=== PATIENT | male | born 1945 | race Caucasian/White ===

== ENCOUNTER 2017-05-05 17:25 | Inpatient (IN) | payer MEDICARE ==
[2017-05-05] MEDS ORDERED: SODIUM CHLORIDE 0.9% 1,000 ML IV ONE (17:50)
--- NOTE | 2017-05-05 18:29 | ED ---
Altered Mental Status HPI - General Chief Complaint: Altered Mental Status Stated Complaint: confusion Time Seen by Provider: 05/05/17 17:39 Source: patient, family Mode of arrival: ambulatory Limitations: no limitations - History of Present Illness Initial Comments: This is a 71-year-old male brought in by family members for altered mental status and confusion was started sometime during this past evening. Patient is a drinker he drinks 5-6 beers per day no trauma reported no fevers chills sweats he has have Parkinson's disease he has have hypertension. No history of stroke MD Complaint: altered mental status, confusion - Related Data Home Medications Medication Instructions Recorded Confirmed Cholecalciferol [Vitamin D3] 1,000 unit PO DAILY 12/03/14 05/05/17 Simvastatin [Zocor] 40 mg PO HS 12/03/14 05/05/17 Acetaminophen [Tylenol 8 Hour] 650 mg PO BID PRN 05/05/17 05/05/17 Lisinopril [Zestril] 20 mg PO DAILY 05/05/17 05/05/17 Multivitamins, Thera [Multivitamin 1 tab PO DAILY 05/05/17 05/05/17 (formulary)] Allergies Allergy/AdvReac Type Severity Reaction Status Date / Time No Known Allergies Allergy Verified 05/05/17 17:54 Review of Systems ROS Statement: Those systems with pertinent positive or pertinent negative responses have been documented in the HPI. ROS Other: All systems not noted in ROS Statement are negative. Limitations: ROS unobtainable due to patients medical condition Past Medical History Past Medical History: Diabetes Mellitus, Hyperlipidemia, Hypertension History of Any Multi-Drug Resistant Organisms: None Reported Past Surgical History: Orthopedic Surgery Additional Past Surgical History / Comment(s): cataract left eye with implant, lt elbow surgery, colonoscopy Past Anesthesia/Blood Transfusion Reactions: No Reported Reaction Smoking Status: Former smoker Past Alcohol Use History: Occasional Past Drug Use History: None Reported - Past Family History Mother Family Medical History: Cancer Additional Family Medical History / Comment(s): unknown kind Daughter(s) Family Medical History: Cancer Additional Family Medical History / Comment(s): @ age 38- colon and then liver ca & then unsure of other area General Exam - General Exam Comments Initial Comments: This is a well-developed well-nourished awake alert oriented 2 male Limitations: no limitations General appearance: alert, in no apparent distress Head exam: Present: atraumatic, normocephalic, normal inspection Eye exam: Present: normal appearance, PERRL, EOMI. Absent: scleral icterus, conjunctival injection, periorbital swelling ENT exam: Present: normal exam, mucous membranes moist Neck exam: Present: normal inspection. Absent: tenderness, meningismus, lymphadenopathy Respiratory exam: Present: normal lung sounds bilaterally. Absent: respiratory distress, wheezes, rales, rhonchi, stridor Cardiovascular Exam: Present: normal rhythm, tachycardia, normal heart sounds. Absent: systolic murmur, diastolic murmur, rubs, gallop, clicks GI/Abdominal exam: Present: soft, normal bowel sounds. Absent: distended, tenderness, guarding, rebound, rigid Extremities exam: Present: normal inspection, full ROM, normal capillary refill. Absent: tenderness, pedal edema, joint swelling, calf tenderness Back exam: Present: normal inspection Neurological exam: Present: alert, altered, CN II-XII intact Psychiatric exam: Present: normal affect, normal mood Skin exam: Present: warm, dry, intact, normal color. Absent: rash Course Vital Signs 05/05/17 05/05/17 05/05/17 17:30 18:38 19:00 Temperature 98.5 F Pulse Rate 122 H 82 100 Respiratory 18 18 18 Rate Blood Pressure 148/66 157/68 178/79 O2 Sat by Pulse 99 96 100 Oximetry 05/05/17 05/05/17 05/05/17 19:15 19:45 20:03 Temperature Pulse Rate 96 98 98 Respiratory 16 18 18 Rate Blood Pressure 170/78 161/77 157/73 O2 Sat by Pulse 98 100 98 Oximetry 05/05/17 20:15 Temperature Pulse Rate 98 Respiratory 18 Rate Blood Pressure 149/69 O2 Sat by Pulse 98 Oximetry - Reevaluation(s) Reevaluation #1: 05/05/17 19:57 Reevaluation patient reveals no changes. Medical Decision Making - Medical Decision Making I did reevaluate patient several occasions no changes. I did discuss case with the patient's patient will be admitted for evaluation. I did discuss case with Dr. Vega. - Lab Data Result diagrams: 05/05/17 18:45 05/05/17 18:45 Lab Results 05/05/17 05/05/17 05/05/17 Range/Units 18:44 18:45 18:45 WBC (3.8-10.6) k/uL RBC (4.30-5.90) m/uL Hgb (13.0-17.5) gm/dL Hct (39.0-53.0) % MCV (80.0-100.0) fL MCH (25.0-35.0) pg MCHC (31.0-37.0) g/dL RDW (11.5-15.5) % Plt Count (150-450) k/uL Neutrophils % % Lymphocytes % % Monocytes % % Eosinophils % % Basophils % % Neutrophils # (1.3-7.7) k/uL Lymphocytes # (1.0-4.8) k/uL Monocytes # (0-1.0) k/uL Eosinophils # (0-0.7) k/uL Basophils # (0-0.2) k/uL PT (9.0-12.0) sec INR (<1.2) APTT (22.0-30.0) sec Sodium 125 L (137-145) mmol/L Potassium 4.1 (3.5-5.1) mmol/L Chloride 88 L (98-107) mmol/L Carbon Dioxide 23 (22-30) mmol/L Anion Gap 14 mmol/L BUN 18 (9-20) mg/dL Creatinine 0.80 (0.66-1.25) mg/dL Est GFR (MDRD) Af Amer >60 (>60 ml/min/1.73 sqM) Est GFR (MDRD) Non-Af >60 (>60 ml/min/1.73 sqM) Glucose 135 H (74-99) mg/dL POC Glucose (mg/dL) 155 H (75-99) mg/dL POC Glu Head Strength And [employer]ing Coach ID Juan F Austin Calcium 9.5 (8.4-10.2) mg/dL Magnesium 0.8 L* (1.6-2.3) mg/dL Total Bilirubin 0.7 (0.2-1.3) mg/dL AST 62 H (17-59) U/L ALT 44 (21-72) U/L Alkaline Phosphatase 97 (38-126) U/L Ammonia (<30) umol/L Total Creatine Kinase 1568 H (55-170) U/L CK-MB (CK-2) 29.2 H* (0.0-2.4) ng/mL CK-MB (CK-2) Rel Index 1.9 Troponin I 0.014 (0.000-0.034) ng/mL Total Protein 7.6 (6.3-8.2) g/dL Albumin 4.4 (3.5-5.0) g/dL Amylase 42 (30-110) U/L Lipase 47 (23-300) U/L Serum Alcohol <10 mg/dL 05/05/17 05/05/17 05/05/17 Range/Units 18:45 18:45 19:00 WBC 12.8 H (3.8-10.6) k/uL RBC 3.82 L (4.30-5.90) m/uL Hgb 11.9 L (13.0-17.5) gm/dL Hct 32.9 L (39.0-53.0) % MCV 86.1 (80.0-100.0) fL MCH 31.1 (25.0-35.0) pg MCHC 36.2 (31.0-37.0) g/dL RDW 13.0 (11.5-15.5) % Plt Count 431 (150-450) k/uL Neutrophils % 84 % Lymphocytes % 7 % Monocytes % 6 % Eosinophils % 0 % Basophils % 0 % Neutrophils # 10.8 H (1.3-7.7) k/uL Lymphocytes # 0.9 L (1.0-4.8) k/uL Monocytes # 0.8 (0-1.0) k/uL Eosinophils # 0.0 (0-0.7) k/uL Basophils # 0.0 (0-0.2) k/uL PT 10.7 (9.0-12.0) sec INR 1.1 (<1.2) APTT 26.1 (22.0-30.0) sec Sodium (137-145) mmol/L Potassium (3.5-5.1) mmol/L Chloride (98-107) mmol/L Carbon Dioxide (22-30) mmol/L Anion Gap mmol/L BUN (9-20) mg/dL Creatinine (0.66-1.25) mg/dL Est GFR (MDRD) Af Amer (>60 ml/min/1.73 sqM) Est GFR (MDRD) Non-Af (>60 ml/min/1.73 sqM) Glucose (74-99) mg/dL POC Glucose (mg/dL) (75-99) mg/dL POC Glu Head Strength And Conditioning Coach ID Calcium (8.4-10.2) mg/dL Magnesium (1.6-2.3) mg/dL Total Bilirubin (0.2-1.3) mg/dL AST (17-59) U/L ALT (21-72) U/L Alkaline Phosphatase (38-126) U/L Ammonia 19 (<30) umol/L Total Creatine Kinase (55-170) U/L CK-MB (CK-2) (0.0-2.4) ng/mL CK-MB (CK-2) Rel Index Troponin I (0.000-0.034) ng/mL Total Protein (6.3-8.2) g/dL Albumin (3.5-5.0) g/dL Amylase (30-110) U/L Lipase (23-300) U/L Serum Alcohol mg/dL - EKG Data -: EKG Interpreted by Me EKG shows normal: sinus rhythm (Sinus rhythm rate 97 CO interval 1:30 QRS 80 QT since QTC of 362/459 occasional PVCs no acute ST-T wave changes) - Radiology Data Radiology results: report reviewed (I did review the imaging and reports no definite acute findings.), image reviewed Critical Care Time Critical Care Time: Yes Critical Care Time: 33 minutes of critical care time which includes initial presentation with history physical labs x-rays reevaluation patient response to therapy and neurological status admission orders discussed with the family documentation of the above Disposition Clinical Impression: Altered mental status, Delirium due to general medical condition, Rhabdomyolysis, Hypomagnesemia, Alcohol abuse Disposition: ADMITTED IP TO THIS HOSP Condition: Stable Referrals: Alejandro Claudio MD [Primary Care Provider] - 1-2 days
[2017-05-05 18:46] LABS: Glucose,Whole Blood 155 mg/dL (75-99)
[2017-05-05 19:00] LABS: Basophils % (A) 0 %; CH 30.9; CHCM 35.9; Eosinophils % (A) 0 %; HCT 32.9 % (39.0-53.0); HDW 2.32; HGB 11.9 gm/dL (13.0-17.5); Luc # (Auto) 0.33; Luc % (Auto) 3; Lymphocytes # (A) 0.9 k/uL (1.0-4.8); Lymphocytes % (A) 7 %; MCH 31.1 pg (25.0-35.0); MCHC 36.2 g/dL (31.0-37.0); MCV 86.1 fL (80.0-100.0); Mean Platelet Volume 6.2; Monocytes # (A) 0.8 k/uL (0-1.0); Monocytes % (A) 6 %; Neutrophils # (A) 10.8 k/uL (1.3-7.7); Neutrophils % (A) 84 %; RBC 3.82 m/uL (4.30-5.90); WBC 12.8 k/uL (3.8-10.6); WBC (Perox) 13.34
--- NOTE | 2017-05-05 19:15 | CT ---
EXAMINATION TYPE: CT brain wo con DATE OF EXAM: 05/05/2017 COMPARISON: NONE HISTORY: 71-year-old male with confusion, altered mental status. TECHNIQUE: Examination was done in axial plane without intravenous contrast. Coronal and sagittal r econstructions performed. CT DLP: 1035.40 mGycm Automated exposure control for dose reduction was used. FINDINGS: There is no evidence of acute intracranial hemorrhage, acute ischemic changes, mass, mass-effect, or extra-axial fluid collection. There is no effacement of cerebral sulci or basal subarachnoid cister ns. There is no hydrocephalus. There is no midline shift. Chadwick-white matter distinction is preserv ed. Mild generalized supratentorial volume loss. Dystrophic calcifications along the falx cerebri. Athero sclerotic calcifications within the carotid siphons. 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 Extensive calcifications in the anterior right nasal cavity. Moderate to severe mucosal thickening in the right maxillary sinus and moderate in the left maxillary sinus. Mastoid air cells are well pneumatized. Orbits and globes appear intact IMPRESSION: 1. Mild cerebral atrophy. No acute intracranial abnormality seen. 2. Long-standing right maxillary sinus disease. Some hyperdensity within the right maxillary sinus an d apparent calcifications in the right nasal cavity. Correlate to exclude superimposed aspergillus in fection. ENT referral may be of benefit.
[2017-05-05 19:21] LABS: ALT 44 U/L (21-72); AST 62 U/L (17-59); Alcohol <10 mg/dL; Alkaline Phosphatase 97 U/L (38-126); Amylase 42 U/L (30-110); Anion Gap 14 mmol/L; Blood Urea Nitrogen 18 mg/dL (9-20); Calcium 9.5 mg/dL (8.4-10.2); Carbon Dioxide 23 mmol/L (22-30); Chloride 88 mmol/L (98-107); Glucose 135 mg/dL (74-99); Non-African American GFR(MDRD) >60 (>60 ml/min/1.73 sqM); Potassium 4.1 mmol/L (3.5-5.1); Sodium 125 mmol/L (137-145); Total Bilirubin 0.7 mg/dL (0.2-1.3); Total Protein 7.6 g/dL (6.3-8.2)
[2017-05-05 19:26] LABS: Magnesium 0.8 mg/dL (1.6-2.3)
[2017-05-05 19:31] LABS: Troponin I 0.014 ng/mL (0.000-0.034)
[2017-05-05 19:32] LABS: Creatine Kinase MB 29.2 ng/mL (0.0-2.4); INR 1.1 (<1.2); Partial Thromboplastin Time 26.1 sec (22.0-30.0); Prothrombin Time 10.7 sec (9.0-12.0)
--- NOTE | 2017-05-05 19:45 | XR ---
EXAMINATION TYPE: XR chest 2V DATE OF EXAM: 05/05/2017 COMPARISON: None HISTORY: 71-year-old male confusion, unresponsive, altered mental status TECHNIQUE: AP and lateral views FINDINGS: The heart is upper limits of normal in size. This chronic arch calcifications. Diffuse interstitial p rominence is a chronic appearance. A consolidation or pleural effusion. IMPRESSION: Chronic-appearing changes, possible chronic bronchitis/asthma. No focal infiltrate.
[2017-05-05] MEDS: MAGNESIUM SULFATE-D5W PMX 1 GM in DEXTROSE/WATER 1 100ML.BAG IVPB SCH ×2 (20:00→22:07)
[2017-05-05] MEDS ORDERED: NALOXONE 0.4 MG/ML 1 ML VIAL IV PRN (20:26)
[2017-05-05] MEDS ORDERED: ACETAMINOPHEN TAB 325 MG TAB PO PRN (20:28)
[2017-05-05 20:31] LABS: Appearance,Urine Clear (Clear); Bilirubin,Urine Negative (Negative); Glucose,Urine (UA) Negative (Negative); Ketones,Urine Negative (Negative); Leukocyte Esterase,Urine Negative (Negative); Nitrite,Urine Negative (Negative); Particle Count 380; Protein,Urine 1+ (Negative); RBC,Urine <1 /hpf (0-5); Specific Gravity,Urine 1.006 (1.001-1.035); UA Billing (MACRO vs. MICRO) MICRO; Urobilinogen,Urine <2.0 mg/dL (<2.0)
[2017-05-05] MEDS ORDERED: ATORVASTATIN 20 MG TAB PO SCH (21:00)
[2017-05-05 21:54] LABS: Glucose,Whole Blood 135 mg/dL (75-99)
[2017-05-05] MEDS: SODIUM CHLORIDE 0.9% 1,000 ML IV SCH (21:59)
[2017-05-05] MEDS ORDERED: SODIUM CHLORIDE 0.9% 1,000 ML with MVI, ADULT NO.4 WITH VIT K 10 ML, THIAMINE 100 MG, F... IV ONE ×4 (22:00)
[2017-05-05] MEDS: ATORVASTATIN 20 MG TAB PO SCH (22:03)
[2017-05-05] MEDS ORDERED: LORazepam 2 MG/ML SYRINGE IV PRN ×2 (23:58)
[2017-05-06] MEDS: LORazepam 2 MG/ML SYRINGE IV PRN (00:31)
[2017-05-06 01:55] LABS: Glucose,Whole Blood 167 mg/dL (75-99)
[2017-05-06 06:02] LABS: Glucose,Whole Blood 149 mg/dL (75-99)
[2017-05-06] MEDS: CHOLECALCIFEROL 1,000 UNIT TAB PO SCH (08:24)
[2017-05-06] MEDS: MULTIVITAMINS, THERA 1 EACH TAB PO SCH (08:24)
[2017-05-06] MEDS: SODIUM CHLORIDE 0.9% 1,000 ML IV SCH ×4 (08:25→21:22)
[2017-05-06] MEDS ORDERED: LISINOPRIL 20 MG TAB PO SCH (09:00)
[2017-05-06] MEDS ORDERED: POLYETHYLENE GLYCOL 3350 17 GM POWD.PACK PO PRN (11:28)
[2017-05-06] MEDS ORDERED: DOCUSATE 100 MG CAP PO PRN (11:28)
[2017-05-06] MEDS ORDERED: Magnesium Replacement Protocol 1 EACH MISC MISCELLANE PRN (12:08)
[2017-05-06] MEDS: MAGNESIUM SULFATE-D5W PMX 1 GM in DEXTROSE/WATER 1 100ML.BAG IVPB SCH ×3 (12:14→16:57)
[2017-05-06 12:16] LABS: Glucose,Whole Blood 130 mg/dL (75-99)
--- NOTE | 2017-05-06 14:34 | P.HPIM ---
History of Present Illness 71-year-old pleasant gentleman was admitted for altered mental status. Patient today is alert oriented 3. Note there are no signs or symptoms of sepsis at this time. Patient denied any dysuria, denied any cough. Patient's urease essentially within normal limits. Patient didn't have any fever. She does have leukocytosis which is reactive in nature. Patient is found to be hyponatremic and hypomagnesemic. Patient apparently was found on the floor he states he is on the floor for about 10 hours patient was drinking alcohol. Patient was not exactly sure what happened and he believes he may have overdosed on medications unintentionally. But the patient's urine drug screen is negative. Patient last all call drink was about 2 days ago on Sunday. Patient is having minimal withdraws including shaking today. Patient does drink alcohol abuse and liver trying to cut it down. Patient is on all call withdrawal protocol IV fluids and patient is feeling much better. Patient has hypovolemic hyponatremia which is expected to improve with the IV fluids. Patient will be transferred out of selective care. Denied any chest pain does have elevated CK secondary to lying on the floor for long period Of time. Review of Systems REVIEW OF SYSTEMS: CONSTITUTIONAL: No fever, no malaise, no fatigue. HEENT: No recent visual problems or hearing problems. Denied any sore throat. CARDIOVASCULAR: No chest pain, orthopnea, PND, no palpitations, no syncope. PULMONARY: No shortness of breath, no cough, no hemoptysis. GASTROINTESTINAL: No diarrhea, no nausea, no vomiting, no abdominal pain. Normoactive bowel sounds. NEUROLOGICAL: No headaches, no weakness, no numbness. HEMATOLOGICAL: Denies any bleeding or petechiae. GENITOURINARY: Denies any burning micturition, frequency, or urgency. MUSCULOSKELETAL/RHEUMATOLOGICAL: Denies any joint pain, swelling, or any muscle pain. ENDOCRINE: Denies any polyuria or polydipsia. The rest of the 14-point review of systems is negative. Past Medical History Past Medical History: Hyperlipidemia, Hypertension Additional Past Medical History / Comment(s): spouse states has hernia and vomits after eating at times History of Any Multi-Drug Resistant Organisms: None Reported Past Surgical History: Orthopedic Surgery Additional Past Surgical History / Comment(s): cataract left eye with implant, lt elbow surgery, colonoscopy Past Anesthesia/Blood Transfusion Reactions: No Reported Reaction Smoking Status: Former smoker Past Alcohol Use History: Occasional Past Drug Use History: None Reported - Past Family History Mother Family Medical History: Cancer Additional Family Medical History / Comment(s): lung cancer Daughter(s) Family Medical History: Cancer Additional Family Medical History / Comment(s): @ age 38- colon and then liver ca & then unsure of other area Medications and Allergies Home Medications Medication Instructions Recorded Confirmed Type Cholecalciferol [Vitamin D3] 1,000 unit PO DAILY 12/03/14 05/05/17 History Simvastatin [Zocor] 40 mg PO HS 12/03/14 05/05/17 History Acetaminophen [Tylenol 8 Hour] 650 mg PO BID PRN 05/05/17 05/05/17 History Lisinopril [Zestril] 20 mg PO DAILY 05/05/17 05/05/17 History Multivitamins, Thera [Multivitamin 1 tab PO DAILY 05/05/17 05/05/17 History (formulary)] Allergies Allergy/AdvReac Type Severity Reaction Status Date / Time No Known Allergies Allergy Verified 05/05/17 17:54 Physical Exam Vitals: Vital Signs Temp Pulse Pulse Resp BP BP Pulse Ox 05/06/17 12:00 81 16 120/58 100 05/06/17 08:00 97.6 F 107 H 16 122/71 98 05/06/17 04:00 96.9 F L 92 18 167/81 98 05/06/17 00:00 97.0 F L 96 18 174/90 100 05/05/17 21:40 97.3 F L 96 18 150/66 97 05/05/17 21:25 97.3 F L 96 18 150/66 97 05/05/17 20:42 98.7 F 05/05/17 20:15 98 18 149/69 98 05/05/17 20:03 98 18 157/73 98 05/05/17 19:45 98 18 161/77 100 05/05/17 19:15 96 16 170/78 98 05/05/17 19:00 100 18 178/79 100 05/05/17 18:38 82 18 157/68 96 05/05/17 17:30 98.5 F 122 H 18 148/66 99 Intake and Output 05/05/17 05/06/17 05/06/17 22:59 06:59 14:59 Output Total 50 750 Balance -50 -750 Output: Urine 50 750 Straight 50 Other: # Voids 2 Weight 74 kg 74.2 kg PHYSICAL EXAMINATION: GENERAL: The patient is alert and oriented x3, not in any acute distress. Well developed, well nourished. Patient does have tremor. HEENT: Pupils are round and equally reacting to light. EOMI. No scleral icterus. No conjunctival pallor. Normocephalic, atraumatic. No pharyngeal erythema. No thyromegaly. CARDIOVASCULAR: S1 and S2 present. No murmurs, rubs, or gallops. PULMONARY: Chest is clear to auscultation, no wheezing or crackles. ABDOMEN: Soft, nontender, nondistended, normoactive bowel sounds. No palpable organomegaly. MUSCULOSKELETAL: No joint swelling or deformity. EXTREMITIES: No cyanosis, clubbing, or pedal edema. NEUROLOGICAL: Gross neurological examination did not reveal any focal deficits. SKIN: No rashes. Results CBC & Chem 7: 05/05/17 18:45 05/05/17 18:45 Labs: Abnormal Lab Results - Last 24 Hours (Table) 05/05/17 05/05/17 05/05/17 Range/Units 18:44 18:45 18:45 WBC (3.8-10.6) k/uL RBC (4.30-5.90) m/uL Hgb (13.0-17.5) gm/dL Hct (39.0-53.0) % Neutrophils # (1.3-7.7) k/uL Lymphocytes # (1.0-4.8) k/uL Sodium 125 L (137-145) mmol/L Chloride 88 L (98-107) mmol/L Glucose 135 H (74-99) mg/dL POC Glucose (mg/dL) 155 H (75-99) mg/dL Magnesium 0.8 L* (1.6-2.3) mg/dL AST 62 H (17-59) U/L Total Creatine Kinase 1568 H (55-170) U/L CK-MB (CK-2) 29.2 H* (0.0-2.4) ng/mL Urine Protein (Negative) 05/05/17 05/05/17 05/05/17 Range/Units 18:45 20:13 21:42 WBC 12.8 H (3.8-10.6) k/uL RBC 3.82 L (4.30-5.90) m/uL Hgb 11.9 L (13.0-17.5) gm/dL Hct 32.9 L (39.0-53.0) % Neutrophils # 10.8 H (1.3-7.7) k/uL Lymphocytes # 0.9 L (1.0-4.8) k/uL Sodium (137-145) mmol/L Chloride (98-107) mmol/L Glucose (74-99) mg/dL POC Glucose (mg/dL) 135 H (75-99) mg/dL Magnesium (1.6-2.3) mg/dL AST (17-59) U/L Total Creatine Kinase (55-170) U/L CK-MB (CK-2) (0.0-2.4) ng/mL Urine Protein 1+ H (Negative) 05/06/17 05/06/17 05/06/17 Range/Units 01:54 06:01 06:09 WBC (3.8-10.6) k/uL RBC (4.30-5.90) m/uL Hgb (13.0-17.5) gm/dL Hct (39.0-53.0) % Neutrophils # (1.3-7.7) k/uL Lymphocytes # (1.0-4.8) k/uL Sodium (137-145) mmol/L Chloride (98-107) mmol/L Glucose (74-99) mg/dL POC Glucose (mg/dL) 167 H 149 H (75-99) mg/dL Magnesium 1.4 L (1.6-2.3) mg/dL AST (17-59) U/L Total Creatine Kinase (55-170) U/L CK-MB (CK-2) (0.0-2.4) ng/mL Urine Protein (Negative) 05/06/17 Range/Units 11:48 WBC (3.8-10.6) k/uL RBC (4.30-5.90) m/uL Hgb (13.0-17.5) gm/dL Hct (39.0-53.0) % Neutrophils # (1.3-7.7) k/uL Lymphocytes # (1.0-4.8) k/uL Sodium (137-145) mmol/L Chloride (98-107) mmol/L Glucose (74-99) mg/dL POC Glucose (mg/dL) 130 H (75-99) mg/dL Magnesium (1.6-2.3) mg/dL AST (17-59) U/L Total Creatine Kinase (55-170) U/L CK-MB (CK-2) (0.0-2.4) ng/mL Urine Protein (Negative) Thrombosis Risk Factor Assmnt - Choose All That Apply Each Risk Factor Represents 2 Points: Age 61-74 years Thrombosis Risk Factor Assessment Total Risk Factor Score: 2 Thrombosis Risk Factor Assessment Level: Low Risk Assessment and Plan Plan: #1 altered mental status: Secondary to possible toxic and encephalopathy. Hyponatremia may have contributed to that but I believe it's mostly because of all call overuse on Sunday. His alcohol level is less than 10 today as it was couple days ago patient will be on IV fluids I believe patient has hypervolemic hyponatremia expected to improve with IV fluids. #2 alcohol abuse history: Counseling was provided and patient is on CIWA withdrawal protocol. #3 hyponatremia: Hypovolemic hyponatremia. #4 hyperlipidemia #5 hypertension #6 leukocytosis: Reactive in nature no signs or symptoms of infection at this time.
[2017-05-06 17:04] LABS: Glucose,Whole Blood 131 mg/dL (75-99)
[2017-05-06] MEDS: THIAMINE 100 MG TAB PO SCH (17:56)
[2017-05-06 20:43] LABS: Glucose,Whole Blood 169 mg/dL (75-99)
[2017-05-06] MEDS: METOPROLOL TARTRATE 25 MG TAB PO SCH (21:24)
[2017-05-06] MEDS: FAMOTIDINE 20 MG TAB PO SCH (21:24)
[2017-05-06] MEDS: ATORVASTATIN 20 MG TAB PO SCH (21:25)
[2017-05-07 06:58] LABS: Glucose,Whole Blood 134 mg/dL (75-99)
[2017-05-07 07:01] LABS: CH 31.7; HCT 27.1 % (39.0-53.0); HDW 2.17; MCV 90.9 fL (80.0-100.0); Mean Platelet Volume 7.2; RBC 2.98 m/uL (4.30-5.90); RDW 13.5 % (11.5-15.5); WBC 12.9 k/uL (3.8-10.6)
[2017-05-07] MEDS: SODIUM CHLORIDE 0.9% 1,000 ML IV SCH (07:02)
[2017-05-07 07:04] LABS: HGB 8.9 gm/dL (13.0-17.5)
[2017-05-07 07:13] LABS: ALT 40 U/L (21-72); AST 54 U/L (17-59); Alkaline Phosphatase 71 U/L (38-126); Anion Gap 9 mmol/L; Blood Urea Nitrogen 14 mg/dL (9-20); Calcium 8.2 mg/dL (8.4-10.2); Carbon Dioxide 25 mmol/L (22-30); Chloride 88 mmol/L (98-107); Glucose 118 mg/dL (74-99); Magnesium 1.1 mg/dL (1.6-2.3); Non-African American GFR(MDRD) >60 (>60 ml/min/1.73 sqM); Potassium 3.3 mmol/L (3.5-5.1); Sodium 122 mmol/L (137-145); Total Bilirubin 0.9 mg/dL (0.2-1.3); Total Protein 5.9 g/dL (6.3-8.2)
--- NOTE | 2017-05-07 08:10 | P.PN ---
Subjective Principal diagnosis: Altered mental status. This is a 71-year-old white male essentially admitted for altered mental status. He does have a lab finding of anemia. He suspect this is dilutional. We'll decrease his IV fluid rate today and recheck his appropriate CBC. We'll go ahead and consult surgery just in case. He is already on GI prophylaxis. Unfortunately, after trying to get history from the patient he states he takes an hour from 6-12 pack of beer daily. He denies any type of liquor usage otherwise. He states he drinks wine intermittently. He states he would like to see try to decrease to 5-6 beers daily. Otherwise, he has an underlying history of Parkinson's disease. Objective - Vital Signs Vital signs: Vital Signs Temp 97.9 F 05/07/17 07:29 Pulse 94 05/07/17 07:29 Resp 16 05/07/17 07:29 BP 157/71 05/07/17 07:29 Pulse Ox 97 05/07/17 07:29 Intake & Output 05/06/17 05/07/17 05/07/17 18:59 06:59 18:59 Intake Total 240 1200 Balance 240 1200 Intake: Intake, IV Titration 1200 Amount Sodium Chloride 0.9% 1, 1200 000 ml @ 125 mls/hr IV . Q8H MELVI Rx#:[id number] Oral 240 Other: # Voids 2 - Constitutional General appearance: Present: average body habitus - EENT Eyes: Absent: abnormal pupil - Respiratory Respiratory: bilateral: CTA - Cardiovascular Rhythm: regular Heart sounds: normal: S1, S2 - Gastrointestinal General gastrointestinal: Absent: tenderness - Neurologic Neurologic Comment(s): Tremor is noted. - Psychiatric Psychiatric: Present: A&O x's 3, appropriate affect - Labs CBC & Chem 7: 05/07/17 06:39 05/07/17 06:39 Labs: Abnormal Lab Results - Last 24 Hours (Table) 05/06/17 05/06/17 05/06/17 Range/Units 11:48 16:52 20:42 WBC (3.8-10.6) k/uL RBC (4.30-5.90) m/uL Hgb (13.0-17.5) gm/dL Hct (39.0-53.0) % Sodium (137-145) mmol/L Potassium (3.5-5.1) mmol/L Chloride (98-107) mmol/L Glucose (74-99) mg/dL POC Glucose (mg/dL) 130 H 131 H 169 H (75-99) mg/dL Calcium (8.4-10.2) mg/dL Magnesium (1.6-2.3) mg/dL Total Protein (6.3-8.2) g/dL Albumin (3.5-5.0) g/dL 05/07/17 05/07/17 05/07/17 Range/Units 06:39 06:39 06:55 WBC 12.9 H (3.8-10.6) k/uL RBC 2.98 L (4.30-5.90) m/uL Hgb 8.9 L D (13.0-17.5) gm/dL Hct 27.1 L (39.0-53.0) % Sodium 122 L (137-145) mmol/L Potassium 3.3 L (3.5-5.1) mmol/L Chloride 88 L (98-107) mmol/L Glucose 118 H (74-99) mg/dL POC Glucose (mg/dL) 134 H (75-99) mg/dL Calcium 8.2 L (8.4-10.2) mg/dL Magnesium 1.1 L (1.6-2.3) mg/dL Total Protein 5.9 L (6.3-8.2) g/dL Albumin 3.2 L (3.5-5.0) g/dL Assessment and Plan (1) Alcohol abuse Status: Acute (2) Altered mental status Status: Acute (3) Delirium due to general medical condition Status: Acute (4) Hypomagnesemia Status: Acute Plan: We'll going consult surgery as stated above. Check CBC and CMP in a.m. Watch for alcohol withdrawal. Decrease IV fluid rate and anticipate discharge in next 24-48 hours if his blood count is stabilizing. Question need for endoscopy in the future. Time with Patient: Less than 30
[2017-05-07] MEDS ORDERED: SODIUM CHLORIDE 0.9% 1,000 ML IV SCH (08:15)
[2017-05-07] MEDS: FAMOTIDINE 20 MG TAB PO SCH ×2 (09:45→21:33)
[2017-05-07] MEDS: METOPROLOL TARTRATE 25 MG TAB PO SCH ×2 (09:45→21:33)
[2017-05-07] MEDS: CHOLECALCIFEROL 1,000 UNIT TAB PO SCH (09:45)
[2017-05-07] MEDS: MULTIVITAMINS, THERA 1 EACH TAB PO SCH (09:45)
[2017-05-07 11:44] LABS: Glucose,Whole Blood 148 mg/dL (75-99)
[2017-05-07] MEDS: THIAMINE 100 MG TAB PO SCH ×2 (12:19→16:55)
[2017-05-07] MEDS: MAGNESIUM SULFATE-D5W PMX 1 GM in DEXTROSE/WATER 1 100ML.BAG IVPB SCH ×3 (12:43→16:55)
[2017-05-07] MEDS ORDERED: Potassium Replacement Protocol 1 EACH MISC MISCELLANE PRN (13:14)
[2017-05-07] MEDS: POTASSIUM CHLORIDE ER 20 MEQ TAB.ER PO SCH ×2 (14:10→16:55)
[2017-05-07 16:44] LABS: Glucose,Whole Blood 168 mg/dL (75-99)
--- NOTE | 2017-05-07 18:06 | P.GSCN ---
History of Present Illness Consult date: 05/07/17 Reason for Consult: anemia History of present illness: this a 71-year-old male referred from Dr. Claudio. Patient was met the hospital for treatment of anemia. Patient is a poor historian. Is unclear whether seen any rectal bleeding. The patient's hemoglobin is approximate 8.4. Review of Systems - Constitutional Reports as per HPI Past Medical History Past Medical History: Hyperlipidemia, Hypertension Additional Past Medical History / Comment(s): spouse states has hernia and vomits after eating at times History of Any Multi-Drug Resistant Organisms: None Reported Past Surgical History: Orthopedic Surgery Additional Past Surgical History / Comment(s): cataract left eye with implant, lt elbow surgery, colonoscopy Past Anesthesia/Blood Transfusion Reactions: No Reported Reaction Smoking Status: Former smoker Past Alcohol Use History: Occasional Past Drug Use History: None Reported - Past Family History Mother Family Medical History: Cancer Additional Family Medical History / Comment(s): lung cancer Daughter(s) Family Medical History: Cancer Additional Family Medical History / Comment(s): @ age 38- colon and then liver ca & then unsure of other area Medications and Allergies Home Medications Medication Instructions Recorded Confirmed Type Cholecalciferol [Vitamin D3] 1,000 unit PO DAILY 12/03/14 05/05/17 History Simvastatin [Zocor] 40 mg PO HS 12/03/14 05/05/17 History Acetaminophen [Tylenol 8 Hour] 650 mg PO BID PRN 05/05/17 05/05/17 History Lisinopril [Zestril] 20 mg PO DAILY 05/05/17 05/05/17 History Multivitamins, Thera [Multivitamin 1 tab PO DAILY 05/05/17 05/05/17 History (formulary)] Allergies Allergy/AdvReac Type Severity Reaction Status Date / Time No Known Allergies Allergy Verified 05/05/17 17:54 Surgical - Exam Vital Signs Temp Pulse Resp BP Pulse Ox 98.5 F 122 H 18 148/66 99 05/05/17 17:30 05/05/17 17:30 05/05/17 17:30 05/05/17 17:30 05/05/17 17:30 - General well developed, no distress - Eyes PERRL - ENT normal pinna - Neck no masses - Respiratory normal expansion - Cardiovascular Rhythm: regular - Abdomen Abdomen: soft, non tender Results - Labs 05/07/17 06:39 05/07/17 06:39 Abnormal Lab Results - Last 24 Hours (Table) 05/06/17 05/07/17 05/07/17 Range/Units 20:42 06:39 06:39 WBC 12.9 H (3.8-10.6) k/uL RBC 2.98 L (4.30-5.90) m/uL Hgb 8.9 L D (13.0-17.5) gm/dL Hct 27.1 L (39.0-53.0) % Sodium 122 L (137-145) mmol/L Potassium 3.3 L (3.5-5.1) mmol/L Chloride 88 L (98-107) mmol/L Glucose 118 H (74-99) mg/dL POC Glucose (mg/dL) 169 H (75-99) mg/dL Calcium 8.2 L (8.4-10.2) mg/dL Magnesium 1.1 L (1.6-2.3) mg/dL Total Protein 5.9 L (6.3-8.2) g/dL Albumin 3.2 L (3.5-5.0) g/dL 05/07/17 05/07/17 05/07/17 Range/Units 06:55 11:39 16:38 WBC (3.8-10.6) k/uL RBC (4.30-5.90) m/uL Hgb (13.0-17.5) gm/dL Hct (39.0-53.0) % Sodium (137-145) mmol/L Potassium (3.5-5.1) mmol/L Chloride (98-107) mmol/L Glucose (74-99) mg/dL POC Glucose (mg/dL) 134 H 148 H 168 H (75-99) mg/dL Calcium (8.4-10.2) mg/dL Magnesium (1.6-2.3) mg/dL Total Protein (6.3-8.2) g/dL Albumin (3.5-5.0) g/dL Diabetes panel 05/07/17 Range/Units 06:39 Sodium 122 L (137-145) mmol/L Potassium 3.3 L (3.5-5.1) mmol/L Chloride 88 L (98-107) mmol/L Carbon Dioxide 25 (22-30) mmol/L BUN 14 (9-20) mg/dL Creatinine 0.67 (0.66-1.25) mg/dL Glucose 118 H (74-99) mg/dL Calcium 8.2 L (8.4-10.2) mg/dL AST 54 (17-59) U/L ALT 40 (21-72) U/L Alkaline Phosphatase 71 (38-126) U/L Total Protein 5.9 L (6.3-8.2) g/dL Albumin 3.2 L (3.5-5.0) g/dL Thyroid panel 05/07/17 Range/Units 06:39 TSH 1.530 (0.465-4.680) mIU/L Calcium panel 05/07/17 Range/Units 06:39 Calcium 8.2 L (8.4-10.2) mg/dL Albumin 3.2 L (3.5-5.0) g/dL Pituitary panel 05/07/17 Range/Units 06:39 Sodium 122 L (137-145) mmol/L Potassium 3.3 L (3.5-5.1) mmol/L Chloride 88 L (98-107) mmol/L Carbon Dioxide 25 (22-30) mmol/L BUN 14 (9-20) mg/dL Creatinine 0.67 (0.66-1.25) mg/dL Glucose 118 H (74-99) mg/dL Calcium 8.2 L (8.4-10.2) mg/dL TSH 1.530 (0.465-4.680) mIU/L Adrenal panel 05/07/17 Range/Units 06:39 Sodium 122 L (137-145) mmol/L Potassium 3.3 L (3.5-5.1) mmol/L Chloride 88 L (98-107) mmol/L Carbon Dioxide 25 (22-30) mmol/L BUN 14 (9-20) mg/dL Creatinine 0.67 (0.66-1.25) mg/dL Glucose 118 H (74-99) mg/dL Calcium 8.2 L (8.4-10.2) mg/dL Total Bilirubin 0.9 (0.2-1.3) mg/dL AST 54 (17-59) U/L ALT 40 (21-72) U/L Alkaline Phosphatase 71 (38-126) U/L Total Protein 5.9 L (6.3-8.2) g/dL Albumin 3.2 L (3.5-5.0) g/dL Assessment and Plan Plan: anemia. Patient should undergo upper and lower endoscopy when stable.
[2017-05-07 19:07] LABS: Magnesium 1.7 mg/dL (1.6-2.3); Potassium 3.2 mmol/L (3.5-5.1)
[2017-05-07 20:10] LABS: Glucose,Whole Blood 170 mg/dL (75-99)
[2017-05-07] MEDS: POTASSIUM CHLORIDE 10 MEQ, LIDOCAINE 2% INJ 10 MG in SODIUM CHLORIDE 0.9% 100 ML IVPB SCH ×2 (21:32→22:49)
[2017-05-07] MEDS: ATORVASTATIN 20 MG TAB PO SCH (21:33)
[2017-05-08] MEDS: POTASSIUM CHLORIDE 10 MEQ, LIDOCAINE 2% INJ 10 MG in SODIUM CHLORIDE 0.9% 100 ML IVPB SCH ×2 (02:54→03:48)
[2017-05-08 07:43] LABS: Glucose,Whole Blood 153 mg/dL (75-99)
[2017-05-08] MEDS: MULTIVITAMINS, THERA 1 EACH TAB PO SCH (08:30)
[2017-05-08 08:40] LABS: CH 31.5; CHCM 34.9; HCT 29.8 % (39.0-53.0); HDW 2.18; HGB 9.9 gm/dL (13.0-17.5); MCH 30.1 pg (25.0-35.0); MCHC 33.3 g/dL (31.0-37.0); MCV 90.5 fL (80.0-100.0); Mean Platelet Volume 6.9; RBC 3.29 m/uL (4.30-5.90); RDW 13.4 % (11.5-15.5)
[2017-05-08] MEDS: METOPROLOL TARTRATE 25 MG TAB PO SCH ×2 (08:44→20:36)
[2017-05-08] MEDS: FAMOTIDINE 20 MG TAB PO SCH ×2 (08:45→20:36)
[2017-05-08] MEDS: CHOLECALCIFEROL 1,000 UNIT TAB PO SCH (08:45)
[2017-05-08 08:57] LABS: ALT 45 U/L (21-72); AST 45 U/L (17-59); Alkaline Phosphatase 77 U/L (38-126); Anion Gap 12 mmol/L; Blood Urea Nitrogen 11 mg/dL (9-20); Carbon Dioxide 24 mmol/L (22-30); Chloride 84 mmol/L (98-107); Glucose 138 mg/dL (74-99); Non-African American GFR(MDRD) >60 (>60 ml/min/1.73 sqM); Potassium 3.8 mmol/L (3.5-5.1); Total Bilirubin 1.2 mg/dL (0.2-1.3); Total Protein 6.7 g/dL (6.3-8.2)
[2017-05-08 09:15] LABS: Sodium 120 mmol/L (137-145)
[2017-05-08] MEDS ORDERED: SODIUM CHLORIDE 0.9% 1,000 ML IV SCH (10:30)
[2017-05-08 11:41] LABS: Glucose,Whole Blood 158 mg/dL (75-99)
[2017-05-08] MEDS: THIAMINE 100 MG TAB PO SCH ×2 (11:42→16:01)
--- NOTE | 2017-05-08 13:07 | P.NPCON ---
History of Present Illness - Reason for Consult hyponatremia - History of Present Illness Reason for consultation: Hyponatremia History of present illness: Patient is a 71-year-old male seen in renal consultation for hyponatremia. Sodium level was 125 on admission and has been progressively dropping and is down to 120 this morning. Patient is currently not on any diuretics and not maintained on any IV fluids. Denies drinking excess amount of fluids. I don't see any medications that was-induced SIADH. Admits to good urine output. No hematuria or dysuria. Hemodynamically he is stable. Patient had initially presented to the hospital with altered mental status and anemia. Hemoglobin has been relatively stable and was 9.9 this morning. He denies any active bleeding. No melena or hematochezia. No hematemesis. He was started on IV fluids with normal saline running at 75 mL an hour this morning. Vital signs are stable. General: The patient appeared well nourished and normally developed. HEENT: Head exam is unremarkable. Neck is without jugular venous distension. LUNGS: Lungs are clear to auscultation and percussion. Breath sounds decreased. HEART: Rate and Rhythm are regular. First and second heart sounds normal. No murmurs, rubs or gallops. ABDOMEN: Abdominal exam reveals normal bowel sounds. Non-tender and non- distended. No evidence of peritonitis. EXTREMITITES: No clubbing, cyanosis, or edema. Past Medical History Past Medical History: Hyperlipidemia, Hypertension Additional Past Medical History / Comment(s): spouse states has hernia and vomits after eating at times History of Any Multi-Drug Resistant Organisms: None Reported Past Surgical History: Orthopedic Surgery Additional Past Surgical History / Comment(s): cataract left eye with implant, lt elbow surgery, colonoscopy Past Anesthesia/Blood Transfusion Reactions: No Reported Reaction Smoking Status: Former smoker Past Alcohol Use History: Occasional Past Drug Use History: None Reported - Past Family History Mother Family Medical History: Cancer Additional Family Medical History / Comment(s): lung cancer Daughter(s) Family Medical History: Cancer Additional Family Medical History / Comment(s): @ age 38- colon and then liver ca & then unsure of other area Medications and Allergies Home Medications Medication Instructions Recorded Confirmed Type Cholecalciferol [Vitamin D3] 1,000 unit PO DAILY 12/03/14 05/05/17 History Simvastatin [Zocor] 40 mg PO HS 12/03/14 05/05/17 History Acetaminophen [Tylenol 8 Hour] 650 mg PO BID PRN 05/05/17 05/05/17 History Lisinopril [Zestril] 20 mg PO DAILY 05/05/17 05/05/17 History Multivitamins, Thera [Multivitamin 1 tab PO DAILY 05/05/17 05/05/17 History (formulary)] Allergies Allergy/AdvReac Type Severity Reaction Status Date / Time No Known Allergies Allergy Verified 05/05/17 17:54 Physical Exam Vitals: Vital Signs Temp Pulse Resp BP Pulse Ox 05/08/17 08:00 89 16 05/08/17 07:38 98.0 F 89 16 140/68 99 05/08/17 02:40 99.1 F 88 16 139/65 97 05/07/17 20:00 98.5 F 99 18 164/77 05/07/17 15:24 96 05/07/17 14:27 98.1 F 89 16 146/69 96 Intake and Output 05/07/17 05/08/17 05/08/17 22:59 06:59 14:59 Intake Total 560 320 Balance 560 320 Intake: Intake, IV Titration 560 Amount Potassium Chloride 10 meq 400 Lidocaine 2% Inj 10 mg In Sodium Chloride 0.9% 100 ml @ 100 mls/hr IVPB Q1HR [facility] Rx#:[id number] Sodium Chloride 0.9% 1, 160 000 ml @ 20 mls/hr IV . Q24H [facility] Rx#:[id number] Oral 320 Results - Lab Results Most recent lab results Calcium 9.0 mg/dL (8.4-10.2) 05/08/17 08:02 Magnesium 1.0 mg/dL (1.6-2.3) L* 05/08/17 08:02 05/08/17 08:02 05/08/17 08:02 Assessment and Plan Plan: Assessment: #1. Hyponatremia. Patient appears euvolemic and nature. Urine sodium 67 and urine osmolality is 466 also suggestive of SIADH. I don't see any medications that he's on which will induce SIADH. There may be a component of tea and toast diet although he's been eating fairly well. He does have history of alcohol abuse. #2. Anemia. Rule out iron deficiency. #3. Hypomagnesemia, due to depressed appetite. Again, he's not on diuretics and also not on a PPI. Plan: Continue with normal saline to be run at 75 mL an hour. I will put him on a 1.2 L fluid restriction. Add ensure with meals. Repeat sodium level at 5 PM today. Check post void residual. Thank you for the consultation. I will continue to follow the patient with you during his hospital stay.
[2017-05-08 14:07] LABS: % Iron Saturation 6.4 % (20-50)
--- NOTE | 2017-05-08 14:07 | P.PN ---
Subjective 71-year-old gentleman being seen and examined currently sitting up in a chair talking on the phone patient appears in no acute distress. Did note the patient 's sodium was down to 120 this morning. There has been a nephrology consultation requested. Patient's initial presentation to the emergency room to be evaluated for mental status changes with anemia. Patient denies any hematemesis no blood in stool no signs of any active bleeding hemoglobin this morning 9.9. The hemoglobin the day before 8.9. The admitting hemoglobin was 11.9 Objective - Vital Signs Vital signs: Vital Signs Temp 98.0 F 05/08/17 07:38 Pulse 89 05/08/17 12:00 Resp 16 05/08/17 12:00 BP 140/68 05/08/17 07:38 Pulse Ox 99 05/08/17 07:38 Intake & Output 05/07/17 05/08/17 05/08/17 18:59 06:59 18:59 Intake Total 560 320 Output Total 750 Balance 560 -430 Weight 74.2 kg Intake: Intake, IV Titration 560 Amount Potassium Chloride 10 meq 400 Lidocaine 2% Inj 10 mg In Sodium Chloride 0.9% 100 ml @ 100 mls/hr IVPB Q1HR [facility] Rx#:[id number] Sodium Chloride 0.9% 1, 160 000 ml @ 20 mls/hr IV . Q24H [facility] Rx#:[id number] Oral 320 Output: Urine 750 Other: # Voids 1 1 - Exam Physical exam 71-year-old male pleasant cooperative oriented 3 Lungs essentially clear adequate air movement on room air heart S1-S2 audible regular denying chest pain Abdomen soft nontender no document stool no hematemesis no reports of nausea vomiting Extremities no edema - Labs CBC & Chem 7: 05/08/17 08:02 05/08/17 08:02 Labs: Abnormal Lab Results - Last 24 Hours (Table) 05/07/17 05/07/17 05/07/17 Range/Units 16:38 18:34 20:06 WBC (3.8-10.6) k/uL RBC (4.30-5.90) m/uL Hgb (13.0-17.5) gm/dL Hct (39.0-53.0) % Sodium (137-145) mmol/L Potassium 3.2 L (3.5-5.1) mmol/L Chloride (98-107) mmol/L Glucose (74-99) mg/dL POC Glucose (mg/dL) 168 H 170 H (75-99) mg/dL Osmolality (280-301) mosm/kg Magnesium (1.6-2.3) mg/dL 05/08/17 05/08/17 05/08/17 Range/Units 07:29 08:02 08:02 WBC 14.0 H (3.8-10.6) k/uL RBC 3.29 L (4.30-5.90) m/uL Hgb 9.9 L (13.0-17.5) gm/dL Hct 29.8 L (39.0-53.0) % Sodium 120 L* (137-145) mmol/L Potassium (3.5-5.1) mmol/L Chloride 84 L (98-107) mmol/L Glucose 138 H (74-99) mg/dL POC Glucose (mg/dL) 153 H (75-99) mg/dL Osmolality (280-301) mosm/kg Magnesium 1.0 L* (1.6-2.3) mg/dL 05/08/17 05/08/17 Range/Units 08:02 11:17 WBC (3.8-10.6) k/uL RBC (4.30-5.90) m/uL Hgb (13.0-17.5) gm/dL Hct (39.0-53.0) % Sodium (137-145) mmol/L Potassium (3.5-5.1) mmol/L Chloride (98-107) mmol/L Glucose (74-99) mg/dL POC Glucose (mg/dL) 158 H (75-99) mg/dL Osmolality 248 L* (280-301) mosm/kg Magnesium (1.6-2.3) mg/dL Assessment and Plan Plan: Impression Present on admission acute mental status changes suspect due to toxic encephalopathy Present on admission hyponatremia History of alcoholism Hyperlipidemia Hypertension Leukocytosis suspect reactive Present on admission anemia with no evidence of acute bleed Present on admission severe hypo-anemia potassium 3.3, hyponatremia Plan Continue to monitor closely for evidence of any acute bleed Patient will need to undergo an upper and lower endoscopic when medically stable Continue with recommendations by nephrology Monitor electrolytes closely Further surgical recommendations pending will follow the clinical course closely The above impression and plan of care have been discussed and directed by signing physician. Heide Kline nurse practitioner acting as scribe for signing physician.
[2017-05-08] MEDS: MAGNESIUM SULFATE-D5W PMX 1 GM in DEXTROSE/WATER 1 100ML.BAG IVPB SCH ×4 (15:06→18:23)
[2017-05-08 16:47] LABS: Glucose,Whole Blood 179 mg/dL (75-99)
[2017-05-08] MEDS: SODIUM CHLORIDE TAB 1 GM TAB PO SCH ×2 (20:35→23:19)
[2017-05-08] MEDS: ATORVASTATIN 20 MG TAB PO SCH (20:36)
[2017-05-08] MEDS: DEMECLOCYCLINE 150 MG TAB PO SCH (20:36)
[2017-05-08 21:16] VITALS: RESP 16
[2017-05-09 07:26] LABS: Glucose,Whole Blood 149 mg/dL (75-99)
[2017-05-09 07:53] LABS: Anion Gap 8 mmol/L; Blood Urea Nitrogen 13 mg/dL (9-20); Calcium 8.6 mg/dL (8.4-10.2); Carbon Dioxide 27 mmol/L (22-30); Chloride 87 mmol/L (98-107); Glucose 127 mg/dL (74-99); Non-African American GFR(MDRD) >60 (>60 ml/min/1.73 sqM); Potassium 3.6 mmol/L (3.5-5.1); Sodium 122 mmol/L (137-145)
[2017-05-09] MEDS: DEMECLOCYCLINE 150 MG TAB PO SCH ×2 (08:26→21:35)
[2017-05-09] MEDS: CHOLECALCIFEROL 1,000 UNIT TAB PO SCH (08:26)
[2017-05-09] MEDS: METOPROLOL TARTRATE 25 MG TAB PO SCH ×2 (08:26→21:35)
[2017-05-09] MEDS: FUROSEMIDE 20 MG TAB PO SCH ×2 (08:26→14:56)
[2017-05-09] MEDS: FAMOTIDINE 20 MG TAB PO SCH ×2 (08:26→21:36)
[2017-05-09] MEDS: MULTIVITAMINS, THERA 1 EACH TAB PO SCH (08:27)
[2017-05-09] MEDS: SODIUM CHLORIDE TAB 1 GM TAB PO SCH ×3 (08:27→21:37)
[2017-05-09] MEDS ORDERED: Magnesium Replacement Protocol 1 EACH MISC MISCELLANE PRN (08:38)
[2017-05-09] MEDS ORDERED: Potassium Replacement Protocol 1 EACH MISC MISCELLANE PRN (08:41)
[2017-05-09] MEDS: MAGNESIUM SULFATE-D5W PMX 1 GM in DEXTROSE/WATER 1 100ML.BAG IVPB SCH ×3 (10:06→14:55)
[2017-05-09] MEDS: POTASSIUM CHLORIDE ER 20 MEQ TAB.ER PO SCH ×2 (10:08→10:09)
[2017-05-09 11:31] VITALS: BMI 25.0
[2017-05-09 11:38] LABS: Glucose,Whole Blood 222 mg/dL (75-99)
--- NOTE | 2017-05-09 12:04 | P.PN ---
Subjective Patient is seen in follow-up for hyponatremia. Patient's sodium level was 120 yesterday he was started on IV fluids. Repeat sodium last night was down to 118. Fluids were subsequently discontinued and he was started on sodium chloride tablets as well as low-dose Lasix. His sodium level this morning is up to 122. Creatinine is 0.65. Patient's currently sitting up in chair. Denies chest pain or shortness of breath. No vomiting or diarrhea. Oral intake is good. Vital signs are stable. General: The patient appeared well nourished and normally developed. HEENT: Head exam is unremarkable. Neck is without jugular venous distension. LUNGS: Lungs are clear to auscultation and percussion. Breath sounds decreased. HEART: Rate and Rhythm are regular. First and second heart sounds normal. No murmurs, rubs or gallops. ABDOMEN: Abdominal exam reveals normal bowel sounds. Non-tender and non- distended. No evidence of peritonitis. EXTREMITITES: No clubbing, cyanosis, or edema. Objective - Vital Signs Vital signs: Vital Signs Temp 97.8 F 05/09/17 08:00 Pulse 88 05/09/17 08:00 Resp 16 05/09/17 08:00 BP 154/73 05/09/17 08:00 Pulse Ox 99 05/09/17 08:00 Intake & Output 05/08/17 05/09/17 05/09/17 18:59 06:59 18:59 Intake Total 800 680 120 Output Total 1500 Balance -700 680 120 Weight 74.2 kg 74.5 kg 74.5 kg Intake: Oral 800 680 120 Output: Urine 1500 Other: Voiding Method Toilet # Voids 3 3 1 - Labs CBC & Chem 7: 05/08/17 08:02 05/09/17 07:11 Labs: Abnormal Lab Results - Last 24 Hours (Table) 05/08/17 05/08/17 05/08/17 Range/Units 08:02 08:02 16:46 Sodium (137-145) mmol/L Chloride (98-107) mmol/L Creatinine (0.66-1.25) mg/dL Glucose (74-99) mg/dL POC Glucose (mg/dL) 179 H (75-99) mg/dL Osmolality 248 L* (280-301) mosm/kg Magnesium (1.6-2.3) mg/dL Iron 21 L (49-181) ug/dL % Saturation 6.4 L (20-50) % 05/08/17 05/08/17 05/09/17 Range/Units 17:17 20:54 07:11 Sodium 118 L* 122 L (137-145) mmol/L Chloride 87 L (98-107) mmol/L Creatinine 0.65 L (0.66-1.25) mg/dL Glucose 127 H (74-99) mg/dL POC Glucose (mg/dL) (75-99) mg/dL Osmolality (280-301) mosm/kg Magnesium 1.5 L 1.0 L* (1.6-2.3) mg/dL Iron (49-181) ug/dL % Saturation (20-50) % 05/09/17 05/09/17 Range/Units 07:22 11:34 Sodium (137-145) mmol/L Chloride (98-107) mmol/L Creatinine (0.66-1.25) mg/dL Glucose (74-99) mg/dL POC Glucose (mg/dL) 149 H 222 H (75-99) mg/dL Osmolality (280-301) mosm/kg Magnesium (1.6-2.3) mg/dL Iron (49-181) ug/dL % Saturation (20-50) % Assessment and Plan Plan: Assessment: #1. Hyponatremia. Patient appears euvolemic in nature. Urine sodium 67 and urine osmolality is 466 also suggestive of SIADH. I don't see any medications that he's on which will induce SIADH. There may be a component of tea and toast diet although he's been eating fairly well. He does have history of alcohol abuse. Cortisol and TSH levels noted to be normal. Will need to follow -up with his PCP to make sure his health screenings are up-to-date. #2. Anemia. Severe iron deficiency noted. #3. Hypomagnesemia. He was started on Lasix yesterday but his magnesium has been running low since admission. Likely related to underlying history of alcoholism. There may be an underlying genetic disorder however patient is not able to provide a reliable family history of any hypocalcemia or hypomagnesemia. mag Plan: Maintain 1.2 L fluid restriction. Maintain demeclocycline 150 minute grams twice daily. Continue with salt tabs 1 g 3 times daily. Maintain 1.2 L fluid restriction. Continue ensure with meals. Repeat sodium level at 5 PM today. Check post void residual. Replace magnesium. 4 g today. Needs to be infused slowly for better absorption. Start oral Mag-Ox.
[2017-05-09] MEDS: THIAMINE 100 MG TAB PO SCH ×2 (12:14→18:14)
--- NOTE | 2017-05-09 14:02 | P.PN ---
Subjective 71-year-old gentleman being seen on rounds currently sitting up in a chair talking on the telephone. Patient has had no nausea no vomiting no stool today. Did discuss with the patient the potential for need of a upper and lower endoscopic patient states I think I had those studies studies done several years ago need to talk to Dr. Claudio" currently sodium was up to 122. There is no hemoglobin drawn this morning. There is no nausea no vomiting no frequent stooling. Patient's denying any dizziness or lightheadedness. Objective - Vital Signs Vital signs: Vital Signs Temp 97.8 F 05/09/17 08:00 Pulse 88 05/09/17 08:00 Resp 16 05/09/17 08:00 BP 154/73 05/09/17 08:00 Pulse Ox 99 05/09/17 08:00 Intake & Output 05/08/17 05/09/17 05/09/17 18:59 06:59 18:59 Intake Total 800 680 240 Output Total 1500 456 Balance -700 680 -216 Weight 74.2 kg 74.5 kg 74.5 kg Intake: Oral 800 680 240 Output: Urine 1500 Post Void Residual 456 Other: Voiding Method Toilet # Voids 3 3 1 - Exam Physical exam 71-year-old male pleasant cooperative oriented 3 sitting up in a chair talking on the telephone Lungs essentially clear adequate air movement on room air no shortness of breath heart S1-S2 audible regular denying chest pain Abdomen soft nontenderl no hematemesis no reports of nausea vomiting tolerating a diet nursing documents no stool Extremities no edema - Labs CBC & Chem 7: 05/08/17 08:02 05/09/17 07:11 Labs: Abnormal Lab Results - Last 24 Hours (Table) 05/08/17 05/08/17 05/08/17 Range/Units 08:02 16:46 17:17 Sodium 118 L* (137-145) mmol/L Chloride (98-107) mmol/L Creatinine (0.66-1.25) mg/dL Glucose (74-99) mg/dL POC Glucose (mg/dL) 179 H (75-99) mg/dL Magnesium (1.6-2.3) mg/dL Iron 21 L (49-181) ug/dL % Saturation 6.4 L (20-50) % 05/08/17 05/09/17 05/09/17 Range/Units 20:54 07:11 07:22 Sodium 122 L (137-145) mmol/L Chloride 87 L (98-107) mmol/L Creatinine 0.65 L (0.66-1.25) mg/dL Glucose 127 H (74-99) mg/dL POC Glucose (mg/dL) 149 H (75-99) mg/dL Magnesium 1.5 L 1.0 L* (1.6-2.3) mg/dL Iron (49-181) ug/dL % Saturation (20-50) % 05/09/17 Range/Units 11:34 Sodium (137-145) mmol/L Chloride (98-107) mmol/L Creatinine (0.66-1.25) mg/dL Glucose (74-99) mg/dL POC Glucose (mg/dL) 222 H (75-99) mg/dL Magnesium (1.6-2.3) mg/dL Iron (49-181) ug/dL % Saturation (20-50) % Assessment and Plan Plan: Impression Present on admission acute mental status changes suspect due to toxic encephalopathy Present on admission hyponatremia History of alcoholism Hyperlipidemia Hypertension Leukocytosis suspect reactive Present on admission anemia with no evidence of acute bleed Present on admission severe hypo-anemia potassium 3.3, hyponatremia Plan Continue to monitor closely for evidence of any acute bleed Patient will need to undergo an upper and lower endoscopic when medically stable Continue with recommendations by nephrology Monitor electrolytes closely Further surgical recommendations pending will follow the clinical course closely The above impression and plan of care have been discussed and directed by signing physician. Heide Kline nurse practitioner acting as scribe for signing physician.
[2017-05-09] MEDS: MAGNESIUM OXIDE 400 MG TAB PO SCH ×2 (14:55→21:36)
[2017-05-09 17:09] LABS: Glucose,Whole Blood 152 mg/dL (75-99)
[2017-05-09] MEDS ORDERED: TOLVAPTAN 15 MG 1/2 TABLET PO STA (20:49)
[2017-05-09 21:35] LABS: Glucose,Whole Blood 173 mg/dL (75-99)
[2017-05-09] MEDS: ATORVASTATIN 20 MG TAB PO SCH (21:36)
[2017-05-09] MEDS: LORazepam 2 MG/ML SYRINGE IV PRN (22:20)
[2017-05-10 06:43] LABS: Glucose,Whole Blood 146 mg/dL (75-99)
[2017-05-10 07:02] LABS: Aty Lym Flag Slight; CH 31.6; CHCM 35.2; HCT 27.5 % (39.0-53.0); HDW 2.22; HGB 9.1 gm/dL (13.0-17.5); MCH 29.9 pg (25.0-35.0); MCHC 33.1 g/dL (31.0-37.0); MCV 90.2 fL (80.0-100.0); Mean Platelet Volume 7.4; RBC 3.05 m/uL (4.30-5.90); RDW 13.3 % (11.5-15.5); WBC 10.2 k/uL (3.8-10.6); WBC (Perox) 10.87
[2017-05-10 07:21] LABS: Anion Gap 11 mmol/L; Blood Urea Nitrogen 15 mg/dL (9-20); Calcium 9.2 mg/dL (8.4-10.2); Carbon Dioxide 29 mmol/L (22-30); Chloride 88 mmol/L (98-107); Glucose 133 mg/dL (74-99); Non-African American GFR(MDRD) >60 (>60 ml/min/1.73 sqM); Potassium 3.6 mmol/L (3.5-5.1); Sodium 128 mmol/L (137-145)
[2017-05-10 08:06] LABS: Add Differential Manual Differential
[2017-05-10 08:10] LABS: Nucleated Red Blood Cells 0 /100 WBC (0-0); Total Cells Counted 100
--- NOTE | 2017-05-10 08:52 | P.DS ---
Providers Date of admission: 05/05/17 20:26 Attending physician: Alejandro Claudio Consults: 05/07/17 08:07 Consult Physician Routine Consulting Provider: Sai Doan Consult Reason/Comments: anemia Do you want consulting provider notified?: Yes 05/08/17 10:25 Consult Physician Urgent Consulting Provider: Nuris Williamson Consult Reason/Comments: Decrease Sodium Level Do you want consulting provider notified?: Yes Primary care physician: Alejandro Claudio - Discharge Diagnosis(es) (1) Alcohol abuse Current Visit: Yes Status: Acute (2) Altered mental status Current Visit: Yes Status: Acute (3) Delirium due to general medical condition Current Visit: Yes Status: Acute (4) Hypomagnesemia Current Visit: Yes Status: Acute Hospital Course: This discharge summary and a 71-year-old white male essentially admitted for altered mental status. He is found to have metabolic encephalopathy related to most likely always him. Unfortunately, he developed significant hyponatremia. SIADH was diagnosed. He has also developed hypomagnesemia. We will go ahead and supplement this. Will follow-up within 3 days. The patient is discharged stable condition Patient Condition at Discharge: Stable Plan - Discharge Summary New Discharge Prescriptions: New Demeclocycline [Declomycin] 150 mg PO BID #60 tab Magnesium Oxide [Mag-Ox] 400 mg PO BID #60 tab Continue Cholecalciferol [Vitamin D3] 1,000 unit PO DAILY Simvastatin [Zocor] 40 mg PO HS Multivitamins, Thera [Multivitamin (formulary)] 1 tab PO DAILY Acetaminophen [Tylenol 8 Hour] 650 mg PO BID PRN PRN Reason: Pain Lisinopril [Zestril] 20 mg PO DAILY Discharge Medication List Cholecalciferol [Vitamin D3] 1,000 unit PO DAILY 12/03/14 [History] Simvastatin [Zocor] 40 mg PO HS 12/03/14 [History] Acetaminophen [Tylenol 8 Hour] 650 mg PO BID PRN 05/05/17 [History] Lisinopril [Zestril] 20 mg PO DAILY 05/05/17 [History] Multivitamins, Thera [Multivitamin (formulary)] 1 tab PO DAILY 05/05/17 [History ] Demeclocycline [Declomycin] 150 mg PO BID #60 tab 05/10/17 [Rx] Magnesium Oxide [Mag-Ox] 400 mg PO BID #60 tab 05/10/17 [Rx] Follow up Appointment(s)/Referral(s): Alejandro Claudio MD [Primary Care Provider] - 3 Days
[2017-05-10] MEDS ORDERED: SODIUM FERRIC GLUCONAT-SUCROSE 125 MG in SODIUM CHLORIDE 0.9% 100 ML IVPB SCH (09:00)
[2017-05-10] MEDS: DEMECLOCYCLINE 150 MG TAB PO SCH (09:07)
[2017-05-10] MEDS: CHOLECALCIFEROL 1,000 UNIT TAB PO SCH (09:07)
[2017-05-10] MEDS: FUROSEMIDE 20 MG TAB PO SCH ×2 (09:07→15:20)
[2017-05-10] MEDS: SODIUM CHLORIDE TAB 1 GM TAB PO SCH ×2 (09:07→15:20)
[2017-05-10] MEDS: FAMOTIDINE 20 MG TAB PO SCH (09:07)
[2017-05-10] MEDS: MULTIVITAMINS, THERA 1 EACH TAB PO SCH (09:07)
[2017-05-10] MEDS: METOPROLOL TARTRATE 25 MG TAB PO SCH (09:07)
[2017-05-10] MEDS: MAGNESIUM OXIDE 400 MG TAB PO SCH (09:07)
[2017-05-10 11:29] LABS: Glucose,Whole Blood 256 mg/dL (75-99)
--- NOTE | 2017-05-10 11:56 | P.PN ---
Subjective Patient is seen in follow-up for hyponatremia. Patient's sodium level was 120 this admission he was started on IV fluids. Repeat sodium was down to 118. Fluids were subsequently discontinued and he was started on sodium chloride tablets as well as low-dose Lasix. His sodium level then did improve to 122 but was subsequently again down to 120. He did receive 1 dose OF 15 mg last night. Sodium level is up to 128 this morning. Patient's currently sitting up in chair. Denies chest pain or shortness of breath. No vomiting or diarrhea. Oral intake is good. GFR at baseline. Vital signs are stable. General: The patient appeared well nourished and normally developed. HEENT: Head exam is unremarkable. Neck is without jugular venous distension. LUNGS: Lungs are clear to auscultation and percussion. Breath sounds decreased. HEART: Rate and Rhythm are regular. First and second heart sounds normal. No murmurs, rubs or gallops. ABDOMEN: Abdominal exam reveals normal bowel sounds. Non-tender and non- distended. No evidence of peritonitis. EXTREMITITES: No clubbing, cyanosis, or edema. Objective - Vital Signs Vital signs: Vital Signs Temp 98.0 F 05/10/17 08:00 Pulse 97 05/10/17 08:00 Resp 16 05/10/17 08:00 BP 145/65 05/10/17 08:00 Pulse Ox 98 05/10/17 08:00 Intake & Output 05/09/17 05/10/17 05/10/17 18:59 06:59 18:59 Intake Total 1180 60 120 Output Total 506 2500 1000 Balance 674 -2440 -880 Weight 74.5 kg 74.5 kg Intake: IV 20 Sodium Chloride 0.9% 1, 20 000 ml @ 75 mls/hr IV . [id number] [facility] Rx#:[id number] Oral 1160 120 Other 60 Output: Urine 50 2500 1000 Straight 50 Uretheral (Kendall) 1000 Post Void Residual 456 Other: Voiding Method Toilet Indwelling Catheter # Voids 1 - Labs CBC & Chem 7: 05/10/17 06:43 05/10/17 06:43 Labs: Abnormal Lab Results - Last 24 Hours (Table) 05/09/17 05/09/17 05/09/17 Range/Units 17:07 19:02 20:59 RBC (4.30-5.90) m/uL Hgb (13.0-17.5) gm/dL Hct (39.0-53.0) % Neutrophils # (Manual) (1.3-7.7) k/uL Lymphocytes # (Manual) (1.0-4.8) k/uL Sodium 120 L* (137-145) mmol/L Chloride (98-107) mmol/L Glucose (74-99) mg/dL POC Glucose (mg/dL) 152 H 173 H (75-99) mg/dL Magnesium (1.6-2.3) mg/dL 05/10/17 05/10/17 05/10/17 Range/Units 06:40 06:43 06:43 RBC 3.05 L (4.30-5.90) m/uL Hgb 9.1 L (13.0-17.5) gm/dL Hct 27.5 L (39.0-53.0) % Neutrophils # (Manual) 8.47 H (1.3-7.7) k/uL Lymphocytes # (Manual) 0.92 L (1.0-4.8) k/uL Sodium 128 L (137-145) mmol/L Chloride 88 L (98-107) mmol/L Glucose 133 H (74-99) mg/dL POC Glucose (mg/dL) 146 H (75-99) mg/dL Magnesium 1.0 L* (1.6-2.3) mg/dL 05/10/17 Range/Units 11:23 RBC (4.30-5.90) m/uL Hgb (13.0-17.5) gm/dL Hct (39.0-53.0) % Neutrophils # (Manual) (1.3-7.7) k/uL Lymphocytes # (Manual) (1.0-4.8) k/uL Sodium (137-145) mmol/L Chloride (98-107) mmol/L Glucose (74-99) mg/dL POC Glucose (mg/dL) 256 H (75-99) mg/dL Magnesium (1.6-2.3) mg/dL Assessment and Plan Plan: Assessment: #1. Hyponatremia. Patient appears euvolemic in nature. Urine sodium 67 and urine osmolality is 466 also suggestive of SIADH. I don't see any medications that he's on which will induce SIADH. There may be a component of tea and toast diet although he's been eating fairly well. He does have history of alcohol abuse. Cortisol and TSH levels noted to be normal. Will need to follow -up with his PCP to make sure his health screenings are up-to-date. #2. Anemia. Severe iron deficiency noted. #3. Hypomagnesemia. He was started on Lasix this admission but his magnesium has been running low prior to that. Likely related to underlying history of alcoholism. There may be an underlying genetic disorder however patient is not able to provide a reliable family history of any hypocalcemia or hypomagnesemia. Plan: Maintain 1.2 L fluid restriction. Maintain demeclocycline 150 minute grams twice daily. Continue with salt tabs 1 g 3 times daily. Maintain 1.2 L fluid restriction. Continue ensure with meals. Replace magnesium. 4 g today. Needs to be infused slowly for better absorption. Continue oral Mag-Ox. Potential discharge today. He will follow-up with his PCP in 3 days for repeat blood work. He will also need to follow-up in our office in the next 2 weeks.
[2017-05-10] MEDS: THIAMINE 100 MG TAB PO SCH ×2 (12:00→15:20)
[2017-05-10] MEDS: MAGNESIUM SULFATE-D5W PMX 1 GM in DEXTROSE/WATER 1 100ML.BAG IVPB SCH ×4 (12:00→15:20)
[2017-05-10 15:08] VITALS: BP 167/77; PULSE 81; TEMP 98.1
== END 2017-05-10 16:30 | disposition home or self-care (01) | DRG 643 ==
LOC: EC 17:25 → 6SEL 20:26 → 3SUR 05-06 18:32
PROVIDERS: ADMIT Family Medicine; ATTEND Family Medicine
DX: E22.2 Syndrome of inappropriate secretion of antidiuretic hormone (principal); G93.41 Metabolic encephalopathy; F05 Delirium due to known physiological condition; G20 Parkinson's disease; D64.9 Anemia, unspecified; E83.42 Hypomagnesemia; E61.1 Iron deficiency; D72.829 Elevated white blood cell count, unspecified; E78.5 Hyperlipidemia, unspecified; F10.10 Alcohol abuse, uncomplicated; I10 Essential (primary) hypertension; Z79.899 Other long term (current) drug therapy; Z80.0 Family history of malignant neoplasm of digestive organs; Z80.1 Family history of malignant neoplasm of trachea, bronchus and lung; Z87.891 Personal history of nicotine dependence
CPT/HCPCS: 36415; 70450; 71020; 80048; 80053; 80306; 80320; 81001; 82140; 82150; 82533; 82550; 82553; 82728; 83540; 83550; 83690; 83735; 83930; 83935; 84132; 84295; 84300; 84443; 84484; 85025; 85027; 85610; 85730; 93005; 94760

== ENCOUNTER 2017-05-12 23:50 | Inpatient (IN) | payer MEDICARE ==
[2017-05-13] MEDS ORDERED: SODIUM CHLORIDE 0.9% 500 ML IV STA (00:05)
[2017-05-13 00:28] LABS: Basophils # (A) 0.1 k/uL (0-0.2); Basophils % (A) 1 %; CH 31.4; CHCM 34.7; Eosinophils # (A) 0.1 k/uL (0-0.7); Eosinophils % (A) 1 %; HCT 28.1 % (39.0-53.0); HDW 2.24; HGB 9.6 gm/dL (13.0-17.5); Luc # (Auto) 0.47; Luc % (Auto) 3; Lymphocytes # (A) 1.4 k/uL (1.0-4.8); Lymphocytes % (A) 10 %; MCH 30.8 pg (25.0-35.0); MCV 90.6 fL (80.0-100.0); Mean Platelet Volume 7.4; Monocytes % (A) 6 %; Neutrophils # (A) 12.1 k/uL (1.3-7.7); Neutrophils % (A) 80 %; RBC 3.11 m/uL (4.30-5.90); RDW 13.1 % (11.5-15.5); WBC 15.2 k/uL (3.8-10.6); WBC (Perox) 14.87
[2017-05-13 00:37] LABS: INR 1.1 (<1.2); Partial Thromboplastin Time 26.2 sec (22.0-30.0); Prothrombin Time 11.3 sec (9.0-12.0)
[2017-05-13 00:56] LABS: Ammonia <9 umol/L (<30)
[2017-05-13 01:01] LABS: Creatine Kinase 31 U/L (55-170)
[2017-05-13 01:14] LABS: Creatine Kinase MB 1.4 ng/mL (0.0-2.4); Troponin I <0.012 ng/mL (0.000-0.034)
--- NOTE | 2017-05-13 01:18 | CT ---
EXAM: CT Head Without Intravenous Contrast CLINICAL HISTORY: Reason: Neuro Deficits TECHNIQUE: Axial computed tomography images of the head/brain without intravenous contrast. CTDI is mGy and DLP is mGy-cm. This CT exam was performed using one or more of the following dose reduction techniques: automated exposure control, adjustment of the mA and/or kV according to patient size, and/or use of iterative reconstruction technique. COMPARISON: 05/05/17 FINDINGS: Brain: Unremarkable. No hemorrhage. No significant white matter disease. No edema. Ventricles: Unremarkable. No ventriculomegaly. Bones/joints: Unremarkable. No acute fracture. Soft tissues: Unremarkable. Sinuses: Dense calcified material noted in the right nasal passage. Bilateral maxillary sinus mucosal thickening. Mastoid air cells: Unremarkable as visualized. No mastoid effusion. IMPRESSION: 1. No acute intracranial process. 2. Dense calcified material in the right nasal passage. Correlate clinically.
--- NOTE | 2017-05-13 01:22 | XR ---
EXAM: XR Chest, 2 Views CLINICAL HISTORY: Reason: altered mental status TECHNIQUE: Frontal and lateral views of the chest. COMPARISON: 05/05/17 FINDINGS: Lungs: Unremarkable. No consolidation. Pleural space: Unremarkable. No pneumothorax. Heart: Unremarkable. No cardiomegaly. Mediastinum: Unremarkable. Bones/joints: Unremarkable. IMPRESSION: Normal chest x-rays.
[2017-05-13 01:39] LABS: ALT 46 U/L (21-72); AST 24 U/L (17-59); Alcohol <10 mg/dL; Alkaline Phosphatase 94 U/L (38-126); Anion Gap 16 mmol/L; Blood Urea Nitrogen 27 mg/dL (9-20); Calcium 10.2 mg/dL (8.4-10.2); Carbon Dioxide 28 mmol/L (22-30); Chloride 84 mmol/L (98-107); Glucose 192 mg/dL (74-99); Magnesium 1.1 mg/dL (1.6-2.3); Non-African American GFR(MDRD) >60 (>60 ml/min/1.73 sqM); Potassium 3.5 mmol/L (3.5-5.1); Sodium 128 mmol/L (137-145); Total Bilirubin 0.8 mg/dL (0.2-1.3); Total Protein 6.9 g/dL (6.3-8.2)
[2017-05-13] MEDS ORDERED: POTASSIUM CHLORIDE ER 20 MEQ TAB.ER PO STA (01:46)
[2017-05-13 01:56] LABS: Appearance,Urine Clear (Clear); Bilirubin,Urine Negative (Negative); Glucose,Urine (UA) Negative (Negative); Ketones,Urine Negative (Negative); Leukocyte Esterase,Urine Negative (Negative); Nitrite,Urine Negative (Negative); PH, Urine 6.5 (5.0-8.0); Particle Count 1263; Protein,Urine 1+ (Negative); RBC,Urine <1 /hpf (0-5); Specific Gravity,Urine 1.007 (1.001-1.035); UA Billing (MACRO vs. MICRO) MICRO; Urobilinogen,Urine <2.0 mg/dL (<2.0); WBC,Urine <1 /hpf (0-5)
[2017-05-13] MEDS ORDERED: SODIUM CHLORIDE 0.9% 1,000 ML IV SCH (02:00)
[2017-05-13] MEDS ORDERED: NALOXONE 0.4 MG/ML 1 ML VIAL IV PRN (02:12)
--- NOTE | 2017-05-13 02:30 | ED ---
General Adult HPI - General Chief complaint: Altered Mental Status Stated complaint: Altered Mental Status Time Seen by Provider: 05/13/17 00:05 Source: patient, family, RN notes reviewed, old records reviewed Mode of arrival: wheelchair Limitations: altered mental status - History of Present Illness Initial comments: 71-year-old male presents for evaluation of confusion and altered mental status. Patient was recently admitted to the hospital with similar symptoms. Is found to be hyponatremic and hypomagnesemic. Patient does have a history of daily drinking. Approximately 6 beers daily. Last drink was over one week ago. Patient had an episode of confusion last night where he was requesting that all the doors be the lock. He was repeating the sore and over again. According the patient's this morning he was in his normal state of health. He was not confused. They were able to go to the grocery store in the bank. Minute approximate 6 PM this evening. He became confused again. Repetitively taking out his hearing aids, stating that other people can hear him. He'll place his hearing is back in and take them out he did this over over. Patient is unable to contribute to the history. History is obtained from the patient's and son are at bedside. He is alert and oriented 3 with questioning but his thought processes are not clear. - Related Data Home Medications Medication Instructions Recorded Confirmed Cholecalciferol [Vitamin D3] 1,000 unit PO DAILY 12/03/14 05/13/17 Simvastatin [Zocor] 40 mg PO HS 12/03/14 05/13/17 Acetaminophen [Tylenol 8 Hour] 650 mg PO BID PRN 05/05/17 05/13/17 Lisinopril [Zestril] 20 mg PO DAILY 05/05/17 05/13/17 Multivitamins, Thera [Multivitamin 1 tab PO DAILY 05/05/17 05/13/17 (formulary)] Previous Rx's Medication Instructions Recorded Demeclocycline [Declomycin] 150 mg PO BID #60 tab 05/10/17 Magnesium Oxide [Mag-Ox] 400 mg PO BID #60 tab 05/10/17 Allergies Allergy/AdvReac Type Severity Reaction Status Date / Time No Known Allergies Allergy Verified 05/13/17 00:07 Review of Systems ROS Statement: Those systems with pertinent positive or pertinent negative responses have been documented in the HPI. ROS Other: All systems not noted in ROS Statement are negative. Past Medical History Past Medical History: Hyperlipidemia, Hypertension Additional Past Medical History / Comment(s): spouse states has hernia and vomits after eating at times History of Any Multi-Drug Resistant Organisms: None Reported Past Surgical History: Orthopedic Surgery Additional Past Surgical History / Comment(s): cataract left eye with implant, lt elbow surgery, colonoscopy Past Anesthesia/Blood Transfusion Reactions: No Reported Reaction Past Psychological History: No Psychological Hx Reported Smoking Status: Former smoker Past Alcohol Use History: Occasional Past Drug Use History: None Reported - Past Family History Mother Family Medical History: Cancer Additional Family Medical History / Comment(s): lung cancer Daughter(s) Family Medical History: Cancer Additional Family Medical History / Comment(s): @ age 38- colon and then liver ca & then unsure of other area General Exam Limitations: altered mental status General appearance: alert, anxious Head exam: Present: atraumatic, normocephalic Eye exam: Present: normal appearance, PERRL. Absent: scleral icterus ENT exam: Present: normal exam, mucous membranes dry Neck exam: Present: normal inspection, full ROM. Absent: meningismus Respiratory exam: Present: normal lung sounds bilaterally. Absent: respiratory distress Cardiovascular Exam: Present: normal rhythm, tachycardia GI/Abdominal exam: Present: soft. Absent: distended, tenderness Extremities exam: Present: normal inspection, normal capillary refill. Absent: pedal edema Neurological exam: Present: alert, oriented X3, CN II-XII intact, other ( Patient is alert and oriented. repetitive speech. There is no focal neurological deficit). Absent: motor sensory deficit Psychiatric exam: Present: anxious Skin exam: Present: warm, dry. Absent: cyanosis, diaphoretic Course Vital Signs 05/13/17 05/13/17 00:01 01:07 Temperature 100 F H Pulse Rate 120 H 109 H Respiratory 20 20 Rate Blood Pressure 197/85 153/70 O2 Sat by Pulse 97 Oximetry Medical Decision Making - Medical Decision Making 71-year-old male presenting with acute confusion. Patient's symptoms have come and gone over the past 24 hours. He was admitted to the hospital approximately one week ago with similar symptoms. Found to be hyponatremic and hypomagnesemic. History obtained from the patient's son, , and the medical record. Patient is alert and oriented but not able to provide concise thought processes. There is no focal neurological deficit. Patient does appear somewhat dehydrated on examination. No asterixis. No ataxia. Patient does have history of alcoholism. Last drink according to his was greater than 1 week ago. Laboratory studies patient's is found to have an elevated white blood cell count of 15.2, no source of infection is identified, no pneumonia, no urinary tract infection, no signs of meningitis. hemoglobin is stable. Sodium is 128 which is stable from discharge. Magnesium low at 1.1. This is replaced with 2 g of IV magnesium. Potassium is also replaced, and patient is placed on 75, pulse of normal saline an hour for hyponatremia. Patient is admitted with neurology on consult Diagnosis: Encephalopathy, possibly metabolic versus alcoholic, hypomagnesemia, hyponatremia EKG shows sinus tachycardia with frequent PVCs, ventricular rate of 111, NM interval 134, QRS 86, QTC 459 no signs of ischemia. - Lab Data Result diagrams: 05/13/17 00:14 05/13/17 00:14 Lab Results 05/13/17 05/13/17 05/13/17 Range/Units 00:14 00:14 00:14 WBC 15.2 H (3.8-10.6) k/uL RBC 3.11 L (4.30-5.90) m/uL Hgb 9.6 L (13.0-17.5) gm/dL Hct 28.1 L (39.0-53.0) % MCV 90.6 (80.0-100.0) fL MCH 30.8 (25.0-35.0) pg MCHC 34.0 (31.0-37.0) g/dL RDW 13.1 (11.5-15.5) % Plt Count 507 H (150-450) k/uL Neutrophils % 80 % Lymphocytes % 10 % Monocytes % 6 % Eosinophils % 1 % Basophils % 1 % Neutrophils # 12.1 H (1.3-7.7) k/uL Lymphocytes # 1.4 (1.0-4.8) k/uL Monocytes # 1.0 (0-1.0) k/uL Eosinophils # 0.1 (0-0.7) k/uL Basophils # 0.1 (0-0.2) k/uL PT (9.0-12.0) sec INR (<1.2) APTT (22.0-30.0) sec Sodium 128 L (137-145) mmol/L Potassium 3.5 (3.5-5.1) mmol/L Chloride 84 L (98-107) mmol/L Carbon Dioxide 28 (22-30) mmol/L Anion Gap 16 mmol/L BUN 27 H (9-20) mg/dL Creatinine 0.90 (0.66-1.25) mg/dL Est GFR (MDRD) Af Amer >60 (>60 ml/min/1.73 sqM) Est GFR (MDRD) Non-Af >60 (>60 ml/min/1.73 sqM) Glucose 192 H (74-99) mg/dL Plasma Lactic Acid Alberto (0.7-2.0) mmol/L Calcium 10.2 (8.4-10.2) mg/dL Magnesium 1.1 L (1.6-2.3) mg/dL Total Bilirubin 0.8 (0.2-1.3) mg/dL AST 24 (17-59) U/L ALT 46 (21-72) U/L Alkaline Phosphatase 94 (38-126) U/L Ammonia (<30) umol/L Total Creatine Kinase 31 L (55-170) U/L CK-MB (CK-2) 1.4 (0.0-2.4) ng/mL CK-MB (CK-2) Rel Index 4.5 Troponin I <0.012 (0.000-0.034) ng/mL Total Protein 6.9 (6.3-8.2) g/dL Albumin 3.9 (3.5-5.0) g/dL TSH 2.220 (0.465-4.680) mIU/L Urine Color Urine Appearance (Clear) Urine pH (5.0-8.0) Ur Specific [place] (1.001-1.035) Urine Protein (Negative) Urine Glucose (UA) (Negative) Urine Ketones (Negative) Urine Blood (Negative) Urine Nitrite (Negative) Urine Bilirubin (Negative) Urine Urobilinogen (<2.0) mg/dL Ur Leukocyte Esterase (Negative) Urine RBC (0-5) /hpf Urine WBC (0-5) /hpf Urine Opiates Screen (NotDetected) Ur Oxycodone Screen (NotDetected) Urine Methadone Screen (NotDetected) Ur Propoxyphene Screen (NotDetected) Ur Barbiturates Screen (NotDetected) U Tricyclic Antidepress (NotDetected) Ur Phencyclidine Scrn (NotDetected) Ur Amphetamines Screen (NotDetected) U Methamphetamines Scrn (NotDetected) U Benzodiazepines Scrn (NotDetected) Urine Cocaine Screen (NotDetected) U Marijuana (THC) Screen (NotDetected) Serum Alcohol <10 mg/dL 05/13/17 05/13/17 05/13/17 Range/Units 00:14 00:14 01:48 WBC (3.8-10.6) k/uL RBC (4.30-5.90) m/uL Hgb (13.0-17.5) gm/dL Hct (39.0-53.0) % MCV (80.0-100.0) fL MCH (25.0-35.0) pg MCHC (31.0-37.0) g/dL RDW (11.5-15.5) % Plt Count (150-450) k/uL Neutrophils % % Lymphocytes % % Monocytes % % Eosinophils % % Basophils % % Neutrophils # (1.3-7.7) k/uL Lymphocytes # (1.0-4.8) k/uL Monocytes # (0-1.0) k/uL Eosinophils # (0-0.7) k/uL Basophils # (0-0.2) k/uL PT 11.3 (9.0-12.0) sec INR 1.1 (<1.2) APTT 26.2 (22.0-30.0) sec Sodium (137-145) mmol/L Potassium (3.5-5.1) mmol/L Chloride (98-107) mmol/L Carbon Dioxide (22-30) mmol/L Anion Gap mmol/L BUN (9-20) mg/dL Creatinine (0.66-1.25) mg/dL Est GFR (MDRD) Af Amer (>60 ml/min/1.73 sqM) Est GFR (MDRD) Non-Af (>60 ml/min/1.73 sqM) Glucose (74-99) mg/dL Plasma Lactic Acid Alberto 1.5 (0.7-2.0) mmol/L Calcium (8.4-10.2) mg/dL Magnesium (1.6-2.3) mg/dL Total Bilirubin (0.2-1.3) mg/dL AST (17-59) U/L ALT (21-72) U/L Alkaline Phosphatase (38-126) U/L Ammonia <9 (<30) umol/L Total Creatine Kinase (55-170) U/L CK-MB (CK-2) (0.0-2.4) ng/mL CK-MB (CK-2) Rel Index Troponin I (0.000-0.034) ng/mL Total Protein (6.3-8.2) g/dL Albumin (3.5-5.0) g/dL TSH (0.465-4.680) mIU/L Urine Color Light Yellow Urine Appearance Clear (Clear) Urine pH 6.5 (5.0-8.0) Ur Specific [place] 1.007 (1.001-1.035) Urine Protein 1+ H (Negative) Urine Glucose (UA) Negative (Negative) Urine Ketones Negative (Negative) Urine Blood Negative (Negative) Urine Nitrite Negative (Negative) Urine Bilirubin Negative (Negative) Urine Urobilinogen <2.0 (<2.0) mg/dL Ur Leukocyte Esterase Negative (Negative) Urine RBC <1 (0-5) /hpf Urine WBC <1 (0-5) /hpf Urine Opiates Screen Not Detected (NotDetected) Ur Oxycodone Screen Not Detected (NotDetected) Urine Methadone Screen Not Detected (NotDetected) Ur Propoxyphene Screen Not Detected (NotDetected) Ur Barbiturates Screen Not Detected (NotDetected) U Tricyclic Antidepress Not Detected (NotDetected) Ur Phencyclidine Scrn Not Detected (NotDetected) Ur Amphetamines Screen Not Detected (NotDetected) U Methamphetamines Scrn Not Detected (NotDetected) U Benzodiazepines Scrn Not Detected (NotDetected) Urine Cocaine Screen Not Detected (NotDetected) U Marijuana (THC) Screen Not Detected (NotDetected) Serum Alcohol mg/dL Critical Care Time Critical Care Time: Yes Total Critical Care Time: 35 Disposition Clinical Impression: Hypomagnesemia, Encephalopathy, Hyponatremia Disposition: ADMITTED IP TO THIS [facility] Condition: Stable Referrals: Alejandro Claudio MD [Primary Care Provider] - 1-2 days Decision to Admit Reason: Admit from EC Decision Date: 05/13/17 Decision Time: 02:31
[2017-05-13] MEDS: POTASSIUM CHLORIDE 10 MEQ, LIDOCAINE 2% INJ 10 MG in SODIUM CHLORIDE 0.9% 100 ML IVPB SCH ×4 (02:43→07:44)
[2017-05-13 03:49] VITALS: BMI 28.1
[2017-05-13] MEDS ORDERED: HALOPERIDOL LACTATE 5 MG/ML 1 ML VIAL IM PRN (05:20)
[2017-05-13] MEDS: MAGNESIUM SULFATE-D5W PMX 1 GM in DEXTROSE/WATER 1 100ML.BAG IVPB SCH ×2 (05:39→09:02)
[2017-05-13] MEDS: LORazepam 2 MG/ML SYRINGE IV PRN (07:19)
[2017-05-13 12:52] LABS: Magnesium 1.5 mg/dL (1.6-2.3); Potassium 3.6 mmol/L (3.5-5.1)
[2017-05-13] MEDS: DEMECLOCYCLINE 150 MG TAB PO SCH ×2 (15:12→20:32)
[2017-05-13] MEDS ORDERED: ZIPRASIDONE 20 MG VIAL IM PRN (16:41)
--- NOTE | 2017-05-13 16:59 | P.HPIM ---
History of Present Illness H&P Date: 05/13/17 Chief Complaint: Change in mental status. This is a 71-year-old gentleman who was recently admitted to the hospital with hyponatremia. Patient was noted to have a T and toast diet hyponatremia. Patient was at that time started on demeclocycline was discharged home with stable sodium. Patient was back in to the hospital with change in mental status. Patient apparently was doing relatively evening however according to the suddenly started getting really angry his could not handle him and hence brought into the hospital Or night of receive multiple pages over patient being extremely agitated 4. soft restraints were initially initiated I did discuss starting IV help at all and Ativan when necessary It's unclear if patient was having more symptoms of withdrawal versus delirium. Patient's denied any use of alcohol in the recent times for the patient Patient was also noted to have a sodium of 127 A computed tomography scan of the head was negative for any acute abnormalities Patient at the time of my evaluation is sedated. Review of Systems ROS unobtainable: due to mental status Past Medical History Past Medical History: Hyperlipidemia, Hypertension Additional Past Medical History / Comment(s): spouse states has hernia and vomits after eating at times History of Any Multi-Drug Resistant Organisms: None Reported Past Surgical History: Orthopedic Surgery Additional Past Surgical History / Comment(s): cataract left eye with implant, lt elbow surgery, colonoscopy Past Anesthesia/Blood Transfusion Reactions: No Reported Reaction Past Psychological History: No Psychological Hx Reported Smoking Status: Former smoker Past Alcohol Use History: Occasional Additional Past Alcohol Use History / Comment(s): pt use to smoke about 1/2 ppd started 1961- quit 1984, 1/2 case beer weekly Past Drug Use History: None Reported - Past Family History Mother Family Medical History: Cancer Additional Family Medical History / Comment(s): lung cancer Daughter(s) Family Medical History: Cancer Additional Family Medical History / Comment(s): @ age 38- colon and then liver ca & then unsure of other area Medications and Allergies Home Medications Medication Instructions Recorded Confirmed Type Cholecalciferol [Vitamin D3] 1,000 unit PO DAILY 12/03/14 05/13/17 History Simvastatin [Zocor] 40 mg PO HS 12/03/14 05/13/17 History Acetaminophen [Tylenol 8 Hour] 650 mg PO BID PRN 05/05/17 05/13/17 History Lisinopril [Zestril] 20 mg PO DAILY 05/05/17 05/13/17 History Multivitamins, Thera [Multivitamin 1 tab PO DAILY 05/05/17 05/13/17 History (formulary)] Allergies Allergy/AdvReac Type Severity Reaction Status Date / Time No Known Allergies Allergy Verified 05/13/17 08:12 Physical Exam Vitals: Vital Signs Temp Pulse Pulse Resp BP BP Pulse Ox 05/13/17 14:42 98.2 F 86 20 127/58 98 05/13/17 07:00 98.5 F 100 20 137/57 100 05/13/17 03:00 98.8 F 65 18 132/62 98 05/13/17 02:00 98.9 F 78 18 154/88 98 05/13/17 01:07 109 H 20 153/70 97 05/13/17 00:01 100 F H 120 H 20 197/85 Intake and Output 05/13/17 05/13/17 05/13/17 06:59 14:59 22:59 Intake Total 0 Output Total 350 Balance -350 0 Intake: Oral 0 Output: Urine 350 Uretheral (Kendall) 350 Other: Voiding Method Toilet # Voids 1 1 Weight 83.915 kg Gen. appearance sedated Lungs diminished breath sounds no rhonchi or wheezing crackles Heart S1-S2 heard no murmurs Abdomen is soft nontender no organomegaly Lower x-ray is no edema noted Neuro is deferred due to clinical status. Results CBC & Chem 7: 05/13/17 00:14 05/13/17 12:31 Labs: Abnormal Lab Results - Last 24 Hours (Table) 05/13/17 05/13/17 05/13/17 Range/Units 00:14 00:14 00:14 WBC 15.2 H (3.8-10.6) k/uL RBC 3.11 L (4.30-5.90) m/uL Hgb 9.6 L (13.0-17.5) gm/dL Hct 28.1 L (39.0-53.0) % Plt Count 507 H (150-450) k/uL Neutrophils # 12.1 H (1.3-7.7) k/uL Sodium 128 L (137-145) mmol/L Chloride 84 L (98-107) mmol/L BUN 27 H (9-20) mg/dL Glucose 192 H (74-99) mg/dL Magnesium 1.1 L (1.6-2.3) mg/dL Total Creatine Kinase 31 L (55-170) U/L Urine Protein (Negative) 05/13/17 05/13/17 Range/Units 01:48 12:31 WBC (3.8-10.6) k/uL RBC (4.30-5.90) m/uL Hgb (13.0-17.5) gm/dL Hct (39.0-53.0) % Plt Count (150-450) k/uL Neutrophils # (1.3-7.7) k/uL Sodium (137-145) mmol/L Chloride (98-107) mmol/L BUN (9-20) mg/dL Glucose (74-99) mg/dL Magnesium 1.5 L (1.6-2.3) mg/dL Total Creatine Kinase (55-170) U/L Urine Protein 1+ H (Negative) Thrombosis Risk Factor Assmnt - Choose All That Apply Each Factor Represents 1 point: Obesity (BMI >25) Each Risk Factor Represents 2 Points: Age 61-74 years Thrombosis Risk Factor Assessment Total Risk Factor Score: 3 Thrombosis Risk Factor Assessment Level: Moderate Risk Assessment and Plan Plan: #1 acute toxic encephalopathy #2 he euvolemic hyponatremia #3 history of alcohol overuse #4 history of tobacco use Plan Continue ongoing care will have psychiatry evaluate the patient We'll start the patient on Geodon 20mg IM at bedtime continue Ativan when necessary
[2017-05-13] MEDS: ZIPRASIDONE 20 MG VIAL IM SCH (20:32)
[2017-05-14 07:59] LABS: ALT 36 U/L (21-72); AST 24 U/L (17-59); Alkaline Phosphatase 72 U/L (38-126); Anion Gap 9 mmol/L; Blood Urea Nitrogen 14 mg/dL (9-20); Calcium 9.1 mg/dL (8.4-10.2); Carbon Dioxide 29 mmol/L (22-30); Chloride 88 mmol/L (98-107); Glucose 133 mg/dL (74-99); Non-African American GFR(MDRD) >60 (>60 ml/min/1.73 sqM); Potassium 3.4 mmol/L (3.5-5.1); Sodium 126 mmol/L (137-145); Total Bilirubin 0.6 mg/dL (0.2-1.3)
[2017-05-14] MEDS: DEMECLOCYCLINE 150 MG TAB PO SCH ×2 (08:08→21:24)
[2017-05-14 08:16] LABS: Magnesium 0.9 mg/dL (1.6-2.3)
[2017-05-14] MEDS ORDERED: Magnesium Replacement Protocol 1 EACH MISC MISCELLANE PRN (08:37)
--- NOTE | 2017-05-14 08:41 | P.PN ---
Subjective Principal diagnosis: Continuing care. This is a 71-year-old white male essentially readmitted after having disorientation and temper issues. The patient is a chronic alcoholic and has struggled with hyponatremia. The patient had nephrology diagnose SIADH with appropriate assistance. We will keep him on fluid restrictions about 2 L today. He has no idea why he was readmitted to the hospital. He does have significant hyponatremia. No sniffing chest pain or shortness of breath is now noted. He seems to be tolerating diet Objective - Vital Signs Vital signs: Vital Signs Temp 98.4 F 05/14/17 07:00 Pulse 86 05/14/17 07:00 Resp 18 05/14/17 07:00 BP 147/74 05/14/17 07:00 Pulse Ox 95 05/14/17 07:00 Intake & Output 05/13/17 05/14/17 05/14/17 18:59 06:59 18:59 Intake Total 600 1100 Output Total 1318 Balance 600 -218 Intake: Oral 600 1100 Output: Urine 475 Uretheral (Kendall) 475 Post Void Residual 843 Other: Voiding Method Toilet # Voids 1 0 - Constitutional General appearance: Present: obese - EENT Eyes: Absent: abnormal pupil - Respiratory Respiratory: bilateral: CTA - Cardiovascular Rhythm: regular Heart sounds: normal: S1, S2 - Gastrointestinal General gastrointestinal: Present: soft. Absent: splenomegaly - Neurologic Neurologic: Present: CNII-XII intact - Labs CBC & Chem 7: 05/13/17 00:14 05/14/17 07:33 Labs: Abnormal Lab Results - Last 24 Hours (Table) 05/13/17 05/14/17 Range/Units 12:31 07:33 Sodium 126 L (137-145) mmol/L Potassium 3.4 L (3.5-5.1) mmol/L Chloride 88 L (98-107) mmol/L Glucose 133 H (74-99) mg/dL Magnesium 1.5 L 0.9 L* (1.6-2.3) mg/dL Total Protein 6.0 L (6.3-8.2) g/dL Albumin 3.1 L (3.5-5.0) g/dL Microbiology - Last 24 Hours (Table) 05/13/17 00:14 Blood Culture - Preliminary Blood No Growth after 24 hours Assessment and Plan (1) Encephalopathy Status: Acute (2) Hypomagnesemia Status: Acute (3) Alcohol abuse Status: Acute (4) Delirium due to general medical condition Status: Acute Plan: We'll continue current regimen of treatment. Question need for Librium. New. Check CMP in a.m. Follow magnesium protocol. Discharge planning. The has notified the staff that he is becoming more difficult to take care of at home. Consider ECF for rehab. I suspect this is behavior is related to the fact that he was not able to ingest alcohol Time with Patient: Less than 30
[2017-05-14 08:49] LABS: Basophils # (A) 0.1 k/uL (0-0.2); Basophils % (A) 1 %; CH 30.6; CHCM 34.2; Eosinophils # (A) 0.3 k/uL (0-0.7); Eosinophils % (A) 2 %; HCT 26.8 % (39.0-53.0); HDW 2.27; Luc # (Auto) 0.38; Luc % (Auto) 3; Lymphocytes # (A) 1.6 k/uL (1.0-4.8); Lymphocytes % (A) 12 %; MCHC 33.5 g/dL (31.0-37.0); MCV 89.6 fL (80.0-100.0); Mean Platelet Volume 6.7; Monocytes # (A) 1.1 k/uL (0-1.0); Monocytes % (A) 8 %; Neutrophils # (A) 9.7 k/uL (1.3-7.7); Neutrophils % (A) 74 %; RBC 2.99 m/uL (4.30-5.90); RDW 12.7 % (11.5-15.5); WBC 13.1 k/uL (3.8-10.6)
[2017-05-14] MEDS: LISINOPRIL 20 MG TAB PO SCH (09:18)
[2017-05-14] MEDS: CHOLECALCIFEROL 1,000 UNIT TAB PO SCH (09:18)
[2017-05-14] MEDS: MAGNESIUM OXIDE 400 MG TAB PO SCH ×2 (09:18→21:24)
[2017-05-14] MEDS ORDERED: Potassium Replacement Protocol 1 EACH MISC MISCELLANE PRN (09:51)
[2017-05-14] MEDS: MAGNESIUM SULFATE-D5W PMX 1 GM in DEXTROSE/WATER 1 100ML.BAG IVPB SCH ×5 (10:23→14:37)
[2017-05-14] MEDS: POTASSIUM CHLORIDE ER 20 MEQ TAB.ER PO SCH ×2 (10:25→11:06)
[2017-05-14] MEDS: MULTIVITAMINS, THERA 1 EACH TAB PO SCH (11:06)
[2017-05-14] MEDS: ZIPRASIDONE 20 MG VIAL IM SCH (21:24)
[2017-05-14] MEDS: ATORVASTATIN 20 MG TAB PO SCH (21:24)
[2017-05-15] MEDS: LISINOPRIL 20 MG TAB PO SCH (07:27)
[2017-05-15] MEDS: MAGNESIUM OXIDE 400 MG TAB PO SCH ×2 (07:27→20:09)
[2017-05-15] MEDS: DEMECLOCYCLINE 150 MG TAB PO SCH ×2 (07:27→20:09)
[2017-05-15] MEDS: CHOLECALCIFEROL 1,000 UNIT TAB PO SCH (07:28)
[2017-05-15 07:58] LABS: ALT 41 U/L (21-72); AST 22 U/L (17-59); Alkaline Phosphatase 72 U/L (38-126); Anion Gap 9 mmol/L; Blood Urea Nitrogen 17 mg/dL (9-20); Carbon Dioxide 28 mmol/L (22-30); Chloride 89 mmol/L (98-107); Glucose 138 mg/dL (74-99); Magnesium 1.2 mg/dL (1.6-2.3); Non-African American GFR(MDRD) >60 (>60 ml/min/1.73 sqM); Potassium 4.1 mmol/L (3.5-5.1); Sodium 126 mmol/L (137-145); Total Bilirubin 0.5 mg/dL (0.2-1.3); Total Protein 5.9 g/dL (6.3-8.2)
--- NOTE | 2017-05-15 08:51 | P.PN ---
Objective - Vital Signs Vital signs: Vital Signs Temp 97.9 F 05/15/17 07:00 Pulse 88 05/15/17 07:00 Resp 18 05/15/17 07:00 BP 131/60 05/15/17 07:00 Pulse Ox 96 05/15/17 07:00 Intake & Output 05/14/17 05/15/17 05/15/17 18:59 06:59 18:59 Intake Total 236 1200 Output Total 400 1600 Balance -164 -400 Intake: Oral 236 1200 Output: Urine 400 1600 Other: Voiding Method Toilet Urinal # Voids 1 - Constitutional General appearance: Present: average body habitus - EENT Eyes: Absent: abnormal pupil - Respiratory Respiratory: bilateral: CTA - Cardiovascular Rhythm: regular Heart sounds: normal: S1, S2 - Gastrointestinal General gastrointestinal: Present: soft. Absent: tenderness - Integumentary Integumentary: Absent: rash - Neurologic Neurologic: Absent: focal deficits - Labs CBC & Chem 7: 05/14/17 07:33 05/15/17 07:28 Labs: Abnormal Lab Results - Last 24 Hours (Table) 05/14/17 05/15/17 Range/Units 07:33 07:28 WBC 13.1 H (3.8-10.6) k/uL RBC 2.99 L (4.30-5.90) m/uL Hgb 9.0 L (13.0-17.5) gm/dL Hct 26.8 L (39.0-53.0) % Plt Count 499 H (150-450) k/uL Neutrophils # 9.7 H (1.3-7.7) k/uL Monocytes # 1.1 H (0-1.0) k/uL Sodium 126 L (137-145) mmol/L Chloride 89 L (98-107) mmol/L Glucose 138 H (74-99) mg/dL Magnesium 1.2 L (1.6-2.3) mg/dL Total Protein 5.9 L (6.3-8.2) g/dL Albumin 3.1 L (3.5-5.0) g/dL Microbiology - Last 24 Hours (Table) 05/13/17 00:14 Blood Culture - Preliminary Blood No Growth after 48 hours Assessment and Plan (1) Encephalopathy Status: Acute (2) Hypomagnesemia Status: Acute (3) Alcohol abuse Status: Acute (4) Delirium due to general medical condition Status: Acute
[2017-05-15] MEDS: SODIUM CHLORIDE TAB 1 GM TAB PO SCH ×2 (10:33→20:10)
[2017-05-15] MEDS: MULTIVITAMINS, THERA 1 EACH TAB PO SCH (11:57)
[2017-05-15] MEDS: MAGNESIUM SULFATE-D5W PMX 1 GM in DEXTROSE/WATER 1 100ML.BAG IVPB SCH ×3 (11:57→14:12)
[2017-05-15] MEDS: ATORVASTATIN 20 MG TAB PO SCH (20:09)
[2017-05-15] MEDS: ZIPRASIDONE 20 MG VIAL IM SCH (20:10)
[2017-05-16] MEDS: MULTIVITAMINS, THERA 1 EACH TAB PO SCH (08:11)
[2017-05-16] MEDS: DEMECLOCYCLINE 150 MG TAB PO SCH ×2 (08:11→21:40)
[2017-05-16] MEDS: SODIUM CHLORIDE TAB 1 GM TAB PO SCH ×3 (08:11→21:41)
[2017-05-16] MEDS: LISINOPRIL 20 MG TAB PO SCH (08:12)
[2017-05-16] MEDS: MAGNESIUM OXIDE 400 MG TAB PO SCH ×3 (08:12→17:05)
[2017-05-16] MEDS: CHOLECALCIFEROL 1,000 UNIT TAB PO SCH (08:12)
[2017-05-16] MEDS ORDERED: DEMECLOCYCLINE 150 MG TAB PO ONE (09:00)
[2017-05-16 10:33] LABS: Basophils # (A) 0.1 k/uL (0-0.2); Basophils % (A) 1 %; CH 30.1; CHCM 33.9; Eosinophils # (A) 0.1 k/uL (0-0.7); Eosinophils % (A) 1 %; HCT 27.8 % (39.0-53.0); HGB 9.7 gm/dL (13.0-17.5); Luc # (Auto) 0.31; Luc % (Auto) 2; Lymphocytes # (A) 1.4 k/uL (1.0-4.8); Lymphocytes % (A) 9 %; MCH 30.9 pg (25.0-35.0); MCHC 34.8 g/dL (31.0-37.0); MCV 88.8 fL (80.0-100.0); Mean Platelet Volume 7.7; Monocytes # (A) 1.2 k/uL (0-1.0); Monocytes % (A) 8 %; Neutrophils # (A) 11.3 k/uL (1.3-7.7); Neutrophils % (A) 79 %; RBC 3.13 m/uL (4.30-5.90); RDW 12.7 % (11.5-15.5); WBC 14.3 k/uL (3.8-10.6); WBC (Perox) 14.18
--- NOTE | 2017-05-16 10:59 | P.NPCON ---
History of Present Illness - Reason for Consult hyponatremia - History of Present Illness Reason for consultation: Hyponatremia History of present illness: Patient is a 71-year-old male seen in renal consultation for hyponatremia. Patient was recently admitted with confusion and his sodium level was down to 118. With medical management his sodium level gradually improved and was 128 upon discharge. Patient was home and then subsequently became confused again. His brought him back to the hospital for further care. His sodium level was stable at 128. He was maintained on IV fluids and sodium level dropped to 126 and is again 126 this morning. His oral intake has been fair. No vomiting or diarrhea. I don't see any thiazide diuretics and his home medications. Last admission his TSH and cortisol levels were normal as well. He has been voiding. No hematuria or dysuria. GFR is at baseline. Hemodynamically he is stable with no evidence of intravascular volume depletion. No evidence of fluid overload on chest x-ray. CT of the brain revealed no acute abnormalities. Patient currently appears somewhat confused and is not a very reliable historian. He is requesting to drink more water. Vital signs are stable. General: The patient appeared well nourished and normally developed. HEENT: Head exam is unremarkable. Neck is without jugular venous distension. LUNGS: Lungs are clear to auscultation and percussion. Breath sounds decreased. HEART: Rate and Rhythm are regular. First and second heart sounds normal. No murmurs, rubs or gallops. ABDOMEN: Abdominal exam reveals normal bowel sounds. Non-tender and non- distended. No evidence of peritonitis. EXTREMITITES: No clubbing, cyanosis, or edema. Past Medical History Past Medical History: Hyperlipidemia, Hypertension Additional Past Medical History / Comment(s): spouse states has hernia and vomits after eating at times History of Any Multi-Drug Resistant Organisms: None Reported Past Surgical History: Orthopedic Surgery Additional Past Surgical History / Comment(s): cataract left eye with implant, lt elbow surgery, colonoscopy Past Anesthesia/Blood Transfusion Reactions: No Reported Reaction Past Psychological History: No Psychological Hx Reported Smoking Status: Former smoker Past Alcohol Use History: Occasional Additional Past Alcohol Use History / Comment(s): pt use to smoke about 1/2 ppd started 1961- quit 1984, 1/2 case beer weekly Past Drug Use History: None Reported - Past Family History Mother Family Medical History: Cancer Additional Family Medical History / Comment(s): lung cancer Daughter(s) Family Medical History: Cancer Additional Family Medical History / Comment(s): @ age 38- colon and then liver ca & then unsure of other area Medications and Allergies Home Medications Medication Instructions Recorded Confirmed Type Cholecalciferol [Vitamin D3] 1,000 unit PO DAILY 12/03/14 05/13/17 History Simvastatin [Zocor] 40 mg PO HS 12/03/14 05/13/17 History Acetaminophen [Tylenol 8 Hour] 650 mg PO BID PRN 05/05/17 05/13/17 History Lisinopril [Zestril] 20 mg PO DAILY 05/05/17 05/13/17 History Multivitamins, Thera [Multivitamin 1 tab PO DAILY 05/05/17 05/13/17 History (formulary)] Allergies Allergy/AdvReac Type Severity Reaction Status Date / Time No Known Allergies Allergy Verified 05/13/17 08:12 Physical Exam Vitals: Vital Signs Temp Pulse Resp BP Pulse Ox 05/16/17 07:00 99.6 F 99 18 114/54 98 05/16/17 00:00 103 H 05/15/17 23:00 97.2 F L 103 H 16 133/51 100 05/15/17 14:57 96.6 F L 85 16 131/63 98 Intake and Output 05/15/17 05/16/17 05/16/17 22:59 06:59 14:59 Intake Total 100 Balance 100 Intake: Intake, IV Titration 100 Amount Magnesium Sulfate-D5w Pmx 100 1 gm In Dextrose/Water 1 100ml.bag @ 100 mls/hr IVPB Q1H [facility] Rx#: [id number] Other: Voiding Method Bedside Commode Bedside Commode # Voids 1 Results - Lab Results Most recent lab results Calcium 9.0 mg/dL (8.4-10.2) 05/15/17 07:28 Magnesium 1.2 mg/dL (1.6-2.3) L 05/15/17 07:28 05/16/17 07:57 05/15/17 07:28 Assessment and Plan Plan: Assessment: #1. Euvolemic hyponatremia. There may be a component of tea and toast diet as well as underlying SIADH. I don't see any medications that he is currently on which can induce SIADH. Recent TSH and cortisol levels were normal. However cannot rule out underlying malignancy. #2. Hypomagnesemia secondary to malnutrition and chronic alcohol abuse. Magnesium level I.2 today. #3. Chronic alcohol abuse. #4. Encephalopathy. Patient is quite confused. Questionable alcohol withdrawal. Last drank about a week ago. #5. Anemia. Rule out iron deficiency. Plan: 1.5 L fluid restriction. Continue salt tabs 1 g 3 times daily. Add Lasix 20 mg twice daily. Recheck urine sodium and urine osmolality. Replace magnesium. Check iron studies. Repeat electrolytes in the morning. Thank you for the consultation. I will continue to follow the patient with you during his hospital stay.
[2017-05-16 11:01] LABS: ALT 45 U/L (21-72); AST 25 U/L (17-59); Alkaline Phosphatase 92 U/L (38-126); Anion Gap 13 mmol/L; Blood Urea Nitrogen 21 mg/dL (9-20); Calcium 9.8 mg/dL (8.4-10.2); Carbon Dioxide 24 mmol/L (22-30); Chloride 89 mmol/L (98-107); Glucose 172 mg/dL (74-99); Magnesium 1.3 mg/dL (1.6-2.3); Non-African American GFR(MDRD) >60 (>60 ml/min/1.73 sqM); Potassium 4.6 mmol/L (3.5-5.1); Sodium 126 mmol/L (137-145); Total Bilirubin 0.5 mg/dL (0.2-1.3); Total Protein 6.7 g/dL (6.3-8.2)
[2017-05-16] MEDS: FUROSEMIDE 20 MG TAB PO SCH (17:05)
[2017-05-16] MEDS: LORazepam 2 MG/ML SYRINGE IV PRN (19:47)
[2017-05-16] MEDS: ATORVASTATIN 20 MG TAB PO SCH (21:39)
[2017-05-16] MEDS: ZIPRASIDONE 20 MG CAP PO SCH (21:41)
[2017-05-17] MEDS ORDERED: Magnesium Replacement Protocol 1 EACH MISC MISCELLANE PRN (08:40)
--- NOTE | 2017-05-17 08:44 | P.PN ---
Subjective Principal diagnosis: Continuing care. Objective - Vital Signs Vital signs: Vital Signs Temp 96.8 F L 05/17/17 07:00 Pulse 107 H 05/17/17 07:00 Resp 20 05/17/17 07:00 BP 108/51 05/17/17 07:00 Pulse Ox 95 05/17/17 07:00 Intake & Output 05/16/17 05/17/17 05/17/17 18:59 06:59 18:59 Intake Total 300 Output Total 650 Balance -350 Intake: Oral 300 Output: Urine 650 Straight 650 Other: Voiding Method Bedside Commode Bedside Commode # Voids 1 - Constitutional General appearance: Present: average body habitus - EENT Eyes: Absent: abnormal pupil - Respiratory Respiratory: bilateral: CTA - Cardiovascular Rhythm: regular Heart sounds: normal: S1, S2 - Gastrointestinal General gastrointestinal: Present: soft. Absent: tenderness - Musculoskeletal Musculoskeletal: Present: generalized weakness - Labs CBC & Chem 7: 05/16/17 07:57 05/16/17 07:57 Labs: Abnormal Lab Results - Last 24 Hours (Table) 05/16/17 05/16/17 05/16/17 Range/Units 07:57 07:57 07:57 WBC 14.3 H (3.8-10.6) k/uL RBC 3.13 L (4.30-5.90) m/uL Hgb 9.7 L (13.0-17.5) gm/dL Hct 27.8 L (39.0-53.0) % Plt Count 645 H (150-450) k/uL Neutrophils # 11.3 H (1.3-7.7) k/uL Monocytes # 1.2 H (0-1.0) k/uL Sodium 126 L (137-145) mmol/L Chloride 89 L (98-107) mmol/L BUN 21 H (9-20) mg/dL Glucose 172 H (74-99) mg/dL Osmolality 267 L (280-301) mosm/kg Magnesium 1.3 L (1.6-2.3) mg/dL Iron 15 L (49-181) ug/dL % Saturation 5.0 L (20-50) % Microbiology - Last 24 Hours (Table) 05/13/17 00:14 Blood Culture - Preliminary Blood No Growth after 96 hours Assessment and Plan (1) Encephalopathy Status: Acute (2) Hypomagnesemia Status: Acute (3) Alcohol abuse Status: Acute (4) Delirium due to general medical condition Status: Acute Plan: Hopefully we can correct his sodium in the next 24-48 hrs to a nominal level. Check CMP in a.m. Place on magnesium protocol. The patient is agreeable to ECF because of his generalized weakness. Encephalopathy secondary to ethanol usage and metabolic dysfunction. Time with Patient: Less than 30
[2017-05-17 08:56] LABS: ALT 36 U/L (21-72); AST 21 U/L (17-59); Alkaline Phosphatase 82 U/L (38-126); Anion Gap 13 mmol/L; Blood Urea Nitrogen 23 mg/dL (9-20); Calcium 9.4 mg/dL (8.4-10.2); Carbon Dioxide 25 mmol/L (22-30); Chloride 90 mmol/L (98-107); Glucose 151 mg/dL (74-99); Non-African American GFR(MDRD) >60 (>60 ml/min/1.73 sqM); Sodium 128 mmol/L (137-145); Total Bilirubin 0.7 mg/dL (0.2-1.3); Total Protein 6.5 g/dL (6.3-8.2)
[2017-05-17] MEDS: MAGNESIUM SULFATE-D5W PMX 1 GM in DEXTROSE/WATER 1 100ML.BAG IVPB SCH ×3 (09:27→12:55)
[2017-05-17] MEDS: FUROSEMIDE 20 MG TAB PO SCH ×2 (09:27→16:39)
[2017-05-17] MEDS: LISINOPRIL 20 MG TAB PO SCH (09:28)
[2017-05-17] MEDS: DEMECLOCYCLINE 150 MG TAB PO SCH ×2 (09:28→20:06)
[2017-05-17] MEDS: SODIUM CHLORIDE TAB 1 GM TAB PO SCH ×3 (09:28→22:02)
[2017-05-17] MEDS: ZIPRASIDONE 20 MG CAP PO SCH ×2 (09:28→20:06)
[2017-05-17] MEDS: CHOLECALCIFEROL 1,000 UNIT TAB PO SCH (09:30)
--- NOTE | 2017-05-17 10:18 | P.PN ---
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 Sodium level is improved to 128 today. He is currently sitting up in a chair. Oral intake is fair. No vomiting or diarrhea. Admits to good urine output. Vital signs are stable. General: The patient appeared well nourished and normally developed. HEENT: Head exam is unremarkable. Neck is without jugular venous distension. LUNGS: Lungs are clear to auscultation and percussion. Breath sounds decreased. HEART: Rate and Rhythm are regular. First and second heart sounds normal. No murmurs, rubs or gallops. ABDOMEN: Abdominal exam reveals normal bowel sounds. Non-tender and non- distended. No evidence of peritonitis. EXTREMITITES: No clubbing, cyanosis, or edema. Objective - Vital Signs Vital signs: Vital Signs Temp 96.8 F L 05/17/17 07:00 Pulse 107 H 05/17/17 07:00 Resp 20 05/17/17 07:00 BP 108/51 05/17/17 07:00 Pulse Ox 95 05/17/17 07:00 Intake & Output 05/16/17 05/17/17 05/17/17 18:59 06:59 18:59 Intake Total 300 Output Total 650 Balance -350 Intake: Oral 300 Output: Urine 650 Straight 650 Other: Voiding Method Bedside Commode Bedside Commode # Voids 1 - Labs CBC & Chem 7: 05/16/17 07:57 05/17/17 08:02 Labs: Abnormal Lab Results - Last 24 Hours (Table) 05/16/17 05/16/17 05/16/17 Range/Units 07:57 07:57 07:57 WBC 14.3 H (3.8-10.6) k/uL RBC 3.13 L (4.30-5.90) m/uL Hgb 9.7 L (13.0-17.5) gm/dL Hct 27.8 L (39.0-53.0) % Plt Count 645 H (150-450) k/uL Neutrophils # 11.3 H (1.3-7.7) k/uL Monocytes # 1.2 H (0-1.0) k/uL Sodium 126 L (137-145) mmol/L Chloride 89 L (98-107) mmol/L BUN 21 H (9-20) mg/dL Glucose 172 H (74-99) mg/dL Osmolality 267 L (280-301) mosm/kg Magnesium 1.3 L (1.6-2.3) mg/dL Iron 15 L (49-181) ug/dL % Saturation 5.0 L (20-50) % Albumin (3.5-5.0) g/dL 05/17/17 Range/Units 08:02 WBC (3.8-10.6) k/uL RBC (4.30-5.90) m/uL Hgb (13.0-17.5) gm/dL Hct (39.0-53.0) % Plt Count (150-450) k/uL Neutrophils # (1.3-7.7) k/uL Monocytes # (0-1.0) k/uL Sodium 128 L (137-145) mmol/L Chloride 90 L (98-107) mmol/L BUN 23 H (9-20) mg/dL Glucose 151 H (74-99) mg/dL Osmolality (280-301) mosm/kg Magnesium 1.0 L* (1.6-2.3) mg/dL Iron (49-181) ug/dL % Saturation (20-50) % Albumin 3.4 L (3.5-5.0) g/dL Microbiology - Last 24 Hours (Table) 05/13/17 00:14 Blood Culture - Preliminary Blood No Growth after 96 hours Assessment and Plan Plan: Assessment: #1. Euvolemic hyponatremia. There may be a component of tea and toast diet as well as underlying SIADH. I don't see any medications that he is currently on which can induce SIADH. Recent TSH and cortisol levels were normal. However cannot rule out underlying malignancy. #2. Hypomagnesemia secondary to malnutrition and chronic alcohol abuse. Magnesium level 1.0 today. #3. Chronic alcohol abuse. #4. Encephalopathy. Patient is quite confused. Questionable alcohol withdrawal. Last drank about a week ago. #5. Anemia. Severe iron deficiency noted. Plan: 1.5 L fluid restriction. Continue salt tabs 1 g 3 times daily. Continue Lasix 20 mg twice daily. Replace magnesium - 3 g IV today. Increase oral magnesium to 3 times daily. Ferrlicit 125 mg IV daily for 3 days. First dose today. Repeat electrolytes in the morning. If sodium level drops again, will give him a dose of Samsca.
[2017-05-17] MEDS: MAGNESIUM OXIDE 400 MG TAB PO SCH ×3 (11:15→20:05)
[2017-05-17] MEDS: MULTIVITAMINS, THERA 1 EACH TAB PO SCH (11:17)
[2017-05-17] MEDS: SODIUM FERRIC GLUCONAT-SUCROSE 125 MG in SODIUM CHLORIDE 0.9% 100 ML IVPB SCH (14:10)
[2017-05-17] MEDS: ATORVASTATIN 20 MG TAB PO SCH (20:05)
--- NOTE | 2017-05-18 08:28 | P.DS ---
Providers Date of admission: 05/13/17 02:15 Attending physician: Reese Vega Consults: 05/16/17 08:59 Consult Physician Routine Consulting Provider: Tree Adames Consult Reason/Comments: continued hyponatremia Do you want consulting provider notified?: Yes Primary care physician: Alejandro Claudio - Discharge Diagnosis(es) (1) Encephalopathy Current Visit: Yes Status: Acute (2) Hypomagnesemia Current Visit: Yes Status: Acute (3) Alcohol abuse Current Visit: No Status: Acute (4) Delirium due to general medical condition Current Visit: No Status: Acute Hospital Course: This is a discharge summary on a 8-year-old white male essentially admitted readmitted for altered mental status. He has an underlying history of SIADH and history of ethanol usage. He had somewhat of a long course related to delirium elements. No overt withdrawal was stated. However, he was started on Geodon and it quite well. He is now been educated significant weight on his 2 L fluid restriction. He will be sent home on some minocycline with sodium and magnesium. He's had consistent hypomagnesemia here. He is on appropriate protocol and if cleared by nephrology, we'll try to discharge him to ECF today. I had a long discussion with his who has difficulty taking care of him when he becomes somewhat mentally unstable. Patient Condition at Discharge: Stable Plan - Discharge Summary New Discharge Prescriptions: New Demeclocycline [Declomycin] 300 mg PO BID tab Furosemide [Lasix] 20 mg PO BID@0900,1600 tab Magnesium Oxide [Mag-Ox] 400 mg PO TID BETWEEN MEALS tab Sodium Chloride Tab 1 gm PO TID tab Ziprasidone [Geodon] 20 mg PO BID cap Continue Cholecalciferol [Vitamin D3] 1,000 unit PO DAILY Simvastatin [Zocor] 40 mg PO HS Multivitamins, Thera [Multivitamin (formulary)] 1 tab PO DAILY Acetaminophen [Tylenol 8 Hour] 650 mg PO BID PRN PRN Reason: Pain Lisinopril [Zestril] 20 mg PO DAILY Demeclocycline [Declomycin] 150 mg PO BID #60 tab Discontinued Magnesium Oxide [Mag-Ox] 400 mg PO BID #60 tab Discharge Medication List Cholecalciferol [Vitamin D3] 1,000 unit PO DAILY 12/03/14 [History] Simvastatin [Zocor] 40 mg PO HS 12/03/14 [History] Acetaminophen [Tylenol 8 Hour] 650 mg PO BID PRN 05/05/17 [History] Lisinopril [Zestril] 20 mg PO DAILY 05/05/17 [History] Multivitamins, Thera [Multivitamin (formulary)] 1 tab PO DAILY 05/05/17 [History ] Demeclocycline [Declomycin] 150 mg PO BID #60 tab 05/10/17 [Rx] Demeclocycline [Declomycin] 300 mg PO BID tab 05/18/17 [Rx] Furosemide [Lasix] 20 mg PO BID@0900,1600 tab 05/18/17 [Rx] Magnesium Oxide [Mag-Ox] 400 mg PO TID BETWEEN MEALS tab 05/18/17 [Rx] Sodium Chloride Tab 1 gm PO TID tab 05/18/17 [Rx] Ziprasidone [Geodon] 20 mg PO BID cap 05/18/17 [Rx] Follow up Appointment(s)/Referral(s): Alejandro Claudio MD [Primary Care Provider] - 10 Days Discharge Disposition: TRANSFER TO SNF/ECF
[2017-05-18 09:23] LABS: Anion Gap 14 mmol/L; Blood Urea Nitrogen 28 mg/dL (9-20); Calcium 9.7 mg/dL (8.4-10.2); Carbon Dioxide 26 mmol/L (22-30); Chloride 90 mmol/L (98-107); Glucose 151 mg/dL (74-99); Magnesium 1.2 mg/dL (1.6-2.3); Non-African American GFR(MDRD) >60 (>60 ml/min/1.73 sqM); Potassium 4.3 mmol/L (3.5-5.1); Sodium 130 mmol/L (137-145)
--- NOTE | 2017-05-18 09:47 | P.PN ---
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 Sodium level is improved to 130 today. He is currently sitting up in a chair. Oral intake is fair. No vomiting or diarrhea. Admits to good urine output. Hemodynamically stable. No active complaints at this time. Vital signs are stable. General: The patient appeared well nourished and normally developed. HEENT: Head exam is unremarkable. Neck is without jugular venous distension. LUNGS: Lungs are clear to auscultation and percussion. Breath sounds decreased. HEART: Rate and Rhythm are regular. First and second heart sounds normal. No murmurs, rubs or gallops. ABDOMEN: Abdominal exam reveals normal bowel sounds. Non-tender and non- distended. No evidence of peritonitis. EXTREMITITES: No clubbing, cyanosis, or edema. Objective - Vital Signs Vital signs: Vital Signs Temp 99.1 F 05/18/17 07:00 Pulse 106 H 05/18/17 07:00 Resp 18 05/18/17 07:00 BP 117/51 05/18/17 07:00 Pulse Ox 97 05/18/17 07:00 Intake & Output 05/17/17 05/18/17 05/18/17 18:59 06:59 18:59 Intake Total 236 Balance 236 Weight 83.915 kg Intake: Oral 236 Other: Voiding Method Toilet Bedside Commode # Voids 1 2 # Bowel Movements 1 - Labs CBC & Chem 7: 05/16/17 07:57 05/18/17 08:10 Labs: Abnormal Lab Results - Last 24 Hours (Table) 05/18/17 Range/Units 08:10 Sodium 130 L (137-145) mmol/L Chloride 90 L (98-107) mmol/L BUN 28 H (9-20) mg/dL Glucose 151 H (74-99) mg/dL Magnesium 1.2 L (1.6-2.3) mg/dL Microbiology - Last 24 Hours (Table) 05/13/17 00:14 Blood Culture - Preliminary Blood No Growth after 120 hours Assessment and Plan Plan: Assessment: #1. Euvolemic hyponatremia. There may be a component of tea and toast diet as well as underlying SIADH. I don't see any medications that he is currently on which can induce SIADH. Recent TSH and cortisol levels were normal. However cannot rule out underlying malignancy. #2. Hypomagnesemia secondary to malnutrition and chronic alcohol abuse. Magnesium level 1.2 today. #3. Chronic alcohol abuse. #4. Encephalopathy. Patient is quite confused. Questionable alcohol withdrawal. Last drank about a week ago. #5. Anemia. Severe iron deficiency noted. Plan: Maintain 1.5 L fluid restriction. Continue salt tabs 1 g 3 times daily. Continue Lasix 20 mg twice daily. Replace magnesium - 4 g IV today - to be infused slowly for better absorption. Maintain oral magnesium 3 times daily. Ferrlicit 125 mg IV daily for 3 days. Second dose today. Repeat electrolytes in the morning. Patient to follow-up with PCP as an outpatient for maintenance screenings.
[2017-05-18] MEDS: SODIUM FERRIC GLUCONAT-SUCROSE 125 MG in SODIUM CHLORIDE 0.9% 100 ML IVPB SCH (10:00)
[2017-05-18] MEDS: LISINOPRIL 20 MG TAB PO SCH (10:05)
[2017-05-18] MEDS: FUROSEMIDE 20 MG TAB PO SCH ×2 (10:05→17:45)
[2017-05-18] MEDS: DEMECLOCYCLINE 150 MG TAB PO SCH ×2 (10:05→20:18)
[2017-05-18] MEDS: ZIPRASIDONE 20 MG CAP PO SCH ×2 (10:05→20:19)
[2017-05-18] MEDS: CHOLECALCIFEROL 1,000 UNIT TAB PO SCH (10:05)
[2017-05-18] MEDS: SODIUM CHLORIDE TAB 1 GM TAB PO SCH ×3 (10:05→21:28)
[2017-05-18] MEDS: MAGNESIUM OXIDE 400 MG TAB PO SCH ×3 (10:07→17:47)
[2017-05-18] MEDS: MULTIVITAMINS, THERA 1 EACH TAB PO SCH (11:32)
[2017-05-18] MEDS: MAGNESIUM SULFATE-D5W PMX 1 GM in DEXTROSE/WATER 1 100ML.BAG IVPB SCH ×4 (11:32→21:28)
[2017-05-18] MEDS: ATORVASTATIN 20 MG TAB PO SCH (20:18)
[2017-05-19 08:41] VITALS: BP 164/72; PULSE 103; RESP 17; TEMP 97.4
[2017-05-19] MEDS: MAGNESIUM OXIDE 400 MG TAB PO SCH ×2 (08:42→08:56)
[2017-05-19] MEDS: FUROSEMIDE 20 MG TAB PO SCH ×2 (08:42→08:53)
[2017-05-19] MEDS: ZIPRASIDONE 20 MG CAP PO SCH ×2 (08:42→08:56)
[2017-05-19] MEDS: LISINOPRIL 20 MG TAB PO SCH ×2 (08:42→08:54)
[2017-05-19] MEDS: DEMECLOCYCLINE 150 MG TAB PO SCH ×2 (08:42→08:53)
[2017-05-19] MEDS: CHOLECALCIFEROL 1,000 UNIT TAB PO SCH ×2 (08:43→08:53)
[2017-05-19] MEDS: SODIUM CHLORIDE TAB 1 GM TAB PO SCH ×2 (08:43→08:54)
[2017-05-19] MEDS: SODIUM FERRIC GLUCONAT-SUCROSE 125 MG in SODIUM CHLORIDE 0.9% 100 ML IVPB SCH (09:31)
[2017-05-19] MEDS: MULTIVITAMINS, THERA 1 EACH TAB PO SCH (12:28)
--- NOTE | 2017-05-19 13:15 | PN ---
The patient is seen for follow-up for Hyponatremia. He is currently maintained on a small dose of Lasix and sodium chloride tabs along with demeclocycline. His sodium has improved to 130. On examination, the patient is comfortable. Blood pressure is 164/72. Heart rate 103 per minute. He is afebrile. Examination of the heart S1, S2. Examination of the lungs bilateral breath sounds are heard. Abdomen is soft. Nontender. Examination of the lower extremities shows no edema. Labs shows sodium up to 130. ASSESSMENT: 1. Hyponatremia secondary to SIADH and perhaps a component of ( ) continue to encourage to increase protein intake. The patient is maintained on sodium chloride tabs which we will continue along with fluid restriction. He is also on demeclocycline which for now we can continue however, this may be discontinued as an outpatient. 2. Hypomagnesemia, maintained on supplementation. MTDD
--- NOTE | 2017-05-19 18:30 | P.DS ---
Providers Date of admission: 05/13/17 02:15 Expected date of discharge: 05/19/17 Attending physician: Reese Vega Consults: 05/16/17 08:59 Consult Physician Routine Consulting Provider: Tree Adames Consult Reason/Comments: continued hyponatremia Do you want consulting provider notified?: Yes Primary care physician: Alejandro Claudio Hospital Course: Final Diagnoses: (1) Encephalopathy Current Visit: Yes Status: Acute (2) Hypomagnesemia Current Visit: Yes Status: Acute (3) Alcohol abuse Current Visit: No Status: Acute (4) Delirium due to general medical condition Current Visit: No Status: Acute Hospital course: This is a 71-year-old gentleman admitted for altered mental status, underlying history of SIADH, EtOH use in a patient with history of delirium. No overt DTs. Initiated on Geodon, tolerated well. Consistent hypomagnesemia, replaced per protocol . Significant clinical improvement. Evaluated and cleared cleared by nephrology. Patient is being discharged to subacute rehab in a stable condition with guarded prognosis. The impression and plan of care has been dictated as directed as a scribe. : I performed a H&P examination of this patient and discussed the same with the dictator. I agree with the dictator's note. Any additional findings/opinions/ etc. will be noted. Patient Condition at Discharge: Stable Patient Condition at Discharge: Stable Plan - Discharge Summary New Discharge Prescriptions: New Demeclocycline [Declomycin] 300 mg PO BID tab Furosemide [Lasix] 20 mg PO BID@0900,1600 tab Magnesium Oxide [Mag-Ox] 400 mg PO TID BETWEEN MEALS tab Sodium Chloride Tab 1 gm PO TID tab Ziprasidone [Geodon] 20 mg PO BID cap Continue Cholecalciferol [Vitamin D3] 1,000 unit PO DAILY Simvastatin [Zocor] 40 mg PO HS Multivitamins, Thera [Multivitamin (formulary)] 1 tab PO DAILY Acetaminophen [Tylenol 8 Hour] 650 mg PO BID PRN PRN Reason: Pain Lisinopril [Zestril] 20 mg PO DAILY Demeclocycline [Declomycin] 150 mg PO BID #60 tab Discontinued Magnesium Oxide [Mag-Ox] 400 mg PO BID #60 tab Discharge Medication List Cholecalciferol [Vitamin D3] 1,000 unit PO DAILY 12/03/14 [History] Simvastatin [Zocor] 40 mg PO HS 12/03/14 [History] Acetaminophen [Tylenol 8 Hour] 650 mg PO BID PRN 05/05/17 [History] Lisinopril [Zestril] 20 mg PO DAILY 05/05/17 [History] Multivitamins, Thera [Multivitamin (formulary)] 1 tab PO DAILY 05/05/17 [History ] Demeclocycline [Declomycin] 150 mg PO BID #60 tab 05/10/17 [Rx] Demeclocycline [Declomycin] 300 mg PO BID tab 05/18/17 [Rx] Furosemide [Lasix] 20 mg PO BID@0900,1600 tab 05/18/17 [Rx] Magnesium Oxide [Mag-Ox] 400 mg PO TID BETWEEN MEALS tab 05/18/17 [Rx] Sodium Chloride Tab 1 gm PO TID tab 05/18/17 [Rx] Ziprasidone [Geodon] 20 mg PO BID cap 05/18/17 [Rx] Follow up Appointment(s)/Referral(s): Alejandro Claudio MD [Primary Care Provider] - 10 Days Patient Instructions/Handouts: Encephalopathy (DC) Activity/Diet/Wound Care/Special Instructions: Maintain 1.5 liter fluid restriction. Discharge Disposition: TRANSFER TO SNF/ECF
== END 2017-05-19 13:11 | DRG 643 ==
LOC: EC 23:50 → 4MS4W 05-13 02:15
PROVIDERS: ADMIT Hospitalist; ATTEND Hospitalist
DX: E22.2 Syndrome of inappropriate secretion of antidiuretic hormone (principal); G92 Toxic encephalopathy; E46 Unspecified protein-calorie malnutrition; F05 Delirium due to known physiological condition; D50.9 Iron deficiency anemia, unspecified; F10.10 Alcohol abuse, uncomplicated; I10 Essential (primary) hypertension; E83.42 Hypomagnesemia; E86.0 Dehydration; E78.5 Hyperlipidemia, unspecified; D72.829 Elevated white blood cell count, unspecified; I49.3 Ventricular premature depolarization; Z79.899 Other long term (current) drug therapy; Z80.0 Family history of malignant neoplasm of digestive organs; Z80.1 Family history of malignant neoplasm of trachea, bronchus and lung; Z87.891 Personal history of nicotine dependence
CPT/HCPCS: 36415; 70450; 71020; 80048; 80053; 80306; 80320; 81001; 82140; 82550; 82553; 82728; 83540; 83550; 83605; 83735; 83930; 83935; 84132; 84300; 84443; 84484; 85025; 85610; 85730; 87040; 93005; 96361; 96365; 99291

== ENCOUNTER 2017-05-22 21:53 | Inpatient (IN) | payer MEDICARE ==
[2017-05-22] MEDS ORDERED: SODIUM CHLORIDE 0.9% 1,000 ML IV STA (22:15)
[2017-05-22] MEDS ORDERED: SODIUM CHLORIDE 0.9% 500 ML IV STA (22:15)
[2017-05-22] MEDS ORDERED: LORazepam 2 MG/ML SYRINGE IV STA (22:16)
--- NOTE | 2017-05-22 22:21 | ED ---
General Adult HPI - General Chief complaint: Psychiatric Symptoms Stated complaint: mental health Time Seen by Provider: 05/22/17 22:09 Source: EMS, old records reviewed Mode of arrival: EMS Limitations: altered mental status - History of Present Illness Initial comments: This 71-year-old white male presents via EMS from [facility] facility for mental status changes. He was just in the hospital earlier this month for delirium, encephalopathy, and SIADH. Upon entering the room, he is continuously talking to himself. He will not answer any of my questions to any good degree. History is limited due to his current medical condition. There are no family members currently present. He apparently does have a history of alcohol abuse but has not been drinking alcohol recently due to being in the long term. Old records relate that he was just discharged from the hospital 3 days ago with similar. He also was in the week before for similar. He has a long history of alcohol abuse but has not been drinking in the long term. No other identifiable complaints or modifying factors but once again history is very limited. - Related Data Home Medications Medication Instructions Recorded Confirmed Cholecalciferol [Vitamin D3] 1,000 unit PO DAILY 12/03/14 05/22/17 Simvastatin [Zocor] 40 mg PO HS 12/03/14 05/22/17 Lisinopril [Zestril] 20 mg PO DAILY 05/05/17 05/22/17 Multivitamins, Thera [Multivitamin 1 tab PO DAILY 05/05/17 05/22/17 (formulary)] Acetaminophen Tab [Tylenol Tab] 650 mg PO BID PRN 05/22/17 05/22/17 Ativan 0.5 mg IM Q3H PRN 05/22/17 05/22/17 Diazepam [Valium] 2 mg PO BID 05/22/17 05/22/17 Furosemide [Lasix] 20 mg PO BID 05/22/17 05/22/17 LORazepam [Ativan] 0.5 mg PO Q3H PRN 05/22/17 05/22/17 Magnesium Oxide [Mag-Ox] 400 mg PO TID 05/22/17 05/22/17 Previous Rx's Medication Instructions Recorded Sodium Chloride Tab 1 gm PO TID tab 05/18/17 Ziprasidone [Geodon] 20 mg PO BID cap 05/18/17 Allergies Allergy/AdvReac Type Severity Reaction Status Date / Time No Known Allergies Allergy Verified 05/22/17 22:03 Review of Systems ROS Statement: Those systems with pertinent positive or pertinent negative responses have been documented in the HPI. ROS Other: All systems not noted in ROS Statement are negative. Past Medical History Past Medical History: Hyperlipidemia, Hypertension Additional Past Medical History / Comment(s): spouse states has hernia and vomits after eating at times History of Any Multi-Drug Resistant Organisms: None Reported Past Surgical History: Orthopedic Surgery Additional Past Surgical History / Comment(s): cataract left eye with implant, lt elbow surgery, colonoscopy Past Anesthesia/Blood Transfusion Reactions: No Reported Reaction Past Psychological History: No Psychological Hx Reported Smoking Status: Former smoker Past Alcohol Use History: Occasional Past Drug Use History: None Reported - Past Family History Mother Family Medical History: Cancer Additional Family Medical History / Comment(s): lung cancer Daughter(s) Family Medical History: Cancer Additional Family Medical History / Comment(s): @ age 38- colon and then liver ca & then unsure of other area General Exam - General Exam Comments Initial Comments: GENERAL: The patient is well nourished and well hydrated. VITAL SIGNS: Heart rate, blood pressure, respiratory rate reviewed as recorded in nurse's notes. EYES: Pupils are round and reactive. Extraocular movements are intact. No conjunctival / lid redness or swelling. ENT: No external evidence of injury, swelling, or ecchymosis. Airway is patent. Throat is clear. NECK: Nontender. No swelling or evidence of injury. No subcutaneous emphysema. Trachea is midline. No thyroid mass. HEART: Regular rate and rhythm. Good peripheral pulses. LUNGS/CHEST: Breath sounds clear and equal bilaterally. No rales, rhonchi, or wheezes. No ecchymosis, subcutaneous emphysema, or tenderness. ABDOMEN: Abdomen soft without tenderness. No palpable masses or organomegaly. No peritoneal signs. No abdominal wall swelling or ecchymosis. EXTREMITIES: No extremity tenderness. Normal muscle tone and function. No thoracolumbar tenderness. NEUROLOGIC: Sensation is grossly intact. Cranial nerve exam reveals face is symmetrical, tongue is midline, speech is clear. SKIN: No abrasions or ecchymosis is noted. No induration or masses noted. PSYCHIATRIC: Alert but not oriented. He appears quite delirious. Limitations: altered mental status Course Vital Signs 05/22/17 05/22/17 21:58 22:56 Temperature 98.2 F Pulse Rate 101 H 94 Respiratory 20 20 Rate Blood Pressure 153/81 145/65 O2 Sat by Pulse 100 99 Oximetry Medical Decision Making - Medical Decision Making The patient was seen and examined. All diagnostics were reviewed. The patient had a IV established and was hydrated and received some Ativan intravenously. He is doing well on recheck and is sleeping. He has an EKG done which shows a normal sinus rhythm at a rate of 94. There is no acute ST-T wave changes identified. The MI interval is 126, the QRS duration is 92, and the QTc interval is 475. The patient had a computed tomography scan of his brain which does not show any acute process. The laboratory does show significant hypomagnesemia which is been chronic for him. It also shows a hyponatremia and a hypochloremia. He has some mild anemia and elevation of his platelets. Old records are reviewed in detail. 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 Is not known as to whether or not his been compliant with this. The case is discussed with Dr. Claudio and he is agreeable to admission with neurology to consult. - Lab Data Result diagrams: 05/22/17 22:20 05/22/17 22:20 Lab Results 05/22/17 05/22/17 05/22/17 Range/Units 22:20 22:20 22:20 WBC 10.0 (3.8-10.6) k/uL RBC 3.27 L (4.30-5.90) m/uL Hgb 9.7 L (13.0-17.5) gm/dL Hct 28.3 L (39.0-53.0) % MCV 86.6 (80.0-100.0) fL MCH 29.8 (25.0-35.0) pg MCHC 34.5 (31.0-37.0) g/dL RDW 12.8 (11.5-15.5) % Plt Count 701 H (150-450) k/uL Neutrophils % 65 % Lymphocytes % 22 % Monocytes % 8 % Eosinophils % 2 % Basophils % 1 % Neutrophils # 6.5 (1.3-7.7) k/uL Lymphocytes # 2.2 (1.0-4.8) k/uL Monocytes # 0.8 (0-1.0) k/uL Eosinophils # 0.2 (0-0.7) k/uL Basophils # 0.1 (0-0.2) k/uL PT 12.1 H (9.0-12.0) sec INR 1.2 H (<1.2) APTT 26.1 (22.0-30.0) sec Sodium 130 L (137-145) mmol/L Potassium 4.0 (3.5-5.1) mmol/L Chloride 91 L (98-107) mmol/L Carbon Dioxide 27 (22-30) mmol/L Anion Gap 12 mmol/L BUN 34 H (9-20) mg/dL Creatinine 1.00 (0.66-1.25) mg/dL Est GFR (MDRD) Af Amer >60 (>60 ml/min/1.73 sqM) Est GFR (MDRD) Non-Af >60 (>60 ml/min/1.73 sqM) Glucose 133 H (74-99) mg/dL Calcium 10.3 H (8.4-10.2) mg/dL Phosphorus 3.6 (2.5-4.5) mg/dL Magnesium 1.0 L* (1.6-2.3) mg/dL Total Bilirubin 0.5 (0.2-1.3) mg/dL AST 26 (17-59) U/L ALT 39 (21-72) U/L Alkaline Phosphatase 84 (38-126) U/L Ammonia (<30) umol/L Total Protein 7.0 (6.3-8.2) g/dL Albumin 3.7 (3.5-5.0) g/dL Urine Color Urine Appearance (Clear) Urine pH (5.0-8.0) Ur Specific [place] (1.001-1.035) Urine Protein (Negative) Urine Glucose (UA) (Negative) Urine Ketones (Negative) Urine Blood (Negative) Urine Nitrite (Negative) Urine Bilirubin (Negative) Urine Urobilinogen (<2.0) mg/dL Ur Leukocyte Esterase (Negative) Urine RBC (0-5) /hpf Urine WBC (0-5) /hpf Urine Bacteria (None) /hpf Cellular Casts (0) /lpf Hyaline Casts (0-2) /lpf 05/22/17 05/22/17 Range/Units 22:20 22:30 WBC (3.8-10.6) k/uL RBC (4.30-5.90) m/uL Hgb (13.0-17.5) gm/dL Hct (39.0-53.0) % MCV (80.0-100.0) fL MCH (25.0-35.0) pg MCHC (31.0-37.0) g/dL RDW (11.5-15.5) % Plt Count (150-450) k/uL Neutrophils % % Lymphocytes % % Monocytes % % Eosinophils % % Basophils % % Neutrophils # (1.3-7.7) k/uL Lymphocytes # (1.0-4.8) k/uL Monocytes # (0-1.0) k/uL Eosinophils # (0-0.7) k/uL Basophils # (0-0.2) k/uL PT (9.0-12.0) sec INR (<1.2) APTT (22.0-30.0) sec Sodium (137-145) mmol/L Potassium (3.5-5.1) mmol/L Chloride (98-107) mmol/L Carbon Dioxide (22-30) mmol/L Anion Gap mmol/L BUN (9-20) mg/dL Creatinine (0.66-1.25) mg/dL Est GFR (MDRD) Af Amer (>60 ml/min/1.73 sqM) Est GFR (MDRD) Non-Af (>60 ml/min/1.73 sqM) Glucose (74-99) mg/dL Calcium (8.4-10.2) mg/dL Phosphorus (2.5-4.5) mg/dL Magnesium (1.6-2.3) mg/dL Total Bilirubin (0.2-1.3) mg/dL AST (17-59) U/L ALT (21-72) U/L Alkaline Phosphatase (38-126) U/L Ammonia <9 (<30) umol/L Total Protein (6.3-8.2) g/dL Albumin (3.5-5.0) g/dL Urine Color Yellow Urine Appearance Clear (Clear) Urine pH 6.5 (5.0-8.0) Ur Specific [place] 1.013 (1.001-1.035) Urine Protein 1+ H (Negative) Urine Glucose (UA) Negative (Negative) Urine Ketones Negative (Negative) Urine Blood Negative (Negative) Urine Nitrite Negative (Negative) Urine Bilirubin Negative (Negative) Urine Urobilinogen <2.0 (<2.0) mg/dL Ur Leukocyte Esterase Negative (Negative) Urine RBC 1 (0-5) /hpf Urine WBC 2 (0-5) /hpf Urine Bacteria Rare H (None) /hpf Cellular Casts 1 (0) /lpf Hyaline Casts 1 (0-2) /lpf Disposition Clinical Impression: Encephalopathy, Delirium, Anemia, Hyponatremia, Hypochloremia, SIADH (syndrome of inappropriate ADH production), Thrombocytosis Disposition: ADMITTED IP TO THIS HOSP Condition: Fair Referrals: Rhea Guy MD [Primary Care Provider] - 1-2 days Time of Disposition: 00:06 Decision Date: 05/23/17 Decision Time: 00:06
[2017-05-22 22:58] LABS: Appearance,Urine Clear (Clear); Bacteria,Urine Rare /hpf; Bilirubin,Urine Negative (Negative); Glucose,Urine (UA) Negative (Negative); Ketones,Urine Negative (Negative); Leukocyte Esterase,Urine Negative (Negative); Nitrite,Urine Negative (Negative); PH, Urine 6.5 (5.0-8.0); Particle Count 2911; Protein,Urine 1+ (Negative); RBC,Urine 1 /hpf (0-5); Specific Gravity,Urine 1.013 (1.001-1.035); UA Billing (MACRO vs. MICRO) MICRO; Urobilinogen,Urine <2.0 mg/dL (<2.0); WBC,Urine 2 /hpf (0-5)
[2017-05-22 23:07] LABS: Basophils # (A) 0.1 k/uL (0-0.2); Basophils % (A) 1 %; CH 30.5; CHCM 35.3; Eosinophils # (A) 0.2 k/uL (0-0.7); Eosinophils % (A) 2 %; HCT 28.3 % (39.0-53.0); HDW 2.69; HGB 9.7 gm/dL (13.0-17.5); Luc # (Auto) 0.38; Luc % (Auto) 4; Lymphocytes # (A) 2.2 k/uL (1.0-4.8); Lymphocytes % (A) 22 %; MCH 29.8 pg (25.0-35.0); MCHC 34.5 g/dL (31.0-37.0); MCV 86.6 fL (80.0-100.0); Mean Platelet Volume 6.4; Monocytes # (A) 0.8 k/uL (0-1.0); Monocytes % (A) 8 %; Neutrophils # (A) 6.5 k/uL (1.3-7.7); Neutrophils % (A) 65 %; RBC 3.27 m/uL (4.30-5.90); RDW 12.8 % (11.5-15.5); WBC (Perox) 10.38
[2017-05-22 23:09] LABS: INR 1.2 (<1.2); Partial Thromboplastin Time 26.1 sec (22.0-30.0); Prothrombin Time 12.1 sec (9.0-12.0)
[2017-05-22 23:10] LABS: ALT 39 U/L (21-72); AST 26 U/L (17-59); Alkaline Phosphatase 84 U/L (38-126); Anion Gap 12 mmol/L; Blood Urea Nitrogen 34 mg/dL (9-20); Calcium 10.3 mg/dL (8.4-10.2); Carbon Dioxide 27 mmol/L (22-30); Chloride 91 mmol/L (98-107); Glucose 133 mg/dL (74-99); Non-African American GFR(MDRD) >60 (>60 ml/min/1.73 sqM); Phosphorous 3.6 mg/dL (2.5-4.5); Sodium 130 mmol/L (137-145); Total Bilirubin 0.5 mg/dL (0.2-1.3)
--- NOTE | 2017-05-22 23:38 | CT ---
EXAM: CT Head Without Intravenous Contrast CLINICAL HISTORY: Reason: confusion TECHNIQUE: Axial computed tomography images of the head/brain without intravenous contrast. DLP is 1161 mGy-cm. This CT exam was performed using one or more of the following dose reduction techniques: automated exposure control, adjustment of the mA and/or kV according to patient size, and/or use of iterative reconstruction technique. Coronal and sagittal reformatted images were created and reviewed. COMPARISON: CT 05/13/17 and 05/05/17 FINDINGS: Brain: Mild chronic small vessel ischemic change. No hemorrhage. No mass effect or edema. No evolving territorial infarction. Ventricles: Unremarkable. No ventriculomegaly. Bones/joints: Unremarkable. No acute fracture. Soft tissues: Unremarkable. Sinuses: Moderate mucosal thickening of the right maxillary sinus. Mild mucosal thickening of the left maxillary sinus. Mastoid air cells: Unremarkable as visualized. No mastoid effusion. Nasopharynx: Prominent calcification seen within the right nasal cavity which may represent calcified polyps. IMPRESSION: Prominent calcification seen within the right nasal cavity which may represent calcified polyps. No acute intracranial abnormality.
[2017-05-23] MEDS ORDERED: NALOXONE 0.4 MG/ML 1 ML VIAL IV PRN (00:07)
[2017-05-23] MEDS ORDERED: ONDANSETRON 4 MG/2 ML VIAL IVP PRN (00:07)
[2017-05-23] MEDS ORDERED: ACETAMINOPHEN TAB 325 MG TAB PO PRN (00:07)
[2017-05-23] MEDS ORDERED: LORazepam 2 MG/ML SYRINGE IV PRN (00:07)
[2017-05-23] MEDS: MAGNESIUM SULFATE-D5W PMX 1 GM in DEXTROSE/WATER 1 100ML.BAG IVPB SCH ×5 (00:12→11:45)
[2017-05-23 07:35] LABS: Anion Gap 10 mmol/L; Blood Urea Nitrogen 27 mg/dL (9-20); Calcium 9.6 mg/dL (8.4-10.2); Carbon Dioxide 28 mmol/L (22-30); Chloride 95 mmol/L (98-107); Glucose 108 mg/dL (74-99); Magnesium 1.4 mg/dL (1.6-2.3); Non-African American GFR(MDRD) >60 (>60 ml/min/1.73 sqM); Potassium 3.9 mmol/L (3.5-5.1); Sodium 133 mmol/L (137-145)
[2017-05-23 08:10] LABS: Basophils # (A) 0.1 k/uL (0-0.2); Basophils % (A) 1 %; CH 31.1; CHCM 34.1; Eosinophils # (A) 0.2 k/uL (0-0.7); Eosinophils % (A) 3 %; HCT 28.2 % (39.0-53.0); HDW 2.49; HGB 9.5 gm/dL (13.0-17.5); Luc # (Auto) 0.31; Luc % (Auto) 4; Lymphocytes # (A) 1.8 k/uL (1.0-4.8); Lymphocytes % (A) 23 %; MCH 30.7 pg (25.0-35.0); MCHC 33.6 g/dL (31.0-37.0); MCV 91.4 fL (80.0-100.0); Monocytes # (A) 0.8 k/uL (0-1.0); Monocytes % (A) 10 %; Neutrophils # (A) 4.5 k/uL (1.3-7.7); Neutrophils % (A) 59 %; RBC 3.08 m/uL (4.30-5.90); RDW 13.2 % (11.5-15.5); WBC 7.7 k/uL (3.8-10.6); WBC (Perox) 7.55
--- NOTE | 2017-05-23 08:27 | P.HPIM ---
History of Present Illness H&P Date: 05/23/17 Chief Complaint: Altered mental status This is a history of physical on a readmission a 71-year-old white male essentially with history of SIADH and hypomagnesemia. Altered mental status is noted at the [facility]. I suspect metabolic/morning his encephalopathy. We will go ahead and supplement vitamin B and magnesium which has been low consistently. The patient is disoriented and thinks today is Sunday. He has been stable at [facility] for 2 days. No other voiding difficulties are stated. Significant weakness is noted and his is having difficulty handling him at home. Review of Systems Constitutional: Denies chills, Denies fever Eyes: denies blurred vision, denies pain Ears, nose, mouth and throat: Denies headache, Denies sore throat Cardiovascular: Denies chest pain, Denies shortness of breath Respiratory: Denies cough Musculoskeletal: Denies myalgias Integumentary: Denies pruritus, Denies rash Psychiatric: Reports disorientation Past Medical History Past Medical History: Hyperlipidemia, Hypertension Additional Past Medical History / Comment(s): spouse states has hernia and vomits after eating at times History of Any Multi-Drug Resistant Organisms: None Reported Past Surgical History: Orthopedic Surgery Additional Past Surgical History / Comment(s): cataract left eye with implant, lt elbow surgery, colonoscopy Past Anesthesia/Blood Transfusion Reactions: No Reported Reaction Past Psychological History: No Psychological Hx Reported Smoking Status: Former smoker Past Alcohol Use History: Occasional Past Drug Use History: None Reported - Past Family History Mother Family Medical History: Cancer Additional Family Medical History / Comment(s): lung cancer Daughter(s) Family Medical History: Cancer Additional Family Medical History / Comment(s): @ age 38- colon and then liver ca & then unsure of other area Medications and Allergies Home Medications Medication Instructions Recorded Confirmed Type Cholecalciferol [Vitamin D3] 1,000 unit PO DAILY 12/03/14 05/22/17 History Simvastatin [Zocor] 40 mg PO HS 12/03/14 05/22/17 History Lisinopril [Zestril] 20 mg PO DAILY 05/05/17 05/22/17 History Multivitamins, Thera [Multivitamin 1 tab PO DAILY 05/05/17 05/22/17 History (formulary)] Acetaminophen Tab [Tylenol Tab] 650 mg PO BID PRN 05/22/17 05/22/17 History Ativan 0.5 mg IM Q3H PRN 05/22/17 05/22/17 History Diazepam [Valium] 2 mg PO BID 05/22/17 05/22/17 History Furosemide [Lasix] 20 mg PO BID 05/22/17 05/22/17 History LORazepam [Ativan] 0.5 mg PO Q3H PRN 05/22/17 05/22/17 History Magnesium Oxide [Mag-Ox] 400 mg PO TID 05/22/17 05/22/17 History Allergies Allergy/AdvReac Type Severity Reaction Status Date / Time No Known Allergies Allergy Verified 05/22/17 22:03 Physical Exam Vitals: Vital Signs Temp Pulse Pulse Resp BP BP Pulse Ox 05/23/17 01:22 97.3 F L 95 16 142/66 91 L 05/23/17 01:02 97 F L 05/23/17 00:44 99 16 143/80 100 05/22/17 22:56 94 20 145/65 99 05/22/17 21:58 98.2 F 101 H 20 153/81 100 Intake and Output 05/22/17 05/23/17 05/23/17 22:59 06:59 14:59 Intake Total 700 Balance 700 Intake: Intake, IV Titration 700 Amount Magnesium Sulfate-D5w Pmx 100 1 gm In Dextrose/Water 1 100ml.bag @ 100 mls/hr IVPB Q1H MELVI Rx#: [id number] Sodium Chloride 0.9% 1, 600 000 ml @ 100 mls/hr IV . Q10H STA Rx#:[id number] Other: # Voids 1 Weight 79.379 kg - Constitutional General appearance: no acute distress - EENT Eyes: EOMI - Neck Neck: no lymphadenopathy - Respiratory Respiratory: bilateral: CTA - Cardiovascular Rhythm: regular Heart sounds: normal: S1, S2 - Gastrointestinal General gastrointestinal: soft, no tenderness - Musculoskeletal Musculoskeletal: generalized weakness - Psychiatric Psychiatric: no A&O x's 3, no intact judgment & insight Results CBC & Chem 7: 05/23/17 06:49 05/23/17 06:46 Labs: Abnormal Lab Results - Last 24 Hours (Table) 05/22/17 05/22/17 05/22/17 Range/Units 22:20 22:20 22:20 RBC 3.27 L (4.30-5.90) m/uL Hgb 9.7 L (13.0-17.5) gm/dL Hct 28.3 L (39.0-53.0) % Plt Count 701 H (150-450) k/uL PT 12.1 H (9.0-12.0) sec INR 1.2 H (<1.2) Sodium 130 L (137-145) mmol/L Chloride 91 L (98-107) mmol/L BUN 34 H (9-20) mg/dL Glucose 133 H (74-99) mg/dL Calcium 10.3 H (8.4-10.2) mg/dL Magnesium 1.0 L* (1.6-2.3) mg/dL Urine Protein (Negative) Urine Bacteria (None) /hpf 05/22/17 05/23/17 05/23/17 Range/Units 22:30 06:46 06:49 RBC 3.08 L (4.30-5.90) m/uL Hgb 9.5 L (13.0-17.5) gm/dL Hct 28.2 L (39.0-53.0) % Plt Count 595 H (150-450) k/uL PT (9.0-12.0) sec INR (<1.2) Sodium 133 L (137-145) mmol/L Chloride 95 L (98-107) mmol/L BUN 27 H (9-20) mg/dL Glucose 108 H (74-99) mg/dL Calcium (8.4-10.2) mg/dL Magnesium 1.4 L (1.6-2.3) mg/dL Urine Protein 1+ H (Negative) Urine Bacteria Rare H (None) /hpf Assessment and Plan (1) Delirium Status: Acute (2) Encephalopathy Status: Acute (3) SIADH (syndrome of inappropriate ADH production) Status: Acute (4) Hypomagnesemia Status: Acute Plan: Magnesium replacement. Check CMP and magnesium in a.m. per Neurology consultation. However, I do suspect chronic encephalopathy given his overall severe alcoholism. Continue rehab element. See orders otherwise. Time with Patient: Less than 30
[2017-05-23] MEDS: ENOXAPARIN 40 MG/0.4 ML SYRINGE SQ SCH (09:10)
[2017-05-23 09:56] VITALS: BMI 26.6
[2017-05-23] MEDS: PANTOPRAZOLE 40 MG/10 ML VIAL IV SCH (10:30)
[2017-05-23] MEDS: THIAMINE 100 MG/ML 2 ML VIAL IVP SCH (10:30)
[2017-05-23] MEDS: ZIPRASIDONE 20 MG CAP PO SCH ×2 (10:32→20:14)
[2017-05-23] MEDS: CHOLECALCIFEROL 1,000 UNIT TAB PO SCH (10:32)
[2017-05-23] MEDS: FUROSEMIDE 20 MG TAB PO SCH ×2 (10:32→20:14)
[2017-05-23] MEDS: LISINOPRIL 20 MG TAB PO SCH (10:32)
[2017-05-23] MEDS: MAGNESIUM OXIDE 400 MG TAB PO SCH ×3 (10:32→20:14)
[2017-05-23] MEDS: DIAZEPAM 2 MG TAB PO SCH ×2 (10:32→20:14)
[2017-05-23] MEDS: MULTIVITAMINS, THERA 1 EACH TAB PO SCH (10:32)
[2017-05-23] MEDS: SODIUM CHLORIDE TAB 1 GM TAB PO SCH ×3 (10:32→20:14)
[2017-05-23] MEDS: SODIUM CHLORIDE 0.9% 1,000 ML IV SCH (10:42)
[2017-05-23] MEDS ORDERED: ATORVASTATIN 20 MG TAB PO SCH (21:00)
[2017-05-24 07:32] LABS: ALT 32 U/L (21-72); AST 19 U/L (17-59); Alkaline Phosphatase 73 U/L (38-126); Anion Gap 9 mmol/L; Blood Urea Nitrogen 18 mg/dL (9-20); Calcium 9.4 mg/dL (8.4-10.2); Carbon Dioxide 30 mmol/L (22-30); Chloride 94 mmol/L (98-107); Glucose 114 mg/dL (74-99); Magnesium 1.1 mg/dL (1.6-2.3); Non-African American GFR(MDRD) >60 (>60 ml/min/1.73 sqM); Potassium 3.4 mmol/L (3.5-5.1); Sodium 133 mmol/L (137-145); Total Bilirubin 0.3 mg/dL (0.2-1.3); Total Protein 6.2 g/dL (6.3-8.2)
--- NOTE | 2017-05-24 08:21 | P.DS ---
Providers Date of admission: 05/23/17 00:07 Attending physician: Alejandro Claudio Consults: 05/23/17 00:08 Consult Physician Routine Consulting Provider: Lynn James Consult Reason/Comments: delirium Do you want consulting provider notified?: Yes Primary care physician: Rhea Guy - Discharge Diagnosis(es) (1) Delirium Current Visit: Yes Status: Acute (2) Encephalopathy Current Visit: Yes Status: Acute (3) SIADH (syndrome of inappropriate ADH production) Current Visit: Yes Status: Acute (4) Hypomagnesemia Current Visit: No Status: Acute Hospital Course: This is a discharge summary on a 71-year-old white male essentially admitted for altered mental status. 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 The patient has SIADH but his sodium has been fairly well controlled. He is struggled with hypomagnesemia. We have given about 7 g magnesium prior to discharge and will increase him to 1600 mg daily. The patient will be discharged in stable condition once cleared by neurology. He will follow-up with me [facility] Patient Condition at Discharge: Fair Plan - Discharge Summary New Discharge Prescriptions: New Magnesium Oxide [Mag-Ox] 800 mg PO BID #120 tablet Magnesium Oxide [Mag-Ox] 400 mg PO TID tab Continue Cholecalciferol [Vitamin D3] 1,000 unit PO DAILY Simvastatin [Zocor] 40 mg PO HS Multivitamins, Thera [Multivitamin (formulary)] 1 tab PO DAILY Lisinopril [Zestril] 20 mg PO DAILY Sodium Chloride Tab 1 gm PO TID tab Ziprasidone [Geodon] 20 mg PO BID cap LORazepam [Ativan] 0.5 mg PO Q3H PRN PRN Reason: Agitation Diazepam [Valium] 2 mg PO BID Furosemide [Lasix] 20 mg PO BID Acetaminophen Tab [Tylenol] 650 mg PO BID PRN PRN Reason: Pain Ativan 0.5 mg IM Q3H PRN PRN Reason: Agitation Discharge Medication List Cholecalciferol [Vitamin D3] 1,000 unit PO DAILY 12/03/14 [History] Simvastatin [Zocor] 40 mg PO HS 12/03/14 [History] Lisinopril [Zestril] 20 mg PO DAILY 05/05/17 [History] Multivitamins, Thera [Multivitamin (formulary)] 1 tab PO DAILY 05/05/17 [History ] Sodium Chloride Tab 1 gm PO TID tab 05/18/17 [Rx] Ziprasidone [Geodon] 20 mg PO BID cap 05/18/17 [Rx] Acetaminophen Tab [Tylenol] 650 mg PO BID PRN 05/22/17 [History] Ativan 0.5 mg IM Q3H PRN 05/22/17 [History] Diazepam [Valium] 2 mg PO BID 05/22/17 [History] Furosemide [Lasix] 20 mg PO BID 05/22/17 [History] LORazepam [Ativan] 0.5 mg PO Q3H PRN 05/22/17 [History] Magnesium Oxide [Mag-Ox] 400 mg PO TID tab 05/24/17 [Rx] Magnesium Oxide [Mag-Ox] 800 mg PO BID #120 tablet 05/24/17 [Rx] Follow up Appointment(s)/Referral(s): Rhea Guy MD [Primary Care Provider] - 1-2 days Discharge Disposition: TRANSFER TO SNF/ECF
[2017-05-24] MEDS: SODIUM CHLORIDE TAB 1 GM TAB PO SCH ×2 (08:59→16:15)
[2017-05-24] MEDS: THIAMINE 100 MG/ML 2 ML VIAL IVP SCH (09:03)
[2017-05-24] MEDS: MULTIVITAMINS, THERA 1 EACH TAB PO SCH (09:03)
[2017-05-24] MEDS: ZIPRASIDONE 20 MG CAP PO SCH (09:03)
[2017-05-24] MEDS: MAGNESIUM OXIDE 400 MG TAB PO SCH ×2 (09:03→16:15)
[2017-05-24] MEDS: PANTOPRAZOLE 40 MG/10 ML VIAL IV SCH (09:03)
[2017-05-24] MEDS: LISINOPRIL 20 MG TAB PO SCH (09:03)
[2017-05-24] MEDS: DIAZEPAM 2 MG TAB PO SCH (09:03)
[2017-05-24] MEDS: FUROSEMIDE 20 MG TAB PO SCH (09:03)
[2017-05-24] MEDS: ENOXAPARIN 40 MG/0.4 ML SYRINGE SQ SCH (09:03)
[2017-05-24] MEDS: CHOLECALCIFEROL 1,000 UNIT TAB PO SCH (09:03)
[2017-05-24] MEDS: MAGNESIUM SULFATE-D5W PMX 1 GM in DEXTROSE/WATER 1 100ML.BAG IVPB SCH ×4 (09:03→12:21)
[2017-05-24] MEDS: SODIUM CHLORIDE 0.9% 1,000 ML IV SCH (09:30)
[2017-05-24] MEDS ORDERED: guaiFENesin SYRUP 100MG/5ML 200 MG/10 ML CUP PO PRN (11:24)
[2017-05-24 14:18] VITALS: BP 112/59; PULSE 71; RESP 16; TEMP 98.6
--- NOTE | 2017-05-24 20:40 | P.PN ---
Subjective Principal diagnosis: altered mental status, hypomagnesemia, SIADH Patient is a 71-year-old white male with a history of SIADH and hypomagnesemia. Patient was also noted to have altered mental status at admission. Patient does have a history of decreased vitamin B and hypomagnesemia on a consistent basis. On presentation originally, patient was disoriented. primary care provider has engaged in vitamin B supplementation, electrolyte replacement since admission. Currently, EEG is ordered. CT of the brain noted no acute process. Patient denies any ongoing current neurological symptoms. Patient states he has returned to baseline. On contact, the patient is supine in bed, resting comfortably, alert and oriented 3 and in no acute distress. Objective - Vital Signs Vital signs: Vital Signs Temp 98.6 F 05/24/17 14:17 Pulse 71 05/24/17 14:17 Resp 16 05/24/17 14:17 BP 112/59 05/24/17 14:17 Pulse Ox 99 05/24/17 14:17 Intake & Output 05/24/17 05/24/17 05/25/17 06:59 18:59 06:59 Intake Total 1800 720 Output Total 650 Balance 1150 720 Intake: Intake, IV Titration 50 Amount Sodium Chloride 0.9% 1, 50 000 ml @ 20 mls/hr IV . Q24H MELVI Rx#:[id number] Oral 1750 720 Output: Urine 650 Other: Voiding Method Toilet Toilet # Voids 2 - Exam Constitutional: AOx3, cooperative HEENT: NC/AT, no facial asymmetry is seen. Throat: Supple, no masses Respiratory: No increased work of breathing Cardiac: Regular rate and Rhythm GI: non tender, non distended Musculoskeletal: Blow Torch Burner strengths are equal bilaterally upper and lower extremities, generalized weakness in all 4 extremities. Neurological: CN II-XII in tact, patient was AOx3, speech and language are normal, no unilateralizing weakness, no seizure activity note on physical exam. Sensation was normal. Integementary: no rash, no erythema Psychiatric: mood and affect appropriate - Labs CBC & Chem 7: 05/23/17 06:49 05/24/17 06:44 Labs: Abnormal Lab Results - Last 24 Hours (Table) 05/24/17 Range/Units 06:44 Sodium 133 L (137-145) mmol/L Potassium 3.4 L (3.5-5.1) mmol/L Chloride 94 L (98-107) mmol/L Glucose 114 H (74-99) mg/dL Magnesium 1.1 L (1.6-2.3) mg/dL Total Protein 6.2 L (6.3-8.2) g/dL Albumin 3.2 L (3.5-5.0) g/dL Assessment and Plan (1) Altered mental status Status: Acute (2) Encephalopathy Status: Acute (3) Hypomagnesemia Status: Acute (4) SIADH (syndrome of inappropriate ADH production) Status: Acute Plan: After reviewing the patient's imaging and testing, physical exam findings and discussion with the patient, it does appear that the patient has returned to baseline. Patient's symptoms appear to be primarily related to his SIADH status. A CT of the brain noted no acute process. EEG has been ordered and taken. At this time if the patient's EEG is the only remaining testing prior to discharge, once the EEG is taken, results can be discussed at the follow-up office visit. Status: Neurology will clear the patient for discharge. If the patient's EEG is taken, he can be discharged and results discussed at the follow-up visit. Advised the patient to contact our office within 10-14 days for a follow-up visit. Feel free to contact our office with any questions. I discussed the patient's pertinent medical information with Dr. James. He agrees with the plan of care as implemented.
[2017-05-24] MEDS ORDERED: DOCUSATE 100 MG CAP PO SCH (21:00)
--- NOTE | 2017-05-24 22:45 | CONS ---
CONSULTATION Date of Consultation: DATE OF CONSULTATION: 05/23/2017. CHIEF COMPLAINT: Altered mental status. HISTORY OF PRESENT ILLNESS: Mr. Obregon is a pleasant 71-year-old male who is being evaluated today, 05/23/2017, by the neurology service per the request of Dr. Claudio for altered mental status. The patient was brought into [facility] Emergency Room with increased confusion. The patient was recently admitted to the hospital and was diagnosed with SIADH. He also has history of alcohol abuse, but he has not consumed any alcohol because he is in the group home at this time. On this admission, a CT scan of the brain was done which showed no acute intracranial abnormalities. His comprehensive metabolic profile showed hyponatremia at 130, elevated BUN at 34 and hypercalcemia at 10.3. His magnesium was very low at 1.0. His CBC showed anemia with a hemoglobin of 9.5 and hematocrit 28% and thrombocytosis at 701,000. His urinalysis was normal and his ammonia level was normal. The patient was admitted with fluid restrictions. At the time of my evaluation, he appears to be back to his baseline. He is scheduled to have repeat blood work in the morning. PAST MEDICAL HISTORY: SIADH, hypertension, dyslipidemia, orthopedic surgeries, cataract surgery, colonoscopy. SOCIAL HISTORY: The patient is a former smoker. He denies any drug use. He does have history of alcohol use, but he has not consumed any alcohol recently. FAMILY HISTORY: Positive for cancer. HOME MEDICATIONS: Reviewed in the chart. ALLERGIES: No known drug allergies. REVIEW OF SYSTEM: As mentioned above and otherwise negative. PHYSICAL EXAM: Vital signs show a temperature of 98.3, pulse 95, respirations 12, blood pressure 135/73. GENERAL APPEARANCE: The patient is a well-developed, elderly male, who appears to be in no acute distress. HEENT: Normocephalic, atraumatic, no facial asymmetry is seen. NECK: Supple with no masses felt. CARDIOVASCULAR: Regular rate and rhythm. ABDOMEN: Nontender, nondistended. Extremities showed no edema or clubbing. NEUROLOGICAL: The patient is alert, aware and oriented x3. Speech and language are normal. Strength is full in all 4 extremities. Sensory was normal to light touch in all 4 extremities. No facial asymmetry is seen. No seizure-like activity is noticed. IMPRESSION: 1. Hyponatremia. 2. Acute metabolic encephalopathy. 3. Hypercalcemia. 4. Hypomagnesemia. 5. Anemia. RECOMMENDATION: The patient's altered mental status appears to be improved right now. This is likely related to his SIADH. Continue fluid restrictions. An EEG has been ordered. I did review his CT scan of the brain, which showed no acute intracranial abnormalities. I will continue to follow with you. Further recommendations to follow. BOLA / ALICE: [id number] /
--- NOTE | 2017-05-25 07:57 | EEG ---
ELECTROENCEPHALOGRAM REPORT Date of Service: 05/24/2017 REASON FOR TESTING: Altered mental status. DESCRIPTION OF THE PROCEDURE: This EEG was performed using a 21 channel digital electroencephalograph, following international 10-20 system. DESCRIPTION OF THE RECORDING: From the beginning of the tracing, and with the patient's eyes closed, the background rhythm was mostly consisting of 8 Hz. Frequency in the posterior occipital leads. No obvious asymmetry is seen. Occasional movement artifacts and muscle artifacts are seen. Photic stimulation was performed with a minimal driving response seen. No pathological waves were elicited. Hyperventilation was not performed. The patient remains awake throughout the tracing. No epileptiform discharges were seen. His EKG lead showed a regular rate and rhythm. INTERPRETATION: This awake EEG can be considered within normal limits. There is no asymmetry seen. No epileptiform discharges were noticed. The absence of epileptiform discharges does not rule out the diagnosis of epilepsy, therefore clinical correlation is recommended. MMASHLYN / ALICE: [id number] /
== END 2017-05-24 17:20 | disposition home or self-care (01) | DRG 643 ==
LOC: EC 21:53 → 3SUR 05-23 00:07
PROVIDERS: ADMIT Family Medicine; ATTEND Family Medicine
DX: E22.2 Syndrome of inappropriate secretion of antidiuretic hormone (principal); G93.41 Metabolic encephalopathy; E83.42 Hypomagnesemia; E83.52 Hypercalcemia; D64.9 Anemia, unspecified; E78.5 Hyperlipidemia, unspecified; F10.20 Alcohol dependence, uncomplicated; I10 Essential (primary) hypertension; Z79.899 Other long term (current) drug therapy; Z80.0 Family history of malignant neoplasm of digestive organs; Z80.1 Family history of malignant neoplasm of trachea, bronchus and lung; Z87.891 Personal history of nicotine dependence
CPT/HCPCS: 36415; 70450; 80048; 80053; 81001; 82140; 83735; 84100; 85025; 85610; 85730; 93005; 95816; 96361; 96365; 96375; 99285

== ENCOUNTER 2017-05-25 23:11 | Inpatient (IN) | payer MEDICARE ==
[2017-05-25 23:58] VITALS: BMI 28.1
[2017-05-26] MEDS ORDERED: ACETAMINOPHEN TAB 325 MG TAB PO PRN (00:55)
[2017-05-26] MEDS ORDERED: NALOXONE 0.4 MG/ML 1 ML VIAL IV PRN (00:55)
[2017-05-26] MEDS: HEPARIN SODIUM,PORCINE 5,000 UNIT/ML 1 ML VIAL SQ SCH ×3 (01:44→20:45)
[2017-05-26] MEDS: SODIUM CHLORIDE 0.45% 1,000 ML IV SCH (01:44)
[2017-05-26] MEDS: LORazepam 0.5 MG TAB PO PRN (01:44)
[2017-05-26 01:46] LABS: Basophils # (A) 0.1 k/uL (0-0.2); Basophils % (A) 1 %; CH 31.4; CHCM 35.5; Eosinophils # (A) 0.1 k/uL (0-0.7); Eosinophils % (A) 0 %; HCT 28.3 % (39.0-53.0); HDW 2.64; HGB 9.6 gm/dL (13.0-17.5); INR 1.2 (<1.2); Luc # (Auto) 0.28; Luc % (Auto) 2; Lymphocytes # (A) 1.4 k/uL (1.0-4.8); Lymphocytes % (A) 9 %; MCH 30.1 pg (25.0-35.0); MCV 88.6 fL (80.0-100.0); Monocytes # (A) 0.9 k/uL (0-1.0); Monocytes % (A) 6 %; Neutrophils % (A) 83 %; Prothrombin Time 12.1 sec (9.0-12.0); RBC 3.19 m/uL (4.30-5.90); RDW 13.5 % (11.5-15.5); WBC 15.7 k/uL (3.8-10.6); WBC (Perox) 16.21
[2017-05-26 01:54] LABS: C Reactive Protein 48.8 mg/L (<10.0); Calcium 10.1 mg/dL (8.4-10.2); Magnesium 1.4 mg/dL (1.6-2.3); Phosphorous 4.9 mg/dL (2.5-4.5); Potassium 3.6 mmol/L (3.5-5.1); Total Bilirubin 0.7 mg/dL (0.2-1.3); Total Protein 7.3 g/dL (6.3-8.2)
[2017-05-26 02:38] LABS: Erythrocyte Sedimentation Rate 110 mm/hr (0-15)
[2017-05-26] MEDS: IOHEXOL 350 MG/ML 25 ML BOTTLE (ORAL USE) PO PRN ×2 (07:44→09:03)
[2017-05-26] MEDS: LISINOPRIL 20 MG TAB PO SCH (07:46)
[2017-05-26] MEDS: MAGNESIUM OXIDE 400 MG TAB PO SCH ×2 (07:46→20:45)
[2017-05-26] MEDS: CHOLECALCIFEROL 1,000 UNIT TAB PO SCH (07:46)
[2017-05-26] MEDS: MULTIVITAMINS, THERA 1 EACH TAB PO SCH (07:47)
[2017-05-26] MEDS: PANTOPRAZOLE 40 MG TABLET PO SCH (07:47)
[2017-05-26] MEDS: DIAZEPAM 2 MG TAB PO SCH ×2 (07:53→20:01)
[2017-05-26] MEDS: SODIUM CHLORIDE TAB 1 GM TAB PO SCH ×3 (09:04→20:45)
[2017-05-26] MEDS: THIAMINE 100 MG TAB PO SCH (09:05)
[2017-05-26] MEDS: ZIPRASIDONE 20 MG CAP PO SCH ×2 (09:05→20:45)
[2017-05-26] MEDS: FUROSEMIDE 20 MG TAB PO SCH ×2 (09:05→20:45)
[2017-05-26] MEDS: FOLIC ACID 1 MG TAB PO SCH (09:05)
--- NOTE | 2017-05-26 12:11 | HP ---
HISTORY AND PHYSICAL DATE OF SERVICE: 05/25/17 CHIEF COMPLAINT: Change in mental status. HISTORY OF PRESENT ILLNESS: This 71-year-old gentleman with a past medical history of multiple medical problems including hypertension, hyperlipidemia and DJD who had been sick since May 04. The patient multiple hospital admissions basically with change in mental status and confusion and delirium. The patient was found to have multiple abnormalities including possible SIADH, hypermagnesemia and delirium encephalopathy. The patient was also sent to [facility] also. The patient was a previously stable with hypertension on cholesterol medications but apparently patient doing alcohol at least 5 drinks per day for quite some time according to the family. The patient also had a recent diagnosis of Parkinson also. CT scan was negative. Otherwise the patient did not have an MRI done. The sodium was 133, the patient also had an elevated platelet count of 565. Dr. Galvan saw the patient today and the patient was directed to [facility] as direct admission today for further evaluation and treatment. The patient apparently was locking himself inside the bathroom last night and today also. The patient is unable to provide a coherent history. The patient is jittery and with fleeting thoughts and ideas but cooperative with the exam. Most of the history taken from my discussion with the family at the bedside and reviewed of the chart at this time. PAST MEDICAL HISTORY: Hypertension, hyperlipidemia and possible dementia. MEDICATIONS: Prior to admission include home medications are: 1. Geodon 20 mg p.o. b.i.d. 2. Sodium 1 g p.o. t.i.d. 3. Zocor 40 mg a day. 4. Multivitamins one p.o. daily. 5. Magnesium oxide 400 mg daily. 6. Zestril 20 mg p.o. daily. 7. Ativan 0.5 mg q.3h p.r.n. 8. Lasix 20 mg p.o. b.i.d. 9. Valium 2 mg p.o. b.i.d. 10.Vitamin D3 1000 daily. 11.Ativan 0.5 mg p.o. q3. p.r.n. 12.Tylenol 650 b.i.d. p.r.n. ALLERGIES: None. FAMILY HISTORY: History of cancers in the family. Lung cancer. SOCIAL HISTORY: History of previous smoking history. History of alcohol intake. REVIEW OF SYSTEMS: HEENT: No diminished vision. No diminished hearing. Cardio system: No angina or palpitations. Respiratory: As mentioned earlier. GI: No nausea or vomiting. : No dysuria or retention. Nervous system: As mentioned earlier. Allergy/Immunology: No asthma or hayfever. MUSCULOSKELETAL: As mentioned earlier. Hematology/Oncology: No history of anemia. Endocrine: No history of diabetes or hypothyroidism. Constitutional: As mentioned earlier. Dermatology: Negative. Rheumatology: Negative. Psychiatry: As mentioned earlier. PHYSICAL EXAMINATION: The patient is alert and oriented times three. Pulse is 101. Blood pressure 139/61, respiratory rate 16, temperature 97.4, pulse ox 98% on room air. HEENT: Conjunctivae normal. Oral mucosa moist. Neck is no jugular venous distention. No carotid bruit. No lymph node enlargement. CARDIOLOGY: S1, S2 muffled. No S3, no S4. Respiratory: Breath sounds diminished in the bases. No rhonchi and no crackles. ABDOMEN: Soft, nontender, no mass palpable. LEGS: No edema. No swelling. Central nervous system: Higher functions as mentioned earlier. Cranial nerves 2 thru 12 grossly intact. No nystagmus. No diplopia. Otherwise mild diffuse weakness present. Mild diffuse tremors also present. Tone is increased with suggestive of early Parkinson's. Otherwise lymphatics: No lymph nodes palpable in the neck, axillae or groin. Joints: No active deforming arthropathy. Skin: No ulcer, rash or bleeding. LABORATORY DATA: Lab studies exam shows labs not available at this time. ASSESSMENT: 1. Change in mental status for evaluation with possibly dementia with behavioral abnormalities. 2. Hyponatremia with possible Syndrome of inappropriate antidiuretic hormone. 3. Rule out malignancy. 4. Hypertension. 5. Hyperlipidemia. 6. History of ETOH. 7. History of degenerative joint disease. 8. History of nicotine dependence. 9. Rule out right maxillary sinusitis. RECOMMENDATIONS AND DISCUSSION: This 71-year-old gentleman who presented with multiple complex medical issues, we will monitor patient closely. Continue the current management. Continue symptomatic treatment. As mentioned earlier, the patient had multiple brain CTs the last of which was on 05/22/2017 which I reviewed, which showed prominent calcification in the right nasal cavity which may present calcified polyps. Otherwise mild chronic small vessel ischemic changes. There is no mass effects. Chest x-ray has been done on [place] 20 showed which is normal. Recommend MRI of the brain and also recommend a CT scan of the chest, abdomen and pelvis. Otherwise ESR and CRP will be ordered and awake EEG was done on 05/24/2017 which is considered within normal limits. We will of course follow the patient closely with you neurology as well. The prognosis is guarded because of multiple complex medical issues. Further recommendations to follow. Copy of this report to Dr. Galvan who is the primary physician. MMODL / IJN: [id number] /
[2017-05-26 16:26] LABS: Appearance,Urine Clear (Clear); Bilirubin,Urine Negative (Negative); Glucose,Urine (UA) Negative (Negative); Ketones,Urine Negative (Negative); Leukocyte Esterase,Urine Negative (Negative); Nitrite,Urine Negative (Negative); Protein,Urine Trace (Negative); UA Billing (MACRO vs. MICRO) CHEM; Urobilinogen,Urine <2.0 mg/dL (<2.0)
[2017-05-26] MEDS: ATORVASTATIN 20 MG TAB PO SCH (20:01)
--- NOTE | 2017-05-26 20:47 | CT ---
EXAMINATION TYPE: CT ChestAbdPelvis wo con DATE OF EXAM: 05/26/2017 COMPARISON: Chest x-ray May 13, 2017. HISTORY: possible lung CA. Altered mental status. Weight loss and weakness. CT DLP: 388.3 mGycm. Automated Exposure Control for Dose Reduction was Utilized. TECHNIQUE: CT scan of the thorax, abdomen and pelvis is performed with oral but without IV contrast. FINDINGS: LUNGS: Dependent atelectatic change in bilateral lower lobes is present. There is some groundglass op acity suggesting mild edema. No suspicious consolidation is present There is no pleural effusion or pneumothorax seen. The tracheobronchial tree is patent. MEDIASTINUM: There are no greater than 1 cm hilar or mediastinal lymph nodes. No pericardial effusi on is seen. Heart size is mildly enlarged. Coronary artery calcifications are seen which is noted ma rker for coronary artery disease. OTHER: Bilateral gynecomastia is noted. LIVER/GB: No significant abnormality is appreciated. PANCREAS: No significant abnormality is seen. SPLEEN: No significant abnormality is seen. ADRENALS: No significant abnormality is seen. KIDNEYS: No significant abnormality is seen. BOWEL: Oral contrast reaches level of the rectum. There is no suspicious small or large bowel dilatat ion. Cecum is slightly wondering in the mid abdomen just right of midline maximum image 88. There are multifocal areas of mild wall thickening in the left colon and sigmoid colon. Findings could be prod uct of nondistention, a multifocal colitis is not excluded. GENITAL ORGANS: There is heterogeneous enlarged prostate gland with central zone calcifications felt to reflect underlying BPH. Clinical correlation advised. LYMPH NODES: No greater than 1cm abdominal or pelvic lymph nodes are appreciated. OSSEOUS STRUCTURES: There is disc space narrowing and vacuum disc phenomenon at L4-L5 level. There is transitional-type L6 vertebra. There is multilevel facet arthropathy in lower lumbar spine. OTHER: There is moderate to severe calcified plaque of the aorta extending into branch vessels. IMPRESSION: 1. No worrisome mass or adenopathy is seen to suggest malignancy. 2. Cannot exclude mild perhaps multifocal colitis. Clinical correlation advised. 3. Cannot exclude mild CHF exacerbation as there is mild cardiomegaly with suggestion of mild alveola r edema. Clinical correlation advised.
[2017-05-27] MEDS: SODIUM CHLORIDE 0.45% 1,000 ML IV SCH (04:57)
[2017-05-27 08:02] LABS: Basophils # (A) 0.1 k/uL (0-0.2); Basophils % (A) 1 %; CH 29.9; CHCM 34.3; Eosinophils # (A) 0.2 k/uL (0-0.7); Eosinophils % (A) 3 %; HCT 28.7 % (39.0-53.0); HDW 2.69; HGB 9.9 gm/dL (13.0-17.5); Luc # (Auto) 0.28; Luc % (Auto) 4; Lymphocytes # (A) 1.6 k/uL (1.0-4.8); Lymphocytes % (A) 22 %; MCH 30.1 pg (25.0-35.0); MCHC 34.4 g/dL (31.0-37.0); MCV 87.4 fL (80.0-100.0); Mean Platelet Volume 7.5; Monocytes # (A) 0.7 k/uL (0-1.0); Monocytes % (A) 10 %; Neutrophils # (A) 4.6 k/uL (1.3-7.7); Neutrophils % (A) 62 %; RBC 3.28 m/uL (4.30-5.90); WBC 7.5 k/uL (3.8-10.6); WBC (Perox) 7.39
[2017-05-27 08:37] LABS: Anion Gap 12 mmol/L; Blood Urea Nitrogen 22 mg/dL (9-20); Calcium 9.7 mg/dL (8.4-10.2); Carbon Dioxide 29 mmol/L (22-30); Chloride 92 mmol/L (98-107); Glucose 131 mg/dL (74-99); Non-African American GFR(MDRD) >60 (>60 ml/min/1.73 sqM); Potassium 3.5 mmol/L (3.5-5.1); Sodium 133 mmol/L (137-145)
[2017-05-27] MEDS: SODIUM CHLORIDE TAB 1 GM TAB PO SCH ×3 (09:16→22:13)
[2017-05-27] MEDS: FUROSEMIDE 20 MG TAB PO SCH ×2 (09:18→22:12)
[2017-05-27] MEDS: LISINOPRIL 20 MG TAB PO SCH (09:18)
[2017-05-27] MEDS: MAGNESIUM OXIDE 400 MG TAB PO SCH ×2 (09:18→22:13)
[2017-05-27] MEDS: MULTIVITAMINS, THERA 1 EACH TAB PO SCH (09:18)
[2017-05-27] MEDS: ZIPRASIDONE 20 MG CAP PO SCH ×2 (09:18→22:13)
[2017-05-27] MEDS: FOLIC ACID 1 MG TAB PO SCH (09:19)
[2017-05-27] MEDS: THIAMINE 100 MG TAB PO SCH (09:19)
[2017-05-27] MEDS: HEPARIN SODIUM,PORCINE 5,000 UNIT/ML 1 ML VIAL SQ SCH ×2 (09:19→22:13)
[2017-05-27] MEDS: PANTOPRAZOLE 40 MG TABLET PO SCH (09:19)
[2017-05-27] MEDS: CHOLECALCIFEROL 1,000 UNIT TAB PO SCH (09:19)
[2017-05-27] MEDS: DIAZEPAM 2 MG TAB PO SCH ×2 (09:25→22:13)
[2017-05-27 09:43] LABS: Magnesium 0.9 mg/dL (1.6-2.3)
[2017-05-27] MEDS: LORazepam 0.5 MG TAB PO PRN (10:27)
[2017-05-27] MEDS: MAGNESIUM SULFATE-D5W PMX 1 GM in DEXTROSE/WATER 1 100ML.BAG IVPB SCH ×3 (10:56→14:54)
--- NOTE | 2017-05-27 12:18 | PN ---
PROGRESS NOTE DATE OF SERVICE: 05/26/2017 This 71-year-old gentleman being followed was being admitted for change in mental status as a direct admit at this time. The patient had a recent onset of dementia and behavioral abnormalities also. The patient had chest, abdominal and pelvis CAT scan to rule out the possibility of any primary malignancy. The CT scan showed no worrisome mass, multifocal colitis was suspected. Otherwise WBC is 15.7, hemoglobin 9.6, sodium is 131 and creatinine is 1.60. PAST MEDICAL HISTORY: Reviewed. REVIEW OF SYSTEM: CARDIOVASCULAR: No angina. RESPIRATORY: As mentioned earlier. GI: As mentioned. : No dysuria. NERVOUS SYSTEM: No numbness or weakness. MEDICATIONS: 1. Tylenol 650 q.6 p.r.n. 2. Lipitor 20 mg. 3. Vitamin D. 4. Valium. 5. Folic acid 1 mg. 6. Lasix. 7. Heparin. 8. Zestril. 9. Magnesium oxide. 10.Protonix. 11.Vitamin B1. 12.Geodon. PHYSICAL EXAM: Patient is alert, oriented x3. Pulse 102, blood pressure 130/70, respiration 18, temperature 98.2, pulse ox 94% on room air. HEENT: Conjunctivae normal. NECK: No jugular venous distention. CARDIOVASCULAR: S1, S2. RESPIRATORY: Breath sounds diminished at the bases. A few scattered rhonchi. No crackles. ABDOMEN: Soft, nontender. No mass palpable. EXTREMITIES: No edema, no swelling. NERVOUS SYSTEM: No focal deficits. LABS: Reviewed. ASSESSMENT: 1. Change in mental status, possibly dementia with behavioral abnormalities. 2. Hyponatremia with possibly SIADH. 3. Increased WBC, rule out colitis. 4. Hyponatremia. 5. increased creatinine with acute renal failure, possibly prerenal. 6. Hypomagnesemia. 7. Hypertension. 8. Hyperlipidemia. 9. History EtOH. 10.History of degenerative joint disease. 11.History of nicotine dependence. 12.Rule out right maxillary sinusitis. RECOMMENDATION AND DISCUSSION: I recommended to continue current medication, continue symptomatic treatment. Otherwise I would also recommend await further reports and also recommend neurology evaluation as well. MRI of the brain is pending at this time. Further recommendation to follow. MMODL / IJN: [id number] /
--- NOTE | 2017-05-27 14:54 | CONS ---
CONSULTATION DATE OF SERVICE: 05/27/17. REQUESTING PHYSICIAN: Dr. Vega. REASON FOR CONSULTATION: Possible colitis. HISTORY OF PRESENT ILLNESS: The patient is a 71-year-old, pleasant white male, who was admitted to the hospital with change in mental status. Confusion on and off for the last several months duration. Apparently the patient was diagnosed with SIADH during one of his previous hospitalizations. No family available at the bedside and hence most of the history was obtained from the patient's chart and nursing staff. He has history of alcohol use and there is some questionable diagnosis of disease recently. He has been having some significant episodes of agitation and confusion at home. Hence, family brought him to the emergency room. He did have CT of the abdomen and pelvis done in the ER that showed multifocal colitis and hence we are consulted. On further questioning, the patient denies any abdominal pain. He reports no nausea, vomiting. Denies any rectal bleeding or melena. In fact, he had a normal solid bowel movement after the nursing staff this morning. PAST MEDICAL HISTORY: Significant for hypertension, hyperlipidemia, questionable SIADH, degenerative joint disease, alcohol use. MEDICATIONS: At home: 1. Geodon. 2. Sodium 1 gm 3 times a day. 3. Zocor 40 mg daily. 4. Multivitamins. 5. Magnesium. 6. Zestril. 7. Ativan. 8. Lasix. 9. Valium. 10.Multivitamin. 11.Ativan. 12.Tylenol. ALLERGIES: None. FAMILY HISTORY: The father had lung cancer. SOCIAL HISTORY: The patient denies smoking or alcohol use. FAMILY HISTORY: Unremarkable. REVIEW OF SYSTEMS: Cardiopulmonary: No chest pain, shortness of breath and no cough. Genitourinary: He denies any dysuria or hematuria. Musculoskeletal unremarkable. Skin unremarkable. Endocrine unremarkable. Psychiatric unremarkable other than some confusion episodes. Neurological: Unremarkable. ENT/vision: Unremarkable. Constitutional: No recent weight loss. No fevers, chills or night sweats. PHYSICAL EXAMINATION: He appeared comfortable, resting well. Blood pressure 126/60. Pulse rate 109, temperature 98.2. HEENT examination unremarkable. Conjunctivae pink. Sclerae anicteric. Oral cavity no lesions. Neck no jugular venous distention or lymph node enlargement. Chest clear to auscultation. Heart regular rate and rhythm. ABDOMEN: Soft. Bowel sounds are positive. No organomegaly. EXTREMITIES: No pedal edema. Skin: No rashes. Neurologic: He is awake, alert, oriented to name and place. LABS AT THE TIME OF ADMISSION: WBC 7.5, hemoglobin 9.9, platelets are normal. Basic metabolic panel within normal limits. Magnesium 0.9. CT of the abdomen and pelvis done in the emergency room showed some questionable thickening of the colon and the possibility of multifocal colitis cannot be excluded. ASSESSMENT: The patient presents with altered mental status, confusion and agitation on and off for the last several months for which he is undergoing neurological workup. He had a CT of the abdomen in the emergency room, which showed some thickening of the sigmoid colon and descending colon suspicious for colitis but clinically patient does not have any symptoms. He has no diarrhea, abdominal pain, rectal bleeding. His oral intake has been normal. RECOMMENDATIONS: Since patient is asymptomatic, we will not proceed with any workup at the present time. Continue current management. Will follow him closely. Thank you for this consultation. BOLA / BRYSONN: [id number] /
[2017-05-27] MEDS: ATORVASTATIN 20 MG TAB PO SCH (22:12)
--- NOTE | 2017-05-27 23:31 | P.CNNES ---
History of Present Illness Consult date: 05/27/17 Requesting physician: Reese Vega Reason for Consult: altered mental status Chief complaint: altered mental status History of Present Illness: Patient is 71-year-old male being consulted by neurology for altered mental status. Patient has a complex medical history involving hypertension, hyperlipidemia and DJD that he has been sick with since April 2017. Patient's had multiple hospital admissions during that timeframe with changes in mental status, confusion and delirium. Patient was found to have multiple abnormalities including possible SIADH, hypermagnesemia and delirium encephalopathy as well as hyponatremia. Patient was a previously stable patient with hypertension, hyperlipidemia medication regimen but began consuming alcohol for at least 5 days prior to admission. Patient has a recent diagnosis of Parkinson's disease. CT scan was negative. Patient did not have an MRI done. Sodium was noted at 132, patient had elevated platelet count. Patient was displaying erratic behavior prior to admission including locking himself in the bathroom, jitteriness fleeting thoughts. Most of the history was obtained from the chart as patient was unable to provide significant history information. At contact, the patient was semi-Fowlers in bed, restrained, alert and oriented 3 but rambling, with racing thoughts and difficulty staying on topic. Patient is in no acute distress. Sitting at the bedside. I discussed the patient's pertinent medical information with Dr. James. He agrees with the plan of care as implemented. Review of Systems systems not noted in HPI or negative. Past Medical History Past Medical History: Hyperlipidemia, Hypertension Additional Past Medical History / Comment(s): spouse states has hernia and vomits after eating at times History of Any Multi-Drug Resistant Organisms: None Reported Past Surgical History: Orthopedic Surgery Additional Past Surgical History / Comment(s): cataract left eye with implant, lt elbow surgery, colonoscopy Past Anesthesia/Blood Transfusion Reactions: No Reported Reaction Past Psychological History: No Psychological Hx Reported Smoking Status: Former smoker Past Alcohol Use History: Occasional Additional Past Alcohol Use History / Comment(s): pt use to smoke about 1/2 ppd started 1961- quit 1984, 1/2 case beer weekly Past Drug Use History: None Reported - Past Family History Mother Family Medical History: Cancer Additional Family Medical History / Comment(s): lung cancer Daughter(s) Family Medical History: Cancer Additional Family Medical History / Comment(s): @ age 38- colon and then liver ca & then unsure of other area Medications and Allergies Home Medications Medication Instructions Recorded Confirmed Type Cholecalciferol [Vitamin D3] 1,000 unit PO DAILY 12/03/14 05/25/17 History Simvastatin [Zocor] 40 mg PO HS 12/03/14 05/25/17 History Lisinopril [Zestril] 20 mg PO DAILY 05/05/17 05/25/17 History Multivitamins, Thera [Multivitamin 1 tab PO DAILY 05/05/17 05/25/17 History (formulary)] Sodium Chloride Tab 1 gm PO TID tab 05/18/17 05/25/17 Rx Ziprasidone [Geodon] 20 mg PO BID cap 05/18/17 05/25/17 Rx Acetaminophen Tab [Tylenol] 650 mg PO BID PRN 05/22/17 05/25/17 History Ativan 0.5 mg IM Q3H PRN 05/22/17 05/25/17 History Diazepam [Valium] 2 mg PO BID 05/22/17 05/25/17 History Furosemide [Lasix] 20 mg PO BID 05/22/17 05/25/17 History LORazepam [Ativan] 0.5 mg PO Q3H PRN 05/22/17 05/25/17 History Magnesium Oxide [Mag-Ox] 400 mg PO TID tab 05/24/17 05/25/17 Rx Magnesium Oxide [Mag-Ox] 800 mg PO BID #120 tablet 05/24/17 05/25/17 Rx Allergies Allergy/AdvReac Type Severity Reaction Status Date / Time No Known Allergies Allergy Verified 05/25/17 23:36 Physical Examination - Vital Signs Vital Signs: Vital Signs Temp Pulse Resp BP Pulse Ox 05/27/17 20:47 97.7 F 91 16 138/68 96 05/27/17 07:00 98.2 F 109 H 18 126/60 98 05/27/17 00:55 94 L Intake and Output 05/27/17 05/27/17 05/28/17 14:59 22:59 06:59 Intake Total 400 Balance 400 Intake: IV 300 Magnesium Sulfate-D5w Pmx 300 1 gm In Dextrose/Water 1 100ml.bag @ 100 mls/hr IVPB Q1H [facility] Rx#: [id number] Intake, IV Titration 100 Amount Magnesium Sulfate-D5w Pmx 100 1 gm In Dextrose/Water 1 100ml.bag @ 100 mls/hr IVPB Q1H [facility] Rx#: [id number] Other: Voiding Method Toilet Toilet # Voids 1 1 Constitutional: AOx3, intermittentlycooperative HEENT: NC/AT, no facial asymmetry is seen. Throat: Supple, no masses Respiratory: No increased work of breathing Cardiac: Regular rate and Rhythm GI: non tender, non distended Musculoskeletal: Underwriting Clerk strengths are equal bilaterally 5/5, Lower extremity strengths are equal bilaterally at 5/5. Neurological: CN II-XII in tact, patient was AOx3, speech and language are fast , rambling, no unilateralizing weakness, no seizure activity note on physical exam. Sensation was normal. Integementary: no rash, no erythema Psychiatric: anxious Results - Laboratory Findings CBC and BMP: 05/27/17 07:02 05/27/17 07:02 Abnormal Lab Findings: Abnormal Labs 05/26/17 05/26/17 05/26/17 01:17 01:17 01:17 WBC 15.7 H RBC 3.19 L Hgb 9.6 L Hct 28.3 L Plt Count 565 H Neutrophils # 13.0 H ESR 110 H PT 12.1 H INR 1.2 H Sodium 131 L Chloride 89 L BUN 28 H Creatinine 1.60 H Glucose 139 H Phosphorus 4.9 H Magnesium 1.4 L C-Reactive Protein 48.8 H Urine Protein 05/26/17 05/27/17 05/27/17 16:05 07:02 07:02 WBC RBC 3.28 L Hgb 9.9 L Hct 28.7 L Plt Count 518 H Neutrophils # ESR PT INR Sodium 133 L Chloride 92 L BUN 22 H Creatinine Glucose 131 H Phosphorus Magnesium 0.9 L* C-Reactive Protein Urine Protein Trace H Assessment and Plan (1) Altered mental status Status: Acute (2) Hyponatremia Status: Acute (3) Encephalopathy Status: Acute (4) Hypomagnesemia Status: Acute Plan: Patient current status is most likely due electrolyte imbalances including sodium, magnesium as well as intermittently elevated white blood cell count. patient had a CT of the brain during last hospitalization in late April. Status: Neurology will clear this patient from a neurological standpoint. I discussed the patient's pertinent medical information with Dr. James. He agrees with the plan of care as implemented.
[2017-05-28] MEDS: SODIUM CHLORIDE 0.45% 1,000 ML IV SCH (06:26)
[2017-05-28] MEDS: MULTIVITAMINS, THERA 1 EACH TAB PO SCH (08:24)
[2017-05-28] MEDS: ZIPRASIDONE 20 MG CAP PO SCH ×2 (08:24→20:53)
[2017-05-28] MEDS: SODIUM CHLORIDE TAB 1 GM TAB PO SCH (08:24)
[2017-05-28] MEDS: PANTOPRAZOLE 40 MG TABLET PO SCH (08:24)
[2017-05-28] MEDS: FUROSEMIDE 20 MG TAB PO SCH (08:24)
[2017-05-28] MEDS: HEPARIN SODIUM,PORCINE 5,000 UNIT/ML 1 ML VIAL SQ SCH ×2 (08:25→20:53)
[2017-05-28] MEDS: MAGNESIUM OXIDE 400 MG TAB PO SCH ×2 (08:25→20:53)
[2017-05-28] MEDS: CHOLECALCIFEROL 1,000 UNIT TAB PO SCH (08:25)
[2017-05-28] MEDS: THIAMINE 100 MG TAB PO SCH (08:25)
[2017-05-28] MEDS: FOLIC ACID 1 MG TAB PO SCH (08:25)
[2017-05-28] MEDS: LISINOPRIL 20 MG TAB PO SCH (08:25)
[2017-05-28] MEDS: DIAZEPAM 2 MG TAB PO SCH (08:31)
[2017-05-28 09:35] LABS: Basophils # (A) 0.1 k/uL (0-0.2); Basophils % (A) 1 %; CHCM 34.2; Eosinophils # (A) 0.2 k/uL (0-0.7); Eosinophils % (A) 2 %; HDW 2.68; Luc # (Auto) 0.23; Luc % (Auto) 3; Lymphocytes # (A) 1.7 k/uL (1.0-4.8); Lymphocytes % (A) 20 %; MCH 30.3 pg (25.0-35.0); MCHC 34.4 g/dL (31.0-37.0); MCV 88.1 fL (80.0-100.0); Mean Platelet Volume 6.8; Monocytes # (A) 0.7 k/uL (0-1.0); Monocytes % (A) 8 %; Neutrophils % (A) 67 %; RBC 3.29 m/uL (4.30-5.90); RDW 12.9 % (11.5-15.5); WBC 8.9 k/uL (3.8-10.6); WBC (Perox) 8.62
[2017-05-28 09:37] LABS: Anion Gap 11 mmol/L; Blood Urea Nitrogen 20 mg/dL (9-20); Calcium 10.1 mg/dL (8.4-10.2); Carbon Dioxide 27 mmol/L (22-30); Chloride 90 mmol/L (98-107); Glucose 172 mg/dL (74-99); Magnesium 1.2 mg/dL (1.6-2.3); Non-African American GFR(MDRD) >60 (>60 ml/min/1.73 sqM); Potassium 3.4 mmol/L (3.5-5.1); Sodium 128 mmol/L (137-145)
--- NOTE | 2017-05-28 10:07 | PN ---
PROGRESS NOTE DATE OF SERVICE: 05/27/2017 This 71-year-old gentleman admitted with change in mental status and dementia with behavioral abnormalities also is profoundly confused and belligerent and today the patient also had multiple abnormalities in the CT scan of the abdomen and pelvis. No evidence of definite malignancy. Dr. Augustin has seen the patient; showed thickening of the sigmoid and descending colon. Suspected colitis but because the patient is in that regard, Dr. Augustin is is not planning any active workup at this time. We will continue to monitor. PAST MEDICAL HISTORY: Reviewed. REVIEW OF SYSTEMS: Review of systems could not be taken. The patient is confused. MEDICATIONS: 1. Tylenol 650 q.6 p.r.n. 2. Lipitor 10 mg daily. 3. Vitamin D 2000 units daily. 4. Valium 2 mg p.o. b.i.d. 5. Folic acid 1 mg. 6. Lasix 20 mg p.o. b.i.d. 7. Heparin. 8. Zestril 20 mg daily. 9. Ativan. 10.Magnesium oxide. 11.Protonix. 12.Other p.r.n. medications. PHYSICAL EXAM: Patient is alert, oriented x1. Pulse 109, blood pressure 120/68, respiration 18 , temp is 98.2, pulse of 98% on room air. HEENT: Conjunctivae normal. Oral mucosa moist. NECK: No jugular venous distention. No carotid bruit. No lymph node enlargement. CARDIOVASCULAR: S1, S2. No S3, no S4. RESPIRATORY: Breath sounds diminished at the bases. A few rhonchi. No crackles. ABDOMEN: Soft, nontender. NO mass palpable. LEGS: No edema. NERVOUS SYSTEM: Higher function as mentioned. Moves all four limbs. No focal motor deficits. LYMPHATICS: No lymphadenopathy in the neck, axillae, or groin. SKIN: No rash, ulcer or bleeding. LAB STUDIES: WBC 7, hemoglobin 9.9, sodium 133, and magnesium is 0.9. ASSESSMENT: 1. Change in mental status, possible demential with behavioral abnormalities. 2. Possible acute delirium. 3. 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 4. Increased WBC. 5. Thickening of the sigmoid colon, possibly colitis. 6. Hyponatremia. 7. Increased creatinine with acute renal failure, possibly prerenal. 8. Hypomagnesemia. 9. Hypertension. 10.Hyperlipidemia. 11.History EtOH. 12.History of degenerative joint disease. 13.History of nicotine dependence. 14.Rule out right maxillary sinusitis. RECOMMENDATION AND DISCUSSION: I Recommend to continue current medications, continue symptomatic treatment. Repeat labs. Continue replacing magnesium. Will check the other lytes. Otherwise psychiatric consultation for abnormal change in mental status and possibly early psychosis. Prognosis guarded because of multiple complex medical issues. Further recommendations to follow. MMODL / IJN: [id number] / [facility]
--- NOTE | 2017-05-28 11:41 | P.NPCON ---
History of Present Illness - Reason for Consult Consult date: 05/28/17 hyponatremia, hypernatremia - Chief Complaint Hyponatremia and confusion - History of Present Illness This is a 71-year-old male known to us with hyponatremia recent admission. It was deemed to be from euvolemic hyponatremia possibly from alcoholism and he and toast syndrome. Workup during his last admission was somewhat atypical. Urinalysis but was 435 with a urine sodium of 57 dated 05/16/2017. Further TSH was 2.2 and cortisol was 9, both are within normal range. He was discharged on 05/24/2017 with a sodium of 133, he was on Lasix and salt tablets. Subsequently he was readmitted on 05/26/2017, with history of altered mental status, sodium of 131 which has further deteriorated to 128. He has a complicated history of multiple admissions supposedly recently since April 2017 with confusion, some background of possible alcohol use, hypomagnesemia, possible Parkinson's disease. Recently diagnosed. Additionally a computed tomography scan is reporting mild possible multifocal colitis although he has no history of diarrhea. He has had a colonoscopy in November [address] Sanon. His past history significant for diabetes of unknown vintage, hypertension hyperlipidemia. He has smoked half pack a cigarettes per day and quit 85, some history of alcohol intake not very well quantified. Patient's completely delirious right now and is continuously speaking and repeats questions. He is unable to give any history. . Past Medical History Past Medical History: Hyperlipidemia, Hypertension Additional Past Medical History / Comment(s): spouse states has hernia and vomits after eating at times History of Any Multi-Drug Resistant Organisms: None Reported Past Surgical History: Orthopedic Surgery Additional Past Surgical History / Comment(s): cataract left eye with implant, lt elbow surgery, colonoscopy Past Anesthesia/Blood Transfusion Reactions: No Reported Reaction Past Psychological History: No Psychological Hx Reported Smoking Status: Former smoker Past Alcohol Use History: Occasional Additional Past Alcohol Use History / Comment(s): pt use to smoke about 1/2 ppd started 1961- quit 1984, 1/2 case beer weekly Past Drug Use History: None Reported - Past Family History Mother Family Medical History: Cancer Additional Family Medical History / Comment(s): lung cancer Daughter(s) Family Medical History: Cancer Additional Family Medical History / Comment(s): @ age 38- colon and then liver ca & then unsure of other area Medications and Allergies Home Medications Medication Instructions Recorded Confirmed Type Cholecalciferol [Vitamin D3] 1,000 unit PO DAILY 12/03/14 05/25/17 History Simvastatin [Zocor] 40 mg PO HS 12/03/14 05/25/17 History Lisinopril [Zestril] 20 mg PO DAILY 05/05/17 05/25/17 History Multivitamins, Thera [Multivitamin 1 tab PO DAILY 05/05/17 05/25/17 History (formulary)] Sodium Chloride Tab 1 gm PO TID tab 05/18/17 05/25/17 Rx Ziprasidone [Geodon] 20 mg PO BID cap 05/18/17 05/25/17 Rx Acetaminophen Tab [Tylenol] 650 mg PO BID PRN 05/22/17 05/25/17 History Ativan 0.5 mg IM Q3H PRN 05/22/17 05/25/17 History Diazepam [Valium] 2 mg PO BID 05/22/17 05/25/17 History Furosemide [Lasix] 20 mg PO BID 05/22/17 05/25/17 History LORazepam [Ativan] 0.5 mg PO Q3H PRN 05/22/17 05/25/17 History Magnesium Oxide [Mag-Ox] 400 mg PO TID tab 05/24/17 05/25/17 Rx Magnesium Oxide [Mag-Ox] 800 mg PO BID #120 tablet 05/24/17 05/25/17 Rx Allergies Allergy/AdvReac Type Severity Reaction Status Date / Time No Known Allergies Allergy Verified 05/25/17 23:36 Physical Exam Vitals: Vital Signs Temp Pulse Resp BP Pulse Ox 05/28/17 07:00 97.6 F 100 16 138/63 98 05/28/17 00:00 96 05/27/17 20:47 97.7 F 91 16 138/68 96 Intake and Output 05/27/17 05/28/17 05/28/17 22:59 06:59 14:59 Intake Total 70 Balance 70 Intake: Intake, IV Titration 70 Amount Sodium Chloride 0.45% 1, 70 000 ml @ 20 mls/hr IV . Q24H [facility] Rx#:[id number] Other: Voiding Method Toilet Diaper Diaper # Voids 1 2 On examination is delirious constantly is speaking and is unable to give any intelligent answers. HEENT exam exam no JVP lymphadenopathy thyromegaly no carotid bruit neck is supple no thyroid noted. Pupils are equal and reactive. Lungs are clear to auscultation percussion Heart sounds are unremarkable for any murmur rub gallop Is soft nontender no masses felt Exam was no edema No rashes no petechiae. Neurologically awake alert disoriented and delirious . No focal motor deficit, he moves all his extremities Results - Lab Results Most recent lab results Calcium 10.1 mg/dL (8.4-10.2) 05/28/17 09:04 Phosphorus 4.9 mg/dL (2.5-4.5) H 05/26/17 01:17 Magnesium 1.2 mg/dL (1.6-2.3) L 05/28/17 09:04 05/28/17 09:04 05/28/17 09:04 Assessment and Plan Plan: Impression. 1. Hyponatremia, likely SIADH, which is based on previous workup with urine of 2435 sodium of 57 with normal cortisol and TSH. We need to exclude hypovolemia with orthostatic changes. Some small amount of decrease in sodium is related to the slightly high blood sugar, concurrent blood sugar was 172 therefore at the most sodium can be corrected by less than 1 to make up for the high blood sugar. He is currently on salt tablets and Lasix therefore any workup up of urine studies is going to be invalid. 2. Hypomagnesemia was again not clear possibly could be from urinary loss if he was consuming alcohol. 3. Delirium, this is unrelated to hyponatremia as sodium is only 128 and has been at around 1:30 for the last several days. 4. History of alcohol intake rule out alcohol rhythm. 5. Possible colitis based on computed tomography scan findings. 6. History of diabetes using exclusion of hypovolemia. The response to IV fluids may be an indication. 7. Mild hypokalemia potassium is 3.4 etiology is likely the salt tablet that causes potassium loss in the urine Recommendation. 1. Check orthostatic changes. 2. Check uric acid. 3. Check urine potassium, magnesium creatinine sodium to ascertain the cause of magnesium loss. 4. Monitor electrolytes every 12 hours for the next 24 hours. 5. Discontinue Lasix and salt tablets and will restudy him in 24-48 hours, under controlled circumstances. Thank you for this consultation
[2017-05-28 12:46] LABS: Potassium,Urine Random 39.5 mmol/L
[2017-05-28] MEDS: MAGNESIUM SULFATE-D5W PMX 1 GM in DEXTROSE/WATER 1 100ML.BAG IVPB SCH ×6 (13:11→21:10)
[2017-05-28] MEDS: POTASSIUM CHLORIDE 20 MEQ, LIDOCAINE 2% INJ 20 MG in SODIUM CHLORIDE 0.9% 100 ML IVPB SCH ×2 (13:16→15:46)
--- NOTE | 2017-05-28 14:18 | ECHOF ---
Referral Reason:stroke?? MEASUREMENTS -------- HEIGHT: 172.7 cm WEIGHT: 83.9 kg BP: 130/59 RVIDd: 2.3 cm (< 3.3) IVSd: 1.1 cm (0.6 - 1.1) LVIDd: 4.6 cm (3.9 - 5.3) LVPWd: 1.1 cm (0.6 - 1.1) EDV(Teich): 96 ml IVSs: 1.7 cm LVIDs: 3.1 cm LVPWs: 2.0 cm %IVS Thck: 56 % ESV(Teich): 38 ml EF(Teich): 61 % %FS: 32 % SV(Teich): 58 ml LA Diam: 3.8 cm (2.7 - 3.8) LALs A4C: 4.5 cm LAAs A4C: 17.2 cm LAESV A-L A4C: 56 ml LAESV MOD A4C: 48 ml LALs A2C: 3.6 cm LAAs A2C: 10.9 cm LAESV A-L A2C: 28 ml LAESV MOD A2C: 27 ml LAESV(A-L): 44 ml LAESV Index (A-L): 22.13 ml/m Ao Diam: 3.3 cm (2.0 - 3.7) AV Cusp: 1.7 cm (1.5 - 2.6) MV EXCURSION: 12.495 mm (> 18.000) MV EF SLOPE: 32 mm/s (70 - 150) EPSS: 1.8 cm MV E Jarrod: 0.83 m/s MV DecT: 223 ms MV Dec Sierra: 3.7 m/s MV A Jarrod: 1.08 m/s MV E/A Ratio: 0.77 MV PHT: 65 ms E/E': 13.78 E': 0.06 m/s FINDINGS -------- Sinus rhythm with extra systolic beats. This was a technically adequate study. The left ventricular size is normal. There is borderline concentric left ventricular hypertrophy. Overall left ventricular systolic function is normal with, an EF between 55 - 60 %. The right ventricle is normal in size. Normal LA size by volume 22+/-6 ml/m2. The right atrium is normal in size. There is mild aortic valve sclerosis. Mild mitral annular calcification present. The tricuspid valve appears structurally normal. There is no pulmonic regurgitation present. The aortic root size is normal. Normal inferior vena cava with normal inspiratory collapse consistent with estimated right atrial pressure of 5 mmHg. There is no pericardial effusion. CONCLUSIONS -------- 1. Sinus rhythm with extra systolic beats. 2. Mild mitral annular calcification present. 3. The tricuspid valve appears structurally normal. 4. There is no pulmonic regurgitation present. 5. The aortic root size is normal. 6. Normal inferior vena cava with normal inspiratory collapse consistent with estimated right atrial pressure of 5 mmHg. 7. There is no pericardial effusion. 8. This was a technically adequate study. 9. The left ventricular size is normal. 10. There is borderline concentric left ventricular hypertrophy. 11. Overall left ventricular systolic function is normal with, an EF between 55 - 60 %. 12. The right ventricle is normal in size. 13. Normal LA size by volume 22+/-6 ml/m2. 14. The right atrium is normal in size. 15. There is mild aortic valve sclerosis. [employer] PROFESSOR: Jess Beltran RDCS
[2017-05-28] MEDS: risperiDONE 0.25 MG TAB PO SCH (20:53)
[2017-05-28] MEDS: ATORVASTATIN 20 MG TAB PO SCH (20:53)
[2017-05-29] MEDS: SODIUM CHLORIDE 0.45% 1,000 ML IV SCH (03:46)
[2017-05-29] MEDS ORDERED: LORazepam 2 MG/ML SYRINGE IV ONE (06:00)
--- NOTE | 2017-05-29 07:56 | PN ---
PROGRESS NOTE DATE OF SERVICE: 05/28/2017 This us a 71-year-old gentleman who was admitted with change in mental status and possible dementia and behavioral abnormalities. Also had delirium. The patient had abnormal behavior. Patient also had thickening of her colon. Neurology has also seen the patient. Nephrology has seen the patient, reports of SIADH, The hemoglobin is 10, sodium is 128 today. Magnesium is 0.91 and is being replaced, the random sodium level was 104. PAST MEDICAL HISTORY: Reviewed. REVIEW OF SYSTEMS: Could not be taken, the patient is confused. CURRENT MEDICATIONS ARE REVIEWED/INCLUDE: 1. Tylenol 650 q.6 p.r.n. 2. Lipitor 20 mg q.h.s.. 3. Vitamin D3 one thousand daily. 4. Valium 2 mg b.i.d. 5. Folic acid 1 mg p.o. daily. 6. Heparin subcutaneous b.i.d. 7. Zestril 20 mg daily. 8. Ativan 1.5 q.3 p.r.n. 9. Magnesium oxide. 10.Multivitamin. 11.Protonix. 12.Risperdal. 13.Geodon. PHYSICAL EXAM: The patient is conscious but confused. The pulse is 95, blood pressure 130/60, respirations 16, temperature 97.7, pulse ox 98% on room air. HEENT: Conjunctivae normal. NECK: No jugular venous distension. CARDIOVASCULAR SYSTEM: S1, S2, muffled. RESPIRATORY SYSTEM: Breath sounds diminished at the bases. A few scattered rhonchi, no crackles. Abdomen is soft, nontender, no mass palpable. No hepatosplenomegaly. LEGS: No edema, no swelling. NERVOUS SYSTEM: Higher functions as mentioned, moves all 4 limbs, no focal deficits. LYMPHATICS: No lymph node enlargement in the neck, axillae or groin. SKIN: No ulcer, rash, bleeding. LABS: WBC 8.9, hemoglobin is 10, sodium 120, potassium 3.4, and total albumin is 1.2. ASSESSMENT: 1. Change in mental status with possible dementia with behavioral abnormalities. 2. Possible acute delirium. 3. 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 4. Increased WBC and some thickening of the sigmoid colon, possibly colitis, rule out malignancy. 5. Hyponatremia. 6. Increased creatinine with acute renal failure, possibly prerenal and acute tubular necrosis. 7. Hypomagnesemia. 8. Hypertension, essential. 9. Hyperlipidemia. 10.History Ethyl alcohol. 11.History of degenerative joint disease. 12.History of nicotine dependence. 13.Rule out right maxillary sinusitis. RECOMMENDATION: In this 71-year-old gentleman who presented with multiple complex medical issues, will monitor the patient closely. Continue with the current medications and continue with the symptomatic treatment. Patient continues to be confused and at times belligerent. While I would recommend to continue the p.r.n. Ativan, add Risperdal. Psychiatric consultation. Patient also had multiple electrolyte abnormalities, and consult Nephrology, the possibility of SIADH is strongly considered. Will continue to monitor. Otherwise, discussed with the supervisor filling and packing who does not think that the electrode abnormalities are necessarily causing the change in mental status which could be primarily a neurologic issue. Otherwise, will follow the patient closely with Neurology. MRI is pending including the evaluation of the sinuses. Also I discussed with Dr. Augustin regarding the possibility of any lesions in the colon, possibly looking for any colonic malignancy but Dr. Augustin indicated to me that the patient is not cooperative at this time as per depression is concerned. However, will continue to monitor. Overall prognosis is guarded as mentioned earlier. See orders for further details. Further recommendations to to follow. MMODL / IJN: [id number] /
[2017-05-29 08:00] LABS: Basophils # (A) 0.1 k/uL (0-0.2); Basophils % (A) 1 %; CH 30.1; CHCM 34.4; Eosinophils # (A) 0.2 k/uL (0-0.7); Eosinophils % (A) 2 %; HCT 28.3 % (39.0-53.0); HDW 2.65; HGB 9.6 gm/dL (13.0-17.5); Luc # (Auto) 0.33; Luc % (Auto) 4; Lymphocytes # (A) 1.9 k/uL (1.0-4.8); Lymphocytes % (A) 24 %; MCH 29.9 pg (25.0-35.0); MCHC 34.1 g/dL (31.0-37.0); MCV 87.6 fL (80.0-100.0); Mean Platelet Volume 6.6; Monocytes # (A) 0.6 k/uL (0-1.0); Monocytes % (A) 7 %; Neutrophils # (A) 5.1 k/uL (1.3-7.7); Neutrophils % (A) 63 %; RBC 3.23 m/uL (4.30-5.90); WBC 8.1 k/uL (3.8-10.6); WBC (Perox) 8.31
[2017-05-29 08:24] LABS: Anion Gap 8 mmol/L; Blood Urea Nitrogen 15 mg/dL (9-20); Calcium 9.5 mg/dL (8.4-10.2); Carbon Dioxide 30 mmol/L (22-30); Chloride 92 mmol/L (98-107); Glucose 119 mg/dL (74-99); Magnesium 1.6 mg/dL (1.6-2.3); Non-African American GFR(MDRD) >60 (>60 ml/min/1.73 sqM); Potassium 3.5 mmol/L (3.5-5.1); Sodium 130 mmol/L (137-145)
[2017-05-29] MEDS: HEPARIN SODIUM,PORCINE 5,000 UNIT/ML 1 ML VIAL SQ SCH ×2 (09:16→19:54)
[2017-05-29] MEDS: CHOLECALCIFEROL 1,000 UNIT TAB PO SCH (09:16)
[2017-05-29] MEDS: PANTOPRAZOLE 40 MG TABLET PO SCH (09:16)
[2017-05-29] MEDS: LISINOPRIL 20 MG TAB PO SCH (09:17)
[2017-05-29] MEDS: MAGNESIUM OXIDE 400 MG TAB PO SCH ×2 (09:18→19:54)
[2017-05-29] MEDS: MULTIVITAMINS, THERA 1 EACH TAB PO SCH (09:18)
[2017-05-29] MEDS: FOLIC ACID 1 MG TAB PO SCH (09:19)
[2017-05-29] MEDS: THIAMINE 100 MG TAB PO SCH (09:19)
--- NOTE | 2017-05-29 09:22 | P.PN ---
Subjective Principal diagnosis: Multifocal colitis per CT More awake this morning. Hard of hearing. No reports of nausea vomiting diarrhea or abdominal pain. No episodes of GI bleeding hematemesis and adhesive melena. Passing nonbloody bowel movements. Objective - Vital Signs Vital signs: Vital Signs Temp 97.4 F L 05/29/17 07:35 Pulse 100 05/29/17 08:44 Resp 16 05/29/17 08:44 BP 126/60 05/29/17 07:35 Pulse Ox 98 05/29/17 07:35 Intake & Output 05/28/17 05/29/17 05/29/17 18:59 06:59 18:59 Intake Total 360 530 Output Total 800 Balance 360 -270 Intake: Intake, IV Titration 360 530 Amount Magnesium Sulfate-D5w Pmx 100 300 1 gm In Dextrose/Water 1 100ml.bag @ 100 mls/hr IVPB Q1H [facility] Rx#: [id number] Potassium Chloride 20 meq 100 Lidocaine 2% Inj 20 mg In Sodium Chloride 0.9% 100 ml @ 55.5 mls/hr IVPB Q2HR [facility] Rx#:[id number] Sodium Chloride 0.45% 1, 160 230 000 ml @ 20 mls/hr IV . Q24H [facility] Rx#:[id number] Output: Urine 800 Straight 800 Other: Voiding Method Diaper Diaper Toilet Diaper - Exam General appearance: The patient is alert, oriented, in no acute distress. Hard of hearing. HET: Head is normocephalic and atraumatic. Pupils are equal and reactive. Oropharynx is clear without lesions. Neck: Supple without lymphadenopathy. Trachea midline. Heart: S1 S2. Regular rate and rhythm. Lungs: No crackles or wheezes are heard. Abdomen: Soft, nontender, nondistended with bowel sounds. No peritoneal signs. No palpable organomegaly or masses. Extremities: Normal skin color and turgor. No cyanosis, rash, ulceration, clubbing, or edema. Radial and pedal pulses are 2/4 bilaterally. Neurological: No focal deficits. Strength and sensation are grossly intact. - Labs CBC & Chem 7: 05/29/17 07:23 05/29/17 07:23 Labs: Abnormal Lab Results - Last 24 Hours (Table) 05/28/17 05/28/17 05/28/17 Range/Units 09:04 09:04 12:10 RBC 3.29 L (4.30-5.90) m/uL Hgb 10.0 L (13.0-17.5) gm/dL Hct 29.0 L (39.0-53.0) % Plt Count 464 H (150-450) k/uL Sodium 128 L (137-145) mmol/L Potassium 3.4 L (3.5-5.1) mmol/L Chloride 90 L (98-107) mmol/L Glucose 172 H (74-99) mg/dL Magnesium 1.2 L (1.6-2.3) mg/dL Ur Random Sodium 104 H (30-90) mmol/L 05/29/17 05/29/17 Range/Units 07:23 07:23 RBC 3.23 L (4.30-5.90) m/uL Hgb 9.6 L (13.0-17.5) gm/dL Hct 28.3 L (39.0-53.0) % Plt Count (150-450) k/uL Sodium 130 L (137-145) mmol/L Potassium (3.5-5.1) mmol/L Chloride 92 L (98-107) mmol/L Glucose 119 H (74-99) mg/dL Magnesium (1.6-2.3) mg/dL Ur Random Sodium (30-90) mmol/L Microbiology - Last 24 Hours (Table) 05/26/17 12:02 Blood Culture - Preliminary Blood No Growth after 48 hours 05/26/17 16:05 Urine Culture - Final Urine,Voided Assessment and Plan Plan: Impression: 1. Altered mental status confusion and agitation for several months undergoing neurologic work up. 2. Colitis per CT thickening of the sigmoid colon without nausea vomiting diarrhea hematemesis hematochezia melena S. No history of EGD colonoscopy. 3. Normocytic anemia; iron indices requested pending. Recommendations: 1. EGD colonoscopy for evaluation of CT findings and anemia if patient and spouse agree this can be pursued inpatient as early as Sunday/ of this week. Continue supportive measures. Assessment and plan of care discussed with Dr. Augustin
[2017-05-29] MEDS ORDERED: Magnesium Replacement Protocol 1 EACH MISC MISCELLANE PRN (10:17)
[2017-05-29] MEDS ORDERED: Potassium Replacement Protocol 1 EACH MISC MISCELLANE PRN (10:17)
[2017-05-29] MEDS: ZIPRASIDONE 20 MG CAP PO SCH ×2 (10:35→19:55)
[2017-05-29] MEDS ORDERED: POTASSIUM CHLORIDE ER 20 MEQ TAB.ER PO STA (16:03)
--- NOTE | 2017-05-29 17:53 | PN ---
PROGRESS NOTE DATE OF SERVICE: 05/29/2017 This is a progress note. INTERIM HISTORY: This 71-year-old gentleman who was admitted with change in mental status, also had possible dementia with delirium also. The patient evaluated by and possible malignancy also. MRI pending. No chest pain. No palpitations. No fever. The patient is confused. EXAM: Pulse 100, blood pressure 126/60, respirations 16, temperature 97.4, pulse ox 98 % on room air. HEENT: Conjunctivae normal. NECK: No jugular venous distention. CARDIOVASCULAR: S1, S2 muffled. RESPIRATORY: Breath sounds diminished in the bases. No rhonchi. No crackles. ABDOMEN: Soft, nontender. Legs are no edema. No swelling. Central nervous system: No focal deficits. LABS: WBC 8.1, hemoglobin 9.6, sodium 130. ASSESSMENT: 1. Change in mental status with possible dementia with behavioral abnormalities. Possible acute delirium. 2. Hyponatremia with possible Syndrome of inappropriate antidiuretic hormone. 3. Increased WBC with some thickening of the sigmoid colon, possibly colitis, rule out malignancy. 4. Hyponatremia. 5. Increased creatinine with acute renal failure possibly prerenal acute tubular necrosis. 6. Hypomagnesemia. 7. Hypertension, essential. 8. Hyperlipidemia. 9. History of ETOH. 10.History of degenerative joint disease. 11.History of nicotine dependence. 12.Rule out right macular sinusitis. RECOMMENDATIONS AND DISCUSSION: 1. Continue current medications. 2. Continue to monitor. 3. Symptomatic 20 treatment. 4. Otherwise at this time await MRI scan. 5. Continue the rest of the medications. 6. Gastroenterology evaluation. Guarded prognosis because of multiple complex medical issues. Further recommendations to follow. MMODL / IJN: [id number] / MTDD
--- NOTE | 2017-05-29 19:18 | MR ---
EXAMINATION TYPE: MR brain wo/w con DATE OF EXAM: 05/29/2017 COMPARISON: CT brain 05/22/2017 HISTORY: Pt. confused with dementia TECHNIQUE: Multiplanar, multisequence images of the brain and brainstem is performed without and with IV contras t, utilizing 8.5 mL intravenous Gadavist . FINDINGS: Diffusion weighted images demonstrate no evidence of a recent infarct or other diffusion ab normality. There is no extra-axial fluid collection. Periventricular confluent and scattered hyperin tensities are present on inversion recovery and T2-weighted sequences. The ventricular system and ci sternal spaces are normal in size and appearance. The brain volume is age appropriate. Midline structures demonstrate normal morphology. The craniocervical junction appears within normal limits. Post contrast images demonstrate no abnormal enhancement. The dural venous sinuses appear pa tent. The visualized sinuses are remarkable for inflammatory change in the right maxillary sinus grea ter than left, some mild inflammatory change present within the mastoid air cells on the right and th e globes are intact. IMPRESSION: Findings suggest chronic small vessel ischemia, age related atrophy, sinus disease
[2017-05-29] MEDS: ATORVASTATIN 20 MG TAB PO SCH (19:53)
[2017-05-29] MEDS: risperiDONE 0.25 MG TAB PO SCH (19:55)
--- NOTE | 2017-05-29 22:13 | PN ---
PROGRESS NOTE Patient is seen for followup for hyponatremia. His sodium level has currently improved to 130 from 128. Patient is off of sodium chloride tablets and his urine osmolality was elevated at 405. He is not maintained on any IV fluids. He is currently lying in bed. He is comfortable. He is not in any acute distress. PHYSICAL EXAMINATION: Blood pressure is 105/61, heart rate 95 per minute. He is afebrile. EXAMINATION OF THE HEART: S1, S2. EXAMINATION OF LUNGS: Bilateral breath sounds are heard. ABDOMEN: Soft, non-tender. Examination of lower extremities shows no significant edema. [employer] exam is grossly intact. Patient is moving all 4 extremities. LAB: Sodium 130, potassium 3.5, hemoglobin 9.6 g/dL. ASSESSMENT: 1. Hyponatremia, currently euvolemic, most likely secondary to SIADH, currently not on IV fluids or sodium chloride tablets. Sodium has improved. Patient will need to be maintained on fluid restriction. 2. Hypomagnesemia related to ETOH abuse. 3. Delirium; seems to have improved. 4. Hypokalemia, slightly better. PLAN: Continue magnesium supplementation. I will give him one dose of potassium chloride and repeat labs in a.m. MMODL / IJN: [id number] /
[2017-05-30] MEDS: SODIUM CHLORIDE 0.45% 1,000 ML IV SCH (06:57)
[2017-05-30] MEDS: CHOLECALCIFEROL 1,000 UNIT TAB PO SCH (07:59)
[2017-05-30] MEDS: HEPARIN SODIUM,PORCINE 5,000 UNIT/ML 1 ML VIAL SQ SCH ×2 (07:59→23:17)
[2017-05-30] MEDS: MAGNESIUM OXIDE 400 MG TAB PO SCH ×2 (07:59→23:21)
[2017-05-30] MEDS: ZIPRASIDONE 20 MG CAP PO SCH ×2 (07:59→23:21)
[2017-05-30] MEDS: PANTOPRAZOLE 40 MG TABLET PO SCH (07:59)
[2017-05-30] MEDS: MULTIVITAMINS, THERA 1 EACH TAB PO SCH (07:59)
[2017-05-30] MEDS: LISINOPRIL 20 MG TAB PO SCH (07:59)
[2017-05-30 08:15] LABS: Anion Gap 11 mmol/L; Blood Urea Nitrogen 15 mg/dL (9-20); Calcium 9.7 mg/dL (8.4-10.2); Carbon Dioxide 25 mmol/L (22-30); Chloride 93 mmol/L (98-107); Glucose 125 mg/dL (74-99); Non-African American GFR(MDRD) >60 (>60 ml/min/1.73 sqM); Sodium 129 mmol/L (137-145)
[2017-05-30 08:31] LABS: Aty Lym Flag Slight; CH 29.9; CHCM 33.6; HCT 29.3 % (39.0-53.0); HDW 2.67; HGB 10.1 gm/dL (13.0-17.5); MCH 30.8 pg (25.0-35.0); MCHC 34.4 g/dL (31.0-37.0); MCV 89.5 fL (80.0-100.0); Mean Platelet Volume 6.7; RBC 3.27 m/uL (4.30-5.90); RDW 13.2 % (11.5-15.5); WBC (Perox) 8.14
[2017-05-30] MEDS ORDERED: Magnesium Replacement Protocol 1 EACH MISC MISCELLANE PRN (08:36)
[2017-05-30] MEDS: MAGNESIUM SULFATE-D5W PMX 1 GM in DEXTROSE/WATER 1 100ML.BAG IVPB SCH ×3 (10:38→13:27)
[2017-05-30] MEDS: SODIUM CHLORIDE TAB 1 GM TAB PO SCH (10:38)
--- NOTE | 2017-05-30 11:05 | P.PN ---
Subjective Principal diagnosis: Multifocal colitis per CT Confused this morning difficulty keeping track on conversation; speaking in tangents disorganized. Hard of hearing. No reports of nausea vomiting diarrhea or abdominal pain. No episodes of GI bleeding hematemesis melena. Hemoglobin 10.1. Objective - Vital Signs Vital signs: Vital Signs Temp 97.3 F L 05/30/17 07:00 Pulse 94 05/30/17 07:21 Resp 16 05/30/17 07:21 BP 130/60 05/30/17 07:00 Pulse Ox 99 05/30/17 07:00 Intake & Output 05/29/17 05/30/17 05/30/17 18:59 06:59 18:59 Intake Total 504 Balance 504 Weight 83.915 kg Intake: Oral 504 Other: Voiding Method Toilet Toilet Toilet Diaper Diaper Urinal # Voids 1 1 - Exam General appearance: The patient is alert, in no acute distress. Hard of hearing. Conversation disorganized. HET: Head is normocephalic and atraumatic. Pupils are equal and reactive. Oropharynx is clear without lesions. Neck: Supple without lymphadenopathy. Trachea midline. Heart: S1 S2. Regular rate and rhythm. Lungs: No crackles or wheezes are heard. Abdomen: Soft, nontender, nondistended with bowel sounds. No peritoneal signs. No palpable organomegaly or masses. Extremities: Normal skin color and turgor. No cyanosis, rash, ulceration, clubbing, or edema. Radial and pedal pulses are 2/4 bilaterally. Neurological: No focal deficits. Strength and sensation are grossly intact. - Labs CBC & Chem 7: 05/30/17 07:14 05/30/17 07:14 Labs: Abnormal Lab Results - Last 24 Hours (Table) 05/30/17 05/30/17 Range/Units 07:14 07:14 RBC 3.27 L (4.30-5.90) m/uL Hgb 10.1 L (13.0-17.5) gm/dL Hct 29.3 L (39.0-53.0) % Sodium 129 L (137-145) mmol/L Chloride 93 L (98-107) mmol/L Glucose 125 H (74-99) mg/dL Magnesium 1.0 L* (1.6-2.3) mg/dL Microbiology - Last 24 Hours (Table) 05/26/17 12:02 Blood Culture - Preliminary Blood No Growth after 72 hours Assessment and Plan Plan: Impression: 1. Altered mental status confusion and agitation for several months undergoing neurologic work up. 2. Colitis per CT thickening of the sigmoid colon without nausea vomiting diarrhea hematemesis hematochezia melena. No history of EGD colonoscopy. 3. Normocytic anemia; iron indices requested pending. Recommendations: 1. EGD colonoscopy for evaluation of CT findings and anemia if patient and spouse agree. Presently patient refuses endoscopy; will discuss with spouse. Continue supportive measures. Assessment and plan of care discussed with Dr. Augustin
[2017-05-30 11:28] LABS: Add Differential Manual Differential
[2017-05-30 11:30] LABS: Nucleated Red Blood Cells 0 /100 WBC (0-0); Total Cells Counted 100
[2017-05-30 11:31] LABS: Manual Review Performed
[2017-05-30] MEDS: THIAMINE 100 MG TAB PO SCH (12:08)
[2017-05-30] MEDS: FOLIC ACID 1 MG TAB PO SCH (12:09)
[2017-05-30 13:11] LABS: % Iron Saturation 25.8 % (20-50)
[2017-05-30] MEDS: PEG 3350-NA SULF,BICARB,CL/KCL 4,000 ML BOTTLE PO STA ×2 (17:11→18:42)
[2017-05-30] MEDS ORDERED: PEG 3350-NA SULF,BICARB,CL/KCL 4,000 ML BOTTLE PO ONE (18:43)
--- NOTE | 2017-05-30 18:54 | PN ---
PROGRESS NOTE DATE OF SERVICE: 05/30/2017 This 71-year-old gentleman who was admitted with change in mental status and possible dementia with behavioral abnormalities is being closely monitored. The patient refused EGD and colonoscopy. The patient was also confused, with episodes of delirium. Brain MRI was done which showed features of sinusitis and chronic small vessel ischemia; no other acute changes. PHYSICAL EXAMINATION: The patient is alert oriented x2. Pulse 87, blood pressure 120/60, respiration 16, temperature 97.6, pulse ox 98% on room air. HEENT: Conjunctivae normal. NECK: No jugular venous distention. CARDIOVASCULAR SYSTEM: S1, S2 muffled. RESPIRATION: Breath sounds diminished at the bases. No rhonchi. No crackles. ABDOMEN: Soft, non-tender. LEGS: No edema. No swelling. NERVOUS SYSTEM: No focal deficit. LABS: Sodium 129. Magnesium is 1. ASSESSMENT: 1. Change in mental status with possible dementia with behavioral abnormalities with possible acute delirium. 2. 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 3. Increased white count with some thickening of the sigmoid colon, possibly colitis. Rule out malignancy. Patient is refusing EGD and colonoscopy. 4. Hyponatremia. 5. Increased creatinine with acute renal failure, possibly acute tubular necrosis. 6. Hypomagnesemia. 7. Hypertension, essential. 8. Hyperlipidemia. 9. History of ethanol. 10.History of degenerative joint disease. 11.History of nicotine dependence. 12.Sinusitis. RECOMMENDATIONS AND DISCUSSION: I recommend continued current medical management, continued symptomatic treatment. Otherwise, replace magnesium; start p.o. magnesium. Continue with p.o. supplements and p.o. vitamins. Continue to monitor. Repeat labs. Prognosis guarded because of multiple complex medical issues. Further recommendations to follow. MMODL / IJN: [id number] /
[2017-05-30] MEDS: LORazepam 0.5 MG TAB PO PRN (20:17)
[2017-05-30] MEDS ORDERED: LORazepam 2 MG/ML SYRINGE IV STA (20:40)
[2017-05-30] MEDS ORDERED: HALOPERIDOL LACTATE 5 MG/ML 1 ML VIAL IM PRN (20:52)
--- NOTE | 2017-05-30 21:05 | PN ---
PROGRESS NOTE DATE OF SERVICE: 05/30/2017 Patient is seen for followup for hyponatremia. His sodium level has been staying at about 130 from yesterday. This morning it was down to 129. Patient is not on any IV fluids. He is off of Lasix and sodium chloride tablets, which he had initially been taking. He is sitting up in bed. He continues to be hypomagnesemic and is currently on replacement. PHYSICAL EXAMINATION: On examination, blood pressure is 120/60, heart rate 87 per minute. Patient is afebrile. Currently patient is euvolemic on exam. He is moving all 4 extremities. When he starts talking, patient seems to go off track. LABS: Review of labs shows sodium of 129, potassium 4.0, chloride 93, BUN 15, serum creatinine 0.95. ASSESSMENT: 1. Hyponatremia which is euvolemic; possibly SIADH. Currently not on any IV fluids. Patient is maintained on fluid restriction, which we will continue. I will also add sodium chloride tablets. 2. Hypomagnesemia associated with history of EtOH abuse, currently being replaced. 3. Mental status changes, delirium. Slightly better than on admission; however, patient still goes off track during his conversation. 4. Mild hypokalemia, status post replacement. 5. Anemia. No active bleeding noted at this time. Iron saturation was at 25%. PLAN: Replace magnesium. Start sodium chloride tabs. Repeat labs in a.m. MMNEHEMIASL / BRYSONN: [id number] /
[2017-05-30] MEDS: risperiDONE 0.25 MG TAB PO SCH (23:17)
[2017-05-30] MEDS: ATORVASTATIN 20 MG TAB PO SCH (23:21)
[2017-05-31 08:46] LABS: Basophils # (A) 0.1 k/uL (0-0.2); Basophils % (A) 1 %; CH 31.3; CHCM 35.1; Eosinophils # (A) 0.3 k/uL (0-0.7); Eosinophils % (A) 3 %; HCT 30.6 % (39.0-53.0); HDW 2.55; HGB 10.3 gm/dL (13.0-17.5); Luc # (Auto) 0.22; Luc % (Auto) 3; Lymphocytes # (A) 2.4 k/uL (1.0-4.8); Lymphocytes % (A) 30 %; MCHC 33.5 g/dL (31.0-37.0); MCV 89.5 fL (80.0-100.0); Mean Platelet Volume 7.6; Monocytes # (A) 0.5 k/uL (0-1.0); Monocytes % (A) 6 %; Neutrophils # (A) 4.5 k/uL (1.3-7.7); Neutrophils % (A) 57 %; RBC 3.42 m/uL (4.30-5.90); RDW 13.9 % (11.5-15.5); WBC 7.9 k/uL (3.8-10.6); WBC (Perox) 8.02
[2017-05-31 08:54] LABS: Anion Gap 11 mmol/L; Blood Urea Nitrogen 19 mg/dL (9-20); Calcium 10.1 mg/dL (8.4-10.2); Carbon Dioxide 28 mmol/L (22-30); Chloride 92 mmol/L (98-107); Glucose 122 mg/dL (74-99); Magnesium 1.4 mg/dL (1.6-2.3); Non-African American GFR(MDRD) 52 (>60 ml/min/1.73 sqM); Potassium 4.2 mmol/L (3.5-5.1); Sodium 131 mmol/L (137-145)
[2017-05-31] MEDS: LORazepam 0.5 MG TAB PO PRN (09:18)
--- NOTE | 2017-05-31 10:15 | P.PN ---
Subjective Patient is seen in follow-up for hyponatremia. Sodium level is gradually improving and is up to 131 this morning. Patient's currently resting in bed. Although he is alert and oriented, he is constantly talking and not making much sense. Oral intake has been fair. No vomiting or diarrhea. His creatinine today is also up to 1.35. He was started on an MADHAV inhibitor this admission. Vital signs are stable. General: The patient appeared well nourished and normally developed. HEENT: Head exam is unremarkable. Neck is without jugular venous distension. LUNGS: Lungs are clear to auscultation and percussion. Breath sounds decreased. HEART: Rate and Rhythm are regular. First and second heart sounds normal. No murmurs, rubs or gallops. ABDOMEN: Abdominal exam reveals normal bowel sounds. Non-tender and non- distended. No evidence of peritonitis. EXTREMITITES: No clubbing, cyanosis, or edema. Objective - Vital Signs Vital signs: Vital Signs Temp 97.6 F 05/30/17 23:00 Pulse 86 05/31/17 07:40 Resp 14 05/31/17 07:40 BP 120/56 05/31/17 07:40 Pulse Ox 96 05/30/17 23:00 Intake & Output 05/30/17 05/31/17 05/31/17 18:59 06:59 18:59 Intake Total 1080 100 Balance 1080 100 Intake: Oral 1080 100 Other: Voiding Method Toilet Toilet Urinal Urinal # Voids 3 1 - Labs CBC & Chem 7: 05/31/17 07:27 05/31/17 07:27 Labs: Abnormal Lab Results - Last 24 Hours (Table) 05/30/17 05/31/17 05/31/17 Range/Units 07:14 07:27 07:27 RBC 3.42 L (4.30-5.90) m/uL Hgb 10.3 L (13.0-17.5) gm/dL Hct 30.6 L (39.0-53.0) % Sodium 131 L (137-145) mmol/L Chloride 92 L (98-107) mmol/L Creatinine 1.35 H (0.66-1.25) mg/dL Glucose 122 H (74-99) mg/dL Magnesium 1.4 L (1.6-2.3) mg/dL Ferritin 557.9 H (22.0-322.0) ng/mL Microbiology - Last 24 Hours (Table) 05/26/17 12:02 Blood Culture - Preliminary Blood No Growth after 96 hours Assessment and Plan Plan: Assessment: #1. 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 Sodium level up to 131 this morning. #2. Hypomagnesemia secondary to chronic alcohol abuse. #3. Altered mental status. Patient continues to talk constantly and not making much sense. Possible delirium versus dementia. #4. Anemia with thickness of the sigmoid: Noted on CAT scan. Patient refused to take GoLYTELY and therefore will not be able to undergo endoscopy today. #5. Acute kidney injury likely related to initiation of MADHAV inhibitor. Patient has been hemodynamically stable. Plan: Maintain fluid restriction. Continue salt tabs 1 g daily. Discontinue lisinopril. Start amlodipine 5 mg daily. To hold the systolic blood pressure less than 120. Replace magnesium. 3 g IV today. Repeat electrolytes in the morning.
[2017-05-31] MEDS: CHOLECALCIFEROL 1,000 UNIT TAB PO SCH (10:18)
[2017-05-31] MEDS: HEPARIN SODIUM,PORCINE 5,000 UNIT/ML 1 ML VIAL SQ SCH ×2 (10:18→22:46)
[2017-05-31] MEDS: PANTOPRAZOLE 40 MG TABLET PO SCH (10:18)
[2017-05-31] MEDS: MAGNESIUM OXIDE 400 MG TAB PO SCH ×2 (10:19→22:46)
[2017-05-31] MEDS: LISINOPRIL 20 MG TAB PO SCH (10:19)
[2017-05-31] MEDS: MULTIVITAMINS, THERA 1 EACH TAB PO SCH (10:20)
[2017-05-31] MEDS: SODIUM CHLORIDE TAB 1 GM TAB PO SCH (10:20)
[2017-05-31] MEDS: ZIPRASIDONE 20 MG CAP PO SCH ×2 (10:20→22:49)
--- NOTE | 2017-05-31 11:58 | P.PN ---
Subjective Principal diagnosis: Multifocal colitis per CT Attempt last night to bowel prep patient for EGD colonoscopy evaluation for anemia. Patient refused prep. Patient's confused with bedside sitter. Nurse reports no evidence of overt bleeding such as hematemesis hematochezia or melena. hemoglobin 10.3. BUN 19. Creatinine 1.3. Sodium 131. ferritin 557. Iron 71. TIBC 275. Iron percentage 25.8. Objective - Vital Signs Vital signs: Vital Signs Temp 97.6 F 05/30/17 23:00 Pulse 86 05/31/17 07:40 Resp 14 05/31/17 07:40 BP 120/56 05/31/17 07:40 Pulse Ox 96 05/30/17 23:00 Intake & Output 05/30/17 05/31/17 05/31/17 18:59 06:59 18:59 Intake Total 1080 100 Balance 1080 100 Intake: Oral 1080 100 Other: Voiding Method Toilet Toilet Urinal Urinal # Voids 3 1 2 - Exam General appearance: The patient is alert, in no acute distress. Hard of hearing. Conversation disorganized. HET: Head is normocephalic and atraumatic. Pupils are equal and reactive. Oropharynx is clear without lesions. Neck: Supple without lymphadenopathy. Trachea midline. Heart: S1 S2. Regular rate and rhythm. Lungs: No crackles or wheezes are heard. Abdomen: Soft, nontender, nondistended with bowel sounds. No peritoneal signs. No palpable organomegaly or masses. Extremities: Normal skin color and turgor. No cyanosis, rash, ulceration, clubbing, or edema. Radial and pedal pulses are 2/4 bilaterally. Neurological: No focal deficits. Strength and sensation are grossly intact. - Labs CBC & Chem 7: 05/31/17 07:27 05/31/17 07:27 Labs: Abnormal Lab Results - Last 24 Hours (Table) 05/30/17 05/31/17 05/31/17 Range/Units 07:14 07:27 07:27 RBC 3.42 L (4.30-5.90) m/uL Hgb 10.3 L (13.0-17.5) gm/dL Hct 30.6 L (39.0-53.0) % Sodium 131 L (137-145) mmol/L Chloride 92 L (98-107) mmol/L Creatinine 1.35 H (0.66-1.25) mg/dL Glucose 122 H (74-99) mg/dL Magnesium 1.4 L (1.6-2.3) mg/dL Ferritin 557.9 H (22.0-322.0) ng/mL Microbiology - Last 24 Hours (Table) 05/26/17 12:02 Blood Culture - Preliminary Blood No Growth after 96 hours Assessment and Plan Plan: Impression: 1. Altered mental status confusion and agitation for several months undergoing neurologic work up. 2. Colitis per CT thickening of the sigmoid colon without nausea vomiting diarrhea hematemesis hematochezia melena. No history of EGD colonoscopy. 3. Normocytic anemia; iron indices reviewed no evidence of iron deficiency anemia Recommendations: 1. Patient confused unable to cooperate with EGD colonoscopy evaluation. Will reconsider once mental status improves. No evidence of active bleeding since admission. Will be available for questions and or concerns. Assessment and plan of care discussed with Dr. Augustin
[2017-05-31] MEDS: MAGNESIUM SULFATE-D5W PMX 1 GM in DEXTROSE/WATER 1 100ML.BAG IVPB SCH ×3 (12:04→15:38)
[2017-05-31] MEDS: FOLIC ACID 1 MG TAB PO SCH (13:32)
[2017-05-31] MEDS: THIAMINE 100 MG TAB PO SCH (13:32)
--- NOTE | 2017-05-31 20:28 | PN ---
PROGRESS NOTE DATE OF SERVICE: 05/31/2017 This 71-year-old gentleman who was admitted with change in mental status also had dementia with behavioral abnormalities. Patient refused endoscopies today. MRA did not show any acute abnormality. The patient possibly had SIADH also. No chest pain, palpitations. EXAM: Alert and oriented x2. Pulse 86, blood pressure 122/56, respirations 14, temperature 97.6, pulse ox 96% room air. HEENT: Conjunctivae normal. NECK: No jugular venous distention. CARDIOVASCULAR: S1, S2 muffled. RESPIRATORY: Breath sounds diminished in the bases. A few scattered rhonchi and crackles. ABDOMEN: Soft, nontender. LEGS: No edema. NERVOUS SYSTEM: No focal deficits. LABS: Magnesium 1.4. Hemoglobin 10.3. Sodium is 134. ASSESSMENT: 1. Change in mental status, possible dementia with behavioral abnormalities with possible acute delirium. 2. Hyponatremia with possible syndrome of inappropriate diuretic hormone secretion. 3. Increased WBC. 4. Some thickening of the sigmoid colon, possibly colitis, rule out malignancy. Patient refused esophagogastroduodenoscopy, colonoscopy. 5. Increased creatinine with acute renal failure. Possible acute tubular necrosis. 6. Hypomagnesemia. 7. Hypertension, essential. 8. Hyperlipidemia. 9. History of EtOH. 10.History of degenerative joint disease. 11.History of nicotine dependence. 12.Sinusitis. RECOMMENDATIONS AND DISCUSSION: Recommend to continue current medications. Continue with monitoring and symptomatic treatment. PT/OT evaluation. I would also recommend a psych consultation, also possibly ECF rehab. The patient has refused endoscopy and further evaluation as mentioned earlier. Discussed with the family. Further recommendations to follow. MMODL / IJN: [id number] /
[2017-05-31] MEDS: risperiDONE 0.25 MG TAB PO SCH (22:29)
[2017-05-31] MEDS: ATORVASTATIN 20 MG TAB PO SCH (22:46)
[2017-06-01] MEDS: amLODIPine 5 MG TAB PO SCH (07:55)
[2017-06-01] MEDS: PANTOPRAZOLE 40 MG TABLET PO SCH (07:55)
[2017-06-01] MEDS: CHOLECALCIFEROL 1,000 UNIT TAB PO SCH (07:55)
[2017-06-01] MEDS: MAGNESIUM OXIDE 400 MG TAB PO SCH ×2 (07:55→23:26)
[2017-06-01] MEDS: ZIPRASIDONE 20 MG CAP PO SCH (07:55)
[2017-06-01] MEDS: SODIUM CHLORIDE TAB 1 GM TAB PO SCH (07:55)
[2017-06-01] MEDS: MULTIVITAMINS, THERA 1 EACH TAB PO SCH (07:55)
[2017-06-01] MEDS: HEPARIN SODIUM,PORCINE 5,000 UNIT/ML 1 ML VIAL SQ SCH ×2 (07:56→23:26)
[2017-06-01 08:28] LABS: Anion Gap 11 mmol/L; Blood Urea Nitrogen 18 mg/dL (9-20); Calcium 10.4 mg/dL (8.4-10.2); Carbon Dioxide 26 mmol/L (22-30); Chloride 94 mmol/L (98-107); Glucose 127 mg/dL (74-99); Magnesium 1.5 mg/dL (1.6-2.3); Non-African American GFR(MDRD) >60 (>60 ml/min/1.73 sqM); Potassium 3.8 mmol/L (3.5-5.1); Sodium 131 mmol/L (137-145)
--- NOTE | 2017-06-01 14:47 | P.CN ---
Psychiatric Consult - . Consult date: 06/01/17 Consult:: 06/01/17 14:31 Identification and Reason for Consult: Patient is a 71-year-old male who was admitted with altered mental status and consult was requested for this. Patient 's chart was reviewed patient was seen and examined in his room no family members were present. After the consultation I contacted the patient's . 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 Patient was unable to give me a history initially told me that he was in the hospital because he fell and then said that they had tied him up and giving him hot blankets and then he stated that he believed in Herbie as does his son and some of the nurses here. Patient when responding to questions was coherent however not relevant tangential and circumstantial repeating information about his family history her and going from one topic to another about his family he occasionally would spell last names. Patient would end many sentences with "you know the rest of the story". Patient became irritable with me interrupting him and trying to redirect him and told me to stop talking and "don't say another word". Spoke with the nursing staff who described to me that the patient had been in soft restraints on the and may for aggression he was making threatening statements they do not believe that the patient assaulted any staff members. Patient this morning became agitated and irritable but was redirectable. Patient is also told the nursing staff that he is going to expose himself to them if the door is and shot to his room. At times he doesn' t want anyone in his room. I spoke with the patient's to obtain more information is the patient is a poor historian. His reports that he has no prior psychiatric treatment and has never been admitted for inpatient treatment or diagnosed with a psychiatric disorder. She states to me that he did drink alcohol in the past and for the last 48 years he has been drinking 5 beers a day she states he has not had any beer since May 05. She states that he has had no drug use. She reported that the patient has been confused for the last 2-3 years and they were blaming it on his hearing aid he would mix up things. She states he was paying the bills and she noticed that there were lots of withdrawals from their DANI[employer] card as well as he took out loans one was from the [employer]. He has never gotten lost and has continued to drive the his to work. She stated to me that at home prior to his first admission he became increasingly confused about watching [employer] game and was up and down in the hallway after 3 AM's confused about what time his needed to go to work. Later that day he apparently fell out of his chair and hit his head and was brought to the hospital for the first time in April. Once he returned home he began acting funny about his medications putting them in and out of the bottles and called his son at that time and told him "I got to keep up my phone won't let me". Patient was again taken to the hospital and again returned home. He was again admitted to the hospital and at this point was discharged to [facility] on May 19 and return to the hospital on May 22 . Patient's states that when he was at [facility] she told her once that he was seeing his daughter as well as God. She reports that he was quite irritable with her at that time. Patient was returned to his home on May 24 and she states that he reported "dear lord I'm blind I can't see anything" when he locked himself in the bathroom. Patient's states that they took him to a Dr. Galvan for a second opinion and he recommended an MRI, a chest and abdominal CAT scan and wanted him admitted to the hospital. They brought the patient back to the hospital later that evening where he has been admitted since May 25. His stated to me that he was she was told by Dr. Claudio that the patient has Parkinson's disease and she is aware that he has had difficulties with his sodium and magnesium levels. Past Psychiatric History: None per the . 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 Further information can be obtained from the medical record. Social History: Patient has been for 48 years and has 2 children his daughter at the age of 38 and his son is still alive. 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 His still does work on occasion. They are both 70 years of age. Patient is living with his currently. Patient's states that the patient was in the and served in the [employer]. Substance Use History: Patient's reports that the patient has been drinking 5 beers a day for the last 48 years she is unaware of his history prior to that she states since May 05 he has not had any liquor. Patient's states that there is no history of drug use. Mental Status:Appearance/Attitude: Patient is lying in a hospital bed wearing only a adult diaper, he is easily irritated. Behavior: Patient during the interview would periodically tell me that the phone did not work, pick remover the device for the television and turn the TV on and off, got up at one point pushed the button at the end of the bed telling me that this meant no one to come into the room and would become quite irritable with me and tell me to not say another word when I would ask him questions. 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 Thought Content: Patient would not respond but did not appear to be responding to auditory hallucinations and did not appear to be responding to any visual hallucinations. Patient did on numerous occasions tell me that he believes in God, and other intermittent statements about God Suicidal/Homicidal Ideation: Patient did not make any self-harm behaviors per nursing staff and at times has become threatening and has required physical restraint. Sensorium/Cognition: Patient is alert and oriented to person, location and month further testing was not performed due to the patient becoming extremely irritable with multiple questions and telling me to not say another word. Mood/Affect: Patient's mood is irritable and his affect is appropriate to his mood Insight/Judgement: And judgment are poor. Laboratory Last Values WBC 7.9 k/uL (3.8-10.6) 05/31/17 07:27 RBC 3.42 m/uL (4.30-5.90) L 05/31/17 07:27 Hgb 10.3 gm/dL (13.0-17.5) L 05/31/17 07:27 Hct 30.6 % (39.0-53.0) L 05/31/17 07:27 MCV 89.5 fL (80.0-100.0) 05/31/17 07:27 MCH 30.0 pg (25.0-35.0) 05/31/17 07:27 MCHC 33.5 g/dL (31.0-37.0) 05/31/17 07:27 RDW 13.9 % (11.5-15.5) 05/31/17 07:27 Plt Count 447 k/uL (150-450) 05/31/17 07:27 Neutrophils % 57 % 05/31/17 07:27 Neutrophils % (Manual) 60 % 05/30/17 07:14 Lymphocytes % 30 % 05/31/17 07:27 Lymphocytes % (Manual) 25 % 05/30/17 07:14 Monocytes % 6 % 05/31/17 07:27 Monocytes % (Manual) 10 % 05/30/17 07:14 Eosinophils % 3 % 05/31/17 07:27 Eosinophils % (Manual) 5 % 05/30/17 07:14 Basophils % 1 % 05/31/17 07:27 Neutrophils # 4.5 k/uL (1.3-7.7) 05/31/17 07:27 Neutrophils # (Manual) 4.80 k/uL (1.3-7.7) 05/30/17 07:14 Lymphocytes # 2.4 k/uL (1.0-4.8) 05/31/17 07:27 Lymphocytes # (Manual) 2.00 k/uL (1.0-4.8) 05/30/17 07:14 Monocytes # 0.5 k/uL (0-1.0) 05/31/17 07:27 Monocytes # (Manual) 0.80 k/uL (0-1.0) 05/30/17 07:14 Eosinophils # 0.3 k/uL (0-0.7) 05/31/17 07:27 Eosinophils # (Manual) 0.40 k/uL (0-0.7) 05/30/17 07:14 Basophils # 0.1 k/uL (0-0.2) 05/31/17 07:27 Nucleated RBCs 0 /100 WBC (0-0) 05/30/17 07:14 Manual Slide Review Performed 05/30/17 07:14 Poikilocytosis (manual Present 05/30/17 07:14 ESR 110 mm/hr (0-15) H 05/26/17 01:17 PT 12.1 sec (9.0-12.0) H 05/26/17 01:17 INR 1.2 (<1.2) H 05/26/17 01:17 Sodium 131 mmol/L (137-145) L 06/01/17 07:36 Potassium 3.8 mmol/L (3.5-5.1) 06/01/17 07:36 Chloride 94 mmol/L (98-107) L 06/01/17 07:36 Carbon Dioxide 26 mmol/L (22-30) 06/01/17 07:36 Anion Gap 11 mmol/L 06/01/17 07:36 BUN 18 mg/dL (9-20) 06/01/17 07:36 Creatinine 1.08 mg/dL (0.66-1.25) 06/01/17 07:36 Est GFR (MDRD) Af Amer >60 (>60 ml/min/1.73 sqM) 06/01/17 07:36 Est GFR (MDRD) Non-Af >60 (>60 ml/min/1.73 sqM) 06/01/17 07:36 Glucose 127 mg/dL (74-99) H 06/01/17 07:36 Uric Acid 8.4 mg/dL (3.5-8.5) 05/28/17 09:04 Calcium 10.4 mg/dL (8.4-10.2) H 06/01/17 07:36 Phosphorus 4.9 mg/dL (2.5-4.5) H 05/26/17 01:17 Magnesium 1.5 mg/dL (1.6-2.3) L 06/01/17 07:36 Iron 71 ug/dL (49-181) 05/30/17 07:14 TIBC 275 ug/dL (261-462) 05/30/17 07:14 % Saturation 25.8 % (20-50) 05/30/17 07:14 Ferritin 557.9 ng/mL (22.0-322.0) H 05/30/17 07:14 Total Bilirubin 0.7 mg/dL (0.2-1.3) 05/26/17 01:17 AST 25 U/L (17-59) 05/26/17 01:17 ALT 37 U/L (21-72) 05/26/17 01:17 Alkaline Phosphatase 90 U/L (38-126) 05/26/17 01:17 C-Reactive Protein 48.8 mg/L (<10.0) H 05/26/17 01:17 Total Protein 7.3 g/dL (6.3-8.2) 05/26/17 01:17 Albumin 4.0 g/dL (3.5-5.0) 05/26/17 01:17 Vitamin B1 66 ug/L (38-122) 05/26/17 01:17 Urine Color Yellow 05/26/17 16:05 Urine Appearance Clear (Clear) 05/26/17 16:05 Urine pH 6.0 (5.0-8.0) 05/26/17 16:05 Ur Specific [place] 1.010 (1.001-1.035) 05/26/17 16:05 Urine Protein Trace (Negative) H 05/26/17 16:05 Urine Glucose (UA) Negative (Negative) 05/26/17 16:05 Urine Ketones Negative (Negative) 05/26/17 16:05 Urine Blood Negative (Negative) 05/26/17 16:05 Urine Nitrite Negative (Negative) 05/26/17 16:05 Urine Bilirubin Negative (Negative) 05/26/17 16:05 Urine Urobilinogen <2.0 mg/dL (<2.0) 05/26/17 16:05 Ur Leukocyte Esterase Negative (Negative) 05/26/17 16:05 Urine Osmolality 405 mosm/kg (50-1400) 05/28/17 12:10 Ur Random Sodium 104 mmol/L (30-90) H 05/28/17 12:10 Ur Random Potassium 39.5 mmol/L 05/28/17 12:10 Zinc 83 ug/dL (60-130) 05/28/17 09:04 Assessment: [Patient has been admitted with altered mental status, he has had a decreased sodium level decreased magnesium level as well as an MRI which showed some small vessel changes. Patient has had a history at home per his of being confused and mixing up things for the last several years as well as making multiple withdrawals from an DANIEL machine and taking out loans all of this of which she was unaware until she began paying the bills recently. Patient has a history of alcohol use for 48 years at 5 beers a day as well as being in the . Diagnosis: Delirium of multiple etiologies, neurocognitive disorder unknown etiology Plan: Patient is currently on 2 antipsychotics Risperdal 0.25 mg at bedtime as well as Geodon 20 mg twice a day there is no reason to use to antipsychotic medications simultaneously, I will change the patient's medication to Zyprexa 2.5 mg in the morning and 5 mg at bedtime this is a lower incidence of extrapyramidal symptoms should the patient have Parkinson's disease. I will discontinue the Risperdal and Geodon. I will also write an order for 2.5 mg of Zyprexa to be given when necessary every 8 hours for agitation and discontinue the Haldol IM as if the patient does have Parkinson's this will worsen the symptoms. Patient should also not be given any benzodiazepines as this can add to the confusion and disinhibition. I will continue to follow the patient on the medical floor as he does not meet the criteria for transfer to an inpatient psychiatric unit. I will continue to adjust the medication to decrease his irritability.
[2017-06-01] MEDS ORDERED: OLANZapine 2.5 MG TAB PO PRN (14:49)
[2017-06-01] MEDS: FOLIC ACID 1 MG TAB PO SCH (15:02)
[2017-06-01] MEDS: THIAMINE 100 MG TAB PO SCH (15:02)
[2017-06-01] MEDS: OLANZapine 5 MG TAB PO SCH (20:44)
[2017-06-01] MEDS: ATORVASTATIN 20 MG TAB PO SCH (23:26)
[2017-06-02] MEDS: SODIUM CHLORIDE TAB 1 GM TAB PO SCH (08:15)
[2017-06-02] MEDS: PANTOPRAZOLE 40 MG TABLET PO SCH (08:15)
[2017-06-02] MEDS: amLODIPine 5 MG TAB PO SCH (08:15)
[2017-06-02] MEDS: MULTIVITAMINS, THERA 1 EACH TAB PO SCH (08:15)
[2017-06-02] MEDS: HEPARIN SODIUM,PORCINE 5,000 UNIT/ML 1 ML VIAL SQ SCH ×2 (08:15→21:55)
[2017-06-02] MEDS: MAGNESIUM OXIDE 400 MG TAB PO SCH ×3 (08:15→23:05)
[2017-06-02] MEDS: CHOLECALCIFEROL 1,000 UNIT TAB PO SCH (08:15)
[2017-06-02] MEDS: OLANZapine 2.5 MG TAB PO SCH (08:19)
[2017-06-02] MEDS: THIAMINE 100 MG TAB PO SCH (10:07)
[2017-06-02] MEDS: FOLIC ACID 1 MG TAB PO SCH (10:07)
[2017-06-02 11:38] LABS: Basophils # (A) 0.1 k/uL (0-0.2); Basophils % (A) 1 %; CH 30.4; CHCM 33.3; Eosinophils # (A) 0.2 k/uL (0-0.7); Eosinophils % (A) 2 %; HCT 30.9 % (39.0-53.0); HDW 2.58; HGB 10.1 gm/dL (13.0-17.5); Luc # (Auto) 0.24; Luc % (Auto) 3; Lymphocytes # (A) 1.5 k/uL (1.0-4.8); Lymphocytes % (A) 22 %; MCH 29.9 pg (25.0-35.0); MCHC 32.7 g/dL (31.0-37.0); MCV 91.6 fL (80.0-100.0); Mean Platelet Volume 7.1; Monocytes # (A) 0.6 k/uL (0-1.0); Monocytes % (A) 8 %; Neutrophils # (A) 4.5 k/uL (1.3-7.7); Neutrophils % (A) 64 %; RBC 3.38 m/uL (4.30-5.90); WBC 7.1 k/uL (3.8-10.6)
[2017-06-02 11:47] LABS: Anion Gap 16 mmol/L; Blood Urea Nitrogen 20 mg/dL (9-20); Calcium 10.4 mg/dL (8.4-10.2); Carbon Dioxide 24 mmol/L (22-30); Chloride 91 mmol/L (98-107); Glucose 124 mg/dL (74-99); Magnesium 1.3 mg/dL (1.6-2.3); Non-African American GFR(MDRD) >60 (>60 ml/min/1.73 sqM); Potassium 3.3 mmol/L (3.5-5.1); Sodium 131 mmol/L (137-145)
--- NOTE | 2017-06-02 12:09 | PN ---
PROGRESS NOTE DATE OF SERVICE: 06/01/2017 This 71-year-old gentleman who was admitted with change in mental and possible dementia behavioral abnormalities and as well as delirium is being closely monitored at this time. The patient is refusing multiple evaluations including endoscopies. Psychiatry seen the patient today, which showed Zyprexa is recommended by psychiatrist. No chest pain. No palpitations. PHYSICAL EXAMINATION: On exam, alert and oriented x2. Pulse 115, blood pressure 112/87, respirations 16, temperature 97.1, pulse ox 98% on room air. HEENT: Conjunctivae normal. NECK: No jugular venous distention. CARDIOVASCULAR: S1 and S2 muffled. RESPIRATORY: Breath sounds diminished at the bases. A few scattered rhonchi. ABDOMEN: Soft, nontender. LEGS: No edema. NERVOUS SYSTEM: No focal deficits. LABS: Magnesium 1.5. ASSESSMENT: 1. Change in mental status, possible dementia with behavioral abnormalities with possible acute delirium. 2. Hyponatremia with possible syndrome of inappropriate diuretic hormone secretion. 3. Increased WBC. 4. Some thickening of the sigmoid colon possibly colitis, rule out malignancy. Patient refused EGD, colonoscopy. 5. Increased creatinine with acute renal failure, possible acute tubular necrosis, present on admission. 6. Hypomagnesemia. 7. Hypertension, essential. 8. Hyperlipidemia. 9. History of EtOH. 10.History of degenerative joint disease. 11.History of nicotine dependence. 12.History of sinusitis. RECOMMENDATIONS AND DISCUSSION: Recommend to continue the current medications. Continue symptomatic treatment. Otherwise, the sodium is improving at this time. The patient's magnesium is 1.5, which is much better. I would recommend magnesium oxide to t.i.d. and continue to follow. Otherwise psychiatric evaluation appreciated. Guarded prognosis because of multiple complex medical issues. Eventually will work up the patient for possible ECF rehab. Guarded prognosis. Further recommendations to follow. MMODL / IJN: [id number] /
[2017-06-02] MEDS ORDERED: Magnesium Replacement Protocol 1 EACH MISC MISCELLANE PRN (12:10)
[2017-06-02] MEDS ORDERED: Potassium Replacement Protocol 1 EACH MISC MISCELLANE PRN (12:11)
--- NOTE | 2017-06-02 13:18 | P.PN ---
Progress Note - Text Patient is a 71-year-old male who was seen yesterday in consultation, he was begun on Zyprexa 2-1/2 mg in the morning and 5 mg at bedtime and his Geodon, Haldol and Risperdal were all discontinued. Patient had no difficulties last evening, he is more redirectable per the nursing staff. When I went to visit Mr. Obregon he was appropriately dressed today wearing pajama bottoms. Patient stated that he did not recall seeing me, then stated that he was going to tell me a story and then stated that he felt like taking a nap and asked me to leave the room. Patient did not appear overly sedated from the Zyprexa on no when necessary Zyprexa was required throughout the evening or today. Patient has been more verbally redirectable per the nursing staff and there have been no other incidents of agitated behavior. Will continue to follow the patient while he is in the hospital and adjust the medication as needed.
[2017-06-02] MEDS: MAGNESIUM SULFATE-D5W PMX 1 GM in DEXTROSE/WATER 1 100ML.BAG IVPB SCH ×3 (13:39→17:30)
--- NOTE | 2017-06-02 17:14 | PN ---
PROGRESS NOTE The patient is seen for followup for hyponatremia. Currently patient is in his room pacing back and forth. He does not appear to be in significant distress. He stated that he wants to tell me a history and asked me to come in and sit down. His sodium is up to 131. The patient is maintained on sodium chloride tablets 1 gram daily. PHYSICAL EXAMINATION: On examination, blood pressure is 121/59, heart rate 110 per minute. Patient is afebrile. He is euvolemic with no evidence of edema in his lower extremities. LABS: Labs show sodium 131, potassium 3.3, serum creatinine 1.15. Hemoglobin 10.1. ASSESSMENT: 1. Euvolemic hyponatremia. Currently maintained on sodium chloride tabs and fluid restriction. Patient is not on any Lasix. His sodium is quite stable. We will continue the current dose of sodium chloride tabs. 2. Hypertension, currently controlled. 3. Delirium, status post evaluation by Psychiatry. Maintained on Zyprexa along with Risperdal. PLAN: Continue the current dose of sodium chloride. Repeat labs periodically to monitor the sodium level. MMODL / IJN: [id number] /
[2017-06-02] MEDS: POTASSIUM CHLORIDE 10 MEQ, LIDOCAINE 2% INJ 10 MG in SODIUM CHLORIDE 0.9% 100 ML IV SCH ×2 (17:30→18:25)
--- NOTE | 2017-06-02 18:18 | PN ---
PROGRESS NOTE . DATE OF SERVICE: 06/02/2017 progress note. This 71-year-old gentleman admitted with change in mental status and dementia and delirium. The patient is on psychiatric medication. Also psychiatry is following the patient closely. No chest pain. No palpitations. PHYSICAL EXAM: Alert, oriented times two. Pulse is 103, blood pressure 120/58, respiration 18, temperature 98 degrees, pulse ox 100% on room air. HEENT: Conjunctivae normal. Neck: No jugular venous distention. Cardiovascular system: S1, S2 muffled. Respiratory: breath sounds diminished in the bases. No rhonchi. No crackles. Abdomen is soft, nontender. No mass palpable. Legs no edema. Central nervous system: No focal deficits. LABORATORY DATA: Labs are WBC 7.2, hemoglobin 10.9, sodium 131, potassium 3.3, magnesium 1.3. ASSESSMENT: 1. Change in mental status with possible dementia, with possible acute delirium. 2. Hyponatremia with possible Syndrome of inappropriate antidiuretic hormone .. 3. Increased WBC. 4. Thickening of the sigmoid colon possibly colitis rule out malignancy. Patient refused EGD, colonoscopy. 5. Increased creatinine with acute renal failure. Possible acute tubular necrosis. Present on admission. 6. Hypomagnesemia. 7. Hypertension. Essential. 8. Hyperlipidemia. 9. History of ETOH. 10.History of degenerative joint disease. 11.History of nicotine dependence. 12.History of sinusitis. RECOMMENDATIONS AND DISCUSSION: 1. Recommend to continue current medications. 2. Symptomatic treatment. 3. Replace potassium. 4. Otherwise continue to replace magnesium. 5. Continue the rest of medications. 6. Zyprexa. 7. PT/OT evaluation. 8. Possible ECF rehab. 9. Guarded prognosis. 10.Further recommendations to follow. MMODL / IJN: [id number] / MTDD
[2017-06-02 21:28] LABS: Potassium 3.8 mmol/L (3.5-5.1)
[2017-06-02] MEDS: OLANZapine 5 MG TAB PO SCH (21:53)
[2017-06-02] MEDS: ATORVASTATIN 20 MG TAB PO SCH (21:55)
[2017-06-03 06:45] LABS: Basophils # (A) 0.1 k/uL (0-0.2); Basophils % (A) 1 %; CH 30.8; CHCM 35.1; Eosinophils # (A) 0.2 k/uL (0-0.7); Eosinophils % (A) 2 %; HCT 28.9 % (39.0-53.0); HDW 2.57; HGB 9.8 gm/dL (13.0-17.5); Luc # (Auto) 0.34; Luc % (Auto) 4; Lymphocytes # (A) 1.8 k/uL (1.0-4.8); Lymphocytes % (A) 21 %; MCH 29.8 pg (25.0-35.0); MCHC 33.9 g/dL (31.0-37.0); MCV 87.9 fL (80.0-100.0); Mean Platelet Volume 7.3; Monocytes % (A) 11 %; Neutrophils # (A) 5.1 k/uL (1.3-7.7); Neutrophils % (A) 60 %; RBC 3.28 m/uL (4.30-5.90); RDW 13.8 % (11.5-15.5); WBC 8.5 k/uL (3.8-10.6); WBC (Perox) 8.92
[2017-06-03 06:57] LABS: Anion Gap 11 mmol/L; Blood Urea Nitrogen 24 mg/dL (9-20); Calcium 10.6 mg/dL (8.4-10.2); Carbon Dioxide 24 mmol/L (22-30); Chloride 90 mmol/L (98-107); Glucose 126 mg/dL (74-99); Magnesium 1.5 mg/dL (1.6-2.3); Non-African American GFR(MDRD) 55 (>60 ml/min/1.73 sqM); Potassium 3.7 mmol/L (3.5-5.1); Sodium 125 mmol/L (137-145)
[2017-06-03] MEDS: OLANZapine 2.5 MG TAB PO SCH (07:52)
[2017-06-03] MEDS: MULTIVITAMINS, THERA 1 EACH TAB PO SCH (07:53)
[2017-06-03] MEDS: HEPARIN SODIUM,PORCINE 5,000 UNIT/ML 1 ML VIAL SQ SCH ×2 (07:53→21:29)
[2017-06-03] MEDS: CHOLECALCIFEROL 1,000 UNIT TAB PO SCH (07:53)
[2017-06-03] MEDS: MAGNESIUM OXIDE 400 MG TAB PO SCH ×4 (07:53→21:29)
[2017-06-03] MEDS: SODIUM CHLORIDE TAB 1 GM TAB PO SCH (07:53)
[2017-06-03] MEDS: PANTOPRAZOLE 40 MG TABLET PO SCH (07:53)
[2017-06-03] MEDS: amLODIPine 5 MG TAB PO SCH (07:53)
[2017-06-03] MEDS: FOLIC ACID 1 MG TAB PO SCH (12:35)
[2017-06-03] MEDS: MAGNESIUM SULFATE-D5W PMX 1 GM in DEXTROSE/WATER 1 100ML.BAG IVPB SCH ×3 (12:35→16:14)
[2017-06-03] MEDS: THIAMINE 100 MG TAB PO SCH (12:35)
[2017-06-03] MEDS: OLANZapine 5 MG TAB PO SCH (19:33)
--- NOTE | 2017-06-03 20:49 | PN ---
PROGRESS NOTE DATE OF SERVICE: 06/03/17. INTERVAL HISTORY: This is a progress note. This 71-year-old gentleman admitted with change in mental status and dementia, also had hypomagnesemia and multiple electrolytes imbalance. The patient being closely monitored. PT and OT is also following the patient. PHYSICAL EXAM: On exam, alert, oriented times two. Pulse is 112. Blood pressure 130/60, respiration 18, temperature 97.4, pulse ox 100% on room air. Patient is confused otherwise. HEENT: Conjunctivae normal. Neck: No jugular venous distention. Cardiovascular: S1, S2 muffled. Respiratory: Breath sounds diminished in the bases. No rhonchi. No crackles. ABDOMEN: Soft, nontender. No mass palpable. Legs: No edema. No swelling. Central nervous system: No focal deficits. LAB STUDIES: At this time show WBC 8.1, hemoglobin 9.2, sodium 125, creatinine is 1.30, magnesium is 1.5. ASSESSMENT: 1. Change in mental status with possible dementia with possible acute delirium. 2. Hyponatremia with possible syndrome of inappropriate diuretic hormone secretion. 3. Increased WBC. 4. Thickening of the sigmoid colon possibly colitis, rule out malignancy. Patient refused EGD, colonoscopy. 5. Increased creatinine with acute renal failure. Possible acute tubular necrosis. Present on admission. 6. Hypomagnesemia. 7. Hypertension essential. 8. Hyperlipidemia. 9. History of ETOH. 10.History of degenerative joint disease. 11.History of nicotine dependence. 12.History of sinusitis. RECOMMENDATIONS AND DISCUSSION: Recommend to continue current management and current medications. Symptomatic treatment. Otherwise replace magnesium. Monitor potassium closely. Otherwise monitor closely and closely monitor with Nephrology. Guarded prognosis because of multiple complex medical issues. Further recommendations to follow. MMODL / IJN: [id number] /
[2017-06-03] MEDS: ATORVASTATIN 20 MG TAB PO SCH (21:29)
[2017-06-04 07:07] LABS: Basophils # (A) 0.1 k/uL (0-0.2); Basophils % (A) 1 %; CH 30.9; CHCM 35.1; Eosinophils # (A) 0.2 k/uL (0-0.7); Eosinophils % (A) 2 %; HCT 29.5 % (39.0-53.0); HDW 2.57; HGB 9.9 gm/dL (13.0-17.5); Luc # (Auto) 0.32; Luc % (Auto) 4; Lymphocytes # (A) 1.6 k/uL (1.0-4.8); Lymphocytes % (A) 18 %; MCH 29.6 pg (25.0-35.0); MCHC 33.5 g/dL (31.0-37.0); MCV 88.4 fL (80.0-100.0); Mean Platelet Volume 7.7; Monocytes # (A) 0.9 k/uL (0-1.0); Monocytes % (A) 10 %; Neutrophils % (A) 67 %; RBC 3.34 m/uL (4.30-5.90); RDW 14.3 % (11.5-15.5); WBC (Perox) 8.53
[2017-06-04 07:26] LABS: Anion Gap 12 mmol/L; Blood Urea Nitrogen 29 mg/dL (9-20); Calcium 11.1 mg/dL (8.4-10.2); Carbon Dioxide 28 mmol/L (22-30); Chloride 88 mmol/L (98-107); Glucose 136 mg/dL (74-99); Magnesium 1.5 mg/dL (1.6-2.3); Non-African American GFR(MDRD) 54 (>60 ml/min/1.73 sqM); Potassium 3.8 mmol/L (3.5-5.1); Sodium 128 mmol/L (137-145)
[2017-06-04] MEDS: SODIUM CHLORIDE TAB 1 GM TAB PO SCH ×2 (07:58→21:09)
[2017-06-04] MEDS: OLANZapine 2.5 MG TAB PO SCH (07:59)
[2017-06-04] MEDS: PANTOPRAZOLE 40 MG TABLET PO SCH (07:59)
[2017-06-04] MEDS: MULTIVITAMINS, THERA 1 EACH TAB PO SCH (08:00)
[2017-06-04] MEDS: amLODIPine 5 MG TAB PO SCH (08:00)
[2017-06-04] MEDS: CHOLECALCIFEROL 1,000 UNIT TAB PO SCH (08:00)
[2017-06-04] MEDS: MAGNESIUM OXIDE 400 MG TAB PO SCH ×3 (08:00→21:07)
[2017-06-04] MEDS: HEPARIN SODIUM,PORCINE 5,000 UNIT/ML 1 ML VIAL SQ SCH ×2 (08:01→21:07)
[2017-06-04 11:41] LABS: Mercury Whole Blood < 2 mcg/L (< 11)
[2017-06-04] MEDS: THIAMINE 100 MG TAB PO SCH (11:56)
[2017-06-04] MEDS: FOLIC ACID 1 MG TAB PO SCH (11:56)
--- NOTE | 2017-06-04 13:22 | P.PN ---
Progress Note - Text Interval History: Patient is a 71-year-old male who was seen in consultation and this is a follow-up to that consultation. Patient was seen in his room and he reported that he was moved to a different room because the toilet was leaking they accusing him of breaking the toilet. He states he is waiting until 3 PM to speak with the telephone solicitor supervisor is a friend of his. Patient states that he is moving the furniture around in the room so that the bed faces the television, when I asked the patient where the television the room was he could not locate it. At one point the patient turned to look across the room and began talking when I asked him if he was talking to someone he did not respond to me. Patient states that he once the furniture moved so that when his calms she has room. Mental Status: Appearance/Attitude: Patient was dressed in robe over his adult diaper, with a baseball cap on, making intermittent eye contact and sitting in a chair with his back to me for most of the interview. Behavior: Patient did not display any psychomotor agitation or retardation, patient was much less irritable than on my first contact with him. Speech/Language: Patient's speech is spontaneous, normal volume and rhythm and he is coherent. Thought Process: Patient is not goal directed, he is circumstantial but less so than on our first visit. Thought Content: Patient denies any auditory hallucinations and it is unclear to me if he was responding to a visual hallucination or just turning and talking in another direction. No delusions or paranoid ideation were elicited. Patient has been taking his medication, there have been no further episodes of combative or agitated behavior. Patient has not made any further inappropriate comments to nursing staff about exposing himself. Suicidal/Homicidal Ideation: Patient denies any suicidal or homicidal ideation Sensorium/Cognition: Patient is alert, oriented to person and situation further cognitive studies were not performed Mood/Affect: Patient's mood was much less irritable, his affect is slightly blunted. Insight/Judgement: Patient's insight and judgment are impaired. Assessment: Patient has been cooperative in taking his Zyprexa, he has not been combative and has been much less irritable. Patient continues to be circumstantial but is less so, I was able to interrupt him without being told to shut my mouth. Patient is oriented to person and situation but is unable to discuss the reasons for his hospitalization, need for medical treatment. Plan: Would continue Zyprexa 2.5 mg in the morning and 5 mg at bedtime as patient has been more cooperative, less irritable and would continue this once he is transferred to a custodial, at that time the need for this medication can be evaluated and the dosage adjusted as necessary. I will sign off the case and if there any further questions or concerns please don't hesitate to contact me.
--- NOTE | 2017-06-04 18:33 | P.PN ---
Subjective Date of service 06/04/2017. Progress note being dictated for Dr. Vega. Interval history: This is a 71-year-old gentleman admitted with change in mental status, dementia, multiple electrolyte imbalances and multiple other medical issues. Evaluated by psychiatry with recommendations noted. Maintained on Zyprexa, with noted improvement in patient's behavior. Cooperative, No combativeness reported, less irritable. Evaluated by physical therapy and 16/04 supervision recommended. Objective - Vital Signs Vital signs: Vital Signs Temp 98.0 F 06/04/17 15:00 Pulse 107 H 06/04/17 15:42 Resp 18 06/04/17 15:42 BP 134/60 06/04/17 15:00 Pulse Ox 97 06/04/17 15:00 Intake & Output 06/03/17 06/04/17 06/04/17 18:59 06:59 18:59 Intake Total 40 200 800 Balance 40 200 800 Weight 83.915 kg 83.915 kg Intake: Oral 40 200 800 Other: Voiding Method Toilet Toilet Toilet Urinal Urinal Diaper # Voids 3 1 - Exam PHYSICAL EXAM: VITAL SIGNS: As above GENERAL: Sitting up, eating lunch, pleasantly confused HEENT: Conjunctivae normal. eyes normal. NECK: No JVD. No thyroid enlargement. CARDIOVASCULAR: S1, S2 muffled. No murmur RESPIRATION: Breath sounds diminished in the bases. No rhonchi or crackles. ABDOMEN: Soft, nontender . No guarding. no masses palpable. No ascites. Bowel sounds heard. LEGS: No edema. no swelling PSYCHIATRY: Alert and oriented -2, pleasantly confused, Agitated, Noncombative. NERVOUS SYSTEM: Cranial N 2-12 grossly normal. Moves all 4 limbs. No focal deficits. - Labs CBC & Chem 7: 06/04/17 06:40 06/04/17 06:40 Labs: Abnormal Lab Results - Last 24 Hours (Table) 06/04/17 06/04/17 Range/Units 06:40 06:40 RBC 3.34 L (4.30-5.90) m/uL Hgb 9.9 L (13.0-17.5) gm/dL Hct 29.5 L (39.0-53.0) % Sodium 128 L (137-145) mmol/L Chloride 88 L (98-107) mmol/L BUN 29 H (9-20) mg/dL Creatinine 1.32 H (0.66-1.25) mg/dL Glucose 136 H (74-99) mg/dL Calcium 11.1 H (8.4-10.2) mg/dL Magnesium 1.5 L (1.6-2.3) mg/dL Assessment and Plan Plan: 1. [ Change in mental status with possible dementia, possible acute delirium]. 2. 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 3. [ Leukocytosis]. 4. [ Thickening of the sigmoid colon possibly colitis, rule out malignancy, patient refused EGD, colonoscopy]. 5. [ Acute renal failure, possible acute tubular necrosis]. 6. [ History of EtOH abuse]. Plan: Continue on current medication regime ,monitoring and symptomatic treatment. Discharge planning in progress for ECF rehab. Follow closely with nephrology. Further recommendations to follow. The impression and plan of care has been dictated as directed as a scribe. : I performed a H&P examination of this patient and discussed the same with the dictator. I agree with the dictator's note. Any additional findings/opinions/ etc. will be noted.
--- NOTE | 2017-06-04 19:29 | PN ---
PROGRESS NOTE Patient is seen for followup for hyponatremia. Yesterday his sodium had dropped to 125. It has picked up again to 128 today. The patient is maintained on sodium chloride tabs and fluid restriction. His calcium is also noted to be elevated. Today it is at 11.1. PHYSICAL EXAMINATION: Patient is comfortable. Blood pressure is 140/65, heart rate 100 per minute. He is afebrile/ EXAMINATION OF THE HEART: S1, S2. EXAMINATION OF LUNGS: Bilateral breath sounds are heard. ABDOMEN: Soft, non-tender. Examination of lower extremities shows no significant edema. [employer] exam is grossly intact. Patient is moving all 4 extremities; however, his personality still appears to be obsessive-compulsive in nature. LABS: Sodium 128, potassium 3.8, BUN 29, serum creatinine 1.32, calcium 11.1, magnesium 1.5. ASSESSMENT: 1. Euvolemic hyponatremia, maintained on fluid restriction and sodium chloride tabs. The patient may have had increased fluid intake when his sodium dropped to 125. It is back up to 128. We will continue with fluid restriction. I will increase his sodium chloride to twice a day. He is not significantly hypertensive at this point. 2. Hypercalcemia. Check PTH levels, serum and urine immunofixation and vitamin D levels along with MADHAV level. Ideally we would administer normal saline, but I cannot give saline because of the hyponatremia, which will worsen. We may be able to use pamidronate. I will repeat another calcium level in the morning. 3. Delirium, being followed by Psychiatry, maintained on Zyprexa. 4. Hypomagnesemia. Will continue to replace. PLAN: Check workup for hypercalcemia. Increase sodium chloride tabs. Repeat labs in a.m. MMODL / IJN: [id number] /
[2017-06-04 19:41] LABS: Appearance,Urine Cloudy (Clear); Bacteria,Urine Few /hpf; Bilirubin,Urine Negative (Negative); Glucose,Urine (UA) Negative (Negative); Ketones,Urine Negative (Negative); Leukocyte Esterase,Urine Large (Negative); Mucus,Urine Rare /hpf; Nitrite,Urine Negative (Negative); Particle Count 106208; Protein,Urine 1+ (Negative); RBC,Urine 10 /hpf (0-5); Specific Gravity,Urine 1.017 (1.001-1.035); UA Billing (MACRO vs. MICRO) MICRO; Urobilinogen,Urine <2.0 mg/dL (<2.0); WBC,Urine >182 /hpf (0-5)
[2017-06-04] MEDS: OLANZapine 5 MG TAB PO SCH (21:07)
[2017-06-04] MEDS: ATORVASTATIN 20 MG TAB PO SCH (21:07)
[2017-06-05] MEDS: OLANZapine 2.5 MG TAB PO SCH (07:09)
[2017-06-05] MEDS: amLODIPine 5 MG TAB PO SCH (07:09)
[2017-06-05] MEDS: HEPARIN SODIUM,PORCINE 5,000 UNIT/ML 1 ML VIAL SQ SCH ×2 (07:09→20:39)
[2017-06-05] MEDS: MAGNESIUM OXIDE 400 MG TAB PO SCH ×3 (07:09→20:43)
[2017-06-05] MEDS: SODIUM CHLORIDE TAB 1 GM TAB PO SCH ×2 (07:10→20:41)
[2017-06-05] MEDS: CHOLECALCIFEROL 1,000 UNIT TAB PO SCH (07:10)
[2017-06-05] MEDS: MULTIVITAMINS, THERA 1 EACH TAB PO SCH (07:11)
[2017-06-05] MEDS: PANTOPRAZOLE 40 MG TABLET PO SCH (07:11)
[2017-06-05 08:12] LABS: Basophils # (A) 0.1 k/uL (0-0.2); Basophils % (A) 1 %; CHCM 35.2; Eosinophils # (A) 0.3 k/uL (0-0.7); Eosinophils % (A) 3 %; HCT 28.7 % (39.0-53.0); Luc # (Auto) 0.35; Luc % (Auto) 4; Lymphocytes # (A) 1.6 k/uL (1.0-4.8); Lymphocytes % (A) 18 %; MCV 88.5 fL (80.0-100.0); Mean Platelet Volume 7.3; Monocytes # (A) 0.9 k/uL (0-1.0); Monocytes % (A) 10 %; Neutrophils # (A) 5.8 k/uL (1.3-7.7); Neutrophils % (A) 64 %; RBC 3.24 m/uL (4.30-5.90); RDW 14.2 % (11.5-15.5); WBC (Perox) 9.17
[2017-06-05 08:28] LABS: Anion Gap 13 mmol/L; Blood Urea Nitrogen 25 mg/dL (9-20); Calcium 10.8 mg/dL (8.4-10.2); Carbon Dioxide 27 mmol/L (22-30); Chloride 90 mmol/L (98-107); Glucose 122 mg/dL (74-99); Magnesium 1.1 mg/dL (1.6-2.3); Non-African American GFR(MDRD) >60 (>60 ml/min/1.73 sqM); Potassium 3.6 mmol/L (3.5-5.1); Sodium 130 mmol/L (137-145)
[2017-06-05] MEDS: MAGNESIUM SULFATE-D5W PMX 1 GM in DEXTROSE/WATER 1 100ML.BAG IVPB SCH ×2 (14:54→16:33)
[2017-06-05] MEDS: FOLIC ACID 1 MG TAB PO SCH (14:55)
[2017-06-05] MEDS: THIAMINE 100 MG TAB PO SCH (14:55)
--- NOTE | 2017-06-05 16:10 | P.DS ---
Providers Date of admission: 05/25/17 23:16 Attending physician: Reese Vega Consults: 05/27/17 02:00 Consult Physician Routine Consulting Provider: Lynn James Consult Reason/Comments: dementia Do you want consulting provider notified?: Yes 05/28/17 10:45 Consult Physician Urgent Consulting Provider: Victoriano Styles Consult Reason/Comments: Electrolyte imbalance Do you want consulting provider notified?: Already Contacted 05/28/17 12:37 Consult Physician Urgent Consulting Provider: Lorenzo Fisher Consult Reason/Comments: AMS Do you want consulting provider notified?: Already Contacted Primary care physician: Parul Hunter [facility] Course: Final Diagnoses: 1. [ Change in mental status with possible dementia, possible acute delirium]. 2. 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 3. [ Leukocytosis]. 4. [ Thickening of the sigmoid colon possibly colitis, rule out malignancy, patient refused EGD, colonoscopy]. 5. [ Acute renal failure, possible acute tubular necrosis]. 6. [ History of EtOH abuse]. 7. Hypercalcemia, parathyroid related protein level pending. Vitamin D level pending with vitamin D currently on hold. 8. Hypomagnesemia. Hospital course:This is a 71-year-old gentleman admitted with change in mental status, dementia, multiple electrolyte imbalances and multiple other medical issues. Evaluated by psychiatry with recommendations noted including Zyprexa initiated. Evaluated by nephrology regarding hyponatremia, hypercalcemia. IV fluids adjusted, Fluid restrictions maintained and placed on sodium chloride tablets. Significant clinical improvement. Patient has been cleared by all consults for discharge. Patient is being discharged to [facility] in a stable condition with guarded prognosis. The impression and plan of care has been dictated as directed as a scribe. : I performed a H&P examination of this patient and discussed the same with the dictator. I agree with the dictator's note. Any additional findings/opinions/ etc. will be noted. Patient Condition at Discharge: Stable Plan - Discharge Summary New Discharge Prescriptions: New Folic Acid 1 mg PO DAILY@1200 #30 tab risperiDONE [RisperDAL] 0.25 mg PO HS #30 tab Thiamine [Vitamin B-1] 100 mg PO DAILY@1200 #30 tab amLODIPine [Norvasc] 5 mg PO DAILY tab Magnesium Oxide [Mag-Ox] 800 mg PO TID tab OLANZapine [ZyPREXA] 2.5 mg PO DAILY@0700 tab OLANZapine [ZyPREXA] 2.5 mg PO TID PRN tab PRN Reason: Agitation OLANZapine [ZyPREXA] 5 mg PO DAILY@1900 tab Pantoprazole [Protonix] 40 mg PO AC-BRKFST tab Sodium Chloride Tab 1 gm PO BID tab Continue Cholecalciferol [Vitamin D3] 1,000 unit PO DAILY Simvastatin [Zocor] 40 mg PO HS Multivitamins, Thera [Multivitamin (formulary)] 1 tab PO DAILY Acetaminophen Tab [Tylenol] 650 mg PO BID PRN PRN Reason: Pain Discontinued Lisinopril [Zestril] 20 mg PO DAILY Sodium Chloride Tab 1 gm PO TID tab Ziprasidone [Geodon] 20 mg PO BID cap LORazepam [Ativan] 0.5 mg PO Q3H PRN PRN Reason: Agitation Diazepam [Valium] 2 mg PO BID Furosemide [Lasix] 20 mg PO BID Ativan 0.5 mg IM Q3H PRN PRN Reason: Agitation Magnesium Oxide [Mag-Ox] 800 mg PO BID #120 tablet Magnesium Oxide [Mag-Ox] 400 mg PO TID tab Discharge Medication List Cholecalciferol [Vitamin D3] 1,000 unit PO DAILY 12/03/14 [History] Simvastatin [Zocor] 40 mg PO HS 12/03/14 [History] Multivitamins, Thera [Multivitamin (formulary)] 1 tab PO DAILY 05/05/17 [History ] Acetaminophen Tab [Tylenol] 650 mg PO BID PRN 05/22/17 [History] Folic Acid 1 mg PO DAILY@1200 #30 tab 05/30/17 [Rx] Thiamine [Vitamin B-1] 100 mg PO DAILY@1200 #30 tab 05/30/17 [Rx] risperiDONE [RisperDAL] 0.25 mg PO HS #30 tab 05/30/17 [Rx] Magnesium Oxide [Mag-Ox] 800 mg PO TID tab 06/05/17 [Rx] OLANZapine [ZyPREXA] 2.5 mg PO DAILY@0700 tab 06/05/17 [Rx] OLANZapine [ZyPREXA] 2.5 mg PO TID PRN tab 06/05/17 [Rx] OLANZapine [ZyPREXA] 5 mg PO DAILY@1900 tab 06/05/17 [Rx] Pantoprazole [Protonix] 40 mg PO AC-BRKFST tab 06/05/17 [Rx] Sodium Chloride Tab 1 gm PO BID tab 06/05/17 [Rx] amLODIPine [Norvasc] 5 mg PO DAILY tab 06/05/17 [Rx] Follow up Appointment(s)/Referral(s): Nuris Williamson MD [STAFF PHYSICIAN] - 1 Week Ely Augustin MD [STAFF PHYSICIAN] - 2 Weeks Lynn James MD [STAFF PHYSICIAN] - As Needed Parul Galvan III, MD [Primary Care Provider] - 3 Days (After DC from ECF) Ambulatory/Diagnostic Orders: Basic Metabolic Panel [LAB.AMB] Time Frame: 3 Days, Location: Determined By Patient Magnesium [LAB.AMB] Time Frame: 3 Days, Location: Determined By Patient Activity/Diet/Wound Care/Special Instructions: ECF: Parathyroid related protein level pending. Vitamin D level pending with vitamin D currently on hold. Diet: Cardiac Activity: Limited until follow up CBC, BMP in 3 days
[2017-06-05] MEDS: OLANZapine 5 MG TAB PO SCH (20:41)
[2017-06-05] MEDS: ATORVASTATIN 20 MG TAB PO SCH (20:43)
--- NOTE | 2017-06-06 07:51 | PN ---
PROGRESS NOTE Patient is seen for followup for hyponatremia. He was also noted to have hypercalcemia. Initial workup was ordered yesterday. The PTH was less than 5. An MADHAV level was not elevated. The urine immunofixation is not back. The patient is not maintained on any calcium supplements. He is on vitamin D and I do not have a vitamin D level available currently. On examination, patient is resting comfortably. He is not in any acute distress. Blood pressure is 128/74, heart rate 99 per minute. He is afebrile. Examination shows patient is euvolemic with no evidence of edema in his lower extremities. LABS: Labs show sodium 130, potassium 3.6, serum creatinine 1.0. Magnesium is 1.1 this morning. UA shows more than 182 WBCs. There is 1+ protein. ASSESSMENT: 1. Hyponatremia currently euvolemic. Maintained on oral sodium chloride, fluid restriction. 2. Hypomagnesemia, was not significantly high, however, with a magnesium of 1.11 would expect more magnesium conservation. The patient does have a history of alcohol abuse. 3. Hypercalcemia with appropriately low PTH. Check 25 hydroxy vitamin D level. Urine immunofixation is also pending. Etiology is unclear. I will check a parathyroid related protein also. He does have thickening of the sigmoid colon noted on CT and patient has refused endoscopy. 4. Delirium, being followed by Psychiatry, maintained on medications, currently improved. PLAN: Check parathyroid related protein, hold vitamin D, check 25 hydroxy vitamin D level. The patient can be discharged on sodium chloride tabs and fluid restriction. He will need to follow up as outpatient. MMODL / IJN: [id number] /
[2017-06-06 08:18] LABS: Anion Gap 9 mmol/L; Blood Urea Nitrogen 17 mg/dL (9-20); Calcium 9.8 mg/dL (8.4-10.2); Carbon Dioxide 29 mmol/L (22-30); Chloride 87 mmol/L (98-107); Glucose 109 mg/dL (74-99); Non-African American GFR(MDRD) >60 (>60 ml/min/1.73 sqM); Potassium 3.2 mmol/L (3.5-5.1); Sodium 125 mmol/L (137-145)
[2017-06-06 08:22] LABS: Basophils % (A) 1 %; CH 31.1; CHCM 35.7; Eosinophils % (A) 1 %; HCT 26.1 % (39.0-53.0); HDW 2.55; Luc # (Auto) 0.19; Luc % (Auto) 3; Lymphocytes # (A) 0.8 k/uL (1.0-4.8); Lymphocytes % (A) 14 %; MCH 30.3 pg (25.0-35.0); MCHC 34.6 g/dL (31.0-37.0); MCV 87.5 fL (80.0-100.0); Mean Platelet Volume 7.1; Monocytes # (A) 0.6 k/uL (0-1.0); Monocytes % (A) 10 %; Neutrophils # (A) 4.4 k/uL (1.3-7.7); Neutrophils % (A) 72 %; RBC 2.99 m/uL (4.30-5.90); RDW 14.2 % (11.5-15.5); WBC 6.1 k/uL (3.8-10.6); WBC (Perox) 6.64
[2017-06-06] MEDS ORDERED: Magnesium Replacement Protocol 1 EACH MISC MISCELLANE PRN (09:12)
[2017-06-06] MEDS ORDERED: Potassium Replacement Protocol 1 EACH MISC MISCELLANE PRN (09:12)
[2017-06-06] MEDS: OLANZapine 2.5 MG TAB PO SCH (09:42)
[2017-06-06] MEDS: MAGNESIUM OXIDE 400 MG TAB PO SCH ×3 (09:42→21:29)
[2017-06-06] MEDS: HEPARIN SODIUM,PORCINE 5,000 UNIT/ML 1 ML VIAL SQ SCH ×2 (09:42→21:30)
[2017-06-06] MEDS: PANTOPRAZOLE 40 MG TABLET PO SCH (09:42)
[2017-06-06] MEDS: amLODIPine 5 MG TAB PO SCH (09:42)
[2017-06-06] MEDS: MAGNESIUM SULFATE-D5W PMX 1 GM in DEXTROSE/WATER 1 100ML.BAG IVPB SCH ×3 (09:43→12:24)
[2017-06-06] MEDS: MULTIVITAMINS, THERA 1 EACH TAB PO SCH (09:43)
[2017-06-06] MEDS: SODIUM CHLORIDE TAB 1 GM TAB PO SCH ×3 (09:43→21:29)
[2017-06-06] MEDS: POTASSIUM CHLORIDE ER 20 MEQ TAB.ER PO SCH ×2 (11:17→13:37)
[2017-06-06] MEDS: THIAMINE 100 MG TAB PO SCH (13:37)
[2017-06-06] MEDS: FOLIC ACID 1 MG TAB PO SCH (13:37)
[2017-06-06] MEDS: POTASSIUM CHLORIDE 10 MEQ, LIDOCAINE 2% INJ 10 MG in SODIUM CHLORIDE 0.9% 100 ML IVPB SCH ×2 (14:42→15:45)
--- NOTE | 2017-06-06 15:27 | P.PN ---
Subjective Patient is seen in follow-up for hyponatremia. Sodium level is down to 125 this morning. Patient's currently sitting up in chair. He is quite confused. According to the nursing was refusing his medications yesterday and has been throwing them away in the trash. He is also refusing to eat. Vital signs are stable. General: The patient appeared well nourished and normally developed. HEENT: Head exam is unremarkable. Neck is without jugular venous distension. LUNGS: Lungs are clear to auscultation and percussion. Breath sounds decreased. HEART: Rate and Rhythm are regular. First and second heart sounds normal. No murmurs, rubs or gallops. ABDOMEN: Abdominal exam reveals normal bowel sounds. Non-tender and non- distended. No evidence of peritonitis. EXTREMITITES: No clubbing, cyanosis, or edema. Objective - Vital Signs Vital signs: Vital Signs Temp 98.2 F 06/06/17 15:05 Pulse 93 06/06/17 15:05 Resp 20 06/06/17 15:05 BP 160/78 06/06/17 15:05 Pulse Ox 99 06/06/17 15:05 Intake & Output 06/05/17 06/06/17 06/06/17 18:59 06:59 18:59 Intake Total 590 300 Balance 590 300 Weight 83.915 kg Intake: Intake, IV Titration 300 Amount Magnesium Sulfate-D5w Pmx 300 1 gm In Dextrose/Water 1 100ml.bag @ 100 mls/hr IVPB Q1H [facility] Rx#: [id number] Oral 590 Other: Voiding Method Toilet Toilet Toilet Diaper Diaper Diaper # Voids 2 2 2 - Labs CBC & Chem 7: 06/06/17 07:27 06/06/17 07:27 Labs: Abnormal Lab Results - Last 24 Hours (Table) 06/05/17 06/06/17 06/06/17 Range/Units 18:27 07:27 07:27 RBC 2.99 L (4.30-5.90) m/uL Hgb 9.0 L (13.0-17.5) gm/dL Hct 26.1 L (39.0-53.0) % Lymphocytes # 0.8 L (1.0-4.8) k/uL Sodium 125 L (137-145) mmol/L Potassium 3.2 L (3.5-5.1) mmol/L Chloride 87 L (98-107) mmol/L Glucose 109 H (74-99) mg/dL Magnesium 1.0 L* (1.6-2.3) mg/dL PTH Intact <5.5 L (14.0-72.0) pg/mL Assessment and Plan Plan: Assessment: #1. 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 Sodium level down to 125 this morning. Patient not taking his medications. #2. Hypomagnesemia secondary to chronic alcohol abuse. There is evidence of urinary magnesium wasting which can be seen with certain chemotherapeutic agents as well as alcohol abuse. #3. Altered mental status. Patient continues to talk constantly and not making much sense. Possible delirium versus dementia. #4. Anemia with thickness of the sigmoid noted on CAT scan. Patient refused to take GoLYTELY and could not undergo endoscopy this admission. #5. Hypokalemia related to hypomagnesemia and poor social status. Plan: Maintain fluid restriction. I will increase salt tabs to 1 g 3 times daily. Replace potassium. 60 mEq today. Replace magnesium. 3 g IV today. Repeat electrolytes in the morning.
[2017-06-06 19:10] LABS: Magnesium 1.4 mg/dL (1.6-2.3); Potassium 3.3 mmol/L (3.5-5.1)
[2017-06-06] MEDS: ATORVASTATIN 20 MG TAB PO SCH (21:30)
[2017-06-06] MEDS: OLANZapine 5 MG TAB PO SCH (21:30)
[2017-06-07] MEDS ORDERED: Potassium Replacement Protocol 1 EACH MISC MISCELLANE PRN (00:02)
[2017-06-07] MEDS: OLANZapine 2.5 MG TAB PO SCH (06:58)
[2017-06-07] MEDS: POTASSIUM CHLORIDE ER 20 MEQ TAB.ER PO SCH ×2 (06:58→09:03)
[2017-06-07] MEDS: PANTOPRAZOLE 40 MG TABLET PO SCH (06:59)
[2017-06-07 08:17] LABS: Anion Gap 11 mmol/L; Blood Urea Nitrogen 13 mg/dL (9-20); Calcium 9.8 mg/dL (8.4-10.2); Carbon Dioxide 27 mmol/L (22-30); Chloride 85 mmol/L (98-107); Glucose 143 mg/dL (74-99); Non-African American GFR(MDRD) >60 (>60 ml/min/1.73 sqM); Potassium 3.3 mmol/L (3.5-5.1); Sodium 123 mmol/L (137-145)
[2017-06-07 08:18] LABS: Aty Lym Flag Slight; CH 30.3; CHCM 35.3; HCT 28.5 % (39.0-53.0); HGB 10.1 gm/dL (13.0-17.5); MCH 30.5 pg (25.0-35.0); MCHC 35.4 g/dL (31.0-37.0); MCV 86.1 fL (80.0-100.0); Mean Platelet Volume 6.8; RBC 3.31 m/uL (4.30-5.90); RDW 13.8 % (11.5-15.5); WBC 5.6 k/uL (3.8-10.6); WBC (Perox) 5.76
[2017-06-07] MEDS ORDERED: Magnesium Replacement Protocol 1 EACH MISC MISCELLANE PRN (08:41)
[2017-06-07] MEDS: HEPARIN SODIUM,PORCINE 5,000 UNIT/ML 1 ML VIAL SQ SCH ×2 (09:03→21:02)
[2017-06-07] MEDS: amLODIPine 5 MG TAB PO SCH (09:03)
[2017-06-07] MEDS: MAGNESIUM OXIDE 400 MG TAB PO SCH ×3 (09:04→21:03)
[2017-06-07] MEDS: MULTIVITAMINS, THERA 1 EACH TAB PO SCH (09:05)
[2017-06-07] MEDS: SODIUM CHLORIDE TAB 1 GM TAB PO SCH ×3 (09:06→21:03)
--- NOTE | 2017-06-07 10:44 | P.PN ---
Subjective Progress note being dictated for Dr. Garvey 06/04 2017 Interval history: This is a 71-year-old gentleman admitted with change in mental status, dementia, multiple electrolyte imbalances and multiple other medical issues. Evaluated by psychiatry with recommendations noted. Maintained on Zyprexa, with noted improvement in patient's behavior. Cooperative, No combativeness reported, less irritable. Evaluated by physical therapy and 24/7 supervision recommended. 06/05 2017. Ambulating in room. Diet intake currently around 25%. Maintained on oral sodium with fluid restriction , current sodium 130. Magnesium 1.1, on scheduled oral magnesium and being supplemented per replacement protocol. Calcium remains high, workup in progress as per nephrology. Vitamin D level pending. Renal function improving. Objective - Vital Signs Vital signs: Vital Signs Temp 97.4 F L 06/05/17 07:00 Pulse 95 06/05/17 07:00 Resp 18 06/05/17 07:00 BP 133/60 06/05/17 07:00 Pulse Ox 99 06/05/17 07:00 Intake & Output 06/04/17 06/05/17 06/05/17 18:59 06:59 18:59 Intake Total 800 300 Balance 800 300 Weight 83.915 kg Intake: Oral 800 300 Other: Voiding Method Toilet Toilet Toilet Diaper Diaper Diaper # Voids 1 2 - Exam PHYSICAL EXAM: VITAL SIGNS: As above GENERAL: Sitting up watching TV, pleasantly confused HEENT: Conjunctivae normal. eyes normal. NECK: No JVD. No thyroid enlargement. CARDIOVASCULAR: S1, S2 muffled. No murmur RESPIRATION: Breath sounds diminished in the bases. No rhonchi or crackles. ABDOMEN: Soft, nontender . No guarding. no masses palpable. No ascites. Bowel sounds heard. LEGS: No edema. no swelling PSYCHIATRY: Alert and oriented -2, pleasantly confused, Agitated, Noncombative. NERVOUS SYSTEM: Cranial N 2-12 grossly normal. Moves all 4 limbs. No focal deficits. - Labs CBC & Chem 7: 06/07/17 07:37 06/07/17 07:37 Labs: Abnormal Lab Results - Last 24 Hours (Table) 06/04/17 06/04/17 06/05/17 Range/Units 06:40 19:00 07:39 RBC 3.24 L (4.30-5.90) m/uL Hgb 10.0 L (13.0-17.5) gm/dL Hct 28.7 L (39.0-53.0) % Sodium (137-145) mmol/L Chloride (98-107) mmol/L BUN (9-20) mg/dL Glucose (74-99) mg/dL Calcium (8.4-10.2) mg/dL Magnesium (1.6-2.3) mg/dL PTH Intact <5.5 L (14.0-72.0) pg/mL Urine Protein 1+ H (Negative) Urine Blood Trace H (Negative) Ur Leukocyte Esterase Large H (Negative) Urine RBC 10 H (0-5) /hpf Urine WBC >182 H (0-5) /hpf Urine Bacteria Few H (None) /hpf Hyaline Casts 29 H (0-2) /lpf Urine Mucus Rare H (None) /hpf 06/05/17 Range/Units 07:39 RBC (4.30-5.90) m/uL Hgb (13.0-17.5) gm/dL Hct (39.0-53.0) % Sodium 130 L (137-145) mmol/L Chloride 90 L (98-107) mmol/L BUN 25 H (9-20) mg/dL Glucose 122 H (74-99) mg/dL Calcium 10.8 H (8.4-10.2) mg/dL Magnesium 1.1 L (1.6-2.3) mg/dL PTH Intact (14.0-72.0) pg/mL Urine Protein (Negative) Urine Blood (Negative) Ur Leukocyte Esterase (Negative) Urine RBC (0-5) /hpf Urine WBC (0-5) /hpf Urine Bacteria (None) /hpf Hyaline Casts (0-2) /lpf Urine Mucus (None) /hpf Assessment and Plan Plan: 1. [ Change in mental status with possible dementia, possible acute delirium, acute metabolic encephalopathy, multifactorial]. 2. 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 4. [ Thickening of the sigmoid colon possibly colitis, rule out malignancy, patient refused EGD, colonoscopy]. 5. [ Acute renal failure, possible acute tubular necrosis]. 6. [ History of EtOH abuse]. 7. Hypercalcemia, low PTH, vitamin D level pending. 8. Hypomagnesemia in a patient with history of alcohol abuse. Plan: Continue on current medication regime ,monitoring and symptomatic treatment. Continue magnesium replacements slowly to aid in conservation. Close monitoring of electrolytes and renal function with repeat labs ordered for a.m. Discharge planning in progress for ECF rehab. Follow closely with nephrology. Further recommendations to follow. The impression and plan of care has been dictated as directed as a scribe. : I performed a H&P examination of this patient and discussed the same with the dictator. I agree with the dictator's note. Any additional findings/opinions/ etc. will be noted.
[2017-06-07] MEDS ORDERED: POTASSIUM CHLORIDE ER 20 MEQ TAB.ER PO STA ×2 (10:55→10:56)
--- NOTE | 2017-06-07 10:57 | P.PN ---
Subjective Patient is seen in follow-up for hyponatremia. Sodium level is down to 123 this morning. Patient's just finished taking a shower. He is quite confused. According to the nursing was refusing his medications yesterday and was throwing them away in the trash. He did take his medications this morning but is still not eating much. Vital signs are stable. General: The patient appeared well nourished and normally developed. HEENT: Head exam is unremarkable. Neck is without jugular venous distension. LUNGS: Lungs are clear to auscultation and percussion. Breath sounds decreased. HEART: Rate and Rhythm are regular. First and second heart sounds normal. No murmurs, rubs or gallops. ABDOMEN: Abdominal exam reveals normal bowel sounds. Non-tender and non- distended. No evidence of peritonitis. EXTREMITITES: No clubbing, cyanosis, or edema. Objective - Vital Signs Vital signs: Vital Signs Temp 98 F 06/07/17 07:00 Pulse 114 H 06/07/17 07:00 Resp 20 06/07/17 07:00 BP 131/62 06/07/17 07:00 Pulse Ox 96 06/07/17 07:00 Intake & Output 06/06/17 06/07/17 06/07/17 18:59 06:59 18:59 Intake Total 300 740 Balance 300 740 Intake: Intake, IV Titration 300 Amount Magnesium Sulfate-D5w Pmx 300 1 gm In Dextrose/Water 1 100ml.bag @ 100 mls/hr IVPB Q1H [facility] Rx#: [id number] Oral 740 Other: Voiding Method Toilet Toilet Diaper Diaper # Voids 2 1 - Labs CBC & Chem 7: 06/07/17 07:37 06/07/17 07:37 Labs: Abnormal Lab Results - Last 24 Hours (Table) 06/06/17 06/07/17 06/07/17 Range/Units 18:48 07:37 07:37 RBC 3.31 L (4.30-5.90) m/uL Hgb 10.1 L (13.0-17.5) gm/dL Hct 28.5 L (39.0-53.0) % Sodium 123 L (137-145) mmol/L Potassium 3.3 L 3.3 L (3.5-5.1) mmol/L Chloride 85 L (98-107) mmol/L Glucose 143 H (74-99) mg/dL Magnesium 1.4 L 1.0 L* (1.6-2.3) mg/dL Assessment and Plan Plan: Assessment: #1. 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 Sodium level down to 123 this morning. Patient did not take his medications yesterday afternoon and evening. #2. Hypomagnesemia secondary to chronic alcohol abuse. There is evidence of urinary magnesium wasting which can be seen with certain chemotherapeutic agents as well as alcohol abuse. #3. Altered mental status. Patient continues to talk constantly and not making much sense. Possible delirium versus dementia. #4. Anemia with thickness of the sigmoid noted on CAT scan. Patient refused to take GoLYTELY and could not undergo endoscopy this admission. #5. Hypokalemia related to hypomagnesemia and poor nutritional status. #6. Hypercalcemia. Again can be hypercalcemia of malignancy. PTH was appropriately suppressed. Vitamin D level noted at 56. Await urine immunofixation, 125 D3 as well as PTH related peptide levels. Plan: Maintain fluid restriction. Continue salt tabs 1 g 3 times daily. Replace potassium. 60 mEq today. Replace magnesium. 4 g IV today to be infused over 24 hours for better absorption. Samsca 15 mg once today. Repeat sodium level at 6 PM today.
[2017-06-07 10:58] LABS: Add Differential Manual Differential
[2017-06-07] MEDS ORDERED: TOLVAPTAN 15 MG 1/2 TABLET PO SCH (11:00)
[2017-06-07 11:01] LABS: Nucleated Red Blood Cells 0 /100 WBC (0-0); Total Cells Counted 100
[2017-06-07 11:04] LABS: Manual Review Performed
[2017-06-07] MEDS: MAGNESIUM SULFATE-D5W PMX 1 GM in DEXTROSE/WATER 1 100ML.BAG IVPB SCH ×2 (11:28→17:05)
[2017-06-07] MEDS: THIAMINE 100 MG TAB PO SCH (11:29)
[2017-06-07] MEDS: FOLIC ACID 1 MG TAB PO SCH (11:29)
--- NOTE | 2017-06-07 17:29 | P.PN ---
Subjective Progress note being dictated for Dr. Garvey 06/04 2017 Interval history: This is a 71-year-old gentleman admitted with change in mental status, dementia, multiple electrolyte imbalances and multiple other medical issues. Evaluated by psychiatry with recommendations noted. Maintained on Zyprexa, with noted improvement in patient's behavior. Cooperative, No combativeness reported, less irritable. Evaluated by physical therapy and 24/7 supervision recommended. 06/05 2017. Ambulating in room. Diet intake currently around 25%. Maintained on oral sodium with fluid restriction , current sodium 130. Magnesium 1.1, on scheduled oral magnesium and being supplemented per replacement protocol. Calcium remains high, workup in progress as per nephrology. Vitamin D level pending. Renal function improving. 06/06/2017 Maintained on fluid restrictions, refusing to take meds yesterday , sodium worsening, currently 125. Ambulating in hallway, tolerating exertion well. Diet intake poor. Potassium 3.2, magnesium 1. Objective - Vital Signs Vital signs: Vital Signs Temp 98.2 F 06/06/17 15:05 Pulse 93 06/06/17 15:05 Resp 20 06/06/17 15:05 BP 160/78 06/06/17 15:05 Pulse Ox 99 06/06/17 15:05 Intake & Output 06/05/17 06/06/17 06/06/17 18:59 06:59 18:59 Intake Total 590 300 Balance 590 300 Weight 83.915 kg Intake: Intake, IV Titration 300 Amount Magnesium Sulfate-D5w Pmx 300 1 gm In Dextrose/Water 1 100ml.bag @ 100 mls/hr IVPB Q1H [facility] Rx#: [id number] Oral 590 Other: Voiding Method Toilet Toilet Toilet Diaper Diaper Diaper # Voids 2 2 2 - Exam PHYSICAL EXAM: VITAL SIGNS: As above GENERAL: Sitting up watching TV, confused HEENT: Conjunctivae normal. eyes normal. NECK: No JVD. No thyroid enlargement. CARDIOVASCULAR: S1, S2 muffled. No murmur RESPIRATION: Breath sounds diminished in the bases. No rhonchi or crackles., No wheezing. ABDOMEN: Soft, nontender . No guarding. no masses palpable. No ascites. Bowel sounds heard. LEGS: No edema. no swelling PSYCHIATRY: Alert and oriented -2, confused, Noncombative. NERVOUS SYSTEM: Cranial N 2-12 grossly normal. Moves all 4 limbs. No focal deficits. - Labs CBC & Chem 7: 06/07/17 07:37 06/07/17 07:37 Labs: Abnormal Lab Results - Last 24 Hours (Table) 06/05/17 06/06/17 06/06/17 Range/Units 18:27 07:27 07:27 RBC 2.99 L (4.30-5.90) m/uL Hgb 9.0 L (13.0-17.5) gm/dL Hct 26.1 L (39.0-53.0) % Lymphocytes # 0.8 L (1.0-4.8) k/uL Sodium 125 L (137-145) mmol/L Potassium 3.2 L (3.5-5.1) mmol/L Chloride 87 L (98-107) mmol/L Glucose 109 H (74-99) mg/dL Magnesium 1.0 L* (1.6-2.3) mg/dL PTH Intact <5.5 L (14.0-72.0) pg/mL Assessment and Plan Plan: 1. [ Change in mental status with possible dementia, possible acute delirium, acute metabolic encephalopathy, multifactorial]. 2. 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 4. [ Thickening of the sigmoid colon possibly colitis, rule out malignancy, patient refused EGD, colonoscopy]. 5. [ Acute renal failure, possible acute tubular necrosis]. 6. [ History of EtOH abuse]. 7. Hypercalcemia, low PTH, vitamin D level pending. 8. Hypomagnesemia in a patient with history of alcohol abuse. Plan: Continue on current medication regime ,monitoring and symptomatic treatment. Magnesium and potassium replacements in progress. Close monitoring of electrolytes with repeat labs ordered for a.m. follow closely with nephrology. Further recommendations to follow. The impression and plan of care has been dictated as directed as a scribe. : I performed a H&P examination of this patient and discussed the same with the dictator. I agree with the dictator's note. Any additional findings/opinions/ etc. will be noted.
--- NOTE | 2017-06-07 17:38 | P.PN ---
Subjective Progress note being dictated for Dr. Garvey 06/04 2017 Interval history: This is a 71-year-old gentleman admitted with change in mental status, dementia, multiple electrolyte imbalances and multiple other medical issues. Evaluated by psychiatry with recommendations noted. Maintained on Zyprexa, with noted improvement in patient's behavior. Cooperative, No combativeness reported, less irritable. Evaluated by physical therapy and 24/ supervision recommended. 06/05 2017. Ambulating in room. Diet intake currently around 25%. Maintained on oral sodium with fluid restriction , current sodium 130. Magnesium 1.1, on scheduled oral magnesium and being supplemented per replacement protocol. Calcium remains high, workup in progress as per nephrology. Vitamin D level pending. Renal function improving. 06/06/2017 Maintained on fluid restrictions, refusing to take meds yesterday , sodium worsening, currently 125. Ambulating in hallway, tolerating exertion well. Diet intake poor. Potassium 3.2, magnesium 1. 06/07 currently sitting in a chair across from the nurse's station, confused. Consumed 50% of breakfast this morning. Maintained on fluid restrictions , sodium tabs increased yesterday .sodium continues to worsen, 123.Samsca ordered. Potassium 3.3, magnesium 1. Objective - Vital Signs Vital signs: Vital Signs Temp 98.1 F 06/07/17 15:00 Pulse 111 H 06/07/17 15:00 Resp 20 06/07/17 15:00 BP 129/68 06/07/17 15:00 Pulse Ox 94 L 06/07/17 15:00 Intake & Output 06/06/17 06/07/17 06/07/17 18:59 06:59 18:59 Intake Total 300 740 Balance 300 740 Weight 83.915 kg Intake: Intake, IV Titration 300 Amount Magnesium Sulfate-D5w Pmx 300 1 gm In Dextrose/Water 1 100ml.bag @ 100 mls/hr IVPB Q1H [facility] Rx#: [id number] Oral 740 Other: Voiding Method Toilet Toilet Diaper Diaper # Voids 2 1 3 - Labs CBC & Chem 7: 06/07/17 07:37 06/07/17 07:37 Labs: Abnormal Lab Results - Last 24 Hours (Table) 06/06/17 06/07/17 06/07/17 Range/Units 18:48 07:37 07:37 RBC 3.31 L (4.30-5.90) m/uL Hgb 10.1 L (13.0-17.5) gm/dL Hct 28.5 L (39.0-53.0) % Sodium 123 L (137-145) mmol/L Potassium 3.3 L 3.3 L (3.5-5.1) mmol/L Chloride 85 L (98-107) mmol/L Glucose 143 H (74-99) mg/dL Magnesium 1.4 L 1.0 L* (1.6-2.3) mg/dL Assessment and Plan Plan: 1. [ Change in mental status with possible dementia, possible acute delirium, acute metabolic encephalopathy, multifactorial]. 2. 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 4. [ Thickening of the sigmoid colon possibly colitis, rule out malignancy, patient refused EGD, colonoscopy]. 5. [ Acute renal failure, possible acute tubular necrosis]. 6. [ History of EtOH abuse]. 7. Hypercalcemia, low PTH, vitamin D 56. 8. Hypomagnesemia in a patient with history of alcohol abuse. Plan: Continue on current medication regime ,monitoring and symptomatic treatment. Magnesium and potassium replacements ordered. Continue with fluid restrictions. Samsca ordered as per nephrology. Close monitoring of electrolytes with repeat labs ordered for a.m. follow closely with nephrology. Prognosis guarded, multiple complex medical issues. Further recommendations to follow. The impression and plan of care has been dictated as directed as a scribe. : I performed a H&P examination of this patient and discussed the same with the dictator. I agree with the dictator's note. Any additional findings/opinions/ etc. will be noted.
[2017-06-07] MEDS ORDERED: TOLVAPTAN 15 MG 1/2 TABLET PO ONE (21:00)
[2017-06-07] MEDS: ATORVASTATIN 20 MG TAB PO SCH (21:02)
[2017-06-07] MEDS: OLANZapine 5 MG TAB PO SCH (21:02)
[2017-06-08] MEDS: MAGNESIUM SULFATE-D5W PMX 1 GM in DEXTROSE/WATER 1 100ML.BAG IVPB SCH (00:16)
[2017-06-08] MEDS ORDERED: MAGNESIUM SULFATE-D5W PMX 1 GM in DEXTROSE/WATER 1 100ML.BAG IVPB ONE (06:00)
[2017-06-08 08:10] LABS: Anion Gap 12 mmol/L; Blood Urea Nitrogen 15 mg/dL (9-20); Calcium 10.1 mg/dL (8.4-10.2); Carbon Dioxide 24 mmol/L (22-30); Chloride 90 mmol/L (98-107); Glucose 141 mg/dL (74-99); Magnesium 1.5 mg/dL (1.6-2.3); Non-African American GFR(MDRD) >60 (>60 ml/min/1.73 sqM); Potassium 3.9 mmol/L (3.5-5.1); Sodium 126 mmol/L (137-145)
[2017-06-08] MEDS: MAGNESIUM OXIDE 400 MG TAB PO SCH ×3 (08:51→19:39)
[2017-06-08] MEDS: HEPARIN SODIUM,PORCINE 5,000 UNIT/ML 1 ML VIAL SQ SCH ×2 (08:52→19:39)
[2017-06-08] MEDS: amLODIPine 5 MG TAB PO SCH (08:52)
[2017-06-08] MEDS: PANTOPRAZOLE 40 MG TABLET PO SCH (08:52)
[2017-06-08] MEDS: OLANZapine 2.5 MG TAB PO SCH (08:52)
[2017-06-08] MEDS: THIAMINE 100 MG TAB PO SCH (08:53)
[2017-06-08] MEDS: FOLIC ACID 1 MG TAB PO SCH (08:53)
[2017-06-08] MEDS: MULTIVITAMINS, THERA 1 EACH TAB PO SCH (08:53)
[2017-06-08] MEDS: SODIUM CHLORIDE TAB 1 GM TAB PO SCH ×3 (08:53→19:39)
[2017-06-08] MEDS ORDERED: TOLVAPTAN 15 MG 1/2 TABLET PO ONE (12:15)
--- NOTE | 2017-06-08 12:50 | P.PN ---
Subjective Patient is seen in follow-up for hyponatremia. Sodium level is up to 126 this morning. His appetite remains poor. He does take certain medications. He did receive 2 doses off Samsca yesterday. He is quite confused. Hemodynamically stable. Vital signs are stable. General: The patient appeared well nourished and normally developed. HEENT: Head exam is unremarkable. Neck is without jugular venous distension. LUNGS: Lungs are clear to auscultation and percussion. Breath sounds decreased. HEART: Rate and Rhythm are regular. First and second heart sounds normal. No murmurs, rubs or gallops. ABDOMEN: Abdominal exam reveals normal bowel sounds. Non-tender and non- distended. No evidence of peritonitis. EXTREMITITES: No clubbing, cyanosis, or edema. Objective - Vital Signs Vital signs: Vital Signs Temp 97.5 F L 06/08/17 07:00 Pulse 102 H 06/08/17 07:00 Resp 18 06/08/17 07:00 BP 130/66 06/08/17 07:00 Pulse Ox 100 06/08/17 07:00 Intake & Output 06/07/17 06/08/17 06/08/17 18:59 06:59 18:59 Intake Total 250 Balance 250 Weight 83.915 kg 83.915 kg Intake: Intake, IV Titration 100 Amount Magnesium Sulfate-D5w Pmx 100 1 gm In Dextrose/Water 1 100ml.bag @ 100 mls/hr IVPB ONCE ONE Rx#: [id number] Oral 150 Other: Voiding Method Toilet Toilet Diaper Diaper # Voids 3 2 - Labs CBC & Chem 7: 06/07/17 07:37 06/08/17 07:25 Labs: Abnormal Lab Results - Last 24 Hours (Table) 06/07/17 06/08/17 Range/Units 18:00 07:25 Sodium 123 L 126 L (137-145) mmol/L Chloride 90 L (98-107) mmol/L Glucose 141 H (74-99) mg/dL Magnesium 1.5 L (1.6-2.3) mg/dL Assessment and Plan Plan: Assessment: #1. 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 Sodium level is 126 this morning. #2. Hypomagnesemia secondary to chronic alcohol abuse. There is evidence of urinary magnesium wasting which can be seen with certain chemotherapeutic agents as well as alcohol abuse. #3. Altered mental status. Patient continues to talk constantly and not making much sense. Possible delirium versus dementia. #4. Anemia with thickness of the sigmoid noted on CAT scan. Patient refused to take GoLYTELY and could not undergo endoscopy this admission. #5. Hypokalemia related to hypomagnesemia and poor nutritional status. #6. Hypercalcemia. Again can be hypercalcemia of malignancy. PTH was appropriately suppressed. Vitamin D level noted at 56. Urine immunofixation revealed no monoclonal paraprotein. Follow-up 125 D3 as well as PTH related peptide levels. Plan: Maintain fluid restriction. Continue salt tabs 1 g 3 times daily. Replace magnesium, preferably IV in addition to oral. However patient has been ripping out his IV lines. Samsca 15 mg once today. Repeat electrolytes in the morning.
--- NOTE | 2017-06-08 18:54 | P.PN ---
Subjective Progress note being dictated for Dr. Garvey 06/04 2017 Interval history: This is a 71-year-old gentleman admitted with change in mental status, dementia, multiple electrolyte imbalances and multiple other medical issues. Evaluated by psychiatry with recommendations noted. Maintained on Zyprexa, with noted improvement in patient's behavior. Cooperative, No combativeness reported, less irritable. Evaluated by physical therapy and 24/7 supervision recommended. 06/05 2017. Ambulating in room. Diet intake currently around 25%. Maintained on oral sodium with fluid restriction , current sodium 130. Magnesium 1.1, on scheduled oral magnesium and being supplemented per replacement protocol. Calcium remains high, workup in progress as per nephrology. Vitamin D level pending. Renal function improving. 06/06/2017 Maintained on fluid restrictions, refusing to take meds yesterday , sodium worsening, currently 125. Ambulating in hallway, tolerating exertion well. Diet intake poor. Potassium 3.2, magnesium 1. 9/ currently sitting in a chair across from the nurse's station, confused. Consumed 50% of breakfast this morning. Maintained on fluid restrictions , sodium tabs increased yesterday .sodium continues to worsen, 123.Samsca ordered. Potassium 3.3, magnesium 1. 9/ maintained on Samsca, sodium up to 126. Remains confused, pulling out IV lines, diet intake remains poor. Magnesium 1.5, potassium 3.9. Objective - Vital Signs Vital signs: Vital Signs Temp 96.9 F L 06/08/17 15:00 Pulse 108 H 06/08/17 15:00 Resp 18 06/08/17 15:00 BP 136/65 06/08/17 15:00 Pulse Ox 100 06/08/17 15:00 Intake & Output 06/07/17 06/08/17 06/08/17 18:59 06:59 18:59 Intake Total 250 Balance 250 Weight 83.915 kg 83.915 kg Intake: Intake, IV Titration 100 Amount Magnesium Sulfate-D5w Pmx 100 1 gm In Dextrose/Water 1 100ml.bag @ 100 mls/hr IVPB ONCE ONE Rx#: [id number] Oral 150 Other: Voiding Method Toilet Toilet Diaper Diaper # Voids 3 2 3 - Exam PHYSICAL EXAM: VITAL SIGNS: As above GENERAL: Sitting up in chair, confused HEENT: Conjunctivae normal. eyes normal. NECK: No JVD. No thyroid enlargement. CARDIOVASCULAR: S1, S2 muffled. No murmur RESPIRATION: Breath sounds diminished in the bases. No rhonchi or crackles, No wheezing. ABDOMEN: Soft, nontender . No guarding. no masses palpable. No ascites. Bowel sounds heard. LEGS: No edema. no swelling PSYCHIATRY: Alert and oriented -2, confused, Noncombative. NERVOUS SYSTEM: Cranial N 2-12 grossly normal. Moves all 4 limbs. No focal deficits. - Labs CBC & Chem 7: 06/07/17 07:37 06/08/17 07:25 Labs: Abnormal Lab Results - Last 24 Hours (Table) 06/08/17 Range/Units 07:25 Sodium 126 L (137-145) mmol/L Chloride 90 L (98-107) mmol/L Glucose 141 H (74-99) mg/dL Magnesium 1.5 L (1.6-2.3) mg/dL Assessment and Plan Plan: 1. [ Change in mental status with possible dementia, possible acute delirium, acute metabolic encephalopathy, multifactorial]. 2. 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 4. [ Thickening of the sigmoid colon possibly colitis, rule out malignancy, patient refused EGD, colonoscopy]. 5. [ Acute renal failure, possible acute tubular necrosis]. 6. [ History of EtOH abuse]. 7. Hypercalcemia, low PTH, vitamin D 56. 8. Hypomagnesemia in a patient with history of alcohol abuse. Plan: Continue on current medication regime ,monitoring and symptomatic treatment. Magnesium replacements ordered. Continue with fluid restrictions. Samsca ordered as per nephrology. Close monitoring of electrolytes with repeat labs ordered for a.m. follow closely with nephrology. Prognosis poor. Attempted to reach both on cell phone and home to discuss CODE STATUS. Social work assisting [facility]CF requesting deposit, which is obtaining. Discharge planning in progress for early next week. Further recommendations to follow. The impression and plan of care has been dictated as directed as a scribe. : I performed a H&P examination of this patient and discussed the same with the dictator. I agree with the dictator's note. Any additional findings/opinions/ etc. will be noted.
[2017-06-08] MEDS: OLANZapine 5 MG TAB PO SCH (19:39)
[2017-06-08] MEDS: ATORVASTATIN 20 MG TAB PO SCH (19:39)
[2017-06-09 06:47] LABS: Anion Gap 9 mmol/L; Blood Urea Nitrogen 12 mg/dL (9-20); Calcium 10.2 mg/dL (8.4-10.2); Carbon Dioxide 28 mmol/L (22-30); Chloride 89 mmol/L (98-107); Glucose 171 mg/dL (74-99); Magnesium 1.2 mg/dL (1.6-2.3); Non-African American GFR(MDRD) >60 (>60 ml/min/1.73 sqM); Potassium 3.4 mmol/L (3.5-5.1); Sodium 126 mmol/L (137-145)
[2017-06-09] MEDS: OLANZapine 2.5 MG TAB PO SCH ×2 (09:10→10:47)
[2017-06-09] MEDS: PANTOPRAZOLE 40 MG TABLET PO SCH ×2 (09:10→10:47)
[2017-06-09] MEDS: HEPARIN SODIUM,PORCINE 5,000 UNIT/ML 1 ML VIAL SQ SCH ×2 (09:10→21:56)
[2017-06-09] MEDS: amLODIPine 5 MG TAB PO SCH ×2 (09:10→10:47)
[2017-06-09] MEDS: MAGNESIUM OXIDE 400 MG TAB PO SCH ×5 (09:11→21:57)
[2017-06-09] MEDS: MULTIVITAMINS, THERA 1 EACH TAB PO SCH ×2 (09:11→10:47)
[2017-06-09] MEDS: SODIUM CHLORIDE TAB 1 GM TAB PO SCH ×4 (09:11→21:57)
--- NOTE | 2017-06-09 11:24 | P.PN ---
Subjective 06/04 2017 Interval history: This is a 71-year-old gentleman admitted with change in mental status, dementia, multiple electrolyte imbalances and multiple other medical issues. Evaluated by psychiatry with recommendations noted. Maintained on Zyprexa, with noted improvement in patient's behavior. Cooperative, No combativeness reported, less irritable. Evaluated by physical therapy and / supervision recommended. 06/05 2017. Ambulating in room. Diet intake currently around 25%. Maintained on oral sodium with fluid restriction , current sodium 130. Magnesium 1.1, on scheduled oral magnesium and being supplemented per replacement protocol. Calcium remains high, workup in progress as per nephrology. Vitamin D level pending. Renal function improving. 06/06/2017 Maintained on fluid restrictions, refusing to take meds yesterday , sodium worsening, currently 125. Ambulating in hallway, tolerating exertion well. Diet intake poor. Potassium 3.2, magnesium 1. 9/ currently sitting in a chair across from the nurse's station, confused. Consumed 50% of breakfast this morning. Maintained on fluid restrictions , sodium tabs increased yesterday .sodium continues to worsen, 123.Samsca ordered. Potassium 3.3, magnesium 1. 9/ maintained on Samsca, sodium up to 126. Remains confused, pulling out IV lines, diet intake remains poor. Magnesium 1.5, potassium 3.9. 06/09/2017 Endocrine change in his clinical status compared to yesterday we're still awaiting on discharge disposition although sodium has come down a little bit patient is declining to take any of his medications patient is declining to take magnesium. Objective - Vital Signs Vital signs: Vital Signs Temp 97.4 F L 06/08/17 21:30 Pulse 110 H 06/08/17 21:30 Resp 16 06/08/17 21:30 BP 130/65 06/08/17 21:30 Pulse Ox 99 06/08/17 21:30 Intake & Output 06/08/17 06/09/17 06/09/17 18:59 06:59 18:59 Intake Total 100 Balance 100 Weight 83.915 kg Intake: Oral 100 Other: Voiding Method Toilet Toilet Diaper # Voids 3 1 - Exam GENERAL: Sitting up in chair, confused HEENT: Conjunctivae normal. eyes normal. NECK: No JVD. No thyroid enlargement. CARDIOVASCULAR: S1, S2 muffled. No murmur RESPIRATION: Breath sounds diminished in the bases. No rhonchi or crackles, No wheezing. ABDOMEN: Soft, nontender . No guarding. no masses palpable. No ascites. Bowel sounds heard. LEGS: No edema. no swelling PSYCHIATRY: Alert and oriented -2, confused, Noncombative. NERVOUS SYSTEM: Cranial N 2-12 grossly normal. Moves all 4 limbs. No focal deficits. - Labs CBC & Chem 7: 06/07/17 07:37 06/09/17 06:22 Labs: Abnormal Lab Results - Last 24 Hours (Table) 06/09/17 Range/Units 06:22 Sodium 126 L (137-145) mmol/L Potassium 3.4 L (3.5-5.1) mmol/L Chloride 89 L (98-107) mmol/L Glucose 171 H (74-99) mg/dL Magnesium 1.2 L (1.6-2.3) mg/dL Assessment and Plan Plan: 1. [ Change in mental status with possible dementia, possible acute delirium, acute metabolic encephalopathy, multifactorial]. 2. 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 4. [ Thickening of the sigmoid colon possibly colitis, rule out malignancy, patient refused EGD, colonoscopy]. 5. [ Acute renal failure, possible acute tubular necrosis]. 6. [ History of EtOH abuse]. 7. Hypercalcemia, low PTH, vitamin D 56. 8. Hypomagnesemia in a patient with history of alcohol abuse. Plan: Continue on current medication regime ,monitoring and symptomatic treatment. awaiting disposition
[2017-06-09] MEDS: MAGNESIUM SULFATE-D5W PMX 1 GM in DEXTROSE/WATER 1 100ML.BAG IVPB SCH (11:32)
[2017-06-09] MEDS: FOLIC ACID 1 MG TAB PO SCH (11:32)
[2017-06-09] MEDS: THIAMINE 100 MG TAB PO SCH (11:32)
[2017-06-09] MEDS ORDERED: ZIPRASIDONE 20 MG VIAL IM STA (15:22)
--- NOTE | 2017-06-09 17:46 | P.PN ---
Subjective Patient is seen in follow-up for hyponatremia. Sodium level is stable at 126 this morning. His appetite remains poor. Patient remains severely confused. He is again refusing all medications and continues to pull out his IV lines. He did receive 3 doses off Samsca this admission. Hemodynamically stable. Vital signs are stable. General: The patient appeared well nourished and normally developed. HEENT: Head exam is unremarkable. Neck is without jugular venous distension. LUNGS: Lungs are clear to auscultation and percussion. Breath sounds decreased. HEART: Rate and Rhythm are regular. First and second heart sounds normal. No murmurs, rubs or gallops. ABDOMEN: Abdominal exam reveals normal bowel sounds. Non-tender and non- distended. No evidence of peritonitis. EXTREMITITES: No clubbing, cyanosis, or edema. Objective - Vital Signs Vital signs: Vital Signs Temp 97.7 F 06/09/17 14:30 Pulse 95 06/09/17 14:30 Resp 16 06/09/17 14:30 BP 113/58 06/09/17 14:30 Pulse Ox 100 06/09/17 14:30 Intake & Output 06/08/17 06/09/17 06/09/17 18:59 06:59 18:59 Intake Total 100 Balance 100 Weight 83.915 kg Intake: Oral 100 Other: Voiding Method Toilet Toilet Diaper # Voids 3 1 - Labs CBC & Chem 7: 06/07/17 07:37 06/09/17 06:22 Labs: Abnormal Lab Results - Last 24 Hours (Table) 06/09/17 Range/Units 06:22 Sodium 126 L (137-145) mmol/L Potassium 3.4 L (3.5-5.1) mmol/L Chloride 89 L (98-107) mmol/L Glucose 171 H (74-99) mg/dL Magnesium 1.2 L (1.6-2.3) mg/dL Assessment and Plan Plan: Assessment: #1. 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 Sodium level is 126 this morning. #2. Hypomagnesemia secondary to chronic alcohol abuse. There is evidence of urinary magnesium wasting which can be seen with certain chemotherapeutic agents as well as alcohol abuse. #3. Altered mental status. Patient continues to talk constantly and not making much sense. Possible delirium versus dementia. #4. Anemia with thickness of the sigmoid noted on CAT scan. Patient refused to take GoLYTELY and could not undergo endoscopy this admission. #5. Hypokalemia related to hypomagnesemia and poor nutritional status. #6. Hypercalcemia. Again can be hypercalcemia of malignancy. PTH was appropriately suppressed. Vitamin D level noted at 56. Urine immunofixation revealed no monoclonal paraprotein. Follow-up 125 D3 as well as PTH related peptide levels. Plan: Maintain fluid restriction. Continue salt tabs 1 g 3 times daily. Replace magnesium, preferably IV in addition to oral. Samsca 15 mg once today. Repeat electrolytes in the morning. Patient continues to refuse all medications and is also ripping out his IV lines. According to the nurse the is aware. Primary team is working upon discharge to an ECF facility.
[2017-06-09] MEDS: ATORVASTATIN 20 MG TAB PO SCH (21:56)
[2017-06-09] MEDS: OLANZapine 5 MG TAB PO SCH (21:56)
[2017-06-10 07:28] LABS: CH 31.1; CHCM 35.5; HCT 28.2 % (39.0-53.0); HDW 2.77; HGB 9.6 gm/dL (13.0-17.5); MCH 30.1 pg (25.0-35.0); MCHC 34.2 g/dL (31.0-37.0); MCV 88.1 fL (80.0-100.0); Mean Platelet Volume 7.5; RDW 14.2 % (11.5-15.5)
[2017-06-10 07:41] LABS: Anion Gap 12 mmol/L; Blood Urea Nitrogen 14 mg/dL (9-20); Calcium 10.5 mg/dL (8.4-10.2); Carbon Dioxide 26 mmol/L (22-30); Chloride 92 mmol/L (98-107); Glucose 127 mg/dL (74-99); Magnesium 1.1 mg/dL (1.6-2.3); Non-African American GFR(MDRD) >60 (>60 ml/min/1.73 sqM); Potassium 3.6 mmol/L (3.5-5.1); Sodium 130 mmol/L (137-145)
[2017-06-10] MEDS: HEPARIN SODIUM,PORCINE 5,000 UNIT/ML 1 ML VIAL SQ SCH ×2 (08:43→22:53)
[2017-06-10] MEDS: PANTOPRAZOLE 40 MG TABLET PO SCH (08:43)
[2017-06-10] MEDS: OLANZapine 2.5 MG TAB PO SCH (08:43)
[2017-06-10] MEDS: amLODIPine 5 MG TAB PO SCH (08:43)
[2017-06-10] MEDS: MULTIVITAMINS, THERA 1 EACH TAB PO SCH (08:44)
[2017-06-10] MEDS: SODIUM CHLORIDE TAB 1 GM TAB PO SCH ×3 (08:44→20:17)
[2017-06-10] MEDS: MAGNESIUM OXIDE 400 MG TAB PO SCH ×4 (08:44→20:17)
[2017-06-10] MEDS: FOLIC ACID 1 MG TAB PO SCH (08:45)
[2017-06-10] MEDS: THIAMINE 100 MG TAB PO SCH (08:45)
[2017-06-10] MEDS ORDERED: POTASSIUM CHLORIDE ER 20 MEQ TAB.ER PO STA (10:56)
--- NOTE | 2017-06-10 10:57 | P.PN ---
Subjective Patient is seen in follow-up for hyponatremia. Sodium level is improved to 1: 30 this morning. His appetite remains poor. Patient remains severely confused. He did take some of his medications yesterday but continues to refuse IV. He did receive 3 doses of Samsca this admission. Hemodynamically stable. Vital signs are stable. General: The patient appeared well nourished and normally developed. HEENT: Head exam is unremarkable. Neck is without jugular venous distension. LUNGS: Lungs are clear to auscultation and percussion. Breath sounds decreased. HEART: Rate and Rhythm are regular. First and second heart sounds normal. No murmurs, rubs or gallops. ABDOMEN: Abdominal exam reveals normal bowel sounds. Non-tender and non- distended. No evidence of peritonitis. EXTREMITITES: No clubbing, cyanosis, or edema. Objective - Vital Signs Vital signs: Vital Signs Temp 97 F L 06/10/17 07:00 Pulse 98 06/10/17 08:00 Resp 16 06/10/17 08:00 BP 127/70 06/10/17 07:00 Pulse Ox 100 06/10/17 07:00 Intake & Output 06/09/17 06/10/17 06/10/17 18:59 06:59 18:59 Intake Total 640 Balance 640 Intake: Oral 640 Other: Voiding Method Toilet Toilet # Voids 1 # Bowel Movements 1 - Labs CBC & Chem 7: 06/10/17 07:05 06/10/17 07:05 Labs: Abnormal Lab Results - Last 24 Hours (Table) 06/10/17 06/10/17 Range/Units 07:05 07:05 RBC 3.20 L (4.30-5.90) m/uL Hgb 9.6 L (13.0-17.5) gm/dL Hct 28.2 L (39.0-53.0) % Sodium 130 L (137-145) mmol/L Chloride 92 L (98-107) mmol/L Glucose 127 H (74-99) mg/dL Calcium 10.5 H (8.4-10.2) mg/dL Magnesium 1.1 L (1.6-2.3) mg/dL Assessment and Plan Plan: Assessment: #1. 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 Sodium level is 130 this morning. #2. Hypomagnesemia secondary to chronic alcohol abuse. There is evidence of urinary magnesium wasting which can be seen with certain chemotherapeutic agents as well as alcohol abuse. #3. Altered mental status. Patient continues to talk constantly and not making much sense. Possible delirium versus dementia. #4. Anemia with thickness of the sigmoid noted on CAT scan. Patient refused to take GoLYTELY and could not undergo endoscopy this admission. #5. Hypokalemia related to hypomagnesemia and poor nutritional status. #6. Hypercalcemia. Again can be hypercalcemia of malignancy. PTH was appropriately suppressed. Vitamin D level noted at 56. Urine immunofixation revealed no monoclonal paraprotein. Follow-up 125 D3 as well as PTH related peptide levels. Plan: Maintain fluid restriction. Continue salt tabs 1 g 3 times daily. Replace magnesium, preferably IV in addition to oral, however patient is refusing any IV access at this time. Replace potassium. 40 mEq oral today. Repeat electrolytes in the morning. Primary team is working upon discharge to an ECF facility.
--- NOTE | 2017-06-10 10:59 | P.PN ---
Subjective 06/04 2017 Interval history: This is a 71-year-old gentleman admitted with change in mental status, dementia, multiple electrolyte imbalances and multiple other medical issues. Evaluated by psychiatry with recommendations noted. Maintained on Zyprexa, with noted improvement in patient's behavior. Cooperative, No combativeness reported, less irritable. Evaluated by physical therapy and / supervision recommended. 06/05 2017. Ambulating in room. Diet intake currently around 25%. Maintained on oral sodium with fluid restriction , current sodium 130. Magnesium 1.1, on scheduled oral magnesium and being supplemented per replacement protocol. Calcium remains high, workup in progress as per nephrology. Vitamin D level pending. Renal function improving. 06/06/2017 Maintained on fluid restrictions, refusing to take meds yesterday , sodium worsening, currently 125. Ambulating in hallway, tolerating exertion well. Diet intake poor. Potassium 3.2, magnesium 1. 9/ currently sitting in a chair across from the nurse's station, confused. Consumed 50% of breakfast this morning. Maintained on fluid restrictions , sodium tabs increased yesterday .sodium continues to worsen, 123.Samsca ordered. Potassium 3.3, magnesium 1. 9/ maintained on Samsca, sodium up to 126. Remains confused, pulling out IV lines, diet intake remains poor. Magnesium 1.5, potassium 3.9. 06/09/2017 Endocrine change in his clinical status compared to yesterday we're still awaiting on discharge disposition although sodium has come down a little bit patient is declining to take any of his medications patient is declining to take magnesium. 06/10/2017 Patient was much more confused last night. Objective - Vital Signs Vital signs: Vital Signs Temp 97 F L 06/10/17 07:00 Pulse 98 06/10/17 08:00 Resp 16 06/10/17 08:00 BP 127/70 06/10/17 07:00 Pulse Ox 100 06/10/17 07:00 Intake & Output 06/09/17 06/10/17 06/10/17 18:59 06:59 18:59 Intake Total 640 Balance 640 Intake: Oral 640 Other: Voiding Method Toilet Toilet # Voids 1 # Bowel Movements 1 - Exam GENERAL: Sitting up in chair, confused HEENT: Conjunctivae normal. eyes normal. NECK: No JVD. No thyroid enlargement. CARDIOVASCULAR: S1, S2 muffled. No murmur RESPIRATION: Breath sounds diminished in the bases. No rhonchi or crackles, No wheezing. ABDOMEN: Soft, nontender . No guarding. no masses palpable. No ascites. Bowel sounds heard. LEGS: No edema. no swelling PSYCHIATRY: Alert and oriented -2, confused, Noncombative. NERVOUS SYSTEM: Cranial N 2-12 grossly normal. Moves all 4 limbs. No focal deficits. - Labs CBC & Chem 7: 06/10/17 07:05 06/10/17 07:05 Labs: Abnormal Lab Results - Last 24 Hours (Table) 06/10/17 06/10/17 Range/Units 07:05 07:05 RBC 3.20 L (4.30-5.90) m/uL Hgb 9.6 L (13.0-17.5) gm/dL Hct 28.2 L (39.0-53.0) % Sodium 130 L (137-145) mmol/L Chloride 92 L (98-107) mmol/L Glucose 127 H (74-99) mg/dL Calcium 10.5 H (8.4-10.2) mg/dL Magnesium 1.1 L (1.6-2.3) mg/dL Assessment and Plan Plan: 1. [ Change in mental status with possible dementia, possible acute delirium, acute metabolic encephalopathy, multifactorial]. 2. 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 4. [ Thickening of the sigmoid colon possibly colitis, rule out malignancy, patient refused EGD, colonoscopy]. 5. [ Acute renal failure, possible acute tubular necrosis]. 6. [ History of EtOH abuse]. 7. Hypercalcemia, low PTH, vitamin D 56. 8. Hypomagnesemia in a patient with history of alcohol abuse. Plan: Continue on current medication regime ,monitoring and symptomatic treatment. awaiting disposition
[2017-06-10] MEDS: MAGNESIUM SULFATE-D5W PMX 1 GM in DEXTROSE/WATER 1 100ML.BAG IVPB SCH ×2 (11:25→17:33)
[2017-06-10] MEDS: OLANZapine 5 MG TAB PO SCH (20:16)
[2017-06-10] MEDS: ATORVASTATIN 20 MG TAB PO SCH (20:16)
[2017-06-11] MEDS: MAGNESIUM SULFATE-D5W PMX 1 GM in DEXTROSE/WATER 1 100ML.BAG IVPB SCH ×6 (01:10→20:29)
[2017-06-11 07:25] LABS: Anion Gap 10 mmol/L; Blood Urea Nitrogen 15 mg/dL (9-20); Calcium 9.9 mg/dL (8.4-10.2); Carbon Dioxide 27 mmol/L (22-30); Chloride 92 mmol/L (98-107); Glucose 110 mg/dL (74-99); Non-African American GFR(MDRD) >60 (>60 ml/min/1.73 sqM); Potassium 3.4 mmol/L (3.5-5.1); Sodium 129 mmol/L (137-145)
[2017-06-11 07:37] LABS: Magnesium 0.9 mg/dL (1.6-2.3)
[2017-06-11] MEDS: OLANZapine 2.5 MG TAB PO SCH ×2 (08:11→13:26)
[2017-06-11] MEDS: HEPARIN SODIUM,PORCINE 5,000 UNIT/ML 1 ML VIAL SQ SCH ×2 (08:11→20:30)
[2017-06-11] MEDS: PANTOPRAZOLE 40 MG TABLET PO SCH (08:11)
[2017-06-11] MEDS: amLODIPine 5 MG TAB PO SCH (08:11)
[2017-06-11] MEDS: MULTIVITAMINS, THERA 1 EACH TAB PO SCH (08:15)
[2017-06-11] MEDS: MAGNESIUM OXIDE 400 MG TAB PO SCH ×4 (08:15→20:30)
[2017-06-11] MEDS: SODIUM CHLORIDE TAB 1 GM TAB PO SCH ×4 (08:15→20:30)
--- NOTE | 2017-06-11 10:15 | P.PN ---
Subjective Patient is seen in follow-up for hyponatremia. Sodium level is 129 this morning. His appetite remains poor. Patient remains severely confused. He continues to refuse his medications as well as IV access. He did receive 3 doses of Samsca this admission. Hemodynamically stable. Vital signs are stable. General: The patient appeared well nourished and normally developed. HEENT: Head exam is unremarkable. Neck is without jugular venous distension. LUNGS: Lungs are clear to auscultation and percussion. Breath sounds decreased. HEART: Rate and Rhythm are regular. First and second heart sounds normal. No murmurs, rubs or gallops. ABDOMEN: Abdominal exam reveals normal bowel sounds. Non-tender and non- distended. No evidence of peritonitis. EXTREMITITES: No clubbing, cyanosis, or edema. Objective - Vital Signs Vital signs: Vital Signs Temp 97.6 F 06/11/17 07:00 Pulse 105 H 06/11/17 07:00 Resp 16 06/11/17 07:00 BP 144/68 06/11/17 07:00 Pulse Ox 98 06/11/17 07:00 Intake & Output 06/10/17 06/11/17 06/11/17 18:59 06:59 18:59 Intake Total 0 120 Balance 0 120 Weight 83.915 kg Intake: Intake, IV Titration 0 0 Amount Magnesium Sulfate-D5w Pmx 0 0 1 gm In Dextrose/Water 1 100ml.bag @ 100 mls/hr IVPB Q6HR [facility] Rx#: [id number] Oral 120 Other: Voiding Method Toilet Toilet Toilet # Voids 1 - Labs CBC & Chem 7: 06/10/17 07:05 06/11/17 06:41 Labs: Abnormal Lab Results - Last 24 Hours (Table) 06/11/17 Range/Units 06:41 Sodium 129 L (137-145) mmol/L Potassium 3.4 L (3.5-5.1) mmol/L Chloride 92 L (98-107) mmol/L Glucose 110 H (74-99) mg/dL Magnesium 0.9 L* (1.6-2.3) mg/dL Assessment and Plan Plan: Assessment: #1. 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 Sodium level is 129 this morning. #2. Hypomagnesemia secondary to chronic alcohol abuse. There is evidence of urinary magnesium wasting which can be seen with certain chemotherapeutic agents as well as alcohol abuse. #3. Altered mental status. Patient continues to talk constantly and not making much sense. Possible delirium versus dementia. #4. Anemia with thickness of the sigmoid noted on CAT scan. Patient refused to take GoLYTELY and could not undergo endoscopy this admission. #5. Hypokalemia related to hypomagnesemia and poor nutritional status. #6. Hypercalcemia. Again can be hypercalcemia of malignancy. PTH was appropriately suppressed. Vitamin D level noted at 56. Urine immunofixation revealed no monoclonal paraprotein. Follow-up 125 D3 as well as PTH related peptide levels. Plan: Maintain fluid restriction. Continue salt tabs 1 g 3 times daily. Replace magnesium, preferably IV in addition to oral - infuse slowly for better absorption. Replace potassium. 60 mEq oral today. Repeat electrolytes in the morning. Primary team is working upon discharge to an ECF facility.
[2017-06-11] MEDS: THIAMINE 100 MG TAB PO SCH (13:23)
[2017-06-11] MEDS: FOLIC ACID 1 MG TAB PO SCH (13:23)
--- NOTE | 2017-06-11 13:49 | P.PN ---
Subjective Progress note being dictated for Dr. Garvey 06/04 2017 Interval history: This is a 71-year-old gentleman admitted with change in mental status, dementia, multiple electrolyte imbalances and multiple other medical issues. Evaluated by psychiatry with recommendations noted. Maintained on Zyprexa, with noted improvement in patient's behavior. Cooperative, No combativeness reported, less irritable. Evaluated by physical therapy and 24/7 supervision recommended. 06/05 2017. Ambulating in room. Diet intake currently around 25%. Maintained on oral sodium with fluid restriction , current sodium 130. Magnesium 1.1, on scheduled oral magnesium and being supplemented per replacement protocol. Calcium remains high, workup in progress as per nephrology. Vitamin D level pending. Renal function improving. 06/06/2017 Maintained on fluid restrictions, refusing to take meds yesterday , sodium worsening, currently 125. Ambulating in hallway, tolerating exertion well. Diet intake poor. Potassium 3.2, magnesium 1. 9/ currently sitting in a chair across from the nurse's station, confused. Consumed 50% of breakfast this morning. Maintained on fluid restrictions , sodium tabs increased yesterday .sodium continues to worsen, 123.Samsca ordered. Potassium 3.3, magnesium 1. 9/ maintained on Samsca, sodium up to 126. Remains confused, pulling out IV lines, diet intake remains poor. Magnesium 1.5, potassium 3.9. 06/09/2017 Endocrine change in his clinical status compared to yesterday we're still awaiting on discharge disposition although sodium has come down a little bit patient is declining to take any of his medications patient is declining to take magnesium. 06/10/2017 Patient was much more confused last night. 06/11/2017 awaiting discharged to [facility] tomorrow. Intermittent oral intake and consumption of meds. Sodium 129. Potassium 3.4, magnesium 0.9. Objective - Vital Signs Vital signs: Vital Signs Temp 97.6 F 06/11/17 07:00 Pulse 105 H 06/11/17 07:00 Resp 16 06/11/17 07:00 BP 144/68 06/11/17 07:00 Pulse Ox 98 06/11/17 07:00 Intake & Output 06/10/17 06/11/17 06/11/17 18:59 06:59 18:59 Intake Total 0 120 100 Balance 0 120 100 Weight 83.915 kg 83.915 kg Intake: Intake, IV Titration 0 0 100 Amount Magnesium Sulfate-D5w Pmx 0 0 100 1 gm In Dextrose/Water 1 100ml.bag @ 100 mls/hr IVPB Q6HR [facility] Rx#: [id number] Oral 120 Other: Voiding Method Toilet Toilet Toilet # Voids 1 - Exam PHYSICAL EXAM: VITAL SIGNS: As above GENERAL: Sitting up in chair, confused HEENT: Conjunctivae normal. eyes normal. NECK: No JVD. No thyroid enlargement. CARDIOVASCULAR: S1, S2 muffled. No murmur RESPIRATION: Breath sounds diminished in the bases. No rhonchi or crackles, No wheezing. ABDOMEN: Soft, nontender . No guarding. no masses palpable. No ascites. Bowel sounds heard. LEGS: No edema. no swelling PSYCHIATRY: Alert and oriented -2, confused, Noncombative. NERVOUS SYSTEM: Cranial N 2-12 grossly normal. Moves all 4 limbs. No focal deficits. - Labs CBC & Chem 7: 06/10/17 07:05 06/11/17 06:41 Labs: Abnormal Lab Results - Last 24 Hours (Table) 06/11/17 Range/Units 06:41 Sodium 129 L (137-145) mmol/L Potassium 3.4 L (3.5-5.1) mmol/L Chloride 92 L (98-107) mmol/L Glucose 110 H (74-99) mg/dL Magnesium 0.9 L* (1.6-2.3) mg/dL Assessment and Plan Plan: 1. [ Change in mental status with possible dementia, possible acute delirium, acute metabolic encephalopathy, multifactorial]. 2. 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 4. [ Thickening of the sigmoid colon possibly colitis, rule out malignancy, patient refused EGD, colonoscopy]. 5. [ Acute renal failure, possible acute tubular necrosis]. 6. [ History of EtOH abuse]. 7. Hypercalcemia, low PTH, vitamin D 56. 8. Hypomagnesemia in a patient with history of alcohol abuse. Plan: Continue on current medication regime ,monitoring and symptomatic treatment. Maintain fluid restrictions, salt tabs. Potassium and magnesium replacements as per ordered replacement protocols. Follow closely with nephrology. Awaiting disposition/discharge to [facility]. Prognosis guarded. Further recommendations to follow. The impression and plan of care has been dictated as directed as a scribe. : I performed a H&P examination of this patient and discussed the same with the dictator. I agree with the dictator's note. Any additional findings/opinions/ etc. will be noted.
[2017-06-11] MEDS ORDERED: Potassium Replacement Protocol 1 EACH MISC MISCELLANE PRN (14:46)
[2017-06-11] MEDS: POTASSIUM CHLORIDE ER 20 MEQ TAB.ER PO SCH ×3 (15:19→16:55)
[2017-06-11] MEDS: OLANZapine 5 MG TAB PO SCH (16:55)
[2017-06-11] MEDS: ATORVASTATIN 20 MG TAB PO SCH (20:29)
[2017-06-12 07:41] VITALS: BP 130/60; PULSE 105; RESP 16; TEMP 97.9
[2017-06-12 08:46] LABS: Anion Gap 11 mmol/L; Blood Urea Nitrogen 15 mg/dL (9-20); Carbon Dioxide 27 mmol/L (22-30); Chloride 91 mmol/L (98-107); Glucose 121 mg/dL (74-99); Magnesium 1.3 mg/dL (1.6-2.3); Non-African American GFR(MDRD) >60 (>60 ml/min/1.73 sqM); Sodium 129 mmol/L (137-145)
[2017-06-12] MEDS: amLODIPine 5 MG TAB PO SCH ×2 (08:47→12:22)
[2017-06-12] MEDS: PANTOPRAZOLE 40 MG TABLET PO SCH ×2 (08:47→12:22)
[2017-06-12] MEDS: MAGNESIUM OXIDE 400 MG TAB PO SCH ×2 (08:47→12:22)
[2017-06-12] MEDS: HEPARIN SODIUM,PORCINE 5,000 UNIT/ML 1 ML VIAL SQ SCH (08:47)
[2017-06-12] MEDS: SODIUM CHLORIDE TAB 1 GM TAB PO SCH ×2 (08:47→12:23)
[2017-06-12] MEDS: MULTIVITAMINS, THERA 1 EACH TAB PO SCH ×2 (08:47→12:22)
[2017-06-12] MEDS: OLANZapine 5 MG TAB PO SCH (08:47)
[2017-06-12] MEDS: OLANZapine 2.5 MG TAB PO SCH ×2 (08:49→12:22)
--- NOTE | 2017-06-12 10:32 | P.PN ---
Subjective Patient is seen in follow-up for hyponatremia. Sodium level is 129 this morning. His appetite remains poor. Patient remains confused. He continues to refuse his medications as well as IV access intermittently. He did receive 3 doses of Samsca this admission. Hemodynamically stable. Vital signs are stable. General: The patient appeared well nourished and normally developed. HEENT: Head exam is unremarkable. Neck is without jugular venous distension. LUNGS: Lungs are clear to auscultation and percussion. Breath sounds decreased. HEART: Rate and Rhythm are regular. First and second heart sounds normal. No murmurs, rubs or gallops. ABDOMEN: Abdominal exam reveals normal bowel sounds. Non-tender and non- distended. No evidence of peritonitis. EXTREMITITES: No clubbing, cyanosis, or edema. Objective - Vital Signs Vital signs: Vital Signs Temp 97.9 F 06/12/17 07:00 Pulse 105 H 06/12/17 07:00 Resp 16 06/12/17 07:00 BP 130/60 06/12/17 07:00 Pulse Ox 97 06/12/17 07:00 Intake & Output 06/11/17 06/12/17 06/12/17 18:59 06:59 18:59 Intake Total 100 200 Balance 100 200 Weight 83.915 kg Intake: Intake, IV Titration 100 100 Amount Magnesium Sulfate-D5w Pmx 100 1 gm In Dextrose/Water 1 100ml.bag @ 100 mls/hr IVPB Q6HR [facility] Rx#: [id number] Magnesium Sulfate-D5w Pmx 100 1 gm In Dextrose/Water 1 100ml.bag @ 40 mls/hr IVPB Q3H [facility] Rx#: [id number] Oral 100 Other: Voiding Method Toilet Toilet # Voids 1 3 - Labs CBC & Chem 7: 06/10/17 07:05 06/12/17 07:44 Labs: Abnormal Lab Results - Last 24 Hours (Table) 06/12/17 Range/Units 07:44 Sodium 129 L (137-145) mmol/L Chloride 91 L (98-107) mmol/L Glucose 121 H (74-99) mg/dL Magnesium 1.3 L (1.6-2.3) mg/dL Assessment and Plan Plan: Assessment: #1. 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 Sodium level is 129 this morning. #2. Hypomagnesemia secondary to chronic alcohol abuse. There is evidence of urinary magnesium wasting which can be seen with certain chemotherapeutic agents as well as alcohol abuse. #3. Altered mental status. Patient continues to talk constantly and not making much sense. Possible delirium versus dementia. #4. Anemia with thickness of the sigmoid noted on CAT scan. Patient refused to take GoLYTELY and could not undergo endoscopy this admission. #5. Hypokalemia related to hypomagnesemia and poor nutritional status. Improved. #6. Hypercalcemia. Again can be hypercalcemia of malignancy. PTH was appropriately suppressed. Vitamin D level noted at 56. Urine immunofixation revealed no monoclonal paraprotein. 1,25 D3 level normal. Follow up PTH related peptide levels. Plan: Maintain fluid restriction. Continue salt tabs 1 g 3 times daily. Replace magnesium, preferably IV in addition to oral - infuse slowly for better absorption. Repeat electrolytes in the morning. Primary team is working upon discharge to an ECF facility - will need to monitor lytes closely, every 2-3 days.
[2017-06-12] MEDS: MAGNESIUM SULFATE-D5W PMX 1 GM in DEXTROSE/WATER 1 100ML.BAG IVPB SCH ×2 (12:19→12:20)
== END 2017-06-12 12:55 | DRG 643 ==
LOC: 5MS5E 23:16 → 5ONC 06-04 11:44
PROVIDERS: ADMIT Hospitalist; ATTEND Hospitalist
DX: E22.2 Syndrome of inappropriate secretion of antidiuretic hormone (principal); G93.41 Metabolic encephalopathy; N17.0 Acute kidney failure with tubular necrosis; F05 Delirium due to known physiological condition; E11.9 Type 2 diabetes mellitus without complications; D64.9 Anemia, unspecified; F03.91 Unspecified dementia, unspecified severity, with behavioral disturbance; I10 Essential (primary) hypertension; G20 Parkinson's disease; E83.42 Hypomagnesemia; E83.52 Hypercalcemia; E78.5 Hyperlipidemia, unspecified; E87.6 Hypokalemia; F10.10 Alcohol abuse, uncomplicated; H91.90 Unspecified hearing loss, unspecified ear; K52.9 Noninfective gastroenteritis and colitis, unspecified; Z79.899 Other long term (current) drug therapy; Z80.0 Family history of malignant neoplasm of digestive organs; Z80.1 Family history of malignant neoplasm of trachea, bronchus and lung; Z87.891 Personal history of nicotine dependence
CPT/HCPCS: 70553; 71250; 74176; 80048; 80053; 81001; 81003; 82164; 82175; 82306; 82570; 82652; 82728; 83540; 83550; 83655; 83735; 83825; 83935; 83970; 84100; 84132; 84133; 84295; 84300; 84425; 84550; 84630; 85025; 85027; 85610; 85652; 86140; 86335; 87040; 87086; 93005; 93306; 94760

== ENCOUNTER → 2017-12-12 | Outpatient (CLI) | payer MEDICARE ==
[2017-12-12 07:29] LABS: HCT 30.2 % (39.0-53.0); HGB 10.9 gm/dL (13.0-17.5); MCH 30.4 pg (25.0-35.0); MCV 84.4 fL (80.0-100.0); Mean Platelet Volume 6.8; Platelet Count 362 k/uL (150-450); RBC 3.58 m/uL (4.30-5.90); RDW 13.7 % (11.5-15.5); WBC 11.7 k/uL (3.8-10.6)
[2017-12-12 08:16] LABS: Anion Gap 13 mmol/L; Blood Urea Nitrogen 22 mg/dL (9-20); Carbon Dioxide 29 mmol/L (22-30); Chloride 92 mmol/L (98-107); Glucose 180 mg/dL (74-99); Magnesium 1.6 mg/dL (1.6-2.3); Phosphorus 4.3 mg/dL (2.5-4.5); Potassium 4.2 mmol/L (3.5-5.1); Sodium 134 mmol/L (137-145)
[2017-12-12 09:22] LABS: Appearance,Urine Clear (Clear); Bilirubin,Urine Negative (Negative); Blood,Urine Negative (Negative); Color,Urine Light Yellow; Glucose,Urine (UA) Negative (Negative); Ketones,Urine Negative (Negative); Leukocyte Esterase,Urine Negative (Negative); Nitrite,Urine Negative (Negative); Protein,Urine Negative (Negative); Urobilinogen,Urine <2.0 mg/dL (<2.0)
[2017-12-12 11:16] LABS: Iron Saturation 11.17 (15.00-50.00)
== END | disposition home or self-care (01) ==
LOC: LABWHC1 06:43
PROVIDERS: ATTEND Internal Medicine
DX: D64.9 Anemia, unspecified (principal); E83.39 Other disorders of phosphorus metabolism; R80.9 Proteinuria, unspecified; E87.1 Hypo-osmolality and hyponatremia; G93.40 Encephalopathy, unspecified; E83.42 Hypomagnesemia
CPT/HCPCS: 36415; 80048; 81003; 82728; 83540; 83550; 83735; 83930; 83935; 84100; 84300; 85027

== ENCOUNTER → 2017-12-26 | Outpatient (CLI) | payer MEDICARE ==
--- NOTE | 2017-12-26 15:58 | CT ---
EXAMINATION TYPE: CT sinus wo con DATE OF EXAM: 12/26/2017 COMPARISON: NONE HISTORY: 72 year-old male chronic sinusitis, Right sided intranasal lesion. CT DLP: 612 mGycm Automated exposure control for dose reduction was used. TECHNIQUE: Noncontrast axial views of the paranasal sinuses were obtained. Coronal reconstructions pe rformed. FINDINGS: There is dense irregular sclerosis replacing the right inferior turbinate measuring 3.1 cm AP by 1.3 cm wide by 2.1 cm craniocaudal. There is prominent mucosal thickening throughout the right nasal cavity with areas of bony dehiscence along the medial wall of the right maxillary sinus and along the floor of the right nasal cavity as well, refer to coronal image 31. There is reactive and ping osteogenesis of the right maxillary sinus with moderate to severe mucosal t hickening and some hyperdense material within. Moderate mucosal thickening along the floor of the lef t maxillary sinus, mild within the right sphenoid sinus. There is slight undulation of the nasal septum towards the left. Opacification at the level of the right osteomeatal complex. Left osteomeatal complex is patent. The imaged brain and orbits are normal in appearance. Mastoid air cells and middle ear cavities are well pneumatized. Reformatted images confirm above findings. IMPRESSION: 1. 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 The right inferior nasal turbinate is replac ed with irregular sclerosis measuring 3.1 x 1.3 x 2.1 cm likely reactive to chronic infection. Dehisc ence of portions of the medial wall of the right maxillary sinus as well as the floor of the right na sammie cavity. 2. There is also secondary thickening of the right maxillary sinus potter with associated moderate to severe chronic sinusitis. Hyperdense material within could represent inspissated mucus or superimpose d aspergillus infection. 3. Additional mild to moderate left maxillary sinus disease.
== END | disposition home or self-care (01) ==
LOC: RADCTMAIN 15:10
PROVIDERS: ATTEND Otolaryngology
DX: J32.0 Chronic maxillary sinusitis (principal); J34.89 Other specified disorders of nose and nasal sinuses
CPT/HCPCS: 70486

== ENCOUNTER → 2017-12-26 | Outpatient (CLI) | payer MEDICARE ==
--- NOTE | 2017-12-26 16:00 | US ---
EXAMINATION TYPE: US renals and bladder DATE OF EXAM: 12/26/2017 COMPARISON: NONE CLINICAL HISTORY: E87.1 Hypotremia. EXAM MEASUREMENTS: Right Kidney: 11.9 x 5.5 x 5.0 cm Left Kidney: 11.5 x 6.1 x 4.8 cm Right Kidney: No hydronephrosis, nephrolithiasis or mass seen Left Kidney: No hydronephrosis, nephrolithiasis or mass seen Bladder: wnl Bilateral Jets seen: Yes There is no evidence for hydronephrosis at this point in time. No nephrolithiasis is seen. No erwin s are identified. The urinary bladder is anechoic. Bilateral ureteral jets are seen. IMPRESSION: No acute process.
== END | disposition home or self-care (01) ==
LOC: RADUSMAIN 15:14
PROVIDERS: ATTEND Nurse Practitioner Family
DX: E87.1 Hypo-osmolality and hyponatremia (principal)
CPT/HCPCS: 76770

== ENCOUNTER 2018-01-30 07:04 | Day surgery (SDC) | payer MEDICARE ==
[2018-01-25 13:41] VITALS: BMI 26.4
[~2018-01-30 07:04] MED LIST: DEXAMETHASONE SOD PHOSPHATE 10 MG/ML 1 ML VIAL IV ONE; DEXAMETHASONE SOD PHOSPHATE 4 MG/ML 1 ML VIAL IV ONE; FAMOTIDINE 20 MG/2 ML VIAL IV ONE; LACTATED RINGERS 1,000 ML IV SCH; LIDOCAINE 1% 20 ML VIAL (10MG/ML) FOR IV START INTRADERMA PRN; MIDAZOLAM 2 MG/2 ML VIAL IV PRN; ONDANSETRON 4 MG/2 ML VIAL IVP ONE; ONDANSETRON ODT 4 MG TAB PO ONE; SCOPOLAMINE 1.5MG/72HR PATCH TRANSDERM ONE; ceFAZolin 1,000 MG in DEXTROSE/WATER 1 50ML.BAG IV ONE; fentaNYL (PF) 50 MCG/ML 2 ML AMP IV PRN
[2018-01-30] MEDS: OXYMETAZOLINE 0.05% NASL SPRAY 1 SPRAY BOTTLE NASAL ONE ×6 (08:33→09:05)
[2018-01-30 08:48] VITALS: RESP 16
[2018-01-30 09:00] LABS: Glucose,Whole Blood 205 mg/dL (75-99)
[2018-01-30] MEDS ORDERED: LIDOCAINE 1% INJ 10MG/ML (20 ML MDV) ONE (09:31)
[2018-01-30] MEDS ORDERED: fentaNYL (PF) 50 MCG/ML 2 ML AMP ONE (09:31)
[2018-01-30] MEDS ORDERED: SUCCINYLCHOLINE CHLORIDE 100 MG/5 ML SYR IV ONE (09:31)
[2018-01-30] MEDS ORDERED: PROPOFOL 10 MG/ML 20 ML VIAL IV ONE (09:31)
[2018-01-30] MEDS ORDERED: LIDOCAINE 1%-EPI 1:100,000 20 ML VIAL SQ ONE ×2 (09:53)
--- NOTE | 2018-01-30 10:31 | P.OP ---
Date of Procedure: 01/30/18 Preoperative Diagnosis: Chronic sinusitis Right nasal mass Deviated nasal septum Inferior turbinate hypertrophy Postoperative Diagnosis: Same with possible foreign body right nasal cavity Procedure(s) Performed: Bilateral endoscopic sinus surgery including bilateral maxillary antrostomy with removal of tissue from the maxillary sinuses Right nasal endoscopy with removal of right nasal mass Outfracture and submucous resection of the left inferior turbinate Anesthesia: YANI Surgeon: Pedro Allison Estimated Blood Loss (ml): 10 Pathology: other (Sinus contents, right nasal mass) Condition: stable Disposition: PACU Indications for Procedure: This is a 72-year-old white male with chronic nasal airway obstruction especially on the right as well as recurrent/chronic sinusitis. Computed tomography scan shows evidence of chronic maxillary sinusitis right greater than left as well as a bony nasal lesion intranasal on the right Operative Findings: Bilateral maxillary ostia were obstructed right worse than left. There was diffuse mucosal thickening and polypoid tissue in the right maxillary sinus with minimal mucosal thickening and polypoid tissue in the right maxillary sinus. There was a brown to green irregular mass in the right nasal cavity which may represent a fungal ball although it was very hard intact bony hard in some areas. This was removed piecemeal due to the hard nature of this. Within this also appeared to be foreign body which was rubbery and thin mimicking a small rubber band. This will be evaluated under microscopy. There was diffuse quite markedly soft tissue inflammation throughout the right nasal cavity which appeared most consistent with granulation tissue from the foreign body. Septum was deviated to the left but only mildly and therefore was not corrected. Inferior turbinate on the left was hypertrophied on the right was atrophic Description of Procedure: The patient was brought in the operative suite and placed in a supine position. The patient underwent induction of general anesthesia with oral endotracheal intubation without difficulty. The patient was prepped and draped in usual aseptic fashion with the orbits in the operating field for monitoring throughout the case and the computed tomography scan on the computer screen for review throughout the case also. 1% lidocaine with 1 100,000 epinephrine was infused submucosally both sides of the nose laterally as well as anterior tips of middle turbinates bilaterally. While this taking vasoconstrictive effect the inferior turbinate on the left was infractured with the [place] elevator and partial submucous resection of the inferior turbinates was performed with microdebrider 2 mm blade removing a portion of the submucosal soft tissue and inferior turbinate bone and then outfractured with the [place] elevator. 0 endoscopic examination is performed bilaterally. Beginning on the left the middle turbinate was medialized with a [place] elevator. Infundibulotomy was performed followed by uncinectomy and the maxillary antrostomy was enlarged at the expense of the anterior and posterior fontanelle taking care anteriorly not to injure the lacrimal bone and soft tissue was removed from the maxillary sinus using giraffe forceps. Attention was then turned to the right. The foreign body/concretion and mass on the right was removed utilizing ballpoint probe Lee forceps and straight [place] forceps. This had to be removed piecemeal due to the fact that it would break apart and was very hard and fat bony hard. Once this removed there was diffuse granulation tissue which was debrided with the microdebrider septum as well as lateral nasal wall. The inferior turbinate was atrophic on the right. After this was completed the maxillary ostium was located with a ballpoint probe and infundibulotomy and uncinectomy performed as well as maxillary antrostomy as it was on the left and tissue removed from the right maxillary sinus as it had been on the left. Once this was completed a small pledget of nasal pore nasal dressing was placed in the middle meatus bilaterally. Also a small pledget of nasal pore nasal dressing was placed in the right nasal cavity due to the raw nature of the nasal mucosa. Once this completed there was good hemostasis. The patient was suctioned in oral gastric fashion. The patient allowed to emerge from general anesthesia having type tolerated the procedure well was extubated in the operating suite and transferred to postop recovery recovery area in satisfactory condition.
[2018-01-30 10:37] VITALS: TEMP 97.1
[2018-01-30 10:54] LABS: Glucose,Whole Blood 249 mg/dL (75-99)
[2018-01-30 11:52] LABS: Glucose,Whole Blood 239 mg/dL (75-99)
[2018-01-30 12:11] VITALS: BP 159/73; PULSE 85
== END 2018-01-30 12:25 | disposition home or self-care (01) ==
LOC: OR 07:04
PROVIDERS: ATTEND Otolaryngology
DX: J32.0 Chronic maxillary sinusitis (principal); J34.2 Deviated nasal septum; J34.3 Hypertrophy of nasal turbinates; J34.9 Unspecified disorder of nose and nasal sinuses; E11.9 Type 2 diabetes mellitus without complications; Z79.84 Long term (current) use of oral hypoglycemic drugs; Z79.899 Other long term (current) drug therapy
CPT/HCPCS: 30140; 31267; J2001; J3010; J0690; J0330; J2704; 88305; 88311

== ENCOUNTER → 2018-03-11 | Outpatient (CLI) | payer MEDICARE ==
[2018-03-11 07:20] LABS: HCT 31.8 % (39.0-53.0); HGB 10.9 gm/dL (13.0-17.5); MCH 28.8 pg (25.0-35.0); MCHC 34.1 g/dL (31.0-37.0); MCV 84.5 fL (80.0-100.0); Mean Platelet Volume 6.6; Platelet Count 334 k/uL (150-450); RBC 3.77 m/uL (4.30-5.90); RDW 13.2 % (11.5-15.5); WBC 10.1 k/uL (3.8-10.6)
[2018-03-11 07:40] LABS: Magnesium 1.7 mg/dL (1.6-2.3); Potassium 3.9 mmol/L (3.5-5.1)
[2018-03-11 12:50] LABS: Hemoglobin A1C 9.2 % (4.0-6.0)
[2018-03-11 13:01] LABS: Iron Saturation 10.19 (15.00-50.00)
== END | disposition home or self-care (01) ==
LOC: LABWHC1 06:34
PROVIDERS: ATTEND Nurse Practitioner Family
DX: E87.1 Hypo-osmolality and hyponatremia (principal); E83.42 Hypomagnesemia; E11.9 Type 2 diabetes mellitus without complications; D50.9 Iron deficiency anemia, unspecified
CPT/HCPCS: 36415; 80051; 82570; 82728; 83036; 83540; 83550; 83735; 85027

== ENCOUNTER → 2018-07-08 | Outpatient (CLI) | payer MEDICARE ==
[2018-07-08 08:27] LABS: HCT 34.9 % (39.0-53.0); HGB 12.3 gm/dL (13.0-17.5); MCH 31.1 pg (25.0-35.0); MCHC 35.1 g/dL (31.0-37.0); MCV 88.6 fL (80.0-100.0); Mean Platelet Volume 7.4; Platelet Count 358 k/uL (150-450); RBC 3.94 m/uL (4.30-5.90); RDW 13.3 % (11.5-15.5); WBC 11.1 k/uL (3.8-10.6)
[2018-07-08 08:54] LABS: Calcium 9.5 mg/dL (8.4-10.2); Magnesium 1.8 mg/dL (1.6-2.3); Potassium 4.1 mmol/L (3.5-5.1)
[2018-07-08 17:34] LABS: Iron Saturation 20.13 (15.00-50.00)
[2018-07-08 20:02] LABS: Hemoglobin A1C 6.7 % (4.0-6.0)
== END | disposition home or self-care (01) ==
LOC: LABWHC1 06:34
PROVIDERS: ATTEND Nurse Practitioner Family
DX: D50.9 Iron deficiency anemia, unspecified (principal); E83.42 Hypomagnesemia; E11.9 Type 2 diabetes mellitus without complications; E87.1 Hypo-osmolality and hyponatremia
CPT/HCPCS: 36415; 80048; 82728; 83036; 83540; 83550; 83735; 83930; 83935; 84300; 85027

== ENCOUNTER → 2018-11-26 | Outpatient (CLI) | payer MEDICARE ==
[2018-11-26 07:47] LABS: Appearance,Urine Clear (Clear); Bilirubin,Urine Negative (Negative); Blood,Urine Negative (Negative); Color,Urine Light Yellow; Glucose,Urine (UA) Negative (Negative); Ketones,Urine Negative (Negative); Leukocyte Esterase,Urine Negative (Negative); Nitrite,Urine Negative (Negative); PH, Urine 7.5 (5.0-8.0); Protein,Urine Negative (Negative); Urobilinogen,Urine <2.0 mg/dL (<2.0)
[2018-11-26 08:03] LABS: HCT 34.7 % (39.0-53.0); HGB 11.6 gm/dL (13.0-17.5); MCH 29.8 pg (25.0-35.0); MCHC 33.5 g/dL (31.0-37.0); MCV 89.1 fL (80.0-100.0); Mean Platelet Volume 7.1; Platelet Count 291 k/uL (150-450); RBC 3.89 m/uL (4.30-5.90); RDW 13.2 % (11.5-15.5); WBC 14.8 k/uL (3.8-10.6)
[2018-11-26 12:09] LABS: Iron Saturation 11.6 (15.00-50.00)
[2018-11-26 12:30] LABS: Anion Gap 10.1 mmol/L (4.00-12.00); Calcium 9.6 mg/dL (8.7-10.3); Carbon Dioxide 29.9 mmol/L (21.6-31.8); Magnesium 1.7 mg/dL (1.5-2.4); Potassium 3.7 mmol/L (3.5-5.5)
[2018-11-26 13:29] LABS: Hemoglobin A1C 7.1 % (4.0-6.0)
[2018-11-26 17:45] LABS: Total Volume 24 Hour,Urine 2400 mL
[2018-11-26 18:34] LABS: Total Protein 24 Hour,Urine 189.6 mg/24Hr
[2018-11-27 13:40] LABS: Creatinine,Urine Random 69.1 mg/dL; Total Protein,Urine Random 11.2 mg/dL (0.0-13.5)
== END ==
LOC: LABWHC1 06:45
PROVIDERS: ATTEND Nurse Practitioner Family
DX: E11.9 Type 2 diabetes mellitus without complications (principal); E87.1 Hypo-osmolality and hyponatremia; N39.0 Urinary tract infection, site not specified; E83.39 Other disorders of phosphorus metabolism; D50.9 Iron deficiency anemia, unspecified; D64.9 Anemia, unspecified
CPT/HCPCS: 36415; 80048; 81003; 81050; 82570; 82728; 83036; 83540; 83550; 83735; 84156; 85027

== ENCOUNTER → 2019-02-10 | Outpatient (CLI) | payer MEDICARE ==
[2019-02-10 07:11] LABS: HCT 36.1 % (39.0-53.0); MCH 29.8 pg (25.0-35.0); MCHC 33.3 g/dL (31.0-37.0); MCV 89.3 fL (80.0-100.0); Platelet Count 316 k/uL (150-450); RBC 4.04 m/uL (4.30-5.90); RDW 13.3 % (11.5-15.5)
[2019-02-10 10:55] LABS: Anion Gap 8.5 mmol/L (4.00-12.00); Carbon Dioxide 28.5 mmol/L (21.6-31.8)
== END | disposition home or self-care (01) ==
LOC: LABWHC1 06:42
PROVIDERS: ATTEND Internal Medicine Interventional Cardiology
DX: Z01.812 Encounter for preprocedural laboratory examination (principal); I70.213 Atherosclerosis of native arteries of extremities with intermittent claudication, bilateral legs
CPT/HCPCS: 36415; 80051; 82565; 84520; 85027

== ENCOUNTER → 2019-02-18 | Day surgery (SDC) | payer MEDICARE ==
[2019-02-12 15:58] VITALS: BMI 25.4
[~2019-02-18] MED LIST changes: -DEXAMETHASONE SOD PHOSPHATE 10 MG/ML 1 ML VIAL IV ONE; -DEXAMETHASONE SOD PHOSPHATE 4 MG/ML 1 ML VIAL IV ONE; -FAMOTIDINE 20 MG/2 ML VIAL IV ONE; +IOPAMIDOL-250 100ML BTL INTRAARTER ONE; -LACTATED RINGERS 1,000 ML IV SCH; -LIDOCAINE 1% 20 ML VIAL (10MG/ML) FOR IV START INTRADERMA PRN; +LIDOCAINE 2% INJ 20 MG/ML SQ ONE; +LISINOPRIL 2.5 MG TAB PO STA; +MIDAZOLAM (PF) 2 MG/2 ML VIAL IVP ONE; -MIDAZOLAM 2 MG/2 ML VIAL IV PRN; -ONDANSETRON 4 MG/2 ML VIAL IVP ONE; -ONDANSETRON ODT 4 MG TAB PO ONE; -SCOPOLAMINE 1.5MG/72HR PATCH TRANSDERM ONE; +SODIUM CHLORIDE 0.9% 1,000 ML IV SCH; +SODIUM CHLORIDE 0.9% 1,000 ML in EMPTY BAG 1 BAG IV ONE; +amLODIPine 5 MG TAB PO STA; -ceFAZolin 1,000 MG in DEXTROSE/WATER 1 50ML.BAG IV ONE; -fentaNYL (PF) 50 MCG/ML 2 ML AMP IV PRN
[2019-02-18 09:34] VITALS: RESP 18; TEMP 97.5
[2019-02-18 09:41] LABS: Glucose,Whole Blood 147 mg/dL (75-99)
[2019-02-18 09:55] LABS: Basophils # (A) 0.1 k/uL (0-0.2); Basophils % (A) 1 %; Eosinophils # (A) 0.5 k/uL (0-0.7); Eosinophils % (A) 4 %; HCT 37.3 % (39.0-53.0); HGB 12.7 gm/dL (13.0-17.5); Lymphocytes # (A) 2.8 k/uL (1.0-4.8); Lymphocytes % (A) 22 %; MCH 29.7 pg (25.0-35.0); MCV 87.4 fL (80.0-100.0); Mean Platelet Volume 7.6; Monocytes # (A) 0.9 k/uL (0-1.0); Monocytes % (A) 7 %; Neutrophils # (A) 8.2 k/uL (1.3-7.7); Neutrophils % (A) 63 %; Platelet Count 323 k/uL (150-450); RBC 4.27 m/uL (4.30-5.90); RDW 14.1 % (11.5-15.5); WBC 12.9 k/uL (3.8-10.6)
--- NOTE | 2019-02-18 12:21 | LTR ---
DATE OF SERVICE: February 18, 2019. RE: Kei Obregon Dear Dr. Galvan; Mr. Kei Obregon underwent a peripheral angiogram today and that revealed occluded right femoral artery. He will be scheduled to undergo an atherectomy and balloon angioplasty of the right femoral artery. I want to thank you for allowing us to participate in his care and please do not hesitate to call if you have any question or concern. Sincerely, MD BOLA Gómez / ALICE: [id number] /
--- NOTE | 2019-02-18 12:21 | AN ---
ANGIOGRAPHY REPORT DATE OF SERVICE: February 18, 2019 PERFORMING PHYSICIAN: Jermain Aguirre MD, employee representative. PROCEDURE PERFORMED: 1. An abdominal aortogram. 2. Bilateral lower extremities runoff. INDICATION: This is a pleasant 73-year-old gentleman with history of hypertension and dyslipidemia who was experiencing right leg intermittent claudication. On examination, he did have diminished right popliteal pulse. Severe PAD was suspected and because of that, the patient was brought for abdominal aortogram and bilateral lower extremities runoff. COMPLICATION: None. LEVEL OF SEDATION: Moderate with sedation length of 13 minutes. PROCEDURE DESCRIPTION: After obtaining an informed consent, the patient was brought to the cardiac slab polisher. The right common femoral artery was cannulated using micropuncture technique, the micropuncture wire passed easily then I placed a 5-Azerbaijani sheath in the right radial artery. After that, I did an abdominal aortogram and bilateral lower extremities runoff using 5-Azerbaijani pigtail catheter which was initially placed at the level of the renal arteries then it was pulled into above the bifurcation of the aorta to right and left common iliac arteries. The procedure was completed without any complication. SELECTIVE PERIPHERAL ANGIOGRAM: 1. The aorta is calcified with mild disease only. 2. Common Iliac Arteries: The right common iliac artery appeared to be angiographically normal and the left common iliac artery appeared to have a lesion in the range of 50%. 3. Internal Iliac Arteries: The right and left internal are patent. 4. External Iliac Arteries: The right and left external iliac arteries appeared to be angiographically normal. 5. Common Femoral Arteries: The right common femoral artery appeared to be angiographically normal and the left common femoral artery appeared to have eccentric plaque appeared to be calcified. The plaque angiographically appeared to be in the range of 80%. 6. Profunda: The right and left profunda are patent. 7. SFA: The right SFA is occluded on short segment in the proximal portion with extension from the takeoff from the common femoral artery, but there was stump seen. After that, the SFA is diffusely disease. The left SFA appeared to have mild disease only. 8. Popliteal: The right popliteal appeared to have severe disease and the left popliteal appeared to have severe disease as well. 9. Below the knee: There are 3 vessels runoff below the knee bilaterally. CONCLUSION: 1. Intermediate disease involving the left common iliac artery. 2. Occluded right SFA on short segment in the proximal portion. 3. Calcified plaque identified in the left common femoral artery. 4. Severe bilateral popliteal disease. POSTPROCEDURE MANAGEMENT: 1. The patient will be scheduled to undergo atherectomy and CAR TRIMMER of the right SFA. 2. Assess the gradient across the left common iliac artery. 3. Probably intravascular ultrasound, IVUS, of the left common femoral artery to assess the severity of the calcified plaque there. BOLA / BRYSONN: [id number] /
--- NOTE | 2019-02-18 13:11 | IR ---
Fluoroscopy HISTORY: Pain 90 seconds fluoroscopy time supplied to the referring clinician. 177 intraoperative C-arm images doc ument the procedure. See dictated report from cardiology.
[2019-02-18 16:33] VITALS: BP 143/65; PULSE 76
== END | disposition home or self-care (01) ==
LOC: CATHCVL 09:06
PROVIDERS: ATTEND Internal Medicine Interventional Cardiology
DX: E11.51 Type 2 diabetes mellitus with diabetic peripheral angiopathy without gangrene (principal); I70.211 Atherosclerosis of native arteries of extremities with intermittent claudication, right leg; I10 Essential (primary) hypertension; E78.5 Hyperlipidemia, unspecified; Z87.891 Personal history of nicotine dependence; Z79.82 Long term (current) use of aspirin; Z79.899 Other long term (current) drug therapy
CPT/HCPCS: 36200; 75625; 75716; 85025; C1769 ×3; C1894; J2001; Q9966; J2250

== ENCOUNTER 2019-03-12 11:21 | Day surgery (SDC) | payer MEDICARE ==
[2019-03-06 09:15] VITALS: BMI 25.1
[2019-03-12] MEDS ORDERED: SODIUM CHLORIDE 0.9% 1,000 ML IV ONE (11:57)
[2019-03-12 12:11] LABS: Glucose,Whole Blood 157 mg/dL (75-99)
[2019-03-12] MEDS ORDERED: SODIUM CHLORIDE 0.9% 1,000 ML in EMPTY BAG 1 BAG IV ONE (12:11)
[2019-03-12 12:28] LABS: Basophils # (A) 0.1 k/uL (0-0.2); Basophils % (A) 1 %; Eosinophils # (A) 0.3 k/uL (0-0.7); Eosinophils % (A) 2 %; HCT 36.2 % (39.0-53.0); HGB 12.4 gm/dL (13.0-17.5); Lymphocytes # (A) 2.3 k/uL (1.0-4.8); Lymphocytes % (A) 21 %; MCH 30.3 pg (25.0-35.0); MCHC 34.2 g/dL (31.0-37.0); MCV 88.5 fL (80.0-100.0); Mean Platelet Volume 7.3; Monocytes # (A) 0.7 k/uL (0-1.0); Monocytes % (A) 6 %; Neutrophils # (A) 7.1 k/uL (1.3-7.7); Neutrophils % (A) 67 %; Platelet Count 310 k/uL (150-450); RBC 4.09 m/uL (4.30-5.90); RDW 13.8 % (11.5-15.5); WBC 10.7 k/uL (3.8-10.6)
[2019-03-12 12:29] LABS: ALT 21 U/L (21-72); AST 21 U/L (17-59); African American GFR (CKD) >90 (>60 ml/min/1.73 sqM); Albumin 4.5 g/dL (3.5-5.0); Alkaline Phosphatase 86 U/L (38-126); Anion Gap 10 mmol/L; Blood Urea Nitrogen 23 mg/dL (9-20); Calcium 9.7 mg/dL (8.4-10.2); Carbon Dioxide 29 mmol/L (22-30); Chloride 96 mmol/L (98-107); Glucose 152 mg/dL (74-99); Sodium 135 mmol/L (137-145); Total Bilirubin 0.7 mg/dL (0.2-1.3); Total Protein 7.9 g/dL (6.3-8.2)
[2019-03-12] MEDS ORDERED: MIDAZOLAM (PF) 2 MG/2 ML VIAL IV ONE (14:00)
[2019-03-12] MEDS ORDERED: fentaNYL (PF) 50 MCG/ML 2 ML AMP IV ONE (14:20)
[2019-03-12] MEDS ORDERED: NITROGLYCERIN 1000MCG/10ML SYRINGE INTRAARTER ONE ×2 (15:24→15:27)
[2019-03-12] MEDS ORDERED: niCARdipine Syringe (1,000 mcg/10 mL) INTRAARTER ONE (15:24)
[2019-03-12] MEDS ORDERED: CLOPIDOGREL 75 MG TAB PO ONE (15:26)
[2019-03-12] MEDS ORDERED: SODIUM CHLORIDE 0.9% 1,000 ML IV SCH (16:00)
[2019-03-12 17:02] LABS: Glucose,Whole Blood 137 mg/dL (75-99)
[2019-03-12] MEDS ORDERED: ATROPINE SULFATE 0.1 MG/ML 10ML SYRINGE ONE (18:07)
--- NOTE | 2019-03-12 19:28 | LTR ---
DATE OF SERVICE: 03/12/[address] Galvan: Mr. Kei Obregon underwent successful balloon angioplasty of the right SFA with good angiographic results and without any complication. I want to thank you for allowing us to participate in his care and please do not hesitate to call if you have any questions or concerns. Sincerely, MMODL / IJN: [id number] /
[2019-03-12] MEDS: SODIUM CHLORIDE TAB 1 GM TAB PO SCH (19:45)
[2019-03-12] MEDS: DIVALPROEX 250 MG TABLET.DR PO SCH (19:45)
[2019-03-12] MEDS ORDERED: ATORVASTATIN 20 MG TAB PO SCH (21:00)
[2019-03-12] MEDS ORDERED: THIAMINE 100 MG TAB PO SCH (21:00)
[2019-03-12] MEDS ORDERED: FAMOTIDINE 20 MG TAB PO SCH (21:00)
[2019-03-12] MEDS ORDERED: CHOLECALCIFEROL 1,000 UNIT TAB PO SCH (21:00)
[2019-03-12] MEDS ORDERED: PYRIDOXINE PO SCH (21:00)
[2019-03-12] MEDS ORDERED: MAGNESIUM PO SCH (21:00)
[2019-03-12] MEDS ORDERED: QUEtiapine 50 MG TAB PO SCH (21:00)
--- NOTE | 2019-03-12 21:07 | AN ---
ANGIOGRAPHY REPORT DATE OF SERVICE: March 12, 2019 PERFORMING PHYSICIAN: Jermain Aguirre MD, motor bike mechanic. PROCEDURE PERFORMED: 1. Selective right ogivj-ity-swgd angiogram, selective right popliteal and right SFA angiogram, and selective left common femoral artery angiogram. 2. Successful crossing chronic total occlusion of the right superficial femoral artery. 3. Intravascular ultrasound IVUS of the right SFA. 4. Successful balloon angioplasty of the balloon angioplasty of the right popliteal and the right SFA. 5. Successful stenting of the proximal right SFA using 8 x 120 mm Zilver PTX drug- coated stent with an excellent angiographic results and reduction of stenosis from 100% to 0%. INDICATION: This is a 73-year-old gentleman who sees Dr. Galvan in the office as an outpatient with diabetes, hypertension, and dyslipidemia, who was experiencing symptoms of bilateral lower extremities intermittent claudication. He underwent a peripheral angiogram a few weeks ago and that revealed occluded right SFA and severe disease involving the right popliteal. Also, he was found to have severe disease involving the left common femoral artery as well as intermediate lesion involving the left common iliac artery. He was brought today to undergo an intervention of the right SFA as well as right popliteal. APPROACH: Right and the left common femoral artery. COMPLICATION: None. LEVEL OF SEDATION: Moderate with sedation length of 89 minutes. PROCEDURE DESCRIPTION: After obtaining an informed consent, the patient was brought to the cardiac supervisor labor gang. The left common femoral artery was cannulated using micropuncture technique and a micropuncture wire passed easily. Then I placed a 6-[place] sheath 11 cm at the left common femoral artery. At that point, anticoagulation was initiated using heparin and the patient was given weight-based heparin with continuous ACT monitoring throughout the case. After that, I did select the right profunda using a 5-[place] Rim catheter with 0.035 [place] Advantage wire. Then I did exchange my 11 cm 6-[place] Lucian sheath into 70 cm 6-St Lucian Raabe sheath using 0.035 [place] Advantage wire where the tip of the long sheath was positioned at the level of the right common femoral artery. I did cross the chronic total occlusion of the right SFA using .018 gold-tipped Glidewire with 018 CXI catheter. I proven that I was in the true lumen using the injection through the CXI catheter. After that, I placed 014 ViperWire in the right SFA all the way to the right popliteal. After that, I did intravascular ultrasound IVUS of the right popliteal and right SFA which showed diffuse disease in the right SFA with chronically occluded segment in the proximal portion and diffuse disease in the right popliteal as well. Before I started the angioplasty, I did selective right aldlp-yhk-lbpb angiogram which revealed 3 vessel runoff below the knee and also selective right popliteal and right SFA angiogram. After that, I did balloon angioplasty of the right popliteal using 5 mm regular balloon. Also I did balloon angioplasty of the right SFA using 5 mm balloon as well. The following angiogram showed good angiographic results with residual stenosis in the right SFA about 50-60 percent, which I decided to leave and watch at this point. For the proximal segment of the right SFA, the right from the common femoral artery, I did balloon angioplasty using AngioSculpt balloon which was 6 mm balloon and at that point, the following angiogram showed dissection proven by the IVUS. At that point, I decided to cover that area with a stent so I deployed 8 x 120 mm Zilver PTX drug-coated stent where the stent was positioned under fluoroscopy guidance and deployed under fluoroscopy guidance with the following angiogram showing good angiographic results and the procedure was completed without any complication. After that, I did exchange my long sheath into short sheath using 0.035 Glidewire. After that, I did selective left common femoral artery angiogram before the case was ended. POSTPROCEDURE MANAGEMENT: 1. Dual anti-platelet therapy. 2. Risk factor modifications. 3. BOILER OR ENGINE OPERATOR of the left common femoral artery and at the same time assess for gradient in the left iliac artery. MMODL / IJN: [id number] /
[2019-03-12 21:17] LABS: Glucose,Whole Blood 223 mg/dL (75-99)
[2019-03-13 06:20] LABS: Glucose,Whole Blood 199 mg/dL (75-99)
[2019-03-13 06:22] LABS: Basophils # (A) 0.1 k/uL (0-0.2); Basophils % (A) 0 %; Eosinophils # (A) 0.3 k/uL (0-0.7); Eosinophils % (A) 2 %; HCT 31.7 % (39.0-53.0); HGB 10.8 gm/dL (13.0-17.5); Lymphocytes # (A) 1.3 k/uL (1.0-4.8); Lymphocytes % (A) 12 %; MCH 30.5 pg (25.0-35.0); MCHC 34.1 g/dL (31.0-37.0); MCV 89.5 fL (80.0-100.0); Monocytes # (A) 0.9 k/uL (0-1.0); Monocytes % (A) 8 %; Neutrophils # (A) 8.6 k/uL (1.3-7.7); Neutrophils % (A) 75 %; Platelet Count 262 k/uL (150-450); RBC 3.54 m/uL (4.30-5.90); RDW 13.6 % (11.5-15.5); WBC 11.5 k/uL (3.8-10.6)
[2019-03-13 06:33] LABS: African American GFR (CKD) >90 (>60 ml/min/1.73 sqM); Anion Gap 8 mmol/L; Blood Urea Nitrogen 23 mg/dL (9-20); Calcium 8.6 mg/dL (8.4-10.2); Carbon Dioxide 27 mmol/L (22-30); Chloride 98 mmol/L (98-107); Glucose 169 mg/dL (74-99); Potassium 4.3 mmol/L (3.5-5.1); Sodium 133 mmol/L (137-145)
[2019-03-13 07:35] VITALS: BP 127/58; PULSE 81; RESP 18; TEMP 98
[2019-03-13] MEDS: SODIUM CHLORIDE TAB 1 GM TAB PO SCH (07:36)
[2019-03-13] MEDS: DIVALPROEX 250 MG TABLET.DR PO SCH (07:37)
[2019-03-13] MEDS ORDERED: MULTIVITAMINS, THERA 1 EACH TAB PO SCH (09:00)
[2019-03-13] MEDS ORDERED: LINAGLIPTIN 5 MG TABLET PO SCH (09:00)
[2019-03-13] MEDS ORDERED: ASPIRIN 81 MG PO SCH (09:00)
[2019-03-13] MEDS ORDERED: LISINOPRIL 2.5 MG TAB PO SCH (09:00)
[2019-03-13] MEDS ORDERED: FOLIC ACID 1 MG TAB PO SCH (09:00)
[2019-03-13] MEDS ORDERED: amLODIPine 5 MG TAB PO SCH (09:00)
[2019-03-13] MEDS ORDERED: FUROSEMIDE 20 MG TAB PO SCH (09:00)
[2019-03-13] MEDS ORDERED: FERROUS SULFATE 325 MG TAB PO SCH (09:00)
[2019-03-13] MEDS ORDERED: CLOPIDOGREL 75 MG TAB PO SCH (09:00)
[2019-03-13 11:25] LABS: Glucose,Whole Blood 159 mg/dL (75-99)
--- NOTE | 2019-03-13 20:47 | DS ---
DISCHARGE SUMMARY DATE OF ADMISSION: 03/12/2019 DATE OF DISCHARGE: 03/13/2019 BRIEF HISTORY: This is a 73-year-old gentleman who was referred for bilateral lower extremity intermittent claudication evaluation. He underwent an abdominal aortogram which revealed occluded right SFA. The patient was admitted to the hospital yesterday and underwent successful balloon angioplasty and stenting of the right SFA from the left groin approach. The left groin is soft and nontender and without any bruises. The patient is going to be discharged home on dual anti-platelet therapy as well as statin, and I will follow up with the patient in a week in the office. MMODL / IJN: [id number] /
--- NOTE | 2019-03-14 10:05 | IR ---
EXAMINATION TYPE: IR stent intravas non coronary DATE OF EXAM: 03/12/2019 COMPARISON: NONE HISTORY: Fluoroscopy time. Fluoroscopy was provided to the referring clinician.
== END 2019-03-13 12:13 | disposition home or self-care (01) ==
LOC: CATHCVL 11:21 → 3SCARD 16:27 → CATHCVL 03-13 12:13
PROVIDERS: ATTEND Internal Medicine Interventional Cardiology
DX: I70.213 Atherosclerosis of native arteries of extremities with intermittent claudication, bilateral legs (principal); I70.92 Chronic total occlusion of artery of the extremities; E11.51 Type 2 diabetes mellitus with diabetic peripheral angiopathy without gangrene; I10 Essential (primary) hypertension; E78.5 Hyperlipidemia, unspecified; F17.200 Nicotine dependence, unspecified, uncomplicated; Z79.84 Long term (current) use of oral hypoglycemic drugs; Z79.82 Long term (current) use of aspirin; Z79.899 Other long term (current) drug therapy
CPT/HCPCS: 37226; 37252; 80053; 80048; 85025 ×2; C1894; C1714; C1769 ×5; C1725 ×2; C1753; C1874; J3010; J1644; J2250

== ENCOUNTER → 2019-04-10 | Outpatient (CLI) | payer MEDICARE ==
[2019-04-10 08:20] LABS: HCT 33.1 % (39.0-53.0); HGB 11.2 gm/dL (13.0-17.5); MCH 30.5 pg (25.0-35.0); MCV 89.8 fL (80.0-100.0); Platelet Count 316 k/uL (150-450); RBC 3.69 m/uL (4.30-5.90); RDW 12.6 % (11.5-15.5); WBC 11.1 k/uL (3.8-10.6)
[2019-04-10 08:43] LABS: Potassium 4.3 mmol/L (3.5-5.1)
== END | disposition home or self-care (01) ==
LOC: LABPAT 07:25
PROVIDERS: ATTEND Internal Medicine Interventional Cardiology
DX: Z01.812 Encounter for preprocedural laboratory examination (principal); I70.213 Atherosclerosis of native arteries of extremities with intermittent claudication, bilateral legs
CPT/HCPCS: 36415; 80051; 82565; 84520; 85027

== ENCOUNTER 2019-04-30 07:47 | Day surgery (SDC) | payer MEDICARE ==
[2019-04-24 14:47] VITALS: BMI 25.1
[2019-04-30] MEDS ORDERED: ASPIRIN 81 MG ONE (08:01)
[2019-04-30] MEDS ORDERED: SODIUM CHLORIDE 0.9% 1,000 ML IV ONE (08:16)
[2019-04-30 08:17] LABS: Glucose,Whole Blood 140 mg/dL (75-99)
[2019-04-30 09:58] LABS: Basophils # (A) 0.1 k/uL (0-0.2); Basophils % (A) 1 %; Eosinophils # (A) 0.5 k/uL (0-0.7); Eosinophils % (A) 5 %; HGB 11.5 gm/dL (13.0-17.5); Lymphocytes # (A) 1.3 k/uL (1.0-4.8); Lymphocytes % (A) 13 %; MCH 30.3 pg (25.0-35.0); MCV 89.2 fL (80.0-100.0); Mean Platelet Volume 6.7; Monocytes # (A) 0.8 k/uL (0-1.0); Monocytes % (A) 8 %; Neutrophils # (A) 6.7 k/uL (1.3-7.7); Neutrophils % (A) 70 %; Platelet Count 331 k/uL (150-450); RBC 3.81 m/uL (4.30-5.90); RDW 12.7 % (11.5-15.5); WBC 9.5 k/uL (3.8-10.6)
[2019-04-30 10:07] LABS: Calcium 9.2 mg/dL (8.4-10.2); Potassium 3.9 mmol/L (3.5-5.1)
[2019-04-30] MEDS: MIDAZOLAM (PF) 2 MG/2 ML VIAL IVP ONE ×2 (10:36→11:24)
[2019-04-30] MEDS ORDERED: LIDOCAINE 2% INJ 20 MG/ML SQ ONE (11:23)
[2019-04-30] MEDS ORDERED: HEPARIN SODIUM 1,000 UN/ML (10ML VL) IV ONE (11:28)
[2019-04-30] MEDS ORDERED: fentaNYL (PF) 50 MCG/ML 2 ML AMP IVP ONE (11:50)
[2019-04-30] MEDS ORDERED: IOPAMIDOL-300 100ML BTL INJ ONE (12:09)
[2019-04-30] MEDS ORDERED: CLOPIDOGREL 75 MG TAB PO ONE (12:10)
[2019-04-30] MEDS ORDERED: SODIUM CHLORIDE 0.9% 1,000 ML IV SCH (12:15)
[2019-04-30 13:02] LABS: Glucose,Whole Blood 124 mg/dL (75-99)
--- NOTE | 2019-04-30 13:29 | IR ---
Fluoroscopy HISTORY: Peripheral vascular disease 8.2 minutes fluoroscopy time supplied to the referring clinician. 112 intraoperative C-arm images do cument the procedure. See dictated report from cardiology.
[2019-04-30 16:47] LABS: Glucose,Whole Blood 153 mg/dL (75-99)
[2019-04-30] MEDS: INSULIN ASPART (NovoLOG) 100 UNIT/ML VIAL SQ SCH ×2 (16:57→22:04)
[2019-04-30] MEDS: DIVALPROEX SPRINKLE 125 MG CAP.SPRINK PO SCH (20:20)
[2019-04-30] MEDS: SODIUM CHLORIDE TAB 1 GM TAB PO SCH (20:20)
[2019-04-30 20:52] LABS: Glucose,Whole Blood 138 mg/dL (75-99)
[2019-04-30] MEDS ORDERED: ATORVASTATIN 20 MG TAB PO SCH (21:00)
[2019-04-30] MEDS ORDERED: CHOLECALCIFEROL 1,000 UNIT TAB PO SCH (21:00)
[2019-04-30] MEDS ORDERED: QUEtiapine 50 MG TAB PO SCH (21:00)
[2019-04-30] MEDS ORDERED: FAMOTIDINE 20 MG TAB PO SCH (21:00)
[2019-04-30] MEDS ORDERED: THIAMINE 100 MG TAB PO SCH (21:00)
--- NOTE | 2019-05-01 00:59 | AN ---
ANGIOGRAPHY REPORT DATE OF SERVICE: April 30, 2019 PERFORMING PHYSICIAN: Jermain Aguirre MD, manager account management. PROCEDURE PERFORMED: 1. Selective left common femoral artery angiogram. 2. Intravascular ultrasound IVUS of the left common femoral artery. 3. Balloon angioplasty of the left common femoral artery. INDICATIONS: This is a 73-year-old gentleman with history of peripheral arterial disease who was experiencing bilateral lower extremities intermittent claudication. He underwent an angiogram which revealed severe femoral-popliteal disease on the right side where he underwent balloon angioplasty of the right SFA and also critical disease involving the left common femoral artery with eccentric calcified lesion. He was brought today to undergo a STATIONS SUPERINTENDENT of the left common femoral artery. APPROACH: Right common femoral artery. COMPLICATION: None. LEVEL OF SEDATION: Moderate with sedation length of 30 minutes. PROCEDURE DESCRIPTION: After obtaining an informed consent, the patient was brought to the cardiac laboratory director. The right common femoral artery was cannulated using micropuncture technique, the micropuncture wire passed easily. Then I placed a 6-Jamaican sheath 11 cm in the right common femoral artery. At that point, anticoagulation was initiated using heparin and the patient was given weight-based heparin. I did select the left SFA using 0.035 [place] Advantage wire with the backup support of 5- Jamaican Rim catheter. After that, I did exchange my 6-Jamaican 11 cm sheath into 6-Jamaican 55 cm sheath using 0.035 [place] Advantage wire. The tip of the long sheath was positioned in the left external iliac artery. After that, I did exchange my 0.035 [place] Advantage wire into [address] wire using 035 catheter. After that, I did intravascular ultrasound IVUS of the left common femoral artery where I measured the diameter of the artery of 8 mm. After that, I did atherectomy of the left common femoral artery using the directional atherectomy device, which was Hawk 1 device. I was able to extract significant amount of plaque. Subsequently I did balloon angioplasty using 6 mm AngioSculpt balloon. The following angiogram showed good angiographic results with reduction of stenosis from 99% to 50%. The procedure was completed without any complication. POSTPROCEDURE MANAGEMENT: 1. Dual anti-platelet therapy. 2. Risk factors modifications. 3. Follow up with the patient. MMODL / IJN: [id number] /
[2019-05-01] MEDS: INSULIN ASPART (NovoLOG) 100 UNIT/ML VIAL SQ SCH (05:54)
[2019-05-01 06:01] LABS: Glucose,Whole Blood 127 mg/dL (75-99)
[2019-05-01 06:29] LABS: Basophils # (A) 0.1 k/uL (0-0.2); Basophils % (A) 1 %; Eosinophils # (A) 0.6 k/uL (0-0.7); Eosinophils % (A) 5 %; HCT 34.2 % (39.0-53.0); HGB 11.6 gm/dL (13.0-17.5); Lymphocytes # (A) 1.1 k/uL (1.0-4.8); Lymphocytes % (A) 10 %; MCH 31.1 pg (25.0-35.0); MCV 91.4 fL (80.0-100.0); Mean Platelet Volume 7.2; Monocytes # (A) 0.9 k/uL (0-1.0); Monocytes % (A) 8 %; Neutrophils # (A) 8.5 k/uL (1.3-7.7); Neutrophils % (A) 74 %; Platelet Count 292 k/uL (150-450); RBC 3.74 m/uL (4.30-5.90); RDW 14.1 % (11.5-15.5); WBC 11.5 k/uL (3.8-10.6)
[2019-05-01 06:42] LABS: African American GFR (CKD) >90 (>60 ml/min/1.73 sqM); Anion Gap 10 mmol/L; Blood Urea Nitrogen 18 mg/dL (9-20); Calcium 8.7 mg/dL (8.4-10.2); Carbon Dioxide 28 mmol/L (22-30); Chloride 97 mmol/L (98-107); Glucose 120 mg/dL (74-99); Potassium 4.2 mmol/L (3.5-5.1); Sodium 135 mmol/L (137-145)
[2019-05-01] MEDS: DIVALPROEX SPRINKLE 125 MG CAP.SPRINK PO SCH (08:06)
[2019-05-01] MEDS: SODIUM CHLORIDE TAB 1 GM TAB PO SCH (08:06)
[2019-05-01 08:23] VITALS: BP 121/54; PULSE 84; RESP 18; TEMP 98.7
[2019-05-01] MEDS ORDERED: LINAGLIPTIN 5 MG TABLET PO SCH (09:00)
[2019-05-01] MEDS ORDERED: FUROSEMIDE 20 MG TAB PO SCH (09:00)
[2019-05-01] MEDS ORDERED: LISINOPRIL 2.5 MG TAB PO SCH (09:00)
[2019-05-01] MEDS ORDERED: FERROUS SULFATE 325 MG TAB PO SCH (09:00)
[2019-05-01] MEDS ORDERED: ASPIRIN 81 MG PO SCH (09:00)
[2019-05-01] MEDS ORDERED: CLOPIDOGREL 75 MG TAB PO SCH (09:00)
[2019-05-01] MEDS ORDERED: amLODIPine 5 MG TAB PO SCH (09:00)
[2019-05-01] MEDS ORDERED: MULTIVITAMINS, THERA 1 EACH TAB PO SCH (09:00)
[2019-05-01] MEDS ORDERED: MAGNESIUM OXIDE 400 MG TAB PO SCH (09:00)
[2019-05-01] MEDS ORDERED: FOLIC ACID 1 MG TAB PO SCH (09:00)
[2019-05-01 12:19] LABS: Hemoglobin A1C 6.4 % (4.0-6.0)
--- NOTE | 2019-05-01 12:22 | P.PN ---
Subjective Progress Note Date: 05/01/19 Discharge note This is a pleasant 73-year-old gentleman with history of peripheral arterial disease who had been experiencing bilateral lower extremity intermittent claudication. He underwent an angiogram which revealed severe for [place] popliteal disease on the right side where he underwent balloon angioplasty of the right SFA and also critical disease involving the left common femoral artery with an eccentric calcified lesion. He was brought to the hospital yesterday, underwent SCANNING COORDINATOR of the left common femoral artery. He was seen and examined this morning, doing well, hemodynamically stable. Right and left groins were soft with no evidence of any hematoma. White blood cell count 11.5, hemoglobin 11.6, platelet count 292. Sodium 135, potassium 4.2, BUN 18 and creatinine 0.9. Objective - Vital Signs Vital signs: Vital Signs Temp 98.7 F 05/01/19 08:00 Pulse 84 05/01/19 08:00 Resp 18 05/01/19 08:00 BP 121/54 05/01/19 08:00 Pulse Ox 100 05/01/19 08:00 Intake & Output 04/30/19 05/01/19 05/01/19 18:59 06:59 18:59 Intake Total 710 240 Output Total 450 450 Balance 260 -450 240 Weight 78 kg Intake: IV 350 Oral 360 240 Output: Urine 450 450 Other: Voiding Method Urinal Urinal - Exam PHYSICAL EXAMINATION: GENERAL: 83-year-old gentleman in no acute distress at the time of my examination HEENT: Head is atraumatic, normocephalic. Pupils equal, round. Sclera anicteric. Conjunctiva are clear. Mucous membranes of the mouth are moist. Neck is supple. There is no elevated jugular venous pressure. No carotid bruit is heard. HEART EXAMINATION: Heart S1, S2 normal. No murmur or gallop heard. CHEST EXAMINATION: Lungs are clear to auscultation and precussion. No chest wall tenderness is noted on palpation or with deep breathing. ABDOMEN: Soft, nontender. Bowel sounds are heard. No organomegaly noted. EXTREMITIES: 1+ peripheral pulses with no evidence of peripheral edema and no calf tenderness noted. Right and left groins are soft, no evidence of any hematoma. NEUROLOGIC patient is awake, alert and oriented X3. . - Labs CBC & Chem 7: 05/01/19 05:47 05/01/19 05:47 Labs: Abnormal Lab Results - Last 24 Hours (Table) 04/30/19 04/30/19 04/30/19 Range/Units 12:42 16:27 20:31 WBC (3.8-10.6) k/uL RBC (4.30-5.90) m/uL Hgb (13.0-17.5) gm/dL Hct (39.0-53.0) % Neutrophils # (1.3-7.7) k/uL Sodium (137-145) mmol/L Chloride (98-107) mmol/L Glucose (74-99) mg/dL POC Glucose (mg/dL) 124 H 153 H 138 H (75-99) mg/dL 05/01/19 05/01/19 05/01/19 Range/Units 05:47 05:47 05:53 WBC 11.5 H (3.8-10.6) k/uL RBC 3.74 L (4.30-5.90) m/uL Hgb 11.6 L (13.0-17.5) gm/dL Hct 34.2 L (39.0-53.0) % Neutrophils # 8.5 H (1.3-7.7) k/uL Sodium 135 L (137-145) mmol/L Chloride 97 L (98-107) mmol/L Glucose 120 H (74-99) mg/dL POC Glucose (mg/dL) 127 H (75-99) mg/dL Assessment and Plan Plan: Assessment and plan #1 status post SCANNING COORDINATOR of the left common femoral artery #2 recent angioplasty of the right SFA #3 hypertension #4 diabetes #5 hyperlipidemia Plan patient will be discharged home today. We'll follow-up with Dr. Jones in the office post discharge. Discharge medications include Norvasc 5 mg daily, Ecotrin 81 mg daily, Lipitor 20 mg daily, vitamin D, Plavix 75 mg daily, Depakote, iron, folic acid, Lasix 20 mg daily, Zestril 2.5 mg daily. DNP note has been reviewed, I agree with a documented findings and plan of care. Patient was seen and examined.
== END 2019-05-01 10:44 | disposition home or self-care (01) ==
LOC: CATHCVL 07:47 → 3SCARD 12:15 → CATHCVL 05-01 10:44
PROVIDERS: ATTEND Internal Medicine Interventional Cardiology
DX: I70.212 Atherosclerosis of native arteries of extremities with intermittent claudication, left leg (principal); I10 Essential (primary) hypertension; E78.5 Hyperlipidemia, unspecified; E11.9 Type 2 diabetes mellitus without complications; Z98.62 Peripheral vascular angioplasty status; Z79.899 Other long term (current) drug therapy; Z79.02 Long term (current) use of antithrombotics/antiplatelets; Z79.82 Long term (current) use of aspirin
CPT/HCPCS: 37225; 37252; 80048 ×2; 85025 ×2; 83036; C1894; C1725; C1769 ×3; C1714; C1753; J2001; J3010; J1644; Q9967; J2250

== ENCOUNTER → 2019-05-13 | Outpatient (CLI) | payer MEDICARE ==
[2019-05-13 07:11] LABS: HCT 31.5 % (39.0-53.0); HGB 11.1 gm/dL (13.0-17.5); MCH 31.5 pg (25.0-35.0); MCHC 35.2 g/dL (31.0-37.0); MCV 89.4 fL (80.0-100.0); Mean Platelet Volume 7.5; Platelet Count 294 k/uL (150-450); RBC 3.52 m/uL (4.30-5.90); RDW 12.8 % (11.5-15.5)
[2019-05-13 08:02] LABS: Appearance,Urine Clear (Clear); Bilirubin,Urine Negative (Negative); Blood,Urine Negative (Negative); Color,Urine Light Yellow; Glucose,Urine (UA) Negative (Negative); Ketones,Urine Negative (Negative); Leukocyte Esterase,Urine Negative (Negative); Nitrite,Urine Negative (Negative); Protein,Urine Negative (Negative); Urobilinogen,Urine <2.0 mg/dL (<2.0)
[2019-05-13 12:57] LABS: African American GFR (CKD) 86.8 (60.0-200.0); Anion Gap 14.8 mmol/L (4.00-12.00); Calcium 8.9 mg/dL (8.7-10.3); Carbon Dioxide 27.2 mmol/L (21.6-31.8); Ferritin 383.1 ng/mL (22.0-322.0); Magnesium 1.2 mg/dL (1.5-2.4); Non-African American GFR(CKD) 74.9 (60.0-200.0); Potassium 3.7 mmol/L (3.5-5.5)
[2019-05-13 18:13] LABS: Creatinine,Urine Random 48.6 mg/dL
[2019-05-13 19:11] LABS: Total Protein,Urine Random <4.0 mg/dL (0.0-13.5)
[2019-05-13 19:11] LABS: Total Volume 24 Hour,Urine 2850 mL
[2019-05-13 20:12] LABS: Total Protein 24 Hour,Urine 153.9 mg/24Hr
== END | disposition home or self-care (01) ==
LOC: LABWHC1 06:44
PROVIDERS: ATTEND Nurse Practitioner Family
DX: E11.9 Type 2 diabetes mellitus without complications (principal); E87.1 Hypo-osmolality and hyponatremia; D50.9 Iron deficiency anemia, unspecified; R80.9 Proteinuria, unspecified; E83.42 Hypomagnesemia
CPT/HCPCS: 36415; 80048; 81003; 81050; 82570; 82728; 83036; 83540; 83550; 83735; 84156; 85027

== ENCOUNTER → 2019-08-25 | Outpatient (CLI) | payer MEDICARE | END | disposition home or self-care (01) | LOC: LABWHC1 06:40 | PROVIDERS: ATTEND Internal Medicine | DX: E83.42 Hypomagnesemia (principal) | CPT/HCPCS: 36415; 83735 ==

== ENCOUNTER → 2019-12-25 | Outpatient (CLI) | payer MEDICARE ==
[2019-12-25 08:57] LABS: HCT 32.7 % (39.0-53.0); HGB 11.2 gm/dL (13.0-17.5); MCH 29.6 pg (25.0-35.0); MCHC 34.2 g/dL (31.0-37.0); MCV 86.6 fL (80.0-100.0); Mean Platelet Volume 7.5; Platelet Count 380 k/uL (150-450); RBC 3.78 m/uL (4.30-5.90); RDW 12.6 % (11.5-15.5); WBC 8.8 k/uL (3.8-10.6)
[2019-12-25 09:05] LABS: Appearance,Urine Clear (Clear); Bilirubin,Urine Negative (Negative); Blood,Urine Negative (Negative); Color,Urine Light Yellow; Glucose,Urine (UA) Negative (Negative); Ketones,Urine Negative (Negative); Leukocyte Esterase,Urine Negative (Negative); Nitrite,Urine Negative (Negative); PH, Urine 7.5 (5.0-8.0); Protein,Urine Negative (Negative); Specific Gravity,Urine 1.007 (1.001-1.035); Urobilinogen,Urine <2.0 mg/dL (<2.0)
[2019-12-25 15:40] LABS: Urine Creatinine 32.6 mg/dL
[2019-12-25 17:18] LABS: % Iron Saturation 17.37 (15.00-50.00); African American GFR (CKD) 76.8 (60.0-200.0); Albumin 4.6 g/dL (3.80-4.90); Albumin/Globulin Ratio 1.84 (1.60-3.17); Anion Gap 9.4 mmol/L (4.00-12.00); BUN/Creat Ratio 17.27 Ratio (12.00-20.00); Calcium 9.6 mg/dL (8.7-10.3); Carbon Dioxide 29.6 mmol/L (21.6-31.8); Globulin 2.5 g/dL (1.6-3.3); Magnesium 1.5 mg/dL (1.5-2.4); Non-African American GFR(CKD) 66.2 (60.0-200.0); Phosphorus 3.1 mg/dL (2.4-5.1); Potassium 3.8 mmol/L (3.5-5.5); Total Bilirubin 0.6 mg/dL (0.3-1.2); Total Protein 7.1 g/dL (6.2-8.2); Uric Acid 7.2 mg/dL (3.7-8.7)
[2019-12-25 17:27] LABS: Ferritin 193.7 ng/mL (22.0-322.0)
== END | disposition home or self-care (01) ==
LOC: LABWHC1 08:07
PROVIDERS: ATTEND Nurse Practitioner Family
DX: E83.42 Hypomagnesemia (principal); N39.0 Urinary tract infection, site not specified; R80.9 Proteinuria, unspecified; N25.81 Secondary hyperparathyroidism of renal origin; D64.9 Anemia, unspecified
CPT/HCPCS: 36415; 80053; 81003; 82043; 82306; 82570; 82728; 83540; 83550; 83735; 83970; 84100; 84550; 85027

== ENCOUNTER → 2020-08-10 | Outpatient (CLI) | payer MEDICARE ==
[2020-08-10 11:34] LABS: Basophils # (A) 0.1 k/uL (0-0.2); Basophils % (A) 1 %; Eosinophils # (A) 0.4 k/uL (0-0.7); Eosinophils % (A) 4 %; HCT 35.6 % (39.0-53.0); HGB 11.7 gm/dL (13.0-17.5); Lymphocytes # (A) 1.6 k/uL (1.0-4.8); Lymphocytes % (A) 19 %; MCH 27.8 pg (25.0-35.0); MCHC 32.8 g/dL (31.0-37.0); MCV 84.8 fL (80.0-100.0); Mean Platelet Volume 7.4; Monocytes # (A) 0.7 k/uL (0-1.0); Monocytes % (A) 8 %; Neutrophils # (A) 5.7 k/uL (1.3-7.7); Neutrophils % (A) 65 %; Platelet Count 373 k/uL (150-450); RDW 14.2 % (11.5-15.5); WBC 8.7 k/uL (3.8-10.6)
[2020-08-10 11:46] LABS: African American GFR (CKD) 87 (>60 ml/min/1.73 sqM); Anion Gap 8 mmol/L; Blood Urea Nitrogen 22 mg/dL (9-20); Calcium 9.8 mg/dL (8.4-10.2); Carbon Dioxide 31 mmol/L (22-30); Chloride 90 mmol/L (98-107); Glucose 193 mg/dL (74-99); Non-African American GFR(CKD) 75 (>60 ml/min/1.73 sqM); Potassium 4.4 mmol/L (3.5-5.1); Sodium 129 mmol/L (137-145)
== END | disposition home or self-care (01) ==
LOC: LABWHC1 09:41
PROVIDERS: ATTEND Family Medicine
DX: E87.1 Hypo-osmolality and hyponatremia (principal); D50.8 Other iron deficiency anemias
CPT/HCPCS: 36415; 80048; 85025

== ENCOUNTER → 2023-01-15 | Outpatient (CLI) | payer MEDICARE | END | disposition home or self-care (01) | LOC: LABWHC1 07:33 | PROVIDERS: ATTEND Nurse Practitioner Family | DX: E87.1 Hypo-osmolality and hyponatremia (principal) | CPT/HCPCS: 36415; 83735 ==

== ENCOUNTER → 2023-02-26 | Outpatient (CLI) | payer MEDICARE ==
--- NOTE | 2023-02-27 07:30 | CT ---
EXAMINATION TYPE: CT ChestAbdPelvis wo con DATE OF EXAM: 02/26/2023 COMPARISON: Prior CT May 26, 2017 HISTORY: History of aortic stents, r/o malignancy CT DLP: 469.7 mGycm. Automated Exposure Control for Dose Reduction was Utilized. TECHNIQUE: CT scan of the thorax, abdomen and pelvis is performed without oral or IV contrast. FINDINGS: LUNGS: Dependent atelectatic and/or fibrotic change in bilateral lower lobes is redemonstrated. There is some groundglass opacity and tiny nodularity in the lower lungs that is more prominent from prior . No suspicious consolidation is present. There is no pleural effusion or pneumothorax seen. The tr acheobronchial tree is patent. MEDIASTINUM: There are no new greater than 1 cm mediastinal lymph nodes. Stable tiny pericardial effu roderick is seen. Heart size is stable and upper limits of normal. Coronary artery calcifications are re demonstrated. Calcification level of the mitral and aortic valve again seen. OTHER: Bilateral gynecomastia is redemonstrated. LIVER/GB: No significant abnormality is appreciated. PANCREAS: Mild fat replaced atrophy redemonstrated. SPLEEN: No significant abnormality is seen. ADRENALS: No significant abnormality is seen. KIDNEYS: There are a few tiny calculi seen bilaterally. Approximately 2-3 calculi measuring up to 2 m m in size bilaterally are present. No intraluminal calculi in the bladder. BOWEL: Slightly suboptimal without enteric contrast. There is no suspicious small or large bowel dila tation. Cecum is redemonstrated wondering in the mid abdomen just right of midline axial image 86 cur rent study. GENITAL ORGANS: There is heterogeneous enlarged prostate gland with central zone calcifications felt to reflect underlying BPH redemonstrated. LYMPH NODES: No greater than 1cm abdominal or pelvic lymph nodes are appreciated. OSSEOUS STRUCTURES: There is mild disc space narrowing and vacuum disc phenomenon at L4-L5 level. The re is transitional-type L6 vertebra redemonstrated. Slight grade 1 anterolisthesis L5 on L6. Vacuum d isc phenomenon with mild to moderate disc space narrowing at this level is seen. There is multilevel facet arthropathy in lower lumbar spine. OTHER: There is moderate to severe calcified plaque of the aorta extending into branch vessels redemo nstrated. IMPRESSION: 1. No worrisome new mass or adenopathy is seen to suggest malignancy on noncontrast CT. 2. Basilar fibrotic change felt slightly progressed from 2017 study.
== END | disposition home or self-care (01) ==
LOC: RADCTMAIN 14:44
PROVIDERS: ATTEND Internal Medicine
DX: E87.1 Hypo-osmolality and hyponatremia (principal)
CPT/HCPCS: 71250; 74176

== ENCOUNTER 2023-10-31 06:39 | Day surgery (SDC) | payer MEDICARE ==
[2023-10-26 12:41] VITALS: BMI 26.6
[~2023-10-31 06:39] MED LIST changes: -IOPAMIDOL-250 100ML BTL INTRAARTER ONE; +LIDOCAINE 1% (10MG/ML) FOR IV START INTRADERMA PRN; -LIDOCAINE 2% INJ 20 MG/ML SQ ONE; -LISINOPRIL 2.5 MG TAB PO STA; -MIDAZOLAM (PF) 2 MG/2 ML VIAL IVP ONE; -SODIUM CHLORIDE 0.9% 1,000 ML IV SCH; -SODIUM CHLORIDE 0.9% 1,000 ML in EMPTY BAG 1 BAG IV ONE; -amLODIPine 5 MG TAB PO STA
[2023-10-31] MEDS: LACTATED RINGERS 1,000 ML IV SCH (07:06)
[2023-10-31 07:21] LABS: Glucose,Whole Blood 141 mg/dL (70-110)
[2023-10-31] MEDS ORDERED: PROPOFOL 10 MG/ML 20 ML VIAL IV ONE (07:32)
[2023-10-31 07:35] VITALS: TEMP 96.9
--- NOTE | 2023-10-31 07:41 | P.GSHP ---
History of Present Illness H&P Date: 10/31/23 CHIEF COMPLAINT: Colon screen HISTORY OF PRESENT ILLNESS: The patient is a 78-year-old male who presents for colon screen. Lower endoscopy was offered for further evaluation and management. PAST MEDICAL HISTORY: Please see list. PAST SURGICAL HISTORY: Please see list. MEDICATIONS: Please see list. ALLERGIES: Please see list. SOCIAL HISTORY: No illicit drug use FAMILY HISTORY: No reports of Crohn disease or ulcerative colitis. REVIEW OF ORGAN SYSTEMS: CONSTITUTIONAL: No reports of fevers or chills. PHYSICAL EXAM: VITAL SIGNS: Stable GENERAL: Well-developed pleasant in no acute distress. HEENT: No scleral icterus. Extraocular movements grossly intact. Moist buccal mucosa. NECK: Supple without lymphadenopathy. CHEST: Unlabored respirations. Equal bilateral excursions. CARDIOVASCULAR: Regular rate and rhythm. Distal 2+ pulses. ABDOMEN: Soft, nontender, nondistended. MUSCULOSKELETAL: No clubbing, cyanosis, or edema. ASSESSMENT: 1. Colon screen. PLAN: 1. Recommend proceeding with a lower endoscopy Past Medical History Past Medical History: Diabetes Mellitus, GERD/Reflux, Hearing Disorder / Deafness, Hyperlipidemia, Hypertension, Osteoarthritis (OA), Renal Disease Additional Past Medical History / Comment(s): restless leg syndrome, hiatal hernia, anemia, trang hearing aides,chronic low sodium History of Any Multi-Drug Resistant Organisms: None Reported Past Surgical History: Orthopedic Surgery Additional Past Surgical History / Comment(s): Cataract left eye w/ implant, RIGHT CATARACT EYE SURGERY lt elbow surgery, polyp removed from nose, SINUS SURGERY. ANGIOGRAM, RT SFA PTBA W/ STENT 03/12/19, left common femoral artherctomy and balloon 04/30/19 Past Anesthesia/Blood Transfusion Reactions: No Reported Reaction Additional Past Anesthesia/Blood Transfusion Reaction / Comment(s): no hx blood transfusion Smoking Status: Former smoker - Past Family History Father Family Medical History: Cancer Sister(s) Family Medical History: Cancer Mother Family Medical History: Cancer Additional Family Medical History / Comment(s): lung cancer Daughter(s) Family Medical History: Cancer Additional Family Medical History / Comment(s): colon- Medications and Allergies Home Medications Medication Instructions Recorded Confirmed Type Cholecalciferol [Vitamin D3 (25 25 mcg PO HS 12/03/14 10/31/23 History Mcg = 1000 Iu)] Atorvastatin Calcium [Lipitor] 20 mg PO HS 06/29/17 10/31/23 History Folic Acid 1 mg PO HS 06/29/17 10/31/23 History Thiamine [Vitamin B-1] 250 mg PO HS 06/29/17 10/31/23 History amLODIPine [Norvasc] 5 mg PO QAM 07/10/17 10/31/23 History Ferrous Sulfate [Feosol] 325 mg PO DAILY@1600 01/25/18 10/31/23 History QUEtiapine [SEROquel] 50 mg PO HS 04/01/18 10/31/23 History lisinopriL [Zestril] 2.5 mg PO QAM 02/12/19 10/31/23 History Clopidogrel [Plavix] 75 mg PO DAILY #90 tab 03/13/19 10/31/23 Rx Divalproex Sodium [Depakote 250 mg PO BID 04/24/19 10/31/23 History Sprinkle] Ascorbic Acid [Vitamin C] 250 mg PO DAILY 09/06/23 10/31/23 History Empagliflozin [Jardiance] 10 mg PO DAILY@1600 09/06/23 10/31/23 History Famotidine [Pepcid] 20 mg PO DAILY@1600 09/06/23 10/31/23 History Magnesium Citrate [Slowmag] 71.5 mg PO QID 09/06/23 10/31/23 History Pioglitazone HCl 15 mg PO DAILY 09/06/23 10/31/23 History Sodium Chloride Tab 1 gm PO TID 09/06/23 10/31/23 History metFORMIN HCL [metFORMIN HCL ER] 500 mg PO BID 09/06/23 10/31/23 History Allergies Allergy/AdvReac Type Severity Reaction Status Date / Time lorazepam [From Ativan] AdvReac severe Verified 10/31/23 07:03 hallucinations Surgical - Exam Vital Signs Temp Pulse Resp BP Pulse Ox 96.9 F L 98 18 140/58 100 10/31/23 07:00 10/31/23 07:00 10/31/23 07:00 10/31/23 07:00 10/31/23 07:00 Results - Labs Abnormal Lab Results - Last 24 Hours (Table) 10/31/23 Range/Units 07:15 POC Glucose (mg/dL) 141 H (70-110) mg/dL
--- NOTE | 2023-10-31 07:42 | P.HPADDEND ---
H&P Addendum H&P Addendum Date: 10/31/23 Also reported dysphagia. He requested discussed with his for possible upper endoscopy. Benefits and risks of procedure described. Family decided to hold endoscopy until upper endoscopy for another day.
[2023-10-31 08:15] LABS: Glucose,Whole Blood 137 mg/dL (70-110)
--- NOTE | 2023-10-31 08:22 | P.PCN ---
Date of Procedure: 10/31/23 Description of Procedure: PREOPERATIVE DIAGNOSIS: Family history malignant colon polyps Colonoscopy screening POSTOPERATIVE DIAGNOSIS: Tubular adenoma cecum Tubular adenoma ascending colon Tubular adenoma hepatic flexure OPERATION: Colonoscopy to the ileocecal valve and appendiceal orifice, cecum Colonoscopy with hot snare polypectomy SURGEON: Jazlyn Pillai MD. ANESTHESIA: MAC. INDICATIONS: The patient is an 78-year-old male who presents family history of malignant colon polyps. Last colonoscopy over 5 years. Benefits and risks were described and informed consent was obtained. DESCRIPTION OF PROCEDURE: The patient had undergone Golytely prep. The patient had been brought into the operating room and laid in the left lateral decubitus position. After adequate intravenous sedation, the rectum was examined with 2% lidocaine jelly. The prostate was unremarkable. No external hemorrhoids were encountered. The rectal tone was within normal limits. No lesions were palpated in the rectal vault. An Olympus colonoscope was advanced until the cecum, ileocecal valve and appendiceal orifice were clearly viewed. The prep was fair. No large sigmoid diverticulosis was encountered. Colonic polyps were found and removed. No evidence of focal colitis was found. Retroflexion of the scope demonstrated grade 1 internal hemorrhoids without active bleeding or inflammation. The colon was desufflated. The patient had tolerated the procedure well. Withdrawal time was over 6 minutes. FINDINGS: Aronchick preparation quality scale 2+ (1-5) Internal hemorrhoids, grade 1 No external hemorrhoids No arteriovenous malformations. No large sigmoid diverticulosis Removal of 3 polyps: - Snare polypectomy cecum, 5 mm tubulovillous adenoma - Snare polypectomy hepatic flexure, 6 mm flat villous adenoma - Snare polypectomy ascending colon, 4 mm flat villous adenoma No focal colitis. RECOMMENDATIONS: Given severity of tubular adenomas, recommend repeat colonoscopy 3 years, 2026 Plan - Discharge Summary Discharge Rx Participant: No New Discharge Prescriptions: Continue Cholecalciferol [Vitamin D3 (25 Mcg = 1000 Iu)] 25 mcg PO HS Atorvastatin Calcium [Lipitor] 20 mg PO HS Thiamine [Vitamin B-1] 250 mg PO HS Folic Acid 1 mg PO HS amLODIPine [Norvasc] 5 mg PO QAM Ferrous Sulfate [Feosol] 325 mg PO DAILY@1600 QUEtiapine [SEROquel] 50 mg PO HS lisinopriL [Zestril] 2.5 mg PO QAM Clopidogrel [Plavix] 75 mg PO DAILY #90 tab Divalproex Sodium [Depakote Sprinkle] 250 mg PO BID metFORMIN HCL [metFORMIN HCL ER] 500 mg PO BID Sodium Chloride Tab 1 gm PO TID Magnesium Citrate [Slowmag] 71.5 mg PO QID Pioglitazone HCl 15 mg PO DAILY Ascorbic Acid [Vitamin C] 250 mg PO DAILY Empagliflozin [Jardiance] 10 mg PO DAILY@1600 Famotidine [Pepcid] 20 mg PO DAILY@1600 Discharge Medication List Cholecalciferol [Vitamin D3 (25 Mcg = 1000 Iu)] 25 mcg PO HS 12/03/14 [History] Atorvastatin Calcium [Lipitor] 20 mg PO HS 06/29/17 [History] Folic Acid 1 mg PO HS 06/29/17 [History] Thiamine [Vitamin B-1] 250 mg PO HS 06/29/17 [History] amLODIPine [Norvasc] 5 mg PO QAM 07/10/17 [History] Ferrous Sulfate [Feosol] 325 mg PO DAILY@1600 01/25/18 [History] QUEtiapine [SEROquel] 50 mg PO HS 04/01/18 [History] lisinopriL [Zestril] 2.5 mg PO QAM 02/12/19 [History] Clopidogrel [Plavix] 75 mg PO DAILY #90 tab 03/13/19 [Rx] Divalproex Sodium [Depakote Sprinkle] 250 mg PO BID 04/24/19 [History] Ascorbic Acid [Vitamin C] 250 mg PO DAILY 09/06/23 [History] Empagliflozin [Jardiance] 10 mg PO DAILY@1600 09/06/23 [History] Famotidine [Pepcid] 20 mg PO DAILY@1600 09/06/23 [History] Magnesium Citrate [Slowmag] 71.5 mg PO QID 09/06/23 [History] Pioglitazone HCl 15 mg PO DAILY 09/06/23 [History] Sodium Chloride Tab 1 gm PO TID 09/06/23 [History] metFORMIN HCL [metFORMIN HCL ER] 500 mg PO BID 09/06/23 [History] Follow up Appointment(s)/Referral(s): Jazlyn Pillai MD [STAFF PHYSICIAN] - 11/13/23 11:30 am Patient Instructions/Handouts: Colorectal Polyps (GEN) Activity/Diet/Wound Care/Special Instructions: Repeat colonoscopy 3 years, 2026. RESUME PLAVIX 11/05/23, 5 days Discharge Disposition: HOME SELF-CARE
[2023-10-31 08:40] VITALS: BP 149/75; PULSE 89; RESP 16
== END 2023-10-31 08:49 | disposition home or self-care (01) ==
LOC: ORWHC2ENDO 06:39
PROVIDERS: ATTEND Surgery Plastic and Reconstructive Surgery
DX: Z12.11 Encounter for screening for malignant neoplasm of colon (principal); D12.3 Benign neoplasm of transverse colon; D12.2 Benign neoplasm of ascending colon; K64.0 First degree hemorrhoids; E11.9 Type 2 diabetes mellitus without complications; K21.9 Gastro-esophageal reflux disease without esophagitis; H91.90 Unspecified hearing loss, unspecified ear; E78.5 Hyperlipidemia, unspecified; I10 Essential (primary) hypertension; M19.90 Unspecified osteoarthritis, unspecified site; Z87.442 Personal history of urinary calculi; G25.81 Restless legs syndrome; K44.9 Diaphragmatic hernia without obstruction or gangrene; D64.9 Anemia, unspecified; F41.9 Anxiety disorder, unspecified; F32.A Depression, unspecified; Z87.891 Personal history of nicotine dependence; Z80.1 Family history of malignant neoplasm of trachea, bronchus and lung; Z80.0 Family history of malignant neoplasm of digestive organs; Z79.02 Long term (current) use of antithrombotics/antiplatelets; Z79.84 Long term (current) use of oral hypoglycemic drugs; Z79.899 Other long term (current) drug therapy; Z88.8 Allergy status to other drugs, medicaments and biological substances
CPT/HCPCS: 88305; 45385; J2704

== ENCOUNTER → 2024-12-02 | Outpatient (CLI) | payer MEDICARE ==
--- NOTE | 2024-12-02 10:07 | CT ---
EXAMINATION TYPE: CT iac wo con DATE OF EXAM: 12/02/2024 COMPARISON: CT brain 2017 CLINICAL INDICATION: Male, 79 years old with history of H61.91 DISORDER OF RIGHT EXTERNAL EAR, Lesion of RT ear canal, disorder of RT external ear, TECHNIQUE: CT scan of internal auditory canal is performed without contrast, thin cut axial images ar e obtained, coronal reformatted images are also reviewed. Contrast: , patient injected with mL of ., (none if empty) CT DLP: 150 mGycm. Automated Exposure Control for Dose Reduction was Utilized. FINDINGS: The external auditory canals remain patent bilaterally. There is however new irregular mild to moderate narrowing on the right seen best on axial image 41 with peripheral soft tissue density. No bony destruction is seen. There is partial opacification of right mastoid air cells. The middle ear ossicles are symmetric and unremarkable. There is no evidence of suspicious surroundi ng soft tissue density to suggest cholesteatoma. The scutum is preserved bilaterally. The cochlea and the semicircular canals are symmetric and unremarkable. No superior semicircular laya l dehiscence is seen. Vestibular aqueduct and internal carotid canal appear unremarkable. Temporomandibular joints are maintained bilaterally. There is moderate mucosal thickening with centra l secretions in the right maxillary sinus. There are scleral calcifications in the bilateral orbits. IMPRESSION: 1. Possible right-sided mastoiditis, correlate clinically. New narrowing of the right external audito ry canal due to peripheral enhancing soft tissue could reflect product of acute or chronic inflammati on. Correlate clinically. 2. Suspect acute on chronic right maxillary sinus disease. Correlate likely. [facility], , 12/02/2024 10:05 AM
== END | disposition home or self-care (01) ==
LOC: RADCTMAIN 09:38
PROVIDERS: ATTEND Otolaryngology
DX: H61.91 Disorder of right external ear, unspecified (principal)
CPT/HCPCS: 70480

== ENCOUNTER → 2025-03-05 | Outpatient (CLI) | payer MEDICARE ==
--- NOTE | 2025-03-05 14:15 | US ---
EXAMINATION TYPE: US kidneys/renal and bladder DATE OF EXAM: 03/05/2025 COMPARISON: CT 2022, US 2017 CLINICAL INDICATION: Male, 79 years old with history of N18.2 CKD; CKD TECHNIQUE: Grayscale imaging of the bilateral kidneys and urinary bladder: FINDINGS: EXAM MEASUREMENTS: Right Kidney: 11.7 x 5.6 x 4.7 cm Left Kidney: 12.2 x 5.2 x 5.8 cm Right Kidney: *Hypoechoic area seen lower: 1.3 x 1.3 x 0.9 cm. Left Kidney: *Hypoechoic area seen: 3.0 x 2.5 x 2.6 cm. Bladder: Posterior wall appears jagged/irregular. Bilateral Jets seen: Yes IMPRESSION: Posterior bladder wall mass concerning for malignancy until proven otherwise. Direct visualization an d tissue sampling recommended. [facility], , 03/05/2025 2:13 PM
== END | disposition home or self-care (01) ==
LOC: RADUSWWP 13:15
PROVIDERS: ATTEND Internal Medicine
DX: N18.2 Chronic kidney disease, stage 2 (mild) (principal); N32.89 Other specified disorders of bladder
CPT/HCPCS: 76770

== ENCOUNTER 2025-04-08 06:25 | Day surgery (SDC) | payer MEDICARE ==
[2025-04-08 07:25] LABS: Glucose,Whole Blood 139 mg/dL (70-110)
[2025-04-08] MEDS: SODIUM CHLORIDE 0.9% 1,000 ML in EMPTY BAG 1 BAG IV ONE (07:31)
[2025-04-08] MEDS: IV FLUID CONTINUATION 1,000 ML IV ONE (09:39)
[2025-04-08] MEDS: MIDAZOLAM 2 MG/2 ML VIAL IVP ONE (10:12)
[2025-04-08] MEDS: LIDOCAINE 1% INJ 10MG/ML (20 ML MDV) SQ ONE (10:15)
[2025-04-08] MEDS: FLUMAZENIL 0.1 MG/ML 5 ML VIAL IVP ONE (10:24)
[2025-04-08] MEDS: HEPARIN SODIUM,PORCINE 10,000 UNIT in SODIUM CHLORIDE 0.9% 1,000 ML IRRIGATION PRN (10:27)
[2025-04-08] MEDS: HEPARIN SODIUM,PORCINE (1 ML) 2,500 UNIT in SODIUM CHLORIDE 0.9% 250 ML IRRIGATION PRN (10:27)
[2025-04-08] MEDS: fentaNYL (PF) 50 MCG/ML 2 ML AMP IVP ONE (10:32)
[2025-04-08] MEDS: HEPARIN SODIUM 1,000 UN/ML (10ML VL) IV ONE (10:33)
[2025-04-08] MEDS: MORPHINE SULFATE 4 MG/ML SYRINGE IVP ONE (11:07)
[2025-04-08] MEDS: HEPARIN SODIUM 1,000 UN/ML (10ML VL) IVP ONE (11:11)
[2025-04-08] MEDS: CLOPIDOGREL 75 MG TAB PO ONE (11:12)
[2025-04-08] MEDS: NITROGLYCERIN 1000MCG/10ML SYRINGE INTRAARTER ONE (11:51)
[2025-04-08] MEDS: niCARdipine Syringe (1,000 mcg/10 mL) INTRAARTER ONE (11:51)
[2025-04-08] MEDS: IOPAMIDOL-370 100ML BTL INJ ONE (11:56)
--- NOTE | 2025-04-08 12:33 | IR ---
EXAMINATION TYPE: IR stent intravas non coronary DATE OF EXAM: 04/08/2025 12:16 PM COMPARISON: Pre Operative Images if available both CT/MRI or plain film CLINICAL INDICATION: Male, 79 years old with history of Rt leg pain, 28.1m/29DAP, lt gr sheath suture d in; TECHNIQUE: IR stent intravas non coronary, multiple fluoroscopic images provided for procedure. DAP: 28.1 mGym2 Gycm2 uGym2 cGycm2 or equivalent. FINDINGS: IMPRESSION: 1. Report was generated for administrative purposes only. 2. Please see the operative/procedural note for further details. [facility], , 04/08/2025 12:30 PM
[2025-04-08 13:01] LABS: Glucose,Whole Blood 143 mg/dL (70-110)
[2025-04-08 16:35] LABS: Glucose,Whole Blood 248 mg/dL (70-110)
[2025-04-08] MEDS: SODIUM CHLORIDE TAB 1 GM TAB PO SCH (16:55)
[2025-04-08] MEDS: amLODIPine 5 MG TAB PO SCH (17:43)
[2025-04-08] MEDS: QUEtiapine 50 MG TAB PO SCH (19:57)
[2025-04-08] MEDS: DIVALPROEX SPRINKLE 125 MG CAP.SPRINK PO SCH (19:57)
[2025-04-08 20:18] LABS: Glucose,Whole Blood 334 mg/dL (70-110)
[2025-04-08] MEDS ORDERED: DEXTROSE 50% SYRINGE 50 ML IVP PRN ×2 (20:52)
[2025-04-08] MEDS: INSULIN LISPRO (HumaLOG) 100 UNIT/ML 10 mL VL SQ ONE (21:06)
--- NOTE | 2025-04-08 22:24 | P.PCN ---
Date of Procedure: 04/08/25 Operative Findings: An arterial angiogram and percutaneous peripheral intervention Procedure performed An abdominal aortogram Bilateral lower extremities runoff Successful SQL SERVER DBA DEVELOPER of the right popliteal/SFA/PET STORE MERCHANDISER Adjunctive use of IVUS and atherectomy and lithotripsy balloon Ultrasound-guided access of the left common femoral artery Performing physician Jermain Aguirre MD Indication Bilateral lower extremities intermittent claudication with abnormal arterial duplex study Procedure performed After obtaining informed consent the patient was brought to the cardiac [employer]. The left common femoral artery was cannulated using micropuncture technique under ultrasound guidance the micropuncture wire passed easily then I placed a 6 [place] 11 cm sheath at the left common femoral artery. I did an abdominal aortogram and bilateral lower extremities runoff using a 5 [place] pigtail catheter which was initially placed at the level of the renal arteries and it was pulled into about the bifurcation of the aorta to right and left common iliac arteries. The procedure was completed with no complication After that I decided to intervene on the right lower extremity. Anticoagulation was initiated using heparin with continuous ACT monitoring. Subsequently I did go up and over using the 5 [place] rim catheter with the 035 stiff Glidewire. Subsequently the wire was advanced to the right SFA and then the sheath was advanced over the wire and the catheter to the right common femoral artery. After that I was able to cross the chronic total occlusion of the right SFA/popliteal and the wire was advanced to below the knee. That was in all 4 wire. IVUS was performed that showed a heavily calcified popliteal and right SFA and severe in-stent restenosis of the right SFA and also showed severe calcified lesion involving the right common femoral artery. I did atherectomy of the right popliteal using the CSI device and I did atherectomy of the right SFA using the Rota Drew device. Balloon angioplasty of the right popliteal was performed using 5 mm balloon and the right SFA using 6 mm balloon. Subsequently I stented the right popliteal using 6.0 x 100 mm Zilver PTX drug-coated stent which was postdilated using 5 mm balloon that I did drug-coated balloon for the right SFA. I did after that shockwave balloon of the right common femoral artery with balloon angioplasty using 7 mm drug-coated balloon. Final angiogram showed excellent angiographic results. After that I did IVUS of the left common femoral artery which showed an area of stenosis of only 46%. 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 Status post SQL SERVER DBA DEVELOPER of the right PET STORE MERCHANDISER/SFA/popliteal arteries Intermediate lesion involving the left common iliac artery but documented to be nonflow limiting by IVUS Postprocedure management Continue dual antiplatelet therapy SQL SERVER DBA DEVELOPER of the left SFA
[2025-04-09 05:57] LABS: Glucose,Whole Blood 105 mg/dL (70-110)
[2025-04-09] MEDS: INSULIN LISPRO (HumaLOG) 100 UNIT/ML 10 mL VL SQ SCH (06:07)
[2025-04-09] MEDS ORDERED: ASPIRIN 325 MG TAB PO PRN (07:00)
[2025-04-09 08:05] VITALS: BP 124/66; PULSE 94; RESP 16; TEMP 98.5
[2025-04-09] MEDS: PIOGLITAZONE 15 MG TAB PO SCH (08:11)
[2025-04-09] MEDS: FAMOTIDINE 20 MG TAB PO SCH (08:11)
[2025-04-09 09:10] LABS: African American GFR (CKD) 89 (>60 ml/min/1.73 sqM); Anion Gap 11 mmol/L; Blood Urea Nitrogen 22 mg/dL (9-20); Calcium 9.0 mg/dL (8.4-10.2); Carbon Dioxide 29 mmol/L (22-30); Chloride 90 mmol/L (98-107); Glucose 236 mg/dL (74-99); Non-African American GFR(CKD) 77 (>60 ml/min/1.73 sqM); Potassium 4.1 mmol/L (3.5-5.1); Sodium 130 mmol/L (137-145)
[2025-04-09] MEDS ORDERED: CLOPIDOGREL 75 MG TAB PO SCH (09:30)
--- NOTE | 2025-04-09 10:40 | P.DS ---
Providers Attending physician: Jermain Aguirre Primary care physician: [facility] Course: This is a 79-year-old male who underwent of the right popliteal/SFA/ENGINEERING RESEARCH MANAGER yesterday with Dr. Aguirre. Patient is doing well postprocedure with no immediate complications noted. The patient was deemed stable for discharge home today from a cardiac standpoint. Patient is to be continued on dual antiplatelet therapy with aspirin and Plavix for 12 months. Patient will eventually undergo BAKERY SUPERVISOR of the left SFA. Please see EMR for further hospital course details. Discharge diagnosis Peripheral arterial disease, status post BAKERY SUPERVISOR of right popliteal/SFA/ENGINEERING RESEARCH MANAGER Nurse practitioner note has been reviewed by physician. Signing provider agrees with the documented findings, assessment, and plan of care documented by RETAIL SALESWORKER as a scribe. Plan - Discharge Summary Discharge Rx Participant: No New Discharge Prescriptions: New Clopidogrel [Plavix] 75 mg PO DAILY #90 tab Continue Cholecalciferol [Vitamin D3 (25 Mcg = 1000 Iu)] 25 mcg PO HS Atorvastatin Calcium [Lipitor] 40 mg PO DAILY@12 Thiamine [Vitamin B-1] 250 mg PO HS Folic Acid 1 mg PO QAM amLODIPine [Norvasc] 5 mg PO QAM Ferrous Sulfate [Feosol] 325 mg PO DAILY@1600 QUEtiapine [SEROquel] 50 mg PO HS lisinopriL [Zestril] 2.5 mg PO QAM Divalproex Sodium [Depakote Sprinkle] 250 mg PO BID metFORMIN HCL [metFORMIN HCL ER] 500 mg PO BID Sodium Chloride Tab 1 gm PO QID Pioglitazone HCl 15 mg PO DAILY Ascorbic Acid [Vitamin C] 250 mg PO DAILY@1600 Magnesium Glycinate 300 mg PO QID Empagliflozin [Jardiance] 10 mg PO DAILY@12 Famotidine [Pepcid] 20 mg PO QAM Aspirin [Adult Low Dose Aspirin EC] 81 mg PO DAILY Discharge Medication List Cholecalciferol [Vitamin D3 (25 Mcg = 1000 Iu)] 25 mcg PO HS 12/03/14 [History] Atorvastatin Calcium [Lipitor] 40 mg PO DAILY@12 06/29/17 [History] Folic Acid 1 mg PO QAM 06/29/17 [History] Thiamine [Vitamin B-1] 250 mg PO HS 06/29/17 [History] amLODIPine [Norvasc] 5 mg PO QAM 07/10/17 [History] Ferrous Sulfate [Feosol] 325 mg PO DAILY@1600 01/25/18 [History] QUEtiapine [SEROquel] 50 mg PO HS 04/01/18 [History] lisinopriL [Zestril] 2.5 mg PO QAM 02/12/19 [History] Divalproex Sodium [Depakote Sprinkle] 250 mg PO BID 04/24/19 [History] Ascorbic Acid [Vitamin C] 250 mg PO DAILY@1600 09/06/23 [History] Empagliflozin [Jardiance] 10 mg PO DAILY@12 09/06/23 [History] Famotidine [Pepcid] 20 mg PO QAM 09/06/23 [History] Pioglitazone HCl 15 mg PO DAILY 09/06/23 [History] Sodium Chloride Tab 1 gm PO QID 09/06/23 [History] metFORMIN HCL [metFORMIN HCL ER] 500 mg PO BID 09/06/23 [History] Aspirin [Adult Low Dose Aspirin EC] 81 mg PO DAILY 12/19/23 [History] Magnesium Glycinate 300 mg PO QID 04/06/25 [History] Clopidogrel [Plavix] 75 mg PO DAILY #90 tab 04/09/25 [Rx] Follow up Appointment(s)/Referral(s): Jermain Aguirre MD [STAFF PHYSICIAN] - 1 Week (OFFICE WILL CALL PATIENT WITH A FOLLOW UP APPOINTMENT DATE/TIME. ) Discharge Disposition: HOME SELF-CARE
[2025-04-09] MEDS ORDERED: ATORVASTATIN 20 MG TAB PO SCH (12:00)
[2025-04-09] MEDS ORDERED: DAPAGLIFLOZIN PROPANEDIOL 5 MG TABLET PO SCH (12:00)
[2025-04-10] MEDS ORDERED: ASPIRIN 81 MG PO SCH (09:00)
== END 2025-04-09 10:08 | disposition home or self-care (01) ==
LOC: CATHCVL 06:25 → 3SCARD 12:00 → CATHCVL 04-09 10:08
PROVIDERS: ATTEND Internal Medicine Interventional Cardiology
DX: I70.213 Atherosclerosis of native arteries of extremities with intermittent claudication, bilateral legs (principal); I65.23 Occlusion and stenosis of bilateral carotid arteries; I10 Essential (primary) hypertension; E11.9 Type 2 diabetes mellitus without complications; E78.5 Hyperlipidemia, unspecified; Z72.0 Tobacco use; Z79.02 Long term (current) use of antithrombotics/antiplatelets; Z79.82 Long term (current) use of aspirin; Z79.84 Long term (current) use of oral hypoglycemic drugs; Z79.899 Other long term (current) drug therapy
CPT/HCPCS: 37227; 37252 ×2; 75625; 75716; 80048; C1894 ×3; C1769 ×5; C1714; C1725 ×3; C1753; C2623 ×2; C1874; C9767; C2628; J2250; J2270; J1644 ×3; J2003; J3010; Q9967; J2305